=== PATIENT | female | born 1995 | race Caucasian/White ===

== ENCOUNTER 2017-03-09 23:35 | Emergency (ER) | payer OTHER ==
[2017-03-10] MEDS ORDERED: diphenhydrAMINE 50 MG/ML 1 ML VIAL IVP STA (00:06)
[2017-03-10] MEDS ORDERED: SODIUM CHLORIDE 0.9% 1,000 ML IV STA (00:06)
[2017-03-10] MEDS ORDERED: KETOROLAC 30 MG/ML 1 ML VIAL IVP STA (00:06)
[2017-03-10] MEDS ORDERED: DEXAMETHASONE SOD PHOSPHATE 10 MG/ML 1 ML VIAL IV STA (00:06)
[2017-03-10] MEDS ORDERED: METOCLOPRAMIDE 5 MG/ML 2 ML VIAL IVP STA (00:06)
--- NOTE | 2017-03-10 00:19 | ED ---
General Adult HPI - General Chief complaint: Headache Stated complaint: Headache x3 weeks/eye irratation Time Seen by Provider: 03/09/17 23:58 Source: patient, RN notes reviewed Mode of arrival: ambulatory Limitations: no limitations - History of Present Illness Initial comments: Patient 21-year-old female who presents emergency room today with a chief complaint of a headache 3 weeks. She does admit to a headache located in front of her head that radiates to the back. She does admit that she's had similar headaches in the past but states the usually do not last this long. Does admit to some photosensitivity. Does admit some episodes of nausea vomiting. Patient also admits that she woke up this morning noticed some redness and itching with some drainage coming from the left eye. Patient denies any other complaints or associated symptoms. She states she's tried multiple [id number] medications with little relief of headache. Patient denies any recent fever, chills, shortness of breath, chest pain, back pain, abdominal pain, nausea or vomiting, numbness or tingling, dysuria or hematuria, constipation or diarrhea, or any other complaints. - Related Data Previous Rx's Medication Instructions Recorded Tobramycin 0.3% Ophth Soln [Tobrex 1 - 2 drop BOTH EYES QID 7 Days 03/10/17 0.3% Ophth Soln] Allergies Allergy/AdvReac Type Severity Reaction Status Date / Time aspirin Allergy Rash/Hives Verified 03/10/17 00:23 Review of Systems ROS Statement: Those systems with pertinent positive or pertinent negative responses have been documented in the HPI. ROS Other: All systems not noted in ROS Statement are negative. Past Medical History Past Medical History: No Reported History History of Any Multi-Drug Resistant Organisms: None Reported Past Surgical History: Adenoidectomy, Tonsillectomy Additional Past Surgical History / Comment(s): left ear Past Anesthesia/Blood Transfusion Reactions: No Reported Reaction Past Psychological History: Depression Smoking Status: Current every day smoker Past Alcohol Use History: Occasional Past Drug Use History: None Reported - Past Family History Mother Family Medical History: No Reported History Additional Family Medical History / Comment(s): bipolar General Exam - General Exam Comments Initial Comments: General: The patient is awake and alert, in no distress, and does not appear acutely ill. Eye: Pupils are equal, round and reactive to light, extra-ocular movements are intact. No nystagmus. Mild redness to the left conjunctiva. Watery discharge at this time. No signs of icterus. Ears, nose, mouth and throat: There are moist mucous membranes and no oral lesions. Neck: The neck is supple, there is no tenderness or JVD. Cardiovascular: There is a regular rate and rhythm. No murmur, rub or gallop is appreciated. Respiratory: Lungs are clear to auscultation, respirations are non-labored, breath sounds are equal. No wheezes, stridor, rales, or rhonchi. Gastrointestinal: Soft, non-distended, non-tender abdomen without masses or organomegaly noted. There is no rebound or guarding present. No CVA tenderness. Bowel sounds are unremarkable. Musculoskeletal: Normal ROM, no tenderness. Strength 5/5. Sensation intact. Pulses equal bilaterally 2+. Neurological: A&O x 3. CN II-XII intact, There are no obvious motor or sensory deficits. Coordination appears grossly intact. Speech is normal. Skin: Skin is warm and dry and no rashes or lesions are noted. Psychiatric: Cooperative, appropriate mood & affect, normal judgment. Limitations: no limitations Course Vital Signs 03/09/17 23:46 Temperature 98.4 F Pulse Rate 98 Respiratory 20 Rate Blood Pressure 153/98 O2 Sat by Pulse 98 Oximetry Medical Decision Making - Medical Decision Making Patient reexamined this time shows no signs of distress. She does admit that headache has improved here in emergency room. Patient will be discharged home. Patient will be started on antibiotic drops For conjunctivitis. Advised follow-up the family doctor over the next 2 days. She is advised to return if any symptoms increase or worsen or for any other concerns. Disposition Clinical Impression: Headache, Acute conjunctivitis Disposition: HOME SELF-CARE Condition: Good Instructions: Acute Headache (ED) Additional Instructions: Please use medication as discussed. Please follow-up with family doctor in the next 2 days of symptoms have not improved. Please return to emergency room if the symptoms increase or worsen or for any other concerns. Prescriptions: Tobramycin 0.3% Ophth Soln [Tobrex 0.3% Ophth Soln] 1 - 2 drop BOTH EYES QID 7 Days Time of Disposition: 00:58
[2017-03-10 01:12] VITALS: BP 126/77; PULSE 68; RESP 18; TEMP 97.5
== END 2017-03-10 01:14 | disposition home or self-care (01) ==
LOC: EC 23:35
DX: R51 Headache (principal); H10.32 Unspecified acute conjunctivitis, left eye; R11.2 Nausea with vomiting, unspecified; F17.200 Nicotine dependence, unspecified, uncomplicated; Z88.6 Allergy status to analgesic agent
CPT/HCPCS: 99283; 96374; 96375 ×3; 96361; J1200; J1100; J2765; J1885

== ENCOUNTER 2017-06-25 23:53 | Emergency (ER) | payer OTHER ==
--- NOTE | 2017-06-26 00:29 | ED ---
General Adult HPI - General Source: patient, family, RN notes reviewed Mode of arrival: wheelchair Limitations: no limitations <Ranjit Cobb - Last Filed: 06/26/17 00:25> <Alcon Houser - Last Filed: 06/26/17 02:22> - General Chief complaint: Extremity Injury, Lower Stated complaint: hip pain Time Seen by Provider: 06/26/17 00:15 - History of Present Illness Initial comments: Chief complaint history of present illness this is a 19-year-old female who just finished her shift of work and complains of pain to the right hip area. This been ongoing and getting progressively worse over the past several days. Patient reports proximally one year ago while on the job she had a large number of boxes a merchandise fall on her. She is out of work for several months but then return to work without any difficulties or problems for several months until now she started to have pain in the right hip area. She states it feels like it swells up some time. The pain radiates from the right buttock to the lateral aspect of the right leg down to the knee. (Ranjit Cobb) - Related Data Previous Rx's Medication Instructions Recorded Tobramycin 0.3% Ophth Soln [Tobrex 1 - 2 drop BOTH EYES QID 7 Days 03/10/17 0.3% Ophth Soln] HYDROcodone/APAP 5-325MG [[place] 1 tab PO Q6HR PRN #12 tab 06/26/17 5-325] Ibuprofen [Motrin] 600 mg PO Q8HR PRN #24 tab 06/26/17 Allergies Allergy/AdvReac Type Severity Reaction Status Date / Time aspirin Allergy Rash/Hives Verified 03/10/17 00:23 Review of Systems ROS Other: All systems not noted in ROS Statement are negative. <Ranjit Cobb - Last Filed: 06/26/17 00:25> ROS Other: All systems not noted in ROS Statement are negative. <Alcon Houser - Last Filed: 06/26/17 02:22> ROS Statement: Those systems with pertinent positive or pertinent negative responses have been documented in the HPI. review of systems no other complaints other than as noted above. All systems are reviewed. Past medical problems none. Surgeries adenoids tonsils and left ear surgery on the lobe. Family history cancers include breast, lung, liver and skin. The patient has ALLERGIES to aspirin but she can take ibuprofen. She does smoke strongly encouraged to stop denies alcohol use. (Ranjit Cobb) Past Medical History Past Medical History: No Reported History History of Any Multi-Drug Resistant Organisms: None Reported Past Surgical History: Adenoidectomy, Tonsillectomy Additional Past Surgical History / Comment(s): left ear Past Anesthesia/Blood Transfusion Reactions: No Reported Reaction Past Psychological History: Depression Smoking Status: Current every day smoker Past Alcohol Use History: Occasional Past Drug Use History: None Reported - Past Family History Mother Family Medical History: No Reported History Additional Family Medical History / Comment(s): bipolar <Ranjit Cobb - Last Filed: 06/26/17 00:25> General Exam Limitations: no limitations <Ranjit Cobb - Last Filed: 06/26/17 00:25> Medical Decision Making <Ranjit Cobb - Last Filed: 06/26/17 00:25> <Alcon Houser - Last Filed: 06/26/17 02:22> - Medical Decision Making Patient was signed out from the previous physician. Complaints of right lateral hip pain. On examination patient has point tenderness over the lateral hip. Range of motion to the joint is within normal limits. Patient is afebrile , vital signs are stable. No history of fever. No concern for septic arthritis. Patient will be given a prescription for Motrin and [place]. She'll follow-up with her primary care physician. Diagnosis: Right hip bursitis (Alcon Houser) - Lab Data Lab Results 06/26/17 Range/Units 00:35 Urine HCG, Qual Not Detected (Not Detectd) Disposition <Ranjit Cobb - Last Filed: 06/26/17 00:25> Time of Disposition: 02:21 <Alcno Houser - Last Filed: 06/26/17 02:22> Clinical Impression: Bursitis of hip, right Disposition: HOME SELF-CARE Condition: Good Instructions: Hip Bursitis (ED) Prescriptions: HYDROcodone/APAP 5-325MG [[place] 5-325] 1 tab PO Q6HR PRN #12 tab PRN Reason: Pain Ibuprofen [Motrin] 600 mg PO Q8HR PRN #24 tab PRN Reason: Pain Referrals: None,Stated [Primary Care Provider] - 1-2 days
--- NOTE | 2017-06-26 01:28 | XR ---
EXAM: XR Right Hip With Pelvis When Performed, 2 or 3 Views CLINICAL HISTORY: Reason: Pain TECHNIQUE: Two or three views of the right hip, with pelvis when performed. COMPARISON: 06/21/2016 FINDINGS: Bones/joints: Unremarkable. No acute fracture. No dislocation. Soft tissues: Unremarkable. IMPRESSION: Normal right hip x-rays.
--- NOTE | 2017-06-26 01:39 | XR ---
EXAM: XR Lumbar Spine, 4 or 5 Views CLINICAL HISTORY: Reason: right sciatic distribution pain TECHNIQUE: Frontal, lateral and oblique views of the lumbar spine. COMPARISON: 06/21/2016 FINDINGS: Vertebrae: Unremarkable. No acute fracture. Normal alignment. Disc spaces: Mild narrowing of the L4-L5 intervertebral disc space is suggested. Soft tissues: Unremarkable. IMPRESSION: Mild narrowing of the L4-L5 intervertebral disc space is suggested. No evidence of acute osseous injury.
[2017-06-26 02:40] VITALS: BP 135/75; PULSE 68; RESP 20; TEMP 98.6
== END 2017-06-26 02:39 | disposition home or self-care (01) ==
LOC: EC 23:53
DX: M70.71 Other bursitis of hip, right hip (principal); F17.200 Nicotine dependence, unspecified, uncomplicated; Z88.6 Allergy status to analgesic agent
CPT/HCPCS: 72110; 73502; 81025; 99283

== ENCOUNTER → 2017-08-13 | Outpatient (CLI) | payer OTHER ==
--- NOTE | 2017-08-13 22:12 | MR ---
EXAMINATION TYPE: MR lumbar spine wo con DATE OF EXAM: 08/13/2017 8:28 PM COMPARISON: NONE HISTORY: Dorsalgia Multiplanar, MultiSpin echo imaging of the lumbar spine was performed. L1-L2: Normal disc appearance without desiccation. No herniation, protrusion or disc bulging. No ca nal stenosis is present. Foramina are patent bilaterally. L2-L3: Normal disc appearance without desiccation. No herniation, protrusion or disc bulging. No ca nal stenosis is present. Foramina are patent bilaterally. L3-L4: Normal disc appearance without desiccation. No herniation, protrusion or disc bulging. No ca nal stenosis is present. Foramina are patent bilaterally. L4-L5: Moderate disc desiccation. Posterior disc bulge with annular tear. Mild effacement ventral the faisal sac. No evidence for lateral recess stenosis or central stenosis. Foramina are patent bilaterally . L5-S1: Normal disc appearance without desiccation. No herniation, protrusion or disc bulging. No ca nal stenosis is present. Foramina are patent bilaterally. Lumbar segments are intact. No paraspinal masses are identified. Conus medullaris has a normal appe arance. IMPRESSION: 1. Degenerative disc disease at L4-5 with posterior disc bulge and annular tear.
--- NOTE | 2017-08-16 07:53 | MR ---
EXAMINATION TYPE: MR hip RT wo con DATE OF EXAM: 08/13/2017 COMPARISON: NONE HISTORY: Right hip pain Standard multiplanar, multisequence MRI departmental protocol Multiplanar, multisequence images of the right hip were acquired. Diffusion weighted imaging was perf ormed. FINDINGS: There is normal bone marrow signal identified. I do not see evidence for fracture, bone contusion or avascular necrosis. There is no evidence for joint effusion this time. No soft tissue masses are seen. No evidence for intramuscular contusion or tear. No evidence for labral tear or femoral acetabular impingement. Incidental small follicular cysts are seen of the ovaries. IMPRESSION: No significant abnormality attributable to the right hip.
== END | disposition home or self-care (01) ==
LOC: RADMRIMAIN 19:24
PROVIDERS: ATTEND Family Medicine
DX: M51.26 Other intervertebral disc displacement, lumbar region (principal); M25.551 Pain in right hip
CPT/HCPCS: 72148

== ENCOUNTER 2017-11-02 12:27 | Emergency (ER) | payer OTHER ==
--- NOTE | 2017-11-02 13:08 | ED ---
General Adult HPI - General Chief complaint: Upper Respiratory Infection Stated complaint: cough/congestion Time Seen by Provider: 11/02/17 12:54 Source: patient, RN notes reviewed Mode of arrival: ambulatory Limitations: no limitations - History of Present Illness Initial comments: 22-year-old female presents emergency 5 chief complaint of cough cold like symptoms. She states she's been feeling this way for about 3 days. She states she's had high fevers. She states she's had some nausea with this. She states there is she coughs she gets some low back pain as well. She isn't changed by bladder habits. Patient was concerned due to the continued coughing so she thought that she should be evaluated. Patient denies any recent shortness of breath, chest pain, abdominal pain, vomiting, numbness or tingling, dysuria or hematuria, constipation or diarrhea, headaches or visual changes, or any other current symptoms. - Related Data Home Medications Medication Instructions Recorded Confirmed HYDROcodone/APAP 7.5-325MG [[place] 1 tab PO Q6H PRN 11/02/17 11/02/17 7.5-325] Ibuprofen [Motrin] 800 mg PO Q6H PRN 11/02/17 11/02/17 Allergies Allergy/AdvReac Type Severity Reaction Status Date / Time aspirin Allergy Rash/Hives Verified 11/02/17 13:16 tramadol Allergy Rash/Hives Verified 11/02/17 13:16 Review of Systems ROS Statement: Those systems with pertinent positive or pertinent negative responses have been documented in the HPI. ROS Other: All systems not noted in ROS Statement are negative. Past Medical History Past Medical History: No Reported History History of Any Multi-Drug Resistant Organisms: None Reported Past Surgical History: Adenoidectomy, Tonsillectomy Additional Past Surgical History / Comment(s): left ear Past Anesthesia/Blood Transfusion Reactions: No Reported Reaction Past Psychological History: Depression Smoking Status: Current every day smoker Past Alcohol Use History: None Reported Past Drug Use History: None Reported - Past Family History Mother Family Medical History: No Reported History Additional Family Medical History / Comment(s): bipolar General Exam - General Exam Comments Initial Comments: General exam: Alert, active, comfortable in no apparent distress Head: Normocephalic Eyes: Normal reaction of pupils, equal size, normal range of extraocular motion Ears: normal external ear canals Nose: clear with pink turbinates Throat: no erythema or exudates with normal sized tonsils Neck: no masses, no nuchal rigidity Chest: no chest wall deformity Lungs: equal air entry with no crackles or wheeze CVS: S1 and S2 normal with no audible mumurs, regular rhythm Skin: no rashes Neurological: No focal deficits, tone is normal in all 4 extremities Limitations: no limitations Course Vital Signs 11/02/17 12:43 Temperature 100.3 F H Pulse Rate 93 Respiratory 20 Rate Blood Pressure 146/76 O2 Sat by Pulse 99 Oximetry Medical Decision Making - Medical Decision Making 22-year-old female presents to the emergency Department chief complaint of cough cold like symptoms. This time patient was tested for influenza as well as an x-ray was performed. At this time patient's imaging and results are reviewed and negative. We discussed follow-up we discussed return parameters all the patient's family's questions. They stated the Mathew management this plan. All questions have been answered. At this time the patient will be discharged home. - Lab Data Lab Results 11/02/17 Range/Units 13:15 Influenza Type A RNA Not Detected (Not Detectd) Influenza Type B (PCR) Not Detected (Not Detectd) - Radiology Data Radiology results: report reviewed, image reviewed Disposition Clinical Impression: Upper respiratory infection Disposition: HOME SELF-CARE Condition: Stable Instructions: Upper Respiratory Infection (ED) Additional Instructions: Please use medication as discussed. Please follow up with family doctor if symptoms have not improved over the next two days. Please return to the emergency room if your symptoms increase or worsen or for any other concerns. Referrals: Spencer Schumacher MD [Primary Care Provider] - 1-2 days Time of Disposition: 13:45
--- NOTE | 2017-11-02 13:18 | XR ---
EXAMINATION TYPE: XR chest 2V DATE OF EXAM: 11/02/2017 COMPARISON: None HISTORY: 22-year-old female with cough and shortness of breath TECHNIQUE: PA and lateral views FINDINGS: The cardiomediastinal silhouette, aorta, and pulmonary vasculature are within normal limits. Lungs an d pleural spaces are clear. IMPRESSION: No acute cardiopulmonary process.
[2017-11-02 13:52] VITALS: BP 153/92; PULSE 72; RESP 18; TEMP 97.6
== END 2017-11-02 13:55 | disposition home or self-care (01) ==
LOC: EC 12:27
DX: J06.9 Acute upper respiratory infection, unspecified (principal); R11.0 Nausea; Z88.6 Allergy status to analgesic agent; F17.200 Nicotine dependence, unspecified, uncomplicated
CPT/HCPCS: 71020; 87502; 99283

== ENCOUNTER 2018-01-16 19:52 | Emergency (ER) | payer OTHER ==
[2018-01-16 20:00] VITALS: RESP 18
[2018-01-16] MEDS ORDERED: ACETAMINOPHEN TAB 325 MG TAB PO STA (20:25)
[2018-01-16] MEDS ORDERED: ONDANSETRON 4 MG/2 ML VIAL IVP STA (20:25)
[2018-01-16] MEDS ORDERED: SODIUM CHLORIDE 0.9% 1,000 ML IV STA (20:25)
--- NOTE | 2018-01-16 20:32 | ED ---
Abdominal Pain HPI - General Chief Complaint: Abdominal Pain Stated Complaint: SOB/abdominal pain/Female Time Seen by Provider: 01/16/18 20:02 Source: patient Mode of arrival: ambulatory Limitations: no limitations - History of Present Illness Initial Comments: Patient presents with nausea and vomiting for the past one month. Patient states last initial period was in October of last year. Patient states she took a home test was negative. Patient states she's had intermittent mild bilateral lower abdominal cramping. Patient states vomiting occurs anything she smelled something bad. Patient denies fevers. She denies change in urination. Patient denies vaginal bleeding or discharge. Patient denies constipation or diarrhea. Patient been once before, resulting in live of her son. - Related Data Home Medications Medication Instructions Recorded Confirmed HYDROcodone/APAP 7.5-325MG [[place] 1 tab PO Q6H PRN 11/02/17 01/16/18 7.5-325] Ibuprofen [Motrin] 800 mg PO Q6H PRN 11/02/17 01/16/18 Previous Rx's Medication Instructions Recorded 114/Iron A-G/Folate 1 1 each PO DAILY #30 tablet 01/16/18 [Prenate Elite Tablet] Allergies Allergy/AdvReac Type Severity Reaction Status Date / Time aspirin Allergy Rash/Hives Verified 01/16/18 20:15 tramadol Allergy Rash/Hives Verified 01/16/18 20:15 Review of Systems ROS Statement: Those systems with pertinent positive or pertinent negative responses have been documented in the HPI. ROS Other: All systems not noted in ROS Statement are negative. Constitutional: Denies: fever, chills, weakness Eyes: Denies: vision change ENT: Denies: congestion Respiratory: Denies: cough Cardiovascular: Denies: chest pain, palpitations Endocrine: Denies: fatigue Gastrointestinal: Reports: abdominal pain, nausea, vomiting. Denies: diarrhea, constipation, hematemesis, melena, hematochezia Genitourinary: Denies: urgency, dysuria, frequency, hematuria, discharge Musculoskeletal: Denies: back pain Skin: Denies: rash, change in color Neurological: Denies: headache Past Medical History Past Medical History: No Reported History History of Any Multi-Drug Resistant Organisms: None Reported Past Surgical History: Adenoidectomy, Tonsillectomy Additional Past Surgical History / Comment(s): left ear Past Anesthesia/Blood Transfusion Reactions: No Reported Reaction Past Psychological History: Depression Smoking Status: Former smoker Past Alcohol Use History: None Reported Past Drug Use History: None Reported - Past Family History Mother Family Medical History: No Reported History Additional Family Medical History / Comment(s): bipolar General Exam - General Exam Comments Initial Comments: Sitting up in bed. No acute distress. Conversing normally. Calm, pleasant. Limitations: no limitations General appearance: alert, in no apparent distress Head exam: Absent: atraumatic, normocephalic Eye exam: Present: normal appearance. Absent: PERRL, EOMI ENT exam: Present: mucous membranes moist Neck exam: Present: normal inspection Respiratory exam: Present: normal lung sounds bilaterally. Absent: respiratory distress, wheezes, rales, rhonchi Cardiovascular Exam: Present: normal rhythm, tachycardia GI/Abdominal exam: Present: soft, tenderness (Mild tenderness across lower abdomen), normal bowel sounds. Absent: distended, guarding, rebound, rigid Extremities exam: Present: other (No gross deformities. No lower extremity edema or tenderness.) Back exam: Absent: CVA tenderness (R), CVA tenderness (L) Neurological exam: Present: alert, oriented X3 Psychiatric exam: Present: normal affect, normal mood Skin exam: Present: warm, dry, intact, normal color. Absent: rash, cyanosis, diaphoretic, erythema Course Vital Signs 01/16/18 19:56 Temperature 98.2 F Pulse Rate 112 H Respiratory 18 Rate Blood Pressure 139/85 O2 Sat by Pulse 100 Oximetry Medical Decision Making - Medical Decision Making Patient states she thinks she is probably . Serum hCG ordered. IV fluids, Zofran given. Serum test positive Ultrasound shows single live intrauterine estimated age 13 weeks 0 days. Patient updated with all results. Asymptomatic at this time. Denies vaginal bleeding or discharge. Patient follow-up with her OB doctor tomorrow. Prescription vitamins given. Return to ER if new or worsening symptoms including increased abdominal pain, vaginal bleeding, vaginal discharge. Patient understands and agrees. - Lab Data Result diagrams: 01/16/18 21:11 01/16/18 21:11 Lab Results 01/16/18 01/16/18 01/16/18 Range/Units 21:11 21:11 21:11 WBC 8.4 (3.8-10.6) k/uL RBC 4.45 (3.80-5.40) m/uL Hgb 12.7 (11.4-16.0) gm/dL Hct 37.6 (34.0-46.0) % MCV 84.6 (80.0-100.0) fL MCH 28.6 (25.0-35.0) pg MCHC 33.8 (31.0-37.0) g/dL RDW 12.6 (11.5-15.5) % Plt Count 220 (150-450) k/uL Neutrophils % 71 % Lymphocytes % 21 % Monocytes % 6 % Eosinophils % 1 % Basophils % 0 % Neutrophils # 5.9 (1.3-7.7) k/uL Lymphocytes # 1.8 (1.0-4.8) k/uL Monocytes # 0.5 (0-1.0) k/uL Eosinophils # 0.1 (0-0.7) k/uL Basophils # 0.0 (0-0.2) k/uL Sodium 140 (137-145) mmol/L Potassium 4.0 (3.5-5.1) mmol/L Chloride 106 (98-107) mmol/L Carbon Dioxide 23 (22-30) mmol/L Anion Gap 11 mmol/L BUN 6 L (7-17) mg/dL Creatinine 0.50 L (0.52-1.04) mg/dL Est GFR (CKD-EPI)AfAm >90 (>60 ml/min/1.73 sqM) Est GFR (CKD-EPI)NonAf >90 (>60 ml/min/1.73 sqM) Glucose 91 (74-99) mg/dL Calcium 9.7 (8.4-10.2) mg/dL Total Bilirubin 0.3 (0.2-1.3) mg/dL Conjugated Bilirubin 0.0 (0.0-0.3) mg/dL Unconjugated Bilirubin 0.0 (0.0-1.1) mg/dL Delta Bilirubin 0.3 H (0.0-0.2) mg/dL AST 19 (14-36) U/L ALT 22 (9-52) U/L Alkaline Phosphatase 43 (38-126) U/L Total Protein 6.5 (6.3-8.2) g/dL Albumin 4.0 (3.5-5.0) g/dL Lipase 143 (23-300) U/L HCG, Quant 02330.8 mIU/mL Urine Color Yellow Urine Appearance Clear (Clear) Urine pH 6.0 (5.0-8.0) Ur Specific [place] 1.018 (1.001-1.035) Urine Protein Trace H (Negative) Urine Glucose (UA) Negative (Negative) Urine Ketones Negative (Negative) Urine Blood Negative (Negative) Urine Nitrite Negative (Negative) Urine Bilirubin Negative (Negative) Urine Urobilinogen <2.0 (<2.0) mg/dL Ur Leukocyte Esterase Small H (Negative) Urine WBC 5 (0-5) /hpf Ur Squamous Epith Cells 4 (0-4) /hpf Urine Mucus Occasional H (None) /hpf Disposition Clinical Impression: Abdominal pain affecting Disposition: HOME SELF-CARE Condition: Good Instructions: Abdominal Pain in (ED) Additional Instructions: Call your OB doctor in the morning for follow-up within 1-2 days. Return to ER for new or worsening symptoms including vaginal bleeding, vaginal discharge, increased pain. Prescriptions: 114/Iron A-G/Folate 1 [Prenate Elite Tablet] 1 each PO DAILY #30 tablet Referrals: Spencer Schumacher MD [Primary Care Provider] - 1-2 days
[2018-01-16 21:25] LABS: Basophils % (A) 0 %; Eosinophils # (A) 0.1 k/uL (0-0.7); Eosinophils % (A) 1 %; HCT 37.6 % (34.0-46.0); HGB 12.7 gm/dL (11.4-16.0); Lymphocytes # (A) 1.8 k/uL (1.0-4.8); Lymphocytes % (A) 21 %; MCH 28.6 pg (25.0-35.0); MCHC 33.8 g/dL (31.0-37.0); MCV 84.6 fL (80.0-100.0); Mean Platelet Volume 8.7; Monocytes # (A) 0.5 k/uL (0-1.0); Monocytes % (A) 6 %; Neutrophils # (A) 5.9 k/uL (1.3-7.7); Neutrophils % (A) 71 %; Platelet Count 220 k/uL (150-450); RBC 4.45 m/uL (3.80-5.40); RDW 12.6 % (11.5-15.5); WBC 8.4 k/uL (3.8-10.6)
[2018-01-16 21:29] LABS: Appearance,Urine Clear (Clear); Bilirubin,Urine Negative (Negative); Blood,Urine Negative (Negative); Color,Urine Yellow; Glucose,Urine (UA) Negative (Negative); Ketones,Urine Negative (Negative); Leukocyte Esterase,Urine Small (Negative); Mucus,Urine Occasional /hpf; Nitrite,Urine Negative (Negative); Protein,Urine Trace (Negative); Specific Gravity,Urine 1.018 (1.001-1.035); Squamous Epithelial Cell,Urine 4 /hpf (0-4); Urobilinogen,Urine <2.0 mg/dL (<2.0); WBC,Urine 5 /hpf (0-5)
[2018-01-16 21:33] LABS: ALT 22 U/L (9-52); AST 19 U/L (14-36); Alkaline Phosphatase 43 U/L (38-126); Anion Gap 11 mmol/L; Bilirubin, Delta 0.3 mg/dL (0.0-0.2); Blood Urea Nitrogen 6 mg/dL (7-17); Calcium 9.7 mg/dL (8.4-10.2); Carbon Dioxide 23 mmol/L (22-30); Chloride 106 mmol/L (98-107); Glucose 91 mg/dL (74-99); Lipase 143 U/L (23-300); Sodium 140 mmol/L (137-145); Total Bilirubin 0.3 mg/dL (0.2-1.3); Total Protein 6.5 g/dL (6.3-8.2)
--- NOTE | 2018-01-16 22:08 | US ---
EXAMINATION TYPE: US OB <= 14 wk fetus DATE OF EXAM: 01/16/2018 COMPARISON: NONE CLINICAL HISTORY: Pain. N/V, LMP- end october EXAM PERFORMED: Transabdominal pelvic ultrasound. EXAM MEASUREMENTS: GESTATIONAL AGE / DATING Dates by LMP: Unknown Dates by Current Scan for: (13 weeks/0 days) EDC: 07/24/2018 MATERNAL ANATOMY Uterus: 11.6 x 10.2 x 7.9 cm Right Ovary: 3.1 x 2.3 x 1.4 cm Left Ovary: 2.8 x 1.7 x 1.8 cm Post CDS / Adnexa: no free fluid Presence of free fluid: no Presence of corpus luteal cyst: left ovarian hypoechoic nonvascular lesion - 1.2 x 1.4 x 1.3 cm Presence of subchorionic bleed: no GESTATION / SURVEY CRL: 6.8 cm (13 weeks/0 days) MSD: Seen, not measured Heart Rate: 155 bpm Rhythm: Normal IUP: Viable IUP Date of LMP: Unknown, Beta HcG (if available): Not available at this time Single live IUP measuring 13 weeks 0 days IMPRESSION: Single live intrauterine with a sonographic age of 13 weeks and 0 days and estimated date o f delivery of 07/24/2018.
[2018-01-16 22:24] LABS: HCG,Quantitative Serum 71294.8 mIU/mL
[2018-01-16 23:02] VITALS: BP 130/60; PULSE 75; TEMP 97.9
== END 2018-01-16 23:02 | disposition home or self-care (01) ==
LOC: EC 19:52
DX: O99.89 Other specified diseases and conditions complicating pregnancy, childbirth and the puerperium (principal); R10.31 Right lower quadrant pain; R10.32 Left lower quadrant pain; O21.9 Vomiting of pregnancy, unspecified; Z88.6 Allergy status to analgesic agent; Z87.891 Personal history of nicotine dependence; Z3A.13 13 weeks gestation of pregnancy
CPT/HCPCS: 99284; 96374; 36415; 80048; 80076; 83690; 85025; 81001; 84702; 87086; 76801; J2405

== ENCOUNTER 2018-02-01 11:57 | Emergency (ER) | payer OTHER ==
[2018-02-01 12:49] LABS: Basophils % (A) 0 %; Eosinophils # (A) 0.1 k/uL (0-0.7); Eosinophils % (A) 1 %; HCT 34.4 % (34.0-46.0); HGB 12.4 gm/dL (11.4-16.0); Lymphocytes # (A) 1.3 k/uL (1.0-4.8); Lymphocytes % (A) 22 %; MCH 29.9 pg (25.0-35.0); Mean Platelet Volume 8.2; Monocytes # (A) 0.2 k/uL (0-1.0); Monocytes % (A) 4 %; Neutrophils # (A) 4.4 k/uL (1.3-7.7); Neutrophils % (A) 72 %; Platelet Count 211 k/uL (150-450); RBC 4.14 m/uL (3.80-5.40); WBC 6.1 k/uL (3.8-10.6)
[2018-02-01 12:50] LABS: Appearance,Urine Cloudy (Clear); Bilirubin,Urine Negative (Negative); Blood,Urine Negative (Negative); Color,Urine Yellow; Glucose,Urine (UA) Negative (Negative); Ketones,Urine Negative (Negative); Leukocyte Esterase,Urine Negative (Negative); Mucus,Urine Rare /hpf; Nitrite,Urine Negative (Negative); Protein,Urine Negative (Negative); RBC,Urine 1 /hpf (0-5); Specific Gravity,Urine 1.012 (1.001-1.035); Squamous Epithelial Cell,Urine 1 /hpf (0-4); Urobilinogen,Urine <2.0 mg/dL (<2.0); WBC,Urine 2 /hpf (0-5)
[2018-02-01] MEDS ORDERED: ACETAMINOPHEN TAB 500 MG TAB PO STA (13:01)
--- NOTE | 2018-02-01 13:04 | ED ---
General Adult HPI - General Chief complaint: Abdominal Pain Stated complaint: 15 wks & cramping Time Seen by Provider: 02/01/18 12:56 Source: patient, RN notes reviewed, old records reviewed Mode of arrival: ambulatory Limitations: no limitations - History of Present Illness Initial comments: Patient 22-year-old female who is G2, P1, 15 weeks by ultrasound, presenting to the emergency room today with lower abdominal cramping. Patient states symptoms started yesterday. Patient states she has not taken any Tylenol for the pain. Patient does admit she was seen here in the emergency room 2 weeks ago had an ultrasound showing good syndrome IUP at 13 weeks. Patient denies any vaginal bleeding or discharge. Denies any other complaints or symptoms. Patient denies any recent fever, chills, shortness of breath, chest pain, back pain, nausea or vomiting, numbness or tingling, headaches or visual changes, or any other complaints. - Related Data Home Medications Medication Instructions Recorded Confirmed HYDROcodone/APAP 7.5-325MG [Kyle 1 tab PO Q6H PRN 11/02/17 02/01/18 7.5-325] Ibuprofen [Motrin] 800 mg PO Q6H PRN 11/02/17 02/01/18 114/Iron A-G/Folate 1 1 tab PO DAILY 02/01/18 02/01/18 [Prenate Elite Tablet] Allergies Allergy/AdvReac Type Severity Reaction Status Date / Time aspirin Allergy Rash/Hives Verified 02/01/18 13:05 tramadol Allergy Rash/Hives Verified 02/01/18 13:05 Review of Systems ROS Statement: Those systems with pertinent positive or pertinent negative responses have been documented in the HPI. ROS Other: All systems not noted in ROS Statement are negative. Past Medical History Past Medical History: No Reported History History of Any Multi-Drug Resistant Organisms: None Reported Past Surgical History: Adenoidectomy, Tonsillectomy Additional Past Surgical History / Comment(s): left ear Past Anesthesia/Blood Transfusion Reactions: No Reported Reaction Past Psychological History: Depression Smoking Status: Current some day smoker Past Alcohol Use History: None Reported Past Drug Use History: None Reported - Past Family History Mother Family Medical History: No Reported History Additional Family Medical History / Comment(s): bipolar General Exam - General Exam Comments Initial Comments: General: The patient is awake and alert, in no distress, and does not appear acutely ill. Eye: Pupils are equal, round and reactive to light, extra-ocular movements are intact. No nystagmus. There is normal conjunctiva bilaterally. No signs of icterus. Ears, nose, mouth and throat: There are moist mucous membranes and no oral lesions. Neck: The neck is supple, there is no tenderness or JVD. Cardiovascular: There is a regular rate and rhythm. No murmur, rub or gallop is appreciated. Respiratory: Lungs are clear to auscultation, respirations are non-labored, breath sounds are equal. No wheezes, stridor, rales, or rhonchi. Gastrointestinal: Is also on palpation. Mild tenderness lower quadrants on exam. No rebound tenderness. No guarding. No CVA tenderness. Musculoskeletal: Normal ROM, no tenderness. Strength 5/5. Sensation intact. Pulses equal bilaterally 2+. Neurological: A&O x 3. CN II-XII intact, There are no obvious motor or sensory deficits. Coordination appears grossly intact. Speech is normal. Skin: Skin is warm and dry and no rashes or lesions are noted. Psychiatric: Cooperative, appropriate mood & affect, normal judgment. Limitations: no limitations Course Vital Signs 02/01/18 12:19 Temperature 97.9 F Pulse Rate 83 Respiratory 18 Rate Blood Pressure 150/84 O2 Sat by Pulse 99 Oximetry Medical Decision Making - Medical Decision Making Patient reexamined at this time shows no signs of distress. Patient was given Tylenol here in the emergency room is feeling better. Cramping is improving. There is no bleeding or discharge. Patient on 01/16/2018 had a ultrasound showing single IUP at 13 weeks. Patient doing well at this time. Abdomen soft on palpation. Patient feels comfortable being discharged home to follow-up with [facility]. She states she has to see Dr. Heath. - Lab Data Result diagrams: 02/01/18 12:37 02/01/18 12:37 Lab Results 02/01/18 02/01/18 02/01/18 Range/Units 12:22 12:37 12:37 WBC 6.1 (3.8-10.6) k/uL RBC 4.14 (3.80-5.40) m/uL Hgb 12.4 (11.4-16.0) gm/dL Hct 34.4 (34.0-46.0) % MCV 83.0 (80.0-100.0) fL MCH 29.9 (25.0-35.0) pg MCHC 36.0 (31.0-37.0) g/dL RDW 13.0 (11.5-15.5) % Plt Count 211 (150-450) k/uL Neutrophils % 72 % Lymphocytes % 22 % Monocytes % 4 % Eosinophils % 1 % Basophils % 0 % Neutrophils # 4.4 (1.3-7.7) k/uL Lymphocytes # 1.3 (1.0-4.8) k/uL Monocytes # 0.2 (0-1.0) k/uL Eosinophils # 0.1 (0-0.7) k/uL Basophils # 0.0 (0-0.2) k/uL Sodium 138 (137-145) mmol/L Potassium 4.1 (3.5-5.1) mmol/L Chloride 105 (98-107) mmol/L Carbon Dioxide 21 L (22-30) mmol/L Anion Gap 12 mmol/L BUN 6 L (7-17) mg/dL Creatinine 0.46 L (0.52-1.04) mg/dL Est GFR (CKD-EPI)AfAm >90 (>60 ml/min/1.73 sqM) Est GFR (CKD-EPI)NonAf >90 (>60 ml/min/1.73 sqM) Glucose 81 (74-99) mg/dL Calcium 9.9 (8.4-10.2) mg/dL Total Bilirubin 0.4 (0.2-1.3) mg/dL AST 15 (14-36) U/L ALT 12 (9-52) U/L Alkaline Phosphatase 43 (38-126) U/L Total Protein 6.5 (6.3-8.2) g/dL Albumin 3.9 (3.5-5.0) g/dL Amylase 56 (30-110) U/L Lipase 87 (23-300) U/L Urine Color Yellow Urine Appearance Cloudy H (Clear) Urine pH 8.0 (5.0-8.0) Ur Specific Huntly 1.012 (1.001-1.035) Urine Protein Negative (Negative) Urine Glucose (UA) Negative (Negative) Urine Ketones Negative (Negative) Urine Blood Negative (Negative) Urine Nitrite Negative (Negative) Urine Bilirubin Negative (Negative) Urine Urobilinogen <2.0 (<2.0) mg/dL Ur Leukocyte Esterase Negative (Negative) Urine RBC 1 (0-5) /hpf Urine WBC 2 (0-5) /hpf Ur Squamous Epith Cells 1 (0-4) /hpf Urine Mucus Rare H (None) /hpf Disposition Clinical Impression: Abdominal pain in Disposition: HOME SELF-CARE Condition: Good Instructions: Abdominal Pain in (ED) Additional Instructions: Please use Tylenol for pain as needed. Please follow-up with [facility]/family doctor in the next 2 days of symptoms have not improved. Please return to emergency room if the symptoms increase or worsen or for any other concerns. Referrals: Spencer Schumacher MD [Primary Care Provider] - 1-2 days Time of Disposition: 13:34
[2018-02-01 13:10] LABS: ALT 12 U/L (9-52); AST 15 U/L (14-36); Albumin 3.9 g/dL (3.5-5.0); Alkaline Phosphatase 43 U/L (38-126); Amylase 56 U/L (30-110); Anion Gap 12 mmol/L; Blood Urea Nitrogen 6 mg/dL (7-17); Calcium 9.9 mg/dL (8.4-10.2); Carbon Dioxide 21 mmol/L (22-30); Chloride 105 mmol/L (98-107); Glucose 81 mg/dL (74-99); Lipase 87 U/L (23-300); Potassium 4.1 mmol/L (3.5-5.1); Sodium 138 mmol/L (137-145); Total Bilirubin 0.4 mg/dL (0.2-1.3); Total Protein 6.5 g/dL (6.3-8.2)
[2018-02-01 13:40] VITALS: BP 131/70; PULSE 80; RESP 16; TEMP 98
== END 2018-02-01 13:39 | disposition home or self-care (01) ==
LOC: EC 11:57
DX: O26.892 Other specified pregnancy related conditions, second trimester (principal); R10.30 Lower abdominal pain, unspecified; O99.332 Smoking (tobacco) complicating pregnancy, second trimester; F17.200 Nicotine dependence, unspecified, uncomplicated; Z3A.15 15 weeks gestation of pregnancy; Z88.6 Allergy status to analgesic agent
CPT/HCPCS: 36415; 80053; 81001; 82150; 83690; 85025; 87086; 99284

== ENCOUNTER 2018-04-18 15:18 | Outpatient (CLI) | payer OTHER ==
[2018-04-18 16:10] LABS: Appearance,Urine Clear (Clear); Bilirubin,Urine Negative (Negative); Blood,Urine Negative (Negative); Color,Urine Yellow; Glucose,Urine (UA) Negative (Negative); Ketones,Urine Negative (Negative); Leukocyte Esterase,Urine Negative (Negative); Nitrite,Urine Negative (Negative); Protein,Urine Negative (Negative); Urobilinogen,Urine <2.0 mg/dL (<2.0)
[2018-04-18 17:00] VITALS: BP 105/69; PULSE 78; RESP 18; TEMP 97.4
--- NOTE | 2018-05-06 09:59 | P.MSEPDOC ---
Presenting Problems - Arrival Data Date of Arrival on Unit: 04/18/18 Time of Arrival on Unit: 15:18 Mode of Transport: Wheelchair - Complaint OB-Reason for Admission/Chief Complaint: Pain Comment: abd and back pain, left arm numbness Medical History - Information : 2 Para: 1 Term: 1 : 0 Abortions: Spontaneous or Elective: 0 Number of Living Children: 1 - Gestational Age Gestational Age by MANJU (wks/days): 26 Weeks and 1 Days - History Complications: Breech, Smoker Sexually Transmitted Diseases: Chlamydia Comment: tx for std one month ago Review of Systems - Review of Systems Constitutional: No problems Breast: No problems ENT: No problems Cardiovascular: No problems Respiratory: No problems Gastrointestinal: No problems Genitourinary: No problems Musculoskeletal: No problems Neurological: No problems Skin: No problems Vital Signs - Temperature Temperature: 97.4 F Temperature Source: Temporal Artery Scan - Pulse Right Brachial Pulse Rate: 78 Pulse Assessment Method: Automatic Cuff - Respirations Respiratory Rate: 18 Oxygen Delivery Method: Room Air O2 Sat by Pulse Oximetry: 98 - Blood Pressure Right Arm Blood Pressure: 105/69 Blood Pressure Mean: 81 Blood Pressure Source: Automatic Cuff Medical Screen Scoring (Pre) - Cervical Exam Dilation: 0 cm = 0 Membranes: Intact - Uterine Contractions Frequency: N/A Duration: N/A Intensity: N/A - Maternal Vital Signs Maternal Temperature: N/A Maternal Blood Pressure: N/A Signs of Preeclampsia: N/A Maternal Respirations: N/A - Pain Assessment Pain Location and Character: Back, Abdomen Pain Scale Used: Numeric (1 - 10) Pain Intensity: 8 Pain Description: *Acute Pain Radiation Location: none Pain Frequency: Intermittent Pain Duration: 2 Pain Duration Units: Days Pain Behavior: Vocalization Pain Aggravating Factors: Activity - Maternal Trauma Maternal Trauma: N/A - Assessment Baseline FHR: 145 Heart Rate - NICHD Category: Category I (Normal) = 0 Position: N/A, Non-vertex & not laboring = 3 Station: N/A - Total Score Total Score (Pre): 3 - Level of Risk Level of Risk: Low (0-5) Physician Notification (Pre) - Physician Notified Physician Notified Date: 04/18/18 Physician Notified Time: 16:02 Physician/Practitioner Notifed:: Dr. Heath Spoke With: Dr. Heath New Order Received: Yes - Notification Comment Comment: discharge pt home if UA WNL Disposition - Disposition OB Disposition: Triage, Discharge to home, Written follow up instructions reviewed Discharge Date: 04/18/18 Discharge Time: 16:30 I agree with the RN Medical Screening Exam: Yes Risk & Benefit of care provided described in d/c instruction: Yes Diagnosis: RELATED CONDITIONS, UNSPECIFIED, SECOND TRIMESTER
== END 2018-04-18 16:30 | disposition home or self-care (01) ==
LOC: FBPOP 15:18
PROVIDERS: ATTEND Obstetrics & Gynecology
DX: O26.92 Pregnancy related conditions, unspecified, second trimester (principal); Z3A.26 26 weeks gestation of pregnancy; O99.332 Smoking (tobacco) complicating pregnancy, second trimester
CPT/HCPCS: 81003; G0463; 99213

== ENCOUNTER 2018-07-13 22:00 | Outpatient (CLI) | payer OTHER ==
[2018-07-13 22:17] VITALS: BP 139/95; PULSE 66; RESP 16; TEMP 97.1
--- NOTE | 2018-08-10 00:19 | P.MSEPDOC ---
Presenting Problems - Arrival Data Date of Arrival on Unit: 07/13/18 Time of Arrival on Unit: 22:00 Mode of Transport: Wheelchair - Complaint OB-Reason for Admission/Chief Complaint: Rule Out SROM Comment: 1800, clear fluid Medical History - Information : 2 Para: 1 Term: 1 : 0 Abortions: Spontaneous or Elective: 0 Number of Living Children: 1 - Gestational Age Gestational Age by MANJU (wks/days): 38 Weeks and 3 Days Review of Systems - Review of Systems Constitutional: No problems Breast: No problems ENT: No problems Cardiovascular: No problems Respiratory: No problems Gastrointestinal: No problems Genitourinary: No problems Musculoskeletal: No problems Neurological: No problems Skin: No problems Vital Signs - Temperature Temperature: 97.1 F Temperature Source: Temporal Artery Scan - Pulse Right Supine Brachial Pulse Rate: 66 Pulse Assessment Method: Automatic Cuff - Respirations Respiratory Rate: 16 Oxygen Delivery Method: Room Air O2 Sat by Pulse Oximetry: 98 - Blood Pressure Right Arm Supine Blood Pressure: 139/95 Blood Pressure Mean: 109 Blood Pressure Source: Automatic Cuff Medical Screen Scoring (Pre) - Cervical Exam Dilation: 1-3 cm = 1 Effacement: More than 50% = 2 Membranes: Intact - Uterine Contractions Frequency: > or = 36 weeks =2 Duration: > 40 seconds = 2 Intensity: N/A - Maternal Vital Signs Maternal Temperature: N/A Maternal Blood Pressure: Diastolic > 89 = 1 Signs of Preeclampsia: N/A Maternal Respirations: N/A - Pain Assessment Pain Location and Character: Abdomen Pain Scale Used: Numeric (1 - 10) Pain Intensity: 8 Pain Management Goal: 0 Pain Description: *Acute, Cramping Pain Radiation Location: no Pain Frequency: Intermittent Pain Duration: 2 Pain Duration Units: Hours Pain Behavior: Vocalization Pain Aggravating Factors: Contractions - Maternal Trauma Maternal Trauma: N/A - Assessment Baseline FHR: 145 Heart Rate - NICHD Category: Category I (Normal) = 0 NST: Reactive Position: N/A - Total Score Total Score (Pre): 8 - Level of Risk Level of Risk: Medium (6-9) Physician Notification (Post) - Physician Notified Physician Notified Date: 07/13/18 Physician Notified Time: 23:13 Physician/Practitioner Notified:: Ginatubmohini New Order Received: Yes - Notification Comment Comment: Pt to call the office in the morning for appointment for blood pressure check. Disposition - Disposition OB Disposition: Discharge to home, Written follow up instructions reviewed Discharge Date: 07/13/18 Discharge Time: 23:15 I agree with the RN Medical Screening Exam: Yes Risk & Benefit of care provided described in d/c instruction: Yes Diagnosis: FALSE LABOR BEFORE 37 COMPLETED WEEKS OF GEST, THIRD TRI
== END 2018-07-13 23:15 | disposition home or self-care (01) ==
LOC: FBPOP 22:00
PROVIDERS: ATTEND Obstetrics & Gynecology
DX: O47.1 False labor at or after 37 completed weeks of gestation (principal); Z3A.38 38 weeks gestation of pregnancy
CPT/HCPCS: 59025; 84112; G0463; 99213

== ENCOUNTER 2018-08-03 12:05 | Emergency (ER) | payer OTHER ==
[2018-08-03 12:16] VITALS: BP 160/107; PULSE 96; RESP 18; TEMP 98.2
--- NOTE | 2018-08-03 12:51 | XR ---
EXAMINATION TYPE: XR hand complete RT DATE OF EXAM: 08/03/2018 CLINICAL HISTORY: pain TECHNIQUE: Frontal, lateral and oblique images of the right hand are obtained. COMPARISON: None. FINDINGS: There is evidence of fracture involving the neck of the fifth metacarpal with angulation se en. Soft tissue edema noted. No evidence for intra-articular extension. IMPRESSION: There is evidence of fracture involving the neck of the fifth metacarpal with angulation seen. ICD 10 closed FRACTURE, INITIAL EVALUATION
--- NOTE | 2018-08-03 12:51 | XR ---
EXAMINATION TYPE: XR wrist complete RT DATE OF EXAM: 08/03/2018 CLINICAL HISTORY: pain TECHNIQUE: Frontal, lateral and oblique images of the right wrist are obtained. COMPARISON: None. FINDINGS: There is no acute fracture/dislocation evident. The joint spaces appear within normal limits. The o verlying soft tissue appears unremarkable. IMPRESSION: There is no acute fracture or dislocation seen. ICD 10 NO FRACTURE, INITIAL EVALUATION
--- NOTE | 2018-08-03 13:20 | ED ---
Upper Extremity HPI - General Chief Complaint: Extremity Injury, Upper Stated Complaint: hand injury Time Seen by Provider: 08/03/18 12:17 Source: patient Mode of arrival: ambulatory Limitations: no limitations - History of Present Illness Initial Comments: 23-year-old female who denies past medical history presenting today for chief complaint of right hand pain. Patient states that 2 days ago she pressure wall because she was frustrated, she would not elaborate on why. She denies not feeling safe at home or punching another individual. Pt insists she punched a wall. Since pt has been experiencing pain at the base of the right pinky that radiates toward wrist with movement. She stated it immediately became swollen and she noticed some bruising today. Patient denies any numbness, tingling, loss sensation, paresthesias, coolness of digits or hand. Patient does admit to decreased range motion at the right pinky secondary to pain however she is able to slowly move at all joints of the right pinky. pt was concerned about a possible fracture and presented today for evaluation. - Related Data Previous Rx's Medication Instructions Recorded Acetaminophen Tab [Tylenol Tab] 650 mg PO Q6H PRN 7 Days #28 tablet 08/03/18 Allergies Allergy/AdvReac Type Severity Reaction Status Date / Time aspirin Allergy Rash/Hives Verified 08/03/18 12:16 tramadol Allergy Rash/Hives Verified 08/03/18 12:16 Review of Systems ROS Statement: Those systems with pertinent positive or pertinent negative responses have been documented in the HPI. ROS Other: All systems not noted in ROS Statement are negative. Constitutional: Denies: fever, chills ENT: Denies: ear pain, throat pain Respiratory: Denies: cough, dyspnea, wheezes, hemoptysis, stridor Cardiovascular: Denies: chest pain, palpitations, dyspnea on exertion Gastrointestinal: Denies: abdominal pain, nausea, vomiting, diarrhea, constipation Genitourinary: Denies: urgency, dysuria, frequency Musculoskeletal: Reports: joint swelling, arthralgia Skin: Denies: rash, lesions Neurological: Denies: weakness, numbness, paresthesias, abnormal gait Past Medical History Past Medical History: No Reported History Additional Past Medical History / Comment(s): back pain History of Any Multi-Drug Resistant Organisms: None Reported Past Surgical History: Adenoidectomy, Tonsillectomy Additional Past Surgical History / Comment(s): left ear Past Anesthesia/Blood Transfusion Reactions: No Reported Reaction Past Psychological History: Depression Smoking Status: Current some day smoker Past Alcohol Use History: None Reported Past Drug Use History: None Reported - Past Family History Father Family Medical History: Fibromyalgia Mother History Unknown: Yes Family Medical History: Thyroid Disorder Additional Family Medical History / Comment(s): bipolar General Exam - General Exam Comments Initial Comments: General: The patient is awake and alert, in no distress, and does not appear acutely ill. Eye: Pupils are equal, round and reactive to light, extra-ocular movements are intact. No nystagmus. There is normal conjunctiva bilaterally. No signs of icterus. Cardiovascular: There is a regular rate and rhythm. No murmur, rub or gallop is appreciated. Respiratory: Lungs are clear to auscultation, respirations are non-labored, breath sounds are equal. No wheezes, stridor, rales, or rhonchi. Musculoskeletal: Small abrasion over the knuckle of the right fifth digit, does not appear to be consistent with bite zaria. Appears superficial. There is soft tissue swelling over the MCP joint of the fifth digit of the right hand as well as ecchymosis. Full ROM at the MCP, PIP and DIP joint of all five digits of the right hand, there is tenderness to palpation over the MCP joint of right hand 5th digit. Pt admits to pain in the pink with palpation of wrist. No snuffbox tenderness.FROM at the wrists b/l with flexion/extension, supination and pronation- Strength 5/5 of all joints of digits of the right hand and wrist. Sensation intact of the hands and UE equally b/l. Radial pulses equal bilaterally 2+. Capillary refill < 2 seconds. Neurological: A&O x 3. CN II-XII intact, There are no obvious motor or sensory deficits. Coordination appears grossly intact. Speech is normal. Skin: Skin is warm and dry and no rashes or lesions are noted. Psychiatric: Cooperative, appropriate mood & affect, normal judgment. Limitations: no limitations Course Vital Signs 08/03/18 12:12 Temperature 98.2 F Pulse Rate 96 Respiratory 18 Rate Blood Pressure 160/107 O2 Sat by Pulse 99 Oximetry Medical Decision Making - Medical Decision Making XR of the right hand revealed a displaced however did not appear intrarticular fracture of the fifth metacarpal neck. Pt neurovascularly intact. There is abrasion over knuckle, pt denies repeatedly that the abrasion is from the wall and she did not punch another person. Pt placed in an ulnar gutter splint with fingers with flexion 90 of digits. Repeat neurovascular exam WNL. Pt called orthopedics during visit and made her appointment for f/u for futher evaluation. Pt was given RICE instruction and told to return for any worsening symptoms including numbness, tingling, discoloration or inability to range at the right pinky finger. Pt verbalized understanding. Given RX for ibuprofen 800mg for pain mgmt. Pt scheduled her appointment at [facility] and was discharged in stable condition. Case discussed wtih Dr. Vinson who reviewed all imagine agreed with impression and plan. Disposition Clinical Impression: Fracture of neck of fifth metacarpal bone of right hand Disposition: HOME SELF-CARE Condition: Good Instructions: Hand Fracture (ED) Additional Instructions: Please use medication as discussed. Please follow-up with orthopedic surgery tomorrow as discussed. Please return to emergency room if the symptoms increase or worsen or for any other concerns, as discussed. Prescriptions: Acetaminophen Tab [Tylenol Tab] 650 mg PO Q6H PRN 7 Days #28 tablet PRN Reason: Pain Is patient prescribed a controlled substance at d/c from ED?: No Referrals: Spencer Schumacher MD [Primary Care Provider] - 1-2 days Artis Carey MD [STAFF PHYSICIAN] - 1-2 days Time of Disposition: 13:20
== END 2018-08-03 13:31 | disposition home or self-care (01) ==
LOC: EC 12:05
DX: S62.336A Displaced fracture of neck of fifth metacarpal bone, right hand, initial encounter for closed fracture (principal); F17.200 Nicotine dependence, unspecified, uncomplicated; Z88.6 Allergy status to analgesic agent; W22.01XA Walked into wall, initial encounter
CPT/HCPCS: 29125; 99283

== ENCOUNTER 2018-12-03 16:10 | Emergency (ER) | payer OTHER | END 2018-12-03 16:35 | disposition home or self-care (01) | LOC: EC 16:10 | DX: J32.9 Chronic sinusitis, unspecified (principal); I10 Essential (primary) hypertension; F17.200 Nicotine dependence, unspecified, uncomplicated; Z88.0 Allergy status to penicillin | CPT/HCPCS: 96372; 99283 ==

== ENCOUNTER 2019-08-11 18:21 | Inpatient (IN) | payer BC, OTHER ==
[2019-08-11] MEDS ORDERED: ONDANSETRON 4 MG/2 ML VIAL IVP STA (19:39)
[2019-08-11] MEDS ORDERED: MORPHINE SULFATE 4 MG/ML SYRINGE IV STA (19:39)
[2019-08-11] MEDS ORDERED: SODIUM CHLORIDE 0.9% 500 ML 500 ML IV STA (19:39)
[2019-08-11] MEDS ORDERED: SODIUM CHLORIDE 0.9% 1,000 ML IV STA (19:39)
--- NOTE | 2019-08-11 19:43 | ED ---
Abdominal Pain HPI - General Chief Complaint: Abdominal Pain Stated Complaint: chest/back pain, SOB Time Seen by Provider: 08/11/19 19:30 Source: patient Mode of arrival: ambulatory Limitations: no limitations - History of Present Illness Initial Comments: 24-year-old female patient presents to the emergency department today for evaluation of abdominal pain, rib pain, and vomiting. Patient states that for the last 2 days she has been having severe pain to her abdomen and back. Patient states that makes it difficult to stand up straight or walk. States it hurts worse with deep breathing. Patient states that she's also been nauseated and has been vomiting. Last episode of vomiting was last night. States she is unable to eat or drink due to the pain and vomiting. Patient states over the last month she has been having increased abdominal pain, daily vomiting. States she has unintentionally lost 40 pounds in one month. She denies any cons tipation or diarrhea. Denies any hematochezia or melena. Denies any history of abdominal surgery. States she does have some urinary frequency. States received epidural and does not believe she is . She has not taken a test. States that she has sweats and chills but denies any known fever. Patient denies any recent rash, chest pain, numbness, tingling, dizziness, weakness, headache, visual changes, or any other complaints. - Related Data Home Medications Medication Instructions Recorded Confirmed HYDROcodone/APAP 7.5-325MG [[place] 1 tab PO Q6HR PRN 01/28/19 01/28/19 7.5-325] Ibuprofen [Motrin] 800 mg PO Q4-6H PRN 01/28/19 01/28/19 Previous Rx's Medication Instructions Recorded Ondansetron [Zofran ODT] 4 mg PO Q8HR PRN #15 tab 01/28/19 predniSONE 50 mg PO DAILY #5 tablet 01/28/19 Allergies Allergy/AdvReac Type Severity Reaction Status Date / Time aspirin Allergy Rash/Hives Verified 01/28/19 14:45 ketorolac [From Toradol] Allergy Itching Verified 08/11/19 18:51 tramadol Allergy Rash/Hives Verified 01/28/19 14:45 Review of Systems ROS Statement: Those systems with pertinent positive or pertinent negative responses have been documented in the HPI. ROS Other: All systems not noted in ROS Statement are negative. Past Medical History Past Medical History: No Reported History Additional Past Medical History / Comment(s): back pain History of Any Multi-Drug Resistant Organisms: None Reported Past Surgical History: Adenoidectomy, Tonsillectomy Additional Past Surgical History / Comment(s): left ear Past Anesthesia/Blood Transfusion Reactions: No Reported Reaction Past Psychological History: Depression Smoking Status: Current some day smoker Past Alcohol Use History: None Reported Past Drug Use History: None Reported - Past Family History Father Family Medical History: Fibromyalgia Mother History Unknown: Yes Family Medical History: Thyroid Disorder Additional Family Medical History / Comment(s): bipolar General Exam Limitations: no limitations General appearance: alert, in no apparent distress, other (This is a well- developed, well-nourished adult female patient in mild distress related to pain. Vital signs upon presentation are temperature 99.0F, pulse 1:15, respirations 22, blood pressure 117/76, pulse ox 99% on room air.) Eye exam: Present: normal appearance, PERRL, EOMI. Absent: scleral icterus, conjunctival injection, periorbital swelling ENT exam: Present: normal exam, normal oropharynx, mucous membranes moist Respiratory exam: Present: normal lung sounds bilaterally. Absent: respiratory distress, wheezes, rales, rhonchi, stridor Cardiovascular Exam: Present: normal rhythm, tachycardia, normal heart sounds. Absent: systolic murmur, diastolic murmur, rubs, gallop, clicks GI/Abdominal exam: Present: soft, tenderness (Generalized abdominal tenderness), normal bowel sounds. Absent: distended, guarding, rebound, rigid Neurological exam: Present: alert, oriented X3, CN II-XII intact Psychiatric exam: Present: normal affect, normal mood Skin exam: Present: warm, dry, intact, normal color. Absent: rash Course Vital Signs 08/11/19 18:47 Temperature 99.0 F Pulse Rate 115 H Respiratory 22 Rate Blood Pressure 117/76 O2 Sat by Pulse 99 Oximetry Medical Decision Making - Medical Decision Making 24-year-old female patient presents to the emergency department today for evaluation of abdominal pain, vomiting, and fever. Patient states she isn't feeling unwell over the last month that symptoms have been worsening over the last couple of days. She is also reporting bilateral flank pain. Physical examination did reveal bilateral CVA tenderness. Generalized abdominal tenderness. Labs reviewed and did reveal elevated white blood cell count of 14. 8, sodium 136, potassium 3.0, BUN is 48, creatinine 2.49, urinalysis showed a cloudy appearance with 2+ protein, small amount of blood, positive nitrite, large leukocyte esterase, greater than 182 white blood cells, few white blood cell clumps, moderate bacteria, rare mucous. HCG was detected, added on a serum quantitative which was 27,486. Ultrasound was obtained and showed a viable intrauterine measuring 14 weeks 1 day with a heart rate of 180. I did discuss the case with my attending Dr. Bardales who spoke to Dr. Lopez from [facility] for admission. Dr. Navarrete has been consulted for obstetric care. - Lab Data Result diagrams: 08/11/19 20:35 08/11/19 20:35 Lab Results 08/11/19 08/11/19 08/11/19 Range/Units 20:18 20:18 20:18 WBC (3.8-10.6) k/uL RBC (3.80-5.40) m/uL Hgb (11.4-16.0) gm/dL Hct (34.0-46.0) % MCV (80.0-100.0) fL MCH (25.0-35.0) pg MCHC (31.0-37.0) g/dL RDW (11.5-15.5) % Plt Count (150-450) k/uL Neutrophils % % Lymphocytes % % Monocytes % % Eosinophils % % Basophils % % Neutrophils # (1.3-7.7) k/uL Lymphocytes # (1.0-4.8) k/uL Monocytes # (0-1.0) k/uL Eosinophils # (0-0.7) k/uL Basophils # (0-0.2) k/uL Sodium (137-145) mmol/L Potassium (3.5-5.1) mmol/L Chloride (98-107) mmol/L Carbon Dioxide (22-30) mmol/L Anion Gap mmol/L BUN (7-17) mg/dL Creatinine (0.52-1.04) mg/dL Est GFR (CKD-EPI)AfAm (>60 ml/min/1.73 sqM) Est GFR (CKD-EPI)NonAf (>60 ml/min/1.73 sqM) Glucose (74-99) mg/dL Plasma Lactic Acid [place] (0.7-2.0) mmol/L Calcium (8.4-10.2) mg/dL Total Bilirubin (0.2-1.3) mg/dL AST (14-36) U/L ALT (9-52) U/L Alkaline Phosphatase (38-126) U/L Total Protein (6.3-8.2) g/dL Albumin (3.5-5.0) g/dL Amylase 31 (30-110) U/L Lipase <10 L (23-300) U/L HCG, Quant mIU/mL Urine Color Yellow Urine Appearance Cloudy H (Clear) Urine pH 6.0 (5.0-8.0) Ur Specific [place] 1.013 (1.001-1.035) Urine Protein 2+ H (Negative) Urine Glucose (UA) Negative (Negative) Urine Ketones Negative (Negative) Urine Blood Small H (Negative) Urine Nitrite Positive H (Negative) Urine Bilirubin Negative (Negative) Urine Urobilinogen 2.0 (<2.0) mg/dL Ur Leukocyte Esterase Large H (Negative) Urine WBC >182 H (0-5) /hpf Urine WBC Clumps Few H (None) /hpf Ur Squamous Epith Cells 3 (0-4) /hpf Urine Bacteria Moderate H (None) /hpf Urine Mucus Rare H (None) /hpf Urine HCG, Qual Detected (Not Detectd) 08/11/19 08/11/19 08/11/19 Range/Units 20:18 20:35 20:35 WBC 14.8 H (3.8-10.6) k/uL RBC 4.22 (3.80-5.40) m/uL Hgb 11.8 (11.4-16.0) gm/dL Hct 37.3 (34.0-46.0) % MCV 88.2 (80.0-100.0) fL MCH 27.9 (25.0-35.0) pg MCHC 31.6 (31.0-37.0) g/dL RDW 14.1 (11.5-15.5) % Plt Count 273 (150-450) k/uL Neutrophils % 91 % Lymphocytes % 3 % Monocytes % 3 % Eosinophils % 0 % Basophils % 2 % Neutrophils # 13.4 H (1.3-7.7) k/uL Lymphocytes # 0.4 L (1.0-4.8) k/uL Monocytes # 0.5 (0-1.0) k/uL Eosinophils # 0.0 (0-0.7) k/uL Basophils # 0.2 (0-0.2) k/uL Sodium 136 L (137-145) mmol/L Potassium 3.0 L (3.5-5.1) mmol/L Chloride 102 (98-107) mmol/L Carbon Dioxide 14 L (22-30) mmol/L Anion Gap 20 mmol/L BUN 48 H (7-17) mg/dL Creatinine 2.49 H (0.52-1.04) mg/dL Est GFR (CKD-EPI)AfAm 30 (>60 ml/min/1.73 sqM) Est GFR (CKD-EPI)NonAf 26 (>60 ml/min/1.73 sqM) Glucose 68 L (74-99) mg/dL Plasma Lactic Acid [place] (0.7-2.0) mmol/L Calcium 8.4 (8.4-10.2) mg/dL Total Bilirubin 0.9 (0.2-1.3) mg/dL AST 21 (14-36) U/L ALT 13 (9-52) U/L Alkaline Phosphatase 193 H (38-126) U/L Total Protein 6.5 (6.3-8.2) g/dL Albumin 3.1 L (3.5-5.0) g/dL Amylase (30-110) U/L Lipase (23-300) U/L HCG, Quant 30802.5 mIU/mL Urine Color Urine Appearance (Clear) Urine pH (5.0-8.0) Ur Specific [place] (1.001-1.035) Urine Protein (Negative) Urine Glucose (UA) (Negative) Urine Ketones (Negative) Urine Blood (Negative) Urine Nitrite (Negative) Urine Bilirubin (Negative) Urine Urobilinogen (<2.0) mg/dL Ur Leukocyte Esterase (Negative) Urine WBC (0-5) /hpf Urine WBC Clumps (None) /hpf Ur Squamous Epith Cells (0-4) /hpf Urine Bacteria (None) /hpf Urine Mucus (None) /hpf Urine HCG, Qual (Not Detectd) 08/11/19 Range/Units 20:35 WBC (3.8-10.6) k/uL RBC (3.80-5.40) m/uL Hgb (11.4-16.0) gm/dL Hct (34.0-46.0) % MCV (80.0-100.0) fL MCH (25.0-35.0) pg MCHC (31.0-37.0) g/dL RDW (11.5-15.5) % Plt Count (150-450) k/uL Neutrophils % % Lymphocytes % % Monocytes % % Eosinophils % % Basophils % % Neutrophils # (1.3-7.7) k/uL Lymphocytes # (1.0-4.8) k/uL Monocytes # (0-1.0) k/uL Eosinophils # (0-0.7) k/uL Basophils # (0-0.2) k/uL Sodium (137-145) mmol/L Potassium (3.5-5.1) mmol/L Chloride (98-107) mmol/L Carbon Dioxide (22-30) mmol/L Anion Gap mmol/L BUN (7-17) mg/dL Creatinine (0.52-1.04) mg/dL Est GFR (CKD-EPI)AfAm (>60 ml/min/1.73 sqM) Est GFR (CKD-EPI)NonAf (>60 ml/min/1.73 sqM) Glucose (74-99) mg/dL Plasma Lactic Acid [place] 1.3 (0.7-2.0) mmol/L Calcium (8.4-10.2) mg/dL Total Bilirubin (0.2-1.3) mg/dL AST (14-36) U/L ALT (9-52) U/L Alkaline Phosphatase (38-126) U/L Total Protein (6.3-8.2) g/dL Albumin (3.5-5.0) g/dL Amylase (30-110) U/L Lipase (23-300) U/L HCG, Quant mIU/mL Urine Color Urine Appearance (Clear) Urine pH (5.0-8.0) Ur Specific [place] (1.001-1.035) Urine Protein (Negative) Urine Glucose (UA) (Negative) Urine Ketones (Negative) Urine Blood (Negative) Urine Nitrite (Negative) Urine Bilirubin (Negative) Urine Urobilinogen (<2.0) mg/dL Ur Leukocyte Esterase (Negative) Urine WBC (0-5) /hpf Urine WBC Clumps (None) /hpf Ur Squamous Epith Cells (0-4) /hpf Urine Bacteria (None) /hpf Urine Mucus (None) /hpf Urine HCG, Qual (Not Detectd) - EKG Data -: EKG Interpreted by Me EKG Comments: EKG obtained at 1904 shows sinus tachycardia with a ventricular rate of 112, AL interval 142, QRS duration 98, QT 324, QTC 442. No evidence of ST elevation or depression. - Radiology Data Radiology results: report reviewed Ultrasound was obtained. Report reviewed in its entirety. Impression by Dr. Cody shows single living intrauterine fetus. Ultrasound gestational age is 14 weeks in 1 day. No, again process seen. Heart rate is 181. Disposition Clinical Impression: Pyelonephritis, Dehydration, Acute renal failure, , Hypokalemia Disposition: ADMITTED IP TO THIS [facility] Condition: Serious Referrals: None,Stated [Primary Care Provider] - 1-2 days Decision to Admit Reason: Admit from EC Decision Date: 08/11/19 Decision Time: 23:22
[2019-08-11 20:37] LABS: Appearance,Urine Cloudy (Clear); Bacteria,Urine Moderate /hpf; Bilirubin,Urine Negative (Negative); Blood,Urine Small (Negative); Color,Urine Yellow; Glucose,Urine (UA) Negative (Negative); Ketones,Urine Negative (Negative); Leukocyte Esterase,Urine Large (Negative); Mucus,Urine Rare /hpf; Nitrite,Urine Positive (Negative); Protein,Urine 2+ (Negative); Specific Gravity,Urine 1.013 (1.001-1.035); Squamous Epithelial Cell,Urine 3 /hpf (0-4); WBC,Urine >182 /hpf (0-5)
[2019-08-11 20:53] LABS: Basophils # (A) 0.2 k/uL (0-0.2); Basophils % (A) 2 %; Eosinophils % (A) 0 %; HCT 37.3 % (34.0-46.0); HGB 11.8 gm/dL (11.4-16.0); Lymphocytes # (A) 0.4 k/uL (1.0-4.8); Lymphocytes % (A) 3 %; MCH 27.9 pg (25.0-35.0); MCHC 31.6 g/dL (31.0-37.0); MCV 88.2 fL (80.0-100.0); Mean Platelet Volume 8.3; Monocytes # (A) 0.5 k/uL (0-1.0); Monocytes % (A) 3 %; Neutrophils # (A) 13.4 k/uL (1.3-7.7); Neutrophils % (A) 91 %; Platelet Count 273 k/uL (150-450); RBC 4.22 m/uL (3.80-5.40); RDW 14.1 % (11.5-15.5); WBC 14.8 k/uL (3.8-10.6)
[2019-08-11 21:08] LABS: Amylase 31 U/L (30-110)
[2019-08-11 21:10] LABS: Albumin 3.1 g/dL (3.5-5.0); Calcium 8.4 mg/dL (8.4-10.2); Total Bilirubin 0.9 mg/dL (0.2-1.3); Total Protein 6.5 g/dL (6.3-8.2)
[2019-08-11] MEDS ORDERED: SODIUM CHLORIDE 0.9% 1,000 ML IV ONE (21:22)
[2019-08-11] MEDS ORDERED: Potassium Replacement Protocol 1 EACH MISC MISCELLANE PRN (21:53)
[2019-08-11] MEDS: POTASSIUM CHLORIDE ER 20 MEQ TAB.ER PO SCH ×2 (22:55→23:57)
--- NOTE | 2019-08-11 23:02 | US ---
EXAMINATION TYPE: Transabdominal DATE OF EXAM: 08/11/2019 10:50 PM COMPARISON: NONE CLINICAL HISTORY: pain. EXAM PERFORMED: Transabdominal (TA) EXAM MEASUREMENTS: GESTATIONAL AGE / DATING Physician Established: Not yet established Dates by LMP: unknown Dates by First Scan: No previous this is first scan Dates by Current Scan for: (14weeks/1 days) EDC: 02/08/20 MATERNAL ANATOMY Uterus: 13.6 x 8.0 x 11.2cm Right Ovary: not visualized due to increased uterine size/overlying bowel gas Left Ovary: not visualized due to increased uterine size/overlying bowel gas Post CDS / Adnexa: wnl Presence of free fluid: no GESTATION / SURVEY CRL: (14weeks/1 days) Yolk Sac (normal less than 6mm): not seen Heart Rate: 181pm Rhythm: Normal IUP: Viable IUP Date of LMP: patient states she is on the Depo shot/unknown LMP Beta HcG (if available): Not available at this time IMPRESSION: Single living intrauterine fetus. The ultrasound gestational age is 14 weeks and 1 day. No complicating process seen.
[2019-08-11] MEDS ORDERED: NALOXONE 0.4 MG/ML 1 ML VIAL IV PRN ×2 (23:14→23:48)
[2019-08-11] MEDS ORDERED: ONDANSETRON 4 MG/2 ML VIAL IVP PRN (23:48)
--- NOTE | 2019-08-12 | P.HPIM ---
History of Present Illness H&P Date: 08/11/19 Chief Complaint: Nausea vomiting flank pain Patient is a 24-year-old female with no significant past medical history that presented to the ER via private vehicle with complaints of lower abdominal/pelvic pain and flank pain and episodes of nausea and vomiting. Fran arently the patient has been having worsening severe lower abdominal/pelvic pain with radiation into her flank bilaterally right greater than left over the last 3 days, she also reports diminished appetite and inability to eat due to severe nausea and vomiting over the last 5 days. Patient reports she is unable to keep down water. She reports subjective fevers chills night sweats, she denies any dysuria or urgency. She denies constipation or diarrhea. She denies any chest pain cough shortness of breath. The patient denies any weakness lightheadedness or dizziness. The patient reports that she has been sexually active but has been taking the Depo-Provera and using condoms and spermicide with her partner. She denies any vaginal discharge or itching In the ER the patient was noted to have a white count of 14.5 with a left shift serum sodium was 136 potassium 3.0 serum bicarb 14 creatinine 2.5 serum blood sugar 68 alkaline phosphatase 193, lactate 1.3 lipase was less than 10, serum Quant hCG was elevated 31851. Patient was initially tachycardic heart rate at 115. A transabdominal ultrasound confirmed an intrauterine at 14 weeks 1 day. Urinalysis was nitrite positive with large leukocyte esterase urine RBCs greater than 182, with 2+ protein. Patient was given 3 L of normal saline and a gram of Rocephin and recommended for admission Past Medical History Past Medical History: No Reported History Additional Past Medical History / Comment(s): back pain History of Any Multi-Drug Resistant Organisms: None Reported Past Surgical History: Adenoidectomy, Tonsillectomy Additional Past Surgical History / Comment(s): left ear Past Anesthesia/Blood Transfusion Reactions: No Reported Reaction Past Psychological History: Depression Smoking Status: Current some day smoker Past Alcohol Use History: None Reported Past Drug Use History: None Reported - Past Family History Father Family Medical History: Fibromyalgia Mother History Unknown: Yes Family Medical History: Thyroid Disorder Additional Family Medical History / Comment(s): bipolar Medications and Allergies Home Medications Medication Instructions Recorded Confirmed Type HYDROcodone/APAP 7.5-325MG [[place] 1 tab PO Q6HR PRN 03/23/19 03/23/19 History 7.5-325] Ibuprofen [Motrin] 800 mg PO Q4-6H PRN 01/28/19 01/28/19 History Ondansetron [Zofran ODT] 4 mg PO Q8HR PRN #15 tab 01/28/19 Rx predniSONE 50 mg PO DAILY #5 tablet 01/28/19 Rx Allergies Allergy/AdvReac Type Severity Reaction Status Date / Time aspirin Allergy Rash/Hives Verified 01/28/19 14:45 ketorolac [From Toradol] Allergy Itching Verified 08/11/19 18:51 tramadol Allergy Rash/Hives Verified 01/28/19 14:45 Physical Exam Vitals: Vital Signs Temp Pulse Resp BP Pulse Ox 08/11/19 18:47 99.0 F 115 H 22 117/76 99 Intake and Output 08/11/19 08/11/19 08/12/19 14:59 22:59 06:59 Other: Weight 65.771 kg Constitutional: Mild distress due to pain conversant, pleasant Eyes: Anicteric sclerae, moist conjunctiva, no lid-lag, PERRLA ENMT: NC/AT,Oropharynx clear, no erythema, exudates Neck:Supple, FROM, no masses, or JVD, No carotid bruits; No thyromegaly Lungs: Clear to auscultation, Clear to percussion, Normal respiratory effort, no accessory muscle use Cardiovascular: Heart regular in rate and rhythm, No murmurs, gallops, or rubs no peripheral edema Abdominal: Soft Nontender, nom distended, no guarding, no rebound or rigidity, Normoactive bowel sounds No hepatomegaly, No splenomegaly, No palpable mass No abdominal wall hernia noted, CVA tenderness on the right Skin: Normal temperature, tone, texture, turgor, No induration No subcutaneous nodules, No rash, lesions, No ulcers Extremities:No digital cyanosis No clubbing, Pedal pulses intact and symmetrical Radial pulses intact and symmetrical Normal gait and station, No calf tenderness Psychiatric: Alert and oriented to person, place and time, Appropriate affect In tact judgement Neuro: Muscles Strength 5/5 in all 4 extremities, Sensation to light touch grossly present throughout, Cranial nerves II-XII grossly intact. No focal sensory deficits Results CBC & Chem 7: 08/11/19 20:35 08/11/19 20:35 Labs: Abnormal Lab Results - Last 24 Hours (Table) 08/11/19 08/11/19 08/11/19 Range/Units 20:18 20:18 20:35 WBC 14.8 H (3.8-10.6) k/uL Neutrophils # 13.4 H (1.3-7.7) k/uL Lymphocytes # 0.4 L (1.0-4.8) k/uL Sodium (137-145) mmol/L Potassium (3.5-5.1) mmol/L Carbon Dioxide (22-30) mmol/L BUN (7-17) mg/dL Creatinine (0.52-1.04) mg/dL Glucose (74-99) mg/dL Alkaline Phosphatase (38-126) U/L Albumin (3.5-5.0) g/dL Lipase <10 L (23-300) U/L Urine Appearance Cloudy H (Clear) Urine Protein 2+ H (Negative) Urine Blood Small H (Negative) Urine Nitrite Positive H (Negative) Ur Leukocyte Esterase Large H (Negative) Urine WBC >182 H (0-5) /hpf Urine WBC Clumps Few H (None) /hpf Urine Bacteria Moderate H (None) /hpf Urine Mucus Rare H (None) /hpf 08/11/19 Range/Units 20:35 WBC (3.8-10.6) k/uL Neutrophils # (1.3-7.7) k/uL Lymphocytes # (1.0-4.8) k/uL Sodium 136 L (137-145) mmol/L Potassium 3.0 L (3.5-5.1) mmol/L Carbon Dioxide 14 L (22-30) mmol/L BUN 48 H (7-17) mg/dL Creatinine 2.49 H (0.52-1.04) mg/dL Glucose 68 L (74-99) mg/dL Alkaline Phosphatase 193 H (38-126) U/L Albumin 3.1 L (3.5-5.0) g/dL Lipase (23-300) U/L Urine Appearance (Clear) Urine Protein (Negative) Urine Blood (Negative) Urine Nitrite (Negative) Ur Leukocyte Esterase (Negative) Urine WBC (0-5) /hpf Urine WBC Clumps (None) /hpf Urine Bacteria (None) /hpf Urine Mucus (None) /hpf Assessment and Plan (1) Sepsis Current Visit: Yes Status: Acute Code(s): A41.9 - SEPSIS, UNSPECIFIED ORGANISM SNOMED Code(s): 66397766 (2) Pyelonephritis Current Visit: Yes Status: Acute Code(s): N12 - TUBULO-INTERSTITIAL NE PHRITIS, NOT SPCF ACUTE OR CHRONIC SNOMED Code(s): 81286083 (3) Acute kidney injury Current Visit: Yes Status: Acute Code(s): N17.9 - ACUTE KIDNEY FAILURE, UNSPECIFIED SNOMED Code(s): 22049521 (4) Intrauterine Current Visit: Yes Status: Acute Code(s): Z34.90 - ENCNTR FOR SUPRVSN OF NORMAL , UNSP, UNSP TRIMESTER SNOMED Code(s): 45146361 (5) Hypokalemia Current Visit: Yes Status: Acute Code(s): E87.6 - HYPOKALEMIA SNOMED Code(s): 05821760 (6) Intractable nausea and vomiting Current Visit: Yes Status: Acute Code(s): R11.2 - NAUSEA WITH VOMITING, UNSPECIFIED SNOMED Code(s): 691963815 Plan: The patient is admitted anticipated greater than 2 midnight stay with sepsis secondary to acute pyelonephritis after presenting with intractable nausea and vomiting and flank pain, leukocytosis, tachycardia and acute kidney injury due to prerenal hypovolemia with a creatinine of 2.5 and metabolic acidosis due to her acute kidney injury and sepsis. The patient was bolused with normal saline we'll run maintenance 120 mL of normal saline, continue empiric IV antibiotics with Rocephin. Continue symptomatic management with morphine and Zofran. Plan to consult OB for further recommendations regarding intrauterine . W e'll order renal ultrasound, place [place] catheter, monitor strict I's and O's and continue to follow her clinical course. The patient is placed on potassium replacement protocol. Continue to monitor closely CODE STATUS: Full code Discussed plan of care with: Patient and her mom Anticipated discharge: 2-[address]; home Prophylaxis : SCDs Time with Patient: Greater than 30
[2019-08-12] MEDS: ACETAMINOPHEN TAB 325 MG TAB PO PRN ×2 (00:02→10:22)
[2019-08-12] MEDS: SODIUM CHLORIDE 0.9% 1,000 ML IV SCH ×3 (00:05→17:17)
[2019-08-12] MEDS: MORPHINE SULFATE 4 MG/ML SYRINGE IV PRN ×6 (00:21→20:34)
[2019-08-12 08:03] LABS: Basophils # (A) 0.1 k/uL (0-0.2); Basophils % (A) 1 %; Eosinophils % (A) 0 %; HCT 29.8 % (34.0-46.0); Lymphocytes # (A) 0.8 k/uL (1.0-4.8); Lymphocytes % (A) 7 %; MCH 29.2 pg (25.0-35.0); MCHC 33.6 g/dL (31.0-37.0); MCV 86.8 fL (80.0-100.0); Mean Platelet Volume 7.2; Monocytes # (A) 0.5 k/uL (0-1.0); Monocytes % (A) 5 %; Neutrophils # (A) 9.5 k/uL (1.3-7.7); Neutrophils % (A) 85 %; Platelet Count 240 k/uL (150-450); RBC 3.43 m/uL (3.80-5.40); RDW 13.9 % (11.5-15.5); WBC 11.2 k/uL (3.8-10.6)
--- NOTE | 2019-08-12 08:31 | US ---
EXAMINATION TYPE: US renals and bladder DATE OF EXAM: 08/12/2019 COMPARISON: NONE CLINICAL HISTORY: ALBERTO . Pyelonephritis, patient is EXAM MEASUREMENTS: Right Kidney: 14.3 x 5.0 x 6.1 cm Left Kidney: 14.1 x 6.4 x 5.6 cm Right Kidney: enlarged, no evidence of hydronephrosis Left Kidney: enlarged, no evidence of hydronephrosis Bladder: appears wnl Bilateral Jets seen: no Renal size may simply represent patient's size. No acute abnormality is seen. IMPRESSION: NORMAL RENAL ULTRASOUND.
[2019-08-12 09:31] LABS: Albumin 2.1 g/dL (3.5-5.0); Calcium 7.8 mg/dL (8.4-10.2); Potassium 2.9 mmol/L (3.5-5.1); Total Bilirubin 0.7 mg/dL (0.2-1.3); Total Protein 4.7 g/dL (6.3-8.2)
[2019-08-12] MEDS: POTASSIUM CHLORIDE ER 20 MEQ TAB.ER PO SCH ×5 (10:21→17:16)
--- NOTE | 2019-08-12 12:13 | P.CON ---
Consult Note - . Consult date: 08/12/19 Assessment/Plan:: This is a 24-year-old white female 3 para 2001 who presented to the emergency room last night with abdominal and back pain. Last menstrual period is unknown, patient states she receives Depo-Provera injections every 3 months but is due for her injection now. Ultrasound in the ER reveals a 14 week intrauterine , with active heartbeat. Patient was unaware that she was . In the emergency room temp was 100.4, urine analysis was consistent with pyelonephritis. Her CBCs on admission 14.3. Rocephin was given and patient was admitted under the medical service. I have been consulted for early . Patient denies vaginal bleeding or unusual vaginal discharge odor or itching or burning. She denies nausea vomiting. No diarrhea. Positive flatus. Past medical history is essentially negative. Past surgical history left ear reconstruction as a child, tonsillectomy and adenoidectomy as a child. ALLERGIES include aspirin to which she reports a fever and emesis, toward all to which she reports a fever as well as emesis in the rash, tramadol to which reports a rash and amoxicillin to which she reports a rash Social history is significant for tobacco smoking since age 11, currently smoking 3 cigarettes a day. She was single. Father the baby Patric is not the father of HER-2 previous children. She denies drug or alcohol use. Past obstetric history normal spontaneous vaginal delivery 7 lbs. 10 oz. male infant 2014, normal spontaneous vaginal delivery 6 lbs. 9 oz. female infant 2017. Patient states both pregnancies and deliveries were unremarkable. Family history is negative. Gynecologic history patient states she had chlamydia one year ago treated by my office with repeat culture negative. She denies GC, HSV, or HPV infections. On exam she is 5 foot 5 inches, 154 pounds, vital signs are stable and she is currently afebrile. HEENT exam reveals poor dentition, no thyromegaly. Chest is clear in all [place]. Cardiac exam reveals regular rate and rhythm. Abdomen is soft, patient states she is tender in bilateral lower quadrants, there is no rebound and minimal guarding. Active bowel sounds. CVA tenderness bilaterally. Extremities are negative for edema. Pelvic examination is deferred as patient is tender, and sonographic findings are consistent with viable intrauterine at 14 weeks gestation. heart rate 160 at the bedside this morning. Admitting white count 14.3, decreased to 11.2 this morning. Patient has not had any recurrent fevers. She states she is still quite tender despite morphine being given every 4 hours. Plan: We will draw labs this morning. Starting vitamin daily. All further 1000 mg every 4-6 hours as needed for pain. Continue medical management. I will see the patient in the office 2 weeks post discharge to begin her routine care. For the consultation.
[2019-08-12 12:16] VITALS: BMI 24.1
[2019-08-12] MEDS ORDERED: ACETAMINOPHEN IV (For NPO) 1,000 MG in EMPTY BAG 1 BAG IVPB ONE (14:00)
[2019-08-12] MEDS ORDERED: DRY MOUTH SPRAY 44.3 SPRAY/44.3 ML SPRAY MUCOUS MEM PRN (14:43)
[2019-08-12] MEDS ORDERED: ACETAMINOPHEN IV (For NPO) 1,000 MG in EMPTY BAG 1 BAG IVPB SCH (18:00)
[2019-08-12] MEDS ORDERED: ACETAMINOPHEN TAB 500 MG TAB PO SCH (19:00)
--- NOTE | 2019-08-12 21:05 | P.PN ---
Subjective Progress Note Date: 08/12/19 (delayed charting seen at 1500) Principal diagnosis: abdominal pain, intractable nausea and vomiting Patient's 24-year-old female with no significant past medical history that presented to the emergency department with complaints of abdominal pain, pelvic pain, flank pain, and nausea and vomiting. In the ER she underwent an extensive evaluation. Initially she was afebrile but had a pulse of 115. Several hours after admission she spiked a fever of 100.4. Initial laboratory analysis showed an elevated white blood cell count at 14.8, potassium 3.0, BUN 48, creatinine 2.49, glucose 68, alk phos 193, she was found to have a positive urinalysis with white blood cell count greater than 182. She was also found to have a positive urine hCG, serum hCG 27,486.5. Abdominal ultrasound was performed which showed viable 14 week 1 day intrauterine . She was started on IV fluids, antibiotics, pain control, antiemetics. She was admitted for pyelonephritis with sepsis associated with acute kidney injury. THREADING MACHINE FEEDER AUTOMATIC was consulted. Renal ultrasound was ordered which was normal. She did significant improvement in her renal function by the morning after admission. Patient seen and examined at bedside. She reports continued pain underneath her right ribs, continue flank pain, continue nausea but no vomiting. She is feeling slightly better than yesterday but still very tired. Still requiring morphine for adequate pain control. Objective - Vital Signs Vital signs: Vital Signs Temp 98.5 F 08/12/19 20:05 Pulse 77 08/12/19 20:05 Resp 18 08/12/19 20:05 BP 116/66 08/12/19 20:05 Pulse Ox 99 08/12/19 20:05 Intake & Output 08/12/19 08/12/19 08/13/19 06:59 18:59 06:59 Output Total 600 1100 600 Balance -600 -1100 -600 Weight 65.771 kg Output: Urine 600 1100 600 Other: Voiding Method Toilet Toilet # Voids 400 - Exam General: Ill appearing, moderate distress secondary to pain, appears at stated age Derm: warm, dry Head: atraumatic, normocephalic, symmetric Eyes: EOMI, no lid lag, anicteric sclera Mouth: no lip lesion, mucous membranes dry, oral aphthous ulcers, excoriation of pharyngeal area Cardiovascular: S1 and S2 tachycardic, no murmur, positive posterior tibial pulse bilateral, Lungs: Decreased breath sounds bilateral, no rhonchi, no rales , no accessory muscle use Abdominal: soft, tender to palpation throughout, + CVA tenderness, no guarding, no appreciable organomegaly Ext: no gross muscle atrophy, no edema, no contractures Neuro: CN II-XI grossly intact, no focal neuro deficits Psych: Alert, oriented, appropriate affect - Labs CBC & Chem 7: 08/12/19 07:24 08/12/19 14:05 Labs: Abnormal Lab Results - Last 24 Hours (Table) 08/11/19 08/11/19 08/12/19 Range/Units 20:18 20:35 07:24 WBC 11.2 H (3.8-10.6) k/uL RBC 3.43 L (3.80-5.40) m/uL Hgb 10.0 L D (11.4-16.0) gm/dL Hct 29.8 L (34.0-46.0) % Neutrophils # 9.5 H (1.3-7.7) k/uL Lymphocytes # 0.8 L (1.0-4.8) k/uL Sodium 136 L (137-145) mmol/L Potassium 3.0 L (3.5-5.1) mmol/L Chloride (98-107) mmol/L Carbon Dioxide 14 L (22-30) mmol/L BUN 48 H (7-17) mg/dL Creatinine 2.49 H (0.52-1.04) mg/dL Glucose 68 L (74-99) mg/dL Calcium (8.4-10.2) mg/dL Alkaline Phosphatase 193 H (38-126) U/L Total Protein (6.3-8.2) g/dL Albumin 3.1 L (3.5-5.0) g/dL Lipase <10 L (23-300) U/L 08/12/19 08/12/19 Range/Units 07:24 14:05 WBC (3.8-10.6) k/uL RBC (3.80-5.40) m/uL Hgb (11.4-16.0) gm/dL Hct (34.0-46.0) % Neutrophils # (1.3-7.7) k/uL Lymphocytes # (1.0-4.8) k/uL Sodium 136 L (137-145) mmol/L Potassium 2.9 L 3.2 L (3.5-5.1) mmol/L Chloride 109 H (98-107) mmol/L Carbon Dioxide 14 L (22-30) mmol/L BUN 39 H (7-17) mg/dL Creatinine 1.88 H (0.52-1.04) mg/dL Glucose (74-99) mg/dL Calcium 7.8 L (8.4-10.2) mg/dL Alkaline Phosphatase 219 H (38-126) U/L Total Protein 4.7 L (6.3-8.2) g/dL Albumin 2.1 L (3.5-5.0) g/dL Lipase (23-300) U/L Microbiology - Last 24 Hours (Table) 08/11/19 20:18 Urine Culture - Preliminary Urine,Voided Assessment and Plan Assessment: Pyelonephritis with sepsis -Continue with Rocephin -Await cultures -IV fluid resuscitation -Antiemetics -Pain control Acute renal failure likely secondary to severe dehydration -Continue IV fluids -Avoid additional nephrotoxic agents -Renal ultrasound normal Hypokalemia secondary to intractable nausea and vomiting -Continue with Zofran -Replace potassium -Repeat potassium level in a.m. along with magnesium Viable intrauterine -THREADING [employer]ACH[employer] recommendations greatly appreciated - vitamin -Follow with OB in 2 weeks Intermittent tobacco abuse -Encourage cessation DVT prophylaxis: SCDs Discussed with: Patient Anticipated discharge: 1-[address]: home A total of 45 minutes was spent on the care of this complex patient more than 50% of the time was spent in counseling and care coordination.
[2019-08-13] MEDS: MORPHINE SULFATE 4 MG/ML SYRINGE IV PRN ×6 (00:59→23:26)
[2019-08-13] MEDS: SODIUM CHLORIDE 0.9% 1,000 ML IV SCH ×2 (00:59→08:38)
[2019-08-13 07:51] LABS: Calcium 8.6 mg/dL (8.4-10.2); HCT 27.1 % (34.0-46.0); HGB 8.8 gm/dL (11.4-16.0); MCH 28.9 pg (25.0-35.0); MCHC 32.6 g/dL (31.0-37.0); MCV 88.7 fL (80.0-100.0); Mean Platelet Volume 6.9; Platelet Count 302 k/uL (150-450); Potassium 3.8 mmol/L (3.5-5.1); RBC 3.06 m/uL (3.80-5.40); RDW 14.1 % (11.5-15.5); WBC 12.9 k/uL (3.8-10.6)
[2019-08-13] MEDS: PRENATAL VIT-IRON-FOLIC ACID 1 EACH CAP PO SCH (08:38)
[2019-08-13] MEDS: SODIUM CHLORIDE 0.45% 1,000 ML IV SCH ×2 (10:55→20:16)
--- NOTE | 2019-08-13 17:15 | P.PN ---
Subjective Progress Note Date: 08/13/19 (Delayed charting seen at 1310) Principal diagnosis: abdominal pain, intractable nausea and vomiting Patient is a 24-year-old female with no significant past medical hist ory that presented to the emergency department with complaints of abdominal pain, pelvic pain, flank pain, and nausea and vomiting. In the ER she underwent an extensive evaluation. Initially she was afebrile but had a pulse of 115. Several hours after admission she spiked a fever of 100.4. Initial laboratory analysis showed an elevated white blood cell count at 14.8, potassium 3.0, BUN 48, creatinine 2.49, glucose 68, alk phos 193, she was found to have a positive urinalysis with white blood cell count greater than 182. She was also found to have a positive urine hCG, serum hCG 27,486.5. Abdominal ultrasound was performed which showed viable 14 week 1 day intrauterine . She was started on IV fluids, antibiotics, pain control, antiemetics. She was admitted for pyelonephritis with sepsis associated with acute kidney injury. DISTILLERY WORKER was consulted who recommended following up in the office in 2 weeks and routine testing. Renal ultrasound was ordered which was normal. She did significant improvement in her renal function by the morning after admission. She continued to have some nausea, and right upper quadrant pain on 08/13 Patient seen and examined at bedside. She reports that her pain is somewhat better, however she still having significant right upper quadrant pain. Having some nausea but no vomiting. Still not feeling hungry. No chest pain or sh ortness of breath. Does have a history of chlamydia in the past for which she received treatment. Objective - Vital Signs Vital signs: Vital Signs Temp 97.9 F 08/13/19 12:44 Pulse 85 08/13/19 12:44 Resp 18 08/13/19 12:44 BP 122/84 08/13/19 12:44 Pulse Ox 100 08/13/19 12:44 Intake & Output 08/12/19 08/13/19 08/13/19 18:59 06:59 18:59 Output Total 1100 2450 1000 Balance -1100 -2450 -1000 Weight 65.771 kg Output: Urine 1100 2450 1000 Other: Voiding Method Toilet # Voids 400 - Exam General: Ill appearing, mild distress secondary to pain, appears at stated age Derm: warm, dry Head: atraumatic, normocephalic, symmetric Eyes: EOMI, no lid lag, anicteric sclera Mouth: no lip lesion, mucous membranes dry, excoriation of pharyngeal area Cardiovascular: S1 and S2 regular, no murmur, positive posterior tibial pulse bilateral, Lungs: Decreased breath sounds bilateral, no rhonchi, no rales , no accessory muscle use Abdominal: soft, tender to palpation right upper quadrant, no guarding, no appreciable organomegaly Ext: no gross muscle atrophy, no edema, no contractures Neuro: CN II-XI grossly intact, no focal neuro deficits Psych: Alert, oriented, appropriate affect - Labs CBC & Chem 7: 08/13/19 07:02 08/13/19 07:02 Labs: Abnormal Lab Results - Last 24 Hours (Table) 08/13/19 08/13/19 Range/Units 07:02 07:02 WBC 12.9 H (3.8-10.6) k/uL RBC 3.06 L (3.80-5.40) m/uL Hgb 8.8 L (11.4-16.0) gm/dL Hct 27.1 L (34.0-46.0) % Sodium 136 L (137-145) mmol/L Chloride 112 H (98-107) mmol/L Carbon Dioxide 16 L (22-30) mmol/L BUN 27 H (7-17) mg/dL Creatinine 1.33 H (0.52-1.04) mg/dL Microbiology - Last 24 Hours (Table) 08/11/19 20:18 Urine Culture - Preliminary Urine,Voided Gram Neg Bacilli 08/11/19 22:16 Blood Culture - Preliminary Blood No Growth after 24 hours Assessment and Plan Assessment: Pyelonephritis with sepsis -Continue with Rocephin -Await cultures -IV fluid resuscitation -Antiemetics -Pain control Abdominal pain, RUQ - could be related to pyelonephritis, also has hx of chlamydia - check chlamydia and gonorrhea - consider abd US in AM if not improved Acute renal failure likely secondary to severe dehydration -Continue IV fluids -Avoid additional nephrotoxic agents -Renal ultrasound normal secondary to intractable nausea and vomiting -Continue with Zofran -Replace potassium -Repeat potassium level in a.m. along with magnesium Viable intrauterine -DISTILLERY WORKER recommendations greatly appreciated - vitamin -Follow with OB in 2 weeks Intermittent tobacco abuse -Encourage cessation Hypokalemia , impoved DVT prophylaxis: SCDs Discussed with: Patient Anticipated discharge: 1-[address]: home A total of 25 minutes was spent on the care of this complex patient more than 50% of the time was spent in counseling and care coordination.
[2019-08-14] MEDS: MORPHINE SULFATE 4 MG/ML SYRINGE IV PRN ×4 (04:02→20:10)
[2019-08-14 07:16] LABS: HCT 27.6 % (34.0-46.0); HGB 8.3 gm/dL (11.4-16.0); Hypochromasia Slight; MCHC 30.2 g/dL (31.0-37.0); MCV 92.7 fL (80.0-100.0); Platelet Count 290 k/uL (150-450); RBC 2.97 m/uL (3.80-5.40); RDW 14.6 % (11.5-15.5); WBC 8.5 k/uL (3.8-10.6)
[2019-08-14 07:46] LABS: ALT 18 U/L (9-52); AST 18 U/L (14-36); African American GFR (CKD) >90 (>60 ml/min/1.73 sqM); Alkaline Phosphatase 180 U/L (38-126); Anion Gap 8 mmol/L; Blood Urea Nitrogen 20 mg/dL (7-17); Calcium 8.3 mg/dL (8.4-10.2); Carbon Dioxide 17 mmol/L (22-30); Chloride 110 mmol/L (98-107); Glucose 87 mg/dL (74-99); Potassium 3.5 mmol/L (3.5-5.1); Sodium 135 mmol/L (137-145); Total Bilirubin 0.3 mg/dL (0.2-1.3); Total Protein 4.6 g/dL (6.3-8.2)
[2019-08-14] MEDS: PRENATAL VIT-IRON-FOLIC ACID 1 EACH CAP PO SCH (08:29)
[2019-08-14 08:51] VITALS: RESP 16
[2019-08-14] MEDS ORDERED: MAGNESIUM HYDROXIDE 2,400 MG/10 ML CUP PO PRN (09:18)
--- NOTE | 2019-08-14 09:29 | P.CONS ---
History of Present Illness - Reason for Consult Consult date: 08/14/19 UTI, sepsis, - History of Present Illness This is a 24-year-old female with history of 3 days of lower abdominal pain and flank pain more so on the right side along with nausea, lack of appetite. Patient denies any history of urinary tract infections. She denies any dysuria prior to admission. She states she feels a craving to drink water versus pop. She complains of soreness in the back of her throat was irritated and sore since she arrived. She denies any history of strep throat. Patient came into [facility] emergency center for evaluation. Temperature 100.9, tachycardic, leukocytosis of 14.8. She was also found to be in acute renal failure with BUN of 48 creatinine of 2.49 which have recovered. Hemoglobin 8.8. HCG was positive and patient underwent ultrasound that showed an intrauterine with active heartbeat. Treponema was nonreactive, hepatitis B antigen nonreactive, rubella IgG 11.9. Renal ultrasound was normal. Urine cultures gram-negative bacilli, blood culture no growth at 48 hours. Patient was admitted to the medical/pedis floor. She has been seen in consultation by Dr. Navarrete for care with plan for follow-up as an outpatient. At the time of this evaluation. Patient states she has been eating and denies any nausea but states she still does not have any appetite. Pain continues to be significant more so on the right lower quadrant and right flank. Pain is a 7-8/10. She states she has not had any bowel movement since but has been passing gas. Review of Systems Constitutional: Reports fatigue, Reports poor appetite, Denies chills, Denies fever Eyes: denies blurred vision, denies pain Ears, nose, mouth and throat: Reports mouth pain, Reports sore throat, Denies dental pain, Denies headache, Denies nasal congestion, Denies nasal discharge, Denies vertigo Cardiovascular: Denies chest pain, Denies decreased exercise tolerance, Denies dyspnea on exertion, Denies edema, Denies leg edema, Denies shortness of breath, Denies syncope Respiratory: Denies cough, Denies cough with sputum, Denies dyspnea, Denies excessive sputum, Denies hemoptysis, Denies home oxygen, Denies wheezing Gastrointestinal: Reports abdominal pain, Reports constipation, Reports loss of appetite, Denies diarrhea, Denies nausea, Denies vomiting Genitourinary: Reports flank pain, Reports urinary frequency, Denies difficulty voiding, Denies dysuria, Denies urgency Musculoskeletal: Denies frequent falls, Denies gait dysfunction, Denies muscle weakness, Denies myalgias Integumentary: Denies pruritus, Denies rash, Denies wounds Neurological: Denies change in mentation, Denies change in speech, Denies numbness, Denies weakness Psychiatric: Denies anxiety, Denies depression Endocrine: Denies fatigue, Denies weight change Past Medical History Past Medical History: No Reported History Additional Past Medical History / Comment(s): back pain History of Any Multi-Drug Resistant Organisms: None Reported Past Surgical History: Adenoidectomy, Tonsillectomy Additional Past Surgical History / Comment(s): left ear Past Anesthesia/Blood Transfusion Reactions: No Reported Reaction Past Psychological History: Depression Additional Psychological History / Comment(s): 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 Recent anxiety attacks. Smoking Status: Current some day smoker Past Alcohol Use History: None Reported Additional Past Alcohol Use History / Comment(s): Patient is a smoker of one to 2 cigarettes per day since she was 11 years of age. She denies any marijuana, illicit drug use or alcohol use. 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 She lives at home with her boyfriend. There is a bearded dragon in the home and a dog. No recent travel. Past Drug Use History: None Reported - Past Family History Father Family Medical History: Fibromyalgia Mother History Unknown: Yes Family Medical History: Thyroid Disorder Additional Family Medical History / Comment(s): bipolar Medications and Allergies Home Medications Medication Instructions Recorded Confirmed Type Ibuprofen [Motrin] 800 mg PO TID PRN 01/28/19 08/12/19 History Acetaminophen Tab [Tylenol Tab] 650 mg PO Q6H PRN 08/12/19 08/12/19 History Allergies Allergy/AdvReac Type Severity Reaction Status Date / Time aspirin Allergy Rash/Hives Verified 08/12/19 07:45 ketorolac [From Toradol] Allergy Itching Verified 08/12/19 07:45 tramadol Allergy Rash/Hives Verified 08/12/19 07:45 amoxicillin AdvReac Vomiting Verified 08/12/19 07:45 Physical Exam Vitals: Vital Signs Temp Pulse Resp BP Pulse Ox 08/14/19 08:03 98.4 F 92 16 127/79 98 08/14/19 04:15 98.6 F 106 H 18 142/90 98 08/14/19 00:00 89 18 08/13/19 20:32 98.4 F 85 18 119/72 98 08/13/19 16:00 85 18 08/13/19 15:00 98.5 F 85 16 122/73 98 08/13/19 12:44 97.9 F 85 18 122/84 100 Intake and Output 08/13/19 08/14/19 08/14/19 22:59 06:59 14:59 Output Total 1400 900 Balance -1400 -900 Output: Urine 1400 900 Other: Voiding Method Toilet Toilet Gen: This is a 24-year-old female. She is eating breakfast and appears to be in no acute distress. HEENT: Head is atraumatic, normocephalic. Pupils equal, round. Sclerae is anicteric. Conjunctiva slightly pale. Mucous members of the mouth are moist. Dentition is in fair order. NECK: Supple. No JVD. No lymphadenopathy. No thyromegaly. LUNGS: Clear to auscultation. No wheezes or rhonchi. No intercostal retractions. HEART: Regular rate and rhythm. No murmur. ABDOMEN: Soft. Bowel sounds are present. No masses. Right lower quadrant tenderness, bilateral CVA tenderness, severe tenderness on the right CVA. EXTREMITIES: No pedal edema. No calf tenderness. Dorsalis pedis +2 bilaterally. NEUROLOGICAL: Patient is awake, alert and oriented x3. Cranial nerves 2 through 12 are grossly intact. Results Results: Laboratory Results WBC 8.5 k/uL (3.8-10.6) 08/14/19 06:38 RBC 2.97 m/uL (3.80-5.40) L 08/14/19 06:38 Hgb 8.3 gm/dL (11.4-16.0) L 08/14/19 06:38 Hct 27.6 % (34.0-46.0) L 08/14/19 06:38 MCV 92.7 fL (80.0-100.0) 08/14/19 06:38 MCH 28.0 pg (25.0-35.0) 08/14/19 06:38 MCHC 30.2 g/dL (31.0-37.0) L 08/14/19 06:38 RDW 14.6 % (11.5-15.5) 08/14/19 06:38 Plt Count 290 k/uL (150-450) 08/14/19 06:38 Neutrophils % 85 % 08/12/19 07:24 Lymphocytes % 7 % 08/12/19 07:24 Monocytes % 5 % 08/12/19 07:24 Eosinophils % 0 % 08/12/19 07:24 Basophils % 1 % 08/12/19 07:24 Neutrophils # 9.5 k/uL (1.3-7.7) H 08/12/19 07:24 Lymphocytes # 0.8 k/uL (1.0-4.8) L 08/12/19 07:24 Monocytes # 0.5 k/uL (0-1.0) 08/12/19 07:24 Eosinophils # 0.0 k/uL (0-0.7) 08/12/19 07:24 Basophils # 0.1 k/uL (0-0.2) 08/12/19 07:24 Hypochromasia Slight 08/14/19 06:38 Sodium 135 mmol/L (137-145) L 08/14/19 06:38 Potassium 3.5 mmol/L (3.5-5.1) 08/14/19 06:38 Chloride 110 mmol/L (98-107) H 08/14/19 06:38 Carbon Dioxide 17 mmol/L (22-30) L 08/14/19 06:38 Anion Gap 8 mmol/L 08/14/19 06:38 BUN 20 mg/dL (7-17) H 08/14/19 06:38 Creatinine 0.99 mg/dL (0.52-1.04) 08/14/19 06:38 Est GFR (CKD-EPI)AfAm >90 (>60 ml/min/1.73 sqM) 08/14/19 06:38 Est GFR (CKD-EPI)NonAf 80 (>60 ml/min/1.73 sqM) 08/14/19 06:38 Glucose 87 mg/dL (74-99) 08/14/19 06:38 Plasma Lactic Acid Chato 1.3 mmol/L (0.7-2.0) 08/11/19 20:35 Calcium 8.3 mg/dL (8.4-10.2) L 08/14/19 06:38 Magnesium 2.0 mg/dL (1.6-2.3) 08/13/19 07:02 Total Bilirubin 0.3 mg/dL (0.2-1.3) 08/14/19 06:38 AST 18 U/L (14-36) 08/14/19 06:38 ALT 18 U/L (9-52) 08/14/19 06:38 Alkaline Phosphatase 180 U/L (38-126) H 08/14/19 06:38 Total Protein 4.6 g/dL (6.3-8.2) L 08/14/19 06:38 Albumin 2.0 g/dL (3.5-5.0) L 08/14/19 06:38 Amylase 31 U/L (30-110) 08/11/19 20:18 Lipase <10 U/L (23-300) L 08/11/19 20:18 HCG, Quant 12792.5 mIU/mL 08/11/19 20:18 Urine Color Yellow 08/11/19 20:18 Urine Appearance Cloudy (Clear) H 08/11/19 20:18 Urine pH 6.0 (5.0-8.0) 08/11/19 20:18 Ur Specific Harris 1.013 (1.001-1.035) 08/11/19 20:18 Urine Protein 2+ (Negative) H 08/11/19 20:18 Urine Glucose (UA) Negative (Negative) 08/11/19 20:18 Urine Ketones Negative (Negative) 08/11/19 20:18 Urine Blood Small (Negative) H 08/11/19 20:18 Urine Nitrite Positive (Negative) H 08/11/19 20:18 Urine Bilirubin Negative (Negative) 08/11/19 20:18 Urine Urobilinogen 2.0 mg/dL (<2.0) 08/11/19 20:18 Ur Leukocyte Esterase Large (Negative) H 08/11/19 20:18 Urine WBC >182 /hpf (0-5) H 08/11/19 20:18 Urine WBC Clumps Few /hpf (None) H 08/11/19 20:18 Ur Squamous Epith Cells 3 /hpf (0-4) 08/11/19 20:18 Urine Bacteria Moderate /hpf (None) H 08/11/19 20:18 Urine Mucus Rare /hpf (None) H 08/11/19 20:18 Urine HCG, Qual Detected (Not Detectd) 08/11/19 20:18 Treponema pallidum Ab Non-Reactive (Non-Reactive) 08/12/19 07:24 Hep Bs Antigen Non-Reactive (Non-Reactive) 08/11/19 22:16 Rubella IgG Antibody 11.90 IU/mL 08/11/19 22:16 Blood Type A Positive 08/12/19 14:05 Blood Type Recheck A Pos 08/12/19 14:05 Bld Type Recheck Status No 08/12/19 14:05 Antibody Screen NEGATIVE 08/12/19 14:05 Spec Expiration Date 08/15/2019230408/12/19 14:05 CBC & Chem 7: 08/14/19 06:38 08/14/19 06:38 Labs: Abnormal Lab Results - Last 24 Hours (Table) 08/14/19 08/14/19 Range/Units 06:38 06:38 RBC 2.97 L (3.80-5.40) m/uL Hgb 8.3 L (11.4-16.0) gm/dL Hct 27.6 L (34.0-46.0) % MCHC 30.2 L (31.0-37.0) g/dL Sodium 135 L (137-145) mmol/L Chloride 110 H (98-107) mmol/L Carbon Dioxide 17 L (22-30) mmol/L BUN 20 H (7-17) mg/dL Calcium 8.3 L (8.4-10.2) mg/dL Alkaline Phosphatase 180 H (38-126) U/L Total Protein 4.6 L (6.3-8.2) g/dL Albumin 2.0 L (3.5-5.0) g/dL Microbiology - Last 24 Hours (Table) 08/11/19 22:16 Blood Culture - Preliminary Blood No Growth after 48 hours 08/11/19 20:18 Urine Culture - Preliminary Urine,Voided Gram Neg Bacilli Assessment and Plan Plan: This is a 24-year-old female who presents to Hospital with signs of sepsis secondary to pyelonephritis as well as acute kidney injury and dehydration. Patient was also found to be and seen by Dr. Navarrete with plan for follow-up for care. Urine culture is currently showing gram- negative bacilli and blood culture no growth at 48 hours. Patient is currently on Rocephin and also receiving morphine every 4 hours with continued significant pain. Nystatin will be added for oral thrush. Continue supportive care. Further recommendations as patient progresses. The above dictated assessment and findings were discussed with Dr. Almonte. The impression and plan of care have been directed as dictated. Carlie Mosquera nurse practitioner acting as scribe for Dr. Almonte.
[2019-08-14] MEDS: SODIUM CHLORIDE 0.45% 1,000 ML IV SCH ×2 (10:16→22:54)
[2019-08-14] MEDS: NYSTATIN 100,000 UNIT/ML SUSP 500,000 UNIT/5 ML CUP PO SCH ×3 (10:17→20:21)
[2019-08-14 11:35] LABS: Iron Saturation 8.52 (12.00-45.00)
[2019-08-14 11:37] LABS: Ferritin 204.3 ng/mL (10.0-291.0)
[2019-08-14 11:54] LABS: HIV 1 AB Non-Reactive (Non-Reactive); HIV 2 AB Non-Reactive (Non-Reactive); HIV AB P24 Non-Reactive (Non-Reactive); HIV P24 AG Non-Reactive (Non-Reactive)
--- NOTE | 2019-08-14 15:08 | CDI ---
Documentation Clarification Form Date: 08/14/2019 2:25:54 PM From: Kathryn Villar RN, CCDS Admit Date: 08/12/2019 3:19:00 PM Patient Name: Eva Fragoso Visit Number: [id number] Discharge Date: ATTENTION: The Clinical Documentation Specialists (CDI) and [facility] Coding Staff appreciate your assistance in clarifying documentation. Please respond to the clarification below the line at the bottom and electronically sign. The CDI & [facility] Coding staff will review the response and follow-up if needed. Please note: Queries are made part of the Legal Health Record. If you have any questions, please contact the author of this message via ITS. Dr. Kavita Cristina The patient presented with the following: abdominal pain with nausea and vomiting. History/Risk Factors: 14 weeks , Current same day smoker Clinical Indicators: 24-year-old female for the last 2 days has been having severe pain to her abdomen and back. Patient states positive nausea and vomiting. She states she has unintentionally lost 40 pounds in one month. Reports sweats and chills but denies any known fever. Reports bilateral flank pain. Vital signs on admission: 117/76 115 22 99.0, 100.4 Lab findings: WBC 14.8, Creatinine 2.49, UA Large Leukocyte esterase, greater than 182 WBC, Moderate bacteria, Urine culture: Escherichia coli Blood cultures No growth after 48 hours HCG positive US: viable intrauterine measuring 14 weeks 1 day with heart rate of 180 Treatment: vitamin Daily Rocephin IV IV Fluids @ 75 cc/hr Consults: OBGYN: Urine analysis was consistent with pyelonephritis. Early In your professional opinion, can you please further clarify pyelonephritis? Acute Pyelonephritis (due to Bacteria, specify) Chronic Pyelonephritis (due to, specify) Specify if complicating (specify conditions, complications) Other, please specify Unable to determine (Last Revision: February 2018) Acute pyelonephritis MTDD
[2019-08-14] MEDS: ACETAMINOPHEN TAB 500 MG TAB PO PRN (15:21)
--- NOTE | 2019-08-14 19:57 | P.PN ---
Subjective Progress Note Date: 08/14/19 (delayed charting seen at 1355) Principal diagnosis: abdominal pain, intractable nausea and vomiting Patient is a 24-year-old female with no significant past medical hist ory that presented to the emergency department with complaints of abdominal pain, pelvic pain, flank pain, and nausea and vomiting. In the ER she underwent an extensive evaluation. Initially she was afebrile but had a pulse of 115. Several hours after admission she spiked a fever of 100.4. Initial laboratory analysis showed an elevated white blood cell count at 14.8, potassium 3.0, BUN 48, creatinine 2.49, glucose 68, alk phos 193, she was found to have a positive urinalysis with white blood cell count greater than 182. She was also found to have a positive urine hCG, serum hCG 27,486.5. Abdominal ultrasound was performed which showed viable 14 week 1 day intrauterine . She was started on IV fluids, antibiotics, pain control, antiemetics. She was admitted for pyelonephritis with sepsis associated with acute kidney injury. TRAINING SPECIALIST was consulted who recommended following up in the office in 2 weeks and routine testing. Renal ultrasound was ordered which was normal. She did significant improvement in her renal function by the morning after admission. She continued to have some nausea, and right upper quadrant pain on 08/13. WBC normal and pain improved on 08/14. Patient seen and examined at bedside. Feeling slightly better, nausea better still no appetite, no pain under left rib cage, still with back and RLQ pain, no chest pain or shortness of breath Objective - Vital Signs Vital signs: Vital Signs Temp 98.2 F 08/14/19 15:18 Pulse 75 08/14/19 15:18 Resp 16 08/14/19 15:18 BP 120/84 08/14/19 15:18 Pulse Ox 98 08/14/19 15:18 Intake & Output 08/14/19 08/14/19 08/15/19 06:59 18:59 06:59 Intake Total 240 Output Total 1400 1350 Balance -1400 -1110 Intake: Oral 240 Output: Urine 1400 1350 Other: Voiding Method Toilet - Exam General: Ill appearing, no distress, appears at stated age Derm: warm, dry Head: atraumatic, normocephalic, symmetric Eyes: EOMI, no lid lag, anicteric sclera Mouth: no lip lesion, mucous membranes moist Cardiovascular: S1 and S2 regular, no murmur, positive posterior tibial pulse bilateral, Lungs: Clear to auscultation bilateral , no rhonchi, no rales , no accessory muscle use Abdominal: soft, tender to palpation RLQ, R CVA tenderness, no guarding, no appreciable organomegaly Ext: no gross muscle atrophy, no edema, no contractures Neuro: CN II-XI grossly intact, no focal neuro deficits Psych: Alert, oriented, appropriate affect - Labs CBC & Chem 7: 08/14/19 06:38 08/14/19 06:38 Labs: Abnormal Lab Results - Last 24 Hours (Table) 08/14/19 08/14/19 08/14/19 Range/Units 06:38 06:38 06:38 RBC 2.97 L (3.80-5.40) m/uL Hgb 8.3 L (11.4-16.0) gm/dL Hct 27.6 L (34.0-46.0) % MCHC 30.2 L (31.0-37.0) g/dL Sodium 135 L (137-145) mmol/L Chloride 110 H (98-107) mmol/L Carbon Dioxide 17 L (22-30) mmol/L BUN 20 H (7-17) mg/dL Calcium 8.3 L (8.4-10.2) mg/dL Iron 15 L (50-170) ug/dL TIBC 176 L (228-460) ug/dL Iron Saturation 8.52 L (12.00-45.00) Alkaline Phosphatase 180 H (38-126) U/L Total Protein 4.6 L (6.3-8.2) g/dL Albumin 2.0 L (3.5-5.0) g/dL Microbiology - Last 24 Hours (Table) 08/11/19 20:18 Urine Culture - Final Urine,Voided Escherichia coli 08/11/19 22:16 Blood Culture - Preliminary Blood No Growth after 48 hours Assessment and Plan Assessment: Acute Pyelonephritis with sepsis, e. coli -Continue with Rocephin, Bactrim on discharge per discussion with infectious disease -IV fluid resuscitation -Antiemetics -Pain control, decrease morphine frequency - await chlamydia and gonorrhea Acute renal failure likely secondary to severe dehydration, improved -Continue IV fluids -Avoid additional nephrotoxic agents -Renal ultrasound normal Viable intrauterine -TRAINING SPECIALIST recommendations greatly appreciated - vitamin -Follow with OB in 2 weeks Intermittent tobacco abuse -Encourage cessation Thrush - nystatin Hypokalemia , improved Intractable nausea and vomiting, resolved DVT prophylaxis: SCDs Discussed with: Patient Anticipated discharge: 1-[address]: home A total of 25 minutes was spent on the care of this complex patient more than 50% of the time was spent in counseling and care coordination.
--- NOTE | 2019-08-15 00:47 | P.CON ---
Consult Note - . Consult date: 08/14/19 Assessment/Plan:: This is a 24-year-old female with history of 3 days of lower abdominal pain and flank pain more so on the right side along with nausea, lack of appetite. Patient denies any history of urinary tract infections. She denies any dysuria prior to admission. She states she feels a craving to drink water versus pop. She complains of soreness in the back of her throat was irritated and sore since she arrived. She denies any history of strep throat. Patient came into [facility] emergency center for evaluation. Temperature 100.9, tachycardic, leukocytosis of 14.8. She was also found to be in acute renal failure with BUN of 48 creatinine of 2.49 which have recovered. Hemoglobin 8.8. HCG was positive and patient underwent ultrasound that showed an intrauterine with active heartbeat. Treponema was nonreactive, hepatitis B antigen nonreactive, rubella IgG 11.9. Renal ultrasound was normal. Urine cultures gram-negative bacilli, blood culture no growth at 48 hours. Patient was admitted to the medical/pedis floor. She has been seen in consultation by Dr. Navarrete for care with plan for follow-up as an outpatient. At the time of this evaluation. Patient states she has been eating and denies any nausea but states she still does not have any appetite. Pain continues to be significant more so on the right lower quadrant and right flank. Pain is a 7-8/10. She states she has not had any bowel movement since but has been passing gas.Please see the consult note as dictated by nurse practitioner Mrs. Carlie Mosquera. This pleasant woman presents Hospital feeling acutely ill with severe right- sided flank pain. She does not have a history of prior significant urinary tract infections. She also had fever and evidence of an elevated creatinine. She was found evidence of which was a new finding for, renal ultrasound without evidence of acute obstruction, abdominal ultrasound shows evidence of the intrauterine . If the symptom the patient is evidence of a pyelonephritis of the right kidney and is having pain that is somewhat disproportionate but is starting to show some improvement. She does have evidence of gram-negative infection and is likely E. coli per the current data. If she is rapidly improving will likely be transitioned to oral antibiotic therapy with trimethoprim sulfamethoxazole the outpatient setting to complete the several week course of therapy for the pyelonephritis associated with her . We've discussed that urination after intercourse be helpful to prevent further bouts of urinary tract infection as well as good urinary hygiene habits. Douching and other active aggressive cleansing should be avoided. I agree with evaluation, assessment and plan as dictated by nurse practitioner Mrs. Carlie Mosquera.
[2019-08-15] MEDS: MORPHINE SULFATE 4 MG/ML SYRINGE IV PRN (04:16)
[2019-08-15] MEDS: NYSTATIN 100,000 UNIT/ML SUSP 500,000 UNIT/5 ML CUP PO SCH ×3 (04:22→12:52)
[2019-08-15 08:58] VITALS: BP 119/78; PULSE 74; TEMP 98.5
[2019-08-15] MEDS: ACETAMINOPHEN TAB 500 MG TAB PO PRN (09:02)
[2019-08-15] MEDS: PRENATAL VIT-IRON-FOLIC ACID 1 EACH CAP PO SCH (09:02)
[2019-08-15] MEDS: SODIUM CHLORIDE 0.45% 1,000 ML IV SCH (09:04)
--- NOTE | 2019-08-15 11:16 | P.DS ---
Providers Date of admission: 08/12/19 15:19 Expected date of discharge: 08/15/19 Attending physician: oIn Lopez MD Consults: 08/11/19 23:14 Consult Physician Stat Consulting Provider: Jessie Navarrete Consult Reason/Comments: Do you want consulting provider notified?: Already Contacted 08/13/19 09:04 Consult Physician Routine Consulting Provider: José Miguel Almonte Consult Reason/Comments: UTI sepsis Do you want consulting provider notified?: Yes Primary care physician: Stated None Hospital Course: Discharge Diagnosis: E. coli acute pyelonephritis with sepsis Acute renal failure secondary to severe dehydration Viable intrauterine Intermittent tobacco abuse Thrush Hypokalemia Intractable nausea vomiting Hospital Course: Patient is a 24-year-old female with no significant past medical history that presented to the emergency department with complaints of abdominal pain, pelvic pain, flank pain, and nausea and vomiting. In the ER she underwent an extensive evaluation. Initially she was afebrile but had a pulse of 115. Several hours after admission she spiked a fever of 100.4. Initial laboratory analysis showed an elevated white blood cell count at 14.8, potassium 3.0, BUN 48, creatinine 2.49, glucose 68, alk phos 193, she was found to have a positive urinalysis with white blood cell count greater than 182. She was also found to have a positive urine hCG, serum hCG 27,486.5. Abdominal ultrasound was performed which showed viable 14 week 1 day intrauterine . She was started on IV fluids, antibiotics, pain control, antiemetics. She was admitted for pyelonephritis with sepsis associated with acute kidney injury. MACHINE TOOL OPERATOR was consulted who recommended following up in the office in 2 weeks and routine testing. Renal ultrasound was ordered which was normal. She did significant improvement in her renal function by the morning after admission. She continued to have some nausea, and right upper quadrant pain on 08/13. WBC normal and pain improved on 08/14. She continued to improve. She was seen by ID who recommended 2 weeks of abx and second or third generation cephalosporin. Gonorrhea and chlamydia pending on discharge. Return to work on 08/21. Counseled on the importance of completing antibiotic therapy and a repeat UA after antib iotic completed. Patient seen and examined at bedside. Pain is much better, no nausea, tolerating oral intake, abdominal pain better. Vital signs reviewed and stable. General: non toxic, no distress, appears at stated age Derm: warm, dry Head: atraumatic, normocephalic, symmetric Eyes: EOMI, no lid lag, anicteric sclera Mouth: no lip lesion, mucus membranes moist Cardiovascular: S1S2 reg, no murmur, positive posterior tibial pulse bilateral, Lungs: CTA bilateral, no rhonchi, no rales , no accessory muscle use Abdominal: soft, nontender to palpation, no guarding, no appreciable organomegaly Ext: no gross muscle atrophy, no edema, no contractures Neuro: CN II-XI grossly intact, no focal neuro deficits Psych: Alert, oriented, appropriate affect A total of 35 minutes of time were spent preparing this complex discharge summary . Patient Condition at Discharge: Stable Plan - Discharge Summary Discharge Rx Participant: Yes New Discharge Prescriptions: New Nystatin 100,000 Unit/ml Susp [Mycostatin Oral Susp] 500,000 unit PO QID 10 Days #1 bottle Rlz-Oegd-Cnwnb Acid [-U Capsule (formulary)] 1 each PO DAILY #30 cap Acetaminophen Tab [Tylenol] 1,000 mg PO Q6HR PRN tab PRN Reason: Mild Pain Cefpodoxime Proxetil [Vantin] 200 mg PO Q12HR #28 tab Discontinued Ibuprofen [Motrin] 800 mg PO TID PRN PRN Reason: Pain Acetaminophen Tab [Tylenol Tab] 650 mg PO Q6H PRN PRN Reason: Pain Discharge Medication List Acetaminophen Tab [Tylenol] 1,000 mg PO Q6HR PRN tab 08/15/19 [Rx] Cefpodoxime Proxetil [Vantin] 200 mg PO Q12HR #28 tab 08/15/19 [Rx] Nystatin 100,000 Unit/ml Susp [Mycostatin Oral Susp] 500,000 unit PO QID 10 Days #1 bottle 08/15/19 [Rx] Kcz-Dkyh-Ttjba Acid [-U Capsule (formulary)] 1 each PO DAILY #30 cap 08/15/19 [Rx] Follow up Appointment(s)/Referral(s): Jessie Navarrete MD [STAFF PHYSICIAN] - 2 Weeks None,Stated [Primary Care Provider] - 1-2 days Patient Instructions/Handouts: Urinary Tract Infection in Women (DC) Activity/Diet/Wound Care/Special Instructions: Activity: as tolerated Diet: regular Special Instructions: Increase water intake Discharge/Stand Alone Forms: Work/Release Restrictions Form
[2019-08-15 15:02] LABS: C. trachomatis,PCR Negative (Neg,Equiv); Chlamydia trachomatis Source Urine; N. gonorrhoeae,PCR Negative (Neg,Equiv); Neisseria Source Urine
== END 2019-08-15 14:54 | disposition home or self-care (01) | DRG 831 ==
LOC: EC 18:21 → 6PED 23:16 → OBSVTOIN 08-12 15:19
PROVIDERS: ADMIT Family Medicine; ATTEND Family Medicine
DX: O98.812 Other maternal infectious and parasitic diseases complicating pregnancy, second trimester (principal); A41.51 Sepsis due to Escherichia coli [E. coli]; O23.02 Infections of kidney in pregnancy, second trimester; N17.9 Acute kidney failure, unspecified; N10 Acute pyelonephritis; E87.2 Acidosis; O26.832 Pregnancy related renal disease, second trimester; O99.02 Anemia complicating childbirth; F32.9 Major depressive disorder, single episode, unspecified; F41.1 Generalized anxiety disorder; E86.0 Dehydration; E86.1 Hypovolemia; E87.6 Hypokalemia; F17.210 Nicotine dependence, cigarettes, uncomplicated; B37.9 Candidiasis, unspecified; D64.9 Anemia, unspecified; Z3A.14 14 weeks gestation of pregnancy; Z88.6 Allergy status to analgesic agent; Z88.5 Allergy status to narcotic agent; Z90.49 Acquired absence of other specified parts of digestive tract; Z90.89 Acquired absence of other organs; Z83.6 Family history of other diseases of the respiratory system; Z81.8 Family history of other mental and behavioral disorders; Z83.49 Family history of other endocrine, nutritional and metabolic diseases
CPT/HCPCS: 36415; 76770; 76801; 80048; 80053; 81001; 81025; 82150; 82728; 83540; 83550; 83605; 83690; 83735; 84132; 84702; 85025; 85027; 86762; 86780; 86850; 86900; 86901; 87040; 87077; 87086; 87186; 87340; 87390; 87491; 87591; 93005; 96361; 96365; 96366; 96375; 96376; 99285

== ENCOUNTER 2019-10-17 15:24 | Inpatient (IN) | payer BC, OTHER ==
--- NOTE | 2019-10-17 16:17 | US ---
EXAMINATION TYPE: US kidneys/renal and bladder DATE OF EXAM: 10/17/2019 COMPARISON: NONE CLINICAL HISTORY: kidney pain. back pain for 1 week, UTI, h/o bad UTI in August 2019, 24 weeks pregn ant EXAM MEASUREMENTS: Right Kidney: 12.9 x 5.7 x 4.6 cm Left Kidney: 12.9 x 3.9 x 6.0 cm Right Kidney: No hydronephrosis or masses seen Left Kidney: No hydronephrosis or masses seen Bladder: not fully distended Bilateral Jets seen: no There is no evidence for hydronephrosis at this point in time. No nephrolithiasis is seen. No facundo s are identified. The urinary bladder is anechoic. Bilateral ureteral jets are seen. IMPRESSION: No hydronephrosis or nephrolithiasis of either kidney. Unremarkable exam.
[2019-10-17 16:52] LABS: Appearance,Urine Cloudy (Clear); Bacteria,Urine Moderate /hpf; Bilirubin,Urine Negative (Negative); Blood,Urine Trace (Negative); Budding Yeast,Urine Rare /hpf; Color,Urine Yellow; Glucose,Urine (UA) Negative (Negative); Ketones,Urine 1+ (Negative); Leukocyte Esterase,Urine Large (Negative); Mucus,Urine Many /hpf; Nitrite,Urine Positive (Negative); Protein,Urine 1+ (Negative); RBC,Urine 9 /hpf (0-5); Specific Gravity,Urine 1.018 (1.001-1.035); Squamous Epithelial Cell,Urine 1 /hpf (0-4); Urobilinogen,Urine <2.0 mg/dL (<2.0); WBC,Urine >182 /hpf (0-5)
[2019-10-17 17:07] LABS: Basophils % (A) 0 %; Eosinophils % (A) 0 %; HCT 29.9 % (34.0-46.0); HGB 10.1 gm/dL (11.4-16.0); Lymphocytes # (A) 0.7 k/uL (1.0-4.8); Lymphocytes % (A) 8 %; MCH 30.1 pg (25.0-35.0); MCHC 33.8 g/dL (31.0-37.0); Mean Platelet Volume 8.8; Monocytes # (A) 0.6 k/uL (0-1.0); Monocytes % (A) 7 %; Neutrophils # (A) 7.8 k/uL (1.3-7.7); Neutrophils % (A) 84 %; Platelet Count 194 k/uL (150-450); RBC 3.37 m/uL (3.80-5.40); RDW 14.1 % (11.5-15.5); WBC 9.3 k/uL (3.8-10.6)
[2019-10-17] MEDS ORDERED: GENTAMICIN PER PHARMACY MISCELLANE PRN (17:18)
[2019-10-17] MEDS: LACTATED RINGERS 1,000 ML IV SCH (17:50)
[2019-10-17] MEDS: BUTORPHANOL 1 MG/ML 1 ML VIAL IV PRN ×3 (17:51→23:19)
[2019-10-17] MEDS: GENTAMICIN 80 MG in SODIUM CHLORIDE 0.9% 100 ML IVPB SCH (18:31)
[2019-10-17] MEDS: ACETAMINOPHEN TAB 325 MG TAB PO PRN (20:52)
[2019-10-18] MEDS: GENTAMICIN 80 MG in SODIUM CHLORIDE 0.9% 100 ML IVPB SCH ×3 (02:08→17:34)
[2019-10-18] MEDS: BUTORPHANOL 1 MG/ML 1 ML VIAL IV PRN ×3 (02:25→08:06)
[2019-10-18] MEDS: LACTATED RINGERS 1,000 ML IV SCH ×3 (03:32→17:40)
[2019-10-18] MEDS: ACETAMINOPHEN TAB 325 MG TAB PO PRN (07:16)
--- NOTE | 2019-10-18 08:50 | P.HPOB ---
History of Present Illness H&P Date: 10/18/19 Chief Complaint: Presumptive pyelonephritis Pt presented from office where found to have sig abd and pelvic pain, hx of previous pyelonephritis, U/A c/w UTI. Admitted for IV antibiotics with presumptive dx of pyelo, pain diffuse and non-focal. Appears more comfortable this AM though has required pain meds through the night. Fetus active, no specific preg concerns. Tolerating reg diet. Ob hx: , first visit in office yesterday. 2 prev , no sig complica tions. Oral Therapist hx: unremarkable. Review of Systems As in HPI. 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 Recent anxiety attacks. Smoking Status: Current some day smoker Past Alcohol Use History: None Reported Additional Past Alcohol Use History / Comment(s): Patient is a smoker of one to 2 cigarettes per day since she was 11 years of age. She denies any marijuana, illicit drug use or alcohol use. 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 She lives at home with her boyfriend. There is a bearded dragon in the home and a dog. No recent travel. Past Drug Use History: None Reported - Past Family History Father Family Medical History: Fibromyalgia Mother History Unknown: Yes Family Medical History: Thyroid Disorder Additional Family Medical History / Comment(s): bipolar Medications and Allergies Home Medications Medication Instructions Recorded Confirmed Type Acetaminophen Tab [Tylenol] 1,000 mg PO Q6HR PRN tab 08/15/19 10/18/19 Rx Hzu-Pgpk-Sphlh Acid 1 tab PO DAILY 10/18/19 10/18/19 History [-U Capsule (formulary)] Allergies Allergy/AdvReac Type Severity Reaction Status Date / Time tramadol Allergy Mild Rash/Hives Verified 10/18/19 07:30 aspirin Allergy Rash/Hives Verified 10/18/19 07:30 ketorolac [From Toradol] Allergy Itching Verified 10/18/19 07:30 amoxicillin AdvReac Vomiting Verified 10/18/19 07:30 Exam Vital Signs Temp Pulse Pulse Resp BP Pulse Ox 10/18/19 07:30 16 10/18/19 07:00 98.7 F 99 16 125/78 98 10/18/19 00:38 97.7 F 98 14 105/63 99 10/17/19 21:23 97.7 F 113 H 16 117/75 100 10/17/19 19:56 100.4 F H 116 H 18 126/76 10/17/19 17:30 96.8 F L 102 H 18 119/76 100 Intake and Output 10/17/19 10/18/19 10/18/19 22:59 06:59 14:59 Intake Total 1100 Balance 1100 Intake: Intake, IV Titration 1100 Amount Gentamicin 80 mg In 100 Sodium Chloride 0.9% 100 ml @ 102 mls/hr IVPB Q8H RUI Rx#:[id number] Lactated Ringers 1,000 ml 1000 @ 125 mls/hr IV .Q8H RUI Rx#:[id number] Other: Voiding Method Toilet # Voids 1 Weight 71.668 kg In general, is is a well-developed, well-nourished white female in no acute distress. Her heart has regular rhythm and rate without murmur. Her lungs are clear to auscultation bilaterally in all seymour. Her abdomen is gravid with the fundus palpable just above the umbilicus and nontender. There are no other abdominal findings of concern. She has mild left flank pain with minimal right flank pain. Her extremities are without any cyanosis, clubbing, or edema and are nontender to palpation bilaterally. Pelvic examination is deferred. Results Result Diagrams: 10/17/19 16:53 Abnormal Lab Results - Last 24 Hours (Table) 10/17/19 10/17/19 Range/Units 16:20 16:53 RBC 3.37 L (3.80-5.40) m/uL Hgb 10.1 L (11.4-16.0) gm/dL Hct 29.9 L (34.0-46.0) % Neutrophils # 7.8 H (1.3-7.7) k/uL Lymphocytes # 0.7 L (1.0-4.8) k/uL Urine Appearance Cloudy H (Clear) Urine Protein 1+ H (Negative) Urine Ketones 1+ H (Negative) Urine Blood Trace H (Negative) Urine Nitrite Positive H (Negative) Ur Leukocyte Esterase Large H (Negative) Urine RBC 9 H (0-5) /hpf Urine WBC >182 H (0-5) /hpf Urine WBC Clumps Few H (None) /hpf Urine Bacteria Moderate H (None) /hpf Urine Mucus Many H (None) /hpf Urine Yeast (Budding) Rare H (None) /hpf Microbiology - Last 24 Hours (Table) 10/17/19 16:20 Urine Culture - Preliminary Urine,Voided Assessment and Plan (1) Pyelonephritis Current Visit: No Status: Acute Code(s): N12 - TUBULO-INTERSTITIAL NEPHRITIS, NOT SPCF ACUTE OR CHRONIC SNOMED Code(s): 87622319 (2) Dehydration Current Visit: No Status: Acute Code(s): E86.0 - DEHYDRATION SNOMED Code(s): 71967105 (3) Current Visit: No Status: Acute Code(s): Z34.90 - ENCNTR FOR SUPRVSN OF NORMAL , UNSP, UNSP TRIMESTER SNOMED Code(s): 71422991 Plan: The patient has been admitted for aggressive management of presumptive pyelonephritis. The pain that she reports is more confined to the sacroiliac joints and low back, not the typical site for pain from pyelonephritis. As she is tolerating regular diet, we will change to oral pain medications. She has been started on gentamicin and will be continued for at least 24 hours afebrile with clinical improvement. I would anticipate discharge home either late tonight or early tomorrow morning pending complications. There is no evidence of elevated white count but it will be repeated today. Urine cultures are pending.
[2019-10-18 09:29] LABS: Basophils % (A) 0 %; Eosinophils % (A) 0 %; HCT 25.9 % (34.0-46.0); HGB 8.9 gm/dL (11.4-16.0); Lymphocytes % (A) 12 %; MCH 30.5 pg (25.0-35.0); MCHC 34.4 g/dL (31.0-37.0); MCV 88.9 fL (80.0-100.0); Mean Platelet Volume 7.8; Monocytes # (A) 0.5 k/uL (0-1.0); Monocytes % (A) 6 %; Neutrophils # (A) 6.7 k/uL (1.3-7.7); Neutrophils % (A) 80 %; Platelet Count 218 k/uL (150-450); RBC 2.91 m/uL (3.80-5.40); RDW 13.8 % (11.5-15.5); WBC 8.4 k/uL (3.8-10.6)
[2019-10-18] MEDS: Acetaminophen-Codeine 300-30mg TAB PO PRN ×4 (10:06→22:41)
[2019-10-18] MEDS ORDERED: GENTAMICIN TROUGH DUE 1 EACH MISC MISCELLANE ONE (17:30)
[2019-10-18 17:48] LABS: African American GFR (CKD) >90 (>60 ml/min/1.73 sqM); Non-African American GFR(CKD) >90 (>60 ml/min/1.73 sqM)
[2019-10-18] MEDS ORDERED: GENTAMICIN PEAK DUE 1 EACH MISC MISCELLANE ONE (20:00)
[2019-10-19] MEDS: LACTATED RINGERS 1,000 ML IV SCH (03:30)
[2019-10-19] MEDS ORDERED: GENTAMICIN 80 MG in SODIUM CHLORIDE 0.9% 100 ML IVPB SCH (06:00)
[2019-10-19] MEDS: Acetaminophen-Codeine 300-30mg TAB PO PRN (06:31)
--- NOTE | 2019-10-19 08:47 | P.DS ---
Providers Date of admission: 10/18/19 12:11 Expected date of discharge: 10/19/19 Attending physician: Jorden Heath Primary care physician: Stated None - Discharge Diagnosis(es) (1) Pyelonephritis Current Visit: No Status: Acute (2) Dehydration Current Visit: No Status: Acute (3) Current Visit: No Status: Acute Hospital Course: The patient is a 24-year-old 3 para 2002 who presented to the office wi th significant discomfort and an apparent bladder infection, possible pyelonephritis. She was sent to labor and delivery where she was evaluated and admitted for presumptive pyelonephritis. She started on intravenous gentamicin with the intention of keeping her for 24-48 hours of of IV antibiotics the as well as clinical improvement. She was afebrile throughout her entire stay and tolerated regular diet through the entire time. Vital signs were otherwise stable as well. There were no concerns of any kind. Urine culture is pending at this time. She did however have significant clinical improvement and was therefore deemed stable for discharge on hospital day #3. She is discharged home to follow-up in the office in 2 weeks' time or as needed. She was instructed to call for any significantly increased pain, fever, concerns, or anything else that concerned her. She did require some pain control with narcotics during the admission and was discharged home with a pre scription for Tylenol No. 3, one to 2 by mouth every 6 hours when necessary pain, #10 dispensed with no refills. She additionally was given a prescription for Bactrim DS, one twice daily for 5 days pending the results of the urine culture. The pain that the patient complained primarily of was mostly located in the hip girdle and low back and likely musculoskeletal in nature. She did also have a pelvic ultrasound performed which failed to demonstrate any significant findings to include stones or hydronephrosis. Procedures: #1. IV antibiotics #2. IV hydration #3. Abdominal ultrasound Patient Condition at Discharge: Stable Plan - Discharge Summary New Discharge Prescriptions: No Action Acetaminophen Tab [Tylenol] 1,000 mg PO Q6HR PRN tab PRN Reason: Mild Pain Ubp-[id number]-[id number] Acid [-U Capsule (formulary)] 1 tab PO DAILY Discharge Medication List Acetaminophen Tab [Tylenol] 1,000 mg PO Q6HR PRN tab 08/15/19 [Rx] Tuy-Whwp-Bwdui Acid [-U Capsule (formulary)] 1 tab PO DAILY 10/18/19 [History] Follow up Appointment(s)/Referral(s): Jorden Heath MD [STAFF PHYSICIAN] - 2 Weeks Discharge Disposition: HOME SELF-CARE
[2019-10-19 09:11] VITALS: BP 112/69; PULSE 74; RESP 16; TEMP 98.6
== END 2019-10-19 11:22 | disposition home or self-care (01) | DRG 833 ==
LOC: FBPOP 15:24 → 4FBP 19:51 → 4SSUR 21:19 → OBSVTOIN 10-18 12:11
PROVIDERS: ADMIT Obstetrics & Gynecology; ATTEND Obstetrics & Gynecology
DX: O23.02 Infections of kidney in pregnancy, second trimester (principal); Z3A.24 24 weeks gestation of pregnancy; O99.332 Smoking (tobacco) complicating pregnancy, second trimester; F17.200 Nicotine dependence, unspecified, uncomplicated; E86.0 Dehydration; O26.892 Other specified pregnancy related conditions, second trimester
CPT/HCPCS: 76770; 80170; 81001; 82565; 85025; 87077; 87086; 87186; 96361; 96366; 99213

== ENCOUNTER 2019-12-04 20:11 | Inpatient (IN) | payer OTHER ==
[2019-12-04 20:58] LABS: Appearance,Urine Cloudy (Clear); Bacteria,Urine Occasional /hpf; Bilirubin,Urine Negative (Negative); Blood,Urine Negative (Negative); Color,Urine Yellow; Glucose,Urine (UA) Negative (Negative); Ketones,Urine Trace (Negative); Leukocyte Esterase,Urine Moderate (Negative); Mucus,Urine Many /hpf; Nitrite,Urine Positive (Negative); Protein,Urine 1+ (Negative); RBC,Urine 2 /hpf (0-5); Specific Gravity,Urine 1.023 (1.001-1.035); Squamous Epithelial Cell,Urine 1 /hpf (0-4); Urobilinogen,Urine <2.0 mg/dL (<2.0); WBC,Urine 25 /hpf (0-5)
[2019-12-04] MEDS ORDERED: LACTATED RINGERS 1,000 ML IV ONE (21:30)
[2019-12-04] MEDS: LACTATED RINGERS 1,000 ML IV SCH (22:25)
[2019-12-04 22:39] LABS: Basophils % (A) 0 %; Eosinophils % (A) 0 %; HCT 30.3 % (34.0-46.0); HGB 9.9 gm/dL (11.4-16.0); Lymphocytes # (A) 0.6 k/uL (1.0-4.8); Lymphocytes % (A) 4 %; MCH 29.6 pg (25.0-35.0); MCHC 32.6 g/dL (31.0-37.0); MCV 90.8 fL (80.0-100.0); Mean Platelet Volume 8.7; Monocytes # (A) 0.4 k/uL (0-1.0); Monocytes % (A) 3 %; Neutrophils # (A) 12.6 k/uL (1.3-7.7); Neutrophils % (A) 92 %; Platelet Count 150 k/uL (150-450); RBC 3.34 m/uL (3.80-5.40); RDW 14.5 % (11.5-15.5); WBC 13.6 k/uL (3.8-10.6)
[2019-12-04 22:45] LABS: ALT 9 U/L (4-34); AST 21 U/L (14-36); African American GFR (CKD) >90 (>60 ml/min/1.73 sqM); Albumin 2.9 g/dL (3.5-5.0); Alkaline Phosphatase 106 U/L (38-126); Blood Urea Nitrogen 7 mg/dL (7-17); Calcium 8.3 mg/dL (8.4-10.2); Carbon Dioxide 20 mmol/L (22-30); Chloride 107 mmol/L (98-107); Glucose 88 mg/dL (74-99); Non-African American GFR(CKD) >90 (>60 ml/min/1.73 sqM); Total Bilirubin 0.6 mg/dL (0.2-1.3); Total Protein 5.5 g/dL (6.3-8.2)
[2019-12-04 22:59] LABS: Anion Gap 7 mmol/L; Potassium 4.2 mmol/L (3.5-5.1); Sodium 134 mmol/L (137-145)
[2019-12-04] MEDS: ACETAMINOPHEN IV (For NPO) 1,000 MG in EMPTY BAG 1 BAG IVPB SCH (23:02)
[2019-12-05] MEDS: BUTORPHANOL 1 MG/ML 1 ML VIAL IV PRN ×4 (02:49→19:35)
[2019-12-05] MEDS: LACTATED RINGERS 1,000 ML IV SCH ×2 (07:56→16:27)
--- NOTE | 2019-12-05 10:09 | P.HPOB ---
History of Present Illness H&P Date: 12/05/19 Chief Complaint: Presumptive pyelonephritis, 30 weeks intrauterine The patient is a 24-year-old 3 para 2 scissors or 2 who has been admitted previously in the on 2 separate occasions for pyelonephritis. She is currently 30+ weeks by a second trimester ultrasound. She reports fevers as high as 101.2 at home and significantly increasing bilateral flank pain. She presented through the emergency department and triage at which time she was thought to have again contracted pyelonephritis. She was admitted and started on an intravenous cephalosporin along with narcotics as needed for pain control. She initially had some nausea but that has resolved and she is tolerating clear liquids at this time. Obstetrical history: 3 para 2 scissors or 2 with 2 term vaginal deliveries without complications. Current statistics are as listed in history present illness with several issues with recurrent pyelonephritis. EDC of 02/08/2020 was established by a second trimester ultrasound. Laboratory workup demonstrates a blood type of A+ with a negative antibody screen. Rubella status is immune. The remainder of the laboratory workup was within normal limits aside from positive urine culture. One hour Glucola is not reported at this time but I believe is negative. Group B strep has not been determined yet. [employer] history: Unremarkable with no history of any recent infections to include STDs. Review of Systems Review of systems is confined to history of present illness. 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 Recent anxiety attacks. Smoking Status: Current every day smoker Past Alcohol Use History: None Reported Additional Past Alcohol Use History / Comment(s): Patient is a smoker of one to 2 cigarettes per day since she was 11 years of age. She denies any marijuana, illicit drug use or alcohol use. 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 She lives at home with her boyfriend. There is a bearded dragon in the home and a dog. No recent travel. Past Drug Use History: None Reported - Past Family History Father Family Medical History: Fibromyalgia Mother History Unknown: Yes Family Medical History: Thyroid Disorder Additional Family Medical History / Comment(s): bipolar Medications and Allergies Home Medications Medication Instructions Recorded Confirmed Type Acetaminophen Tab [Tylenol] 1,000 mg PO Q6HR PRN tab 08/15/19 12/04/19 Rx Gkx-Rwih-Tjzti Acid 1 tab PO DAILY 10/18/19 12/04/19 History [-U Capsule (formulary)] Allergies Allergy/AdvReac Type Severity Reaction Status Date / Time tramadol Allergy Mild Rash/Hives Verified 12/04/19 20:30 aspirin Allergy Rash/Hives Verified 12/04/19 20:30 ketorolac [From Toradol] Allergy Itching Verified 12/04/19 20:30 amoxicillin AdvReac Vomiting Verified 12/04/19 20:30 Exam Vital Signs Temp Pulse Resp BP Pulse Ox 12/05/19 07:00 97.6 F 70 18 98/63 97 12/04/19 23:57 97.7 F 93 18 117/70 100 12/04/19 23:23 97.7 F 93 18 117/70 100 12/04/19 21:19 98.0 F 124 H 18 121/82 100 Intake and Output 12/04/19 12/05/19 12/05/19 22:59 06:59 14:59 Intake Total 1000 Balance 1000 Intake: IV 1000 Invasive Line 1 1000 Other: # Voids 1 1 Weight 76.204 kg 76.204 kg In general, this is a well-developed, well-nourished white female in no acute distress but with some discomfort at rest. Her heart has a regular rhythm and rate without murmur. Her lungs are clear to auscultation bilaterally in all seymour. Her abdomen is gravid, nondistended, has normal active bowel sounds, soft, nontender, and without any palpable masses aside from uterine fundus. She does have bilateral flank pain which is mild to moderate in nature. Her extremities without any cyanosis, clubbing, or edema and are nontender to palpation bilaterally. Digital cervical examination is deferred. Results Result Diagrams: 12/04/19 22:09 12/04/19 22:09 Abnormal Lab Results - Last 24 Hours (Table) 12/04/19 12/04/19 12/04/19 Range/Units 20:14 22:09 22:09 WBC 13.6 H (3.8-10.6) k/uL RBC 3.34 L (3.80-5.40) m/uL Hgb 9.9 L (11.4-16.0) gm/dL Hct 30.3 L (34.0-46.0) % Neutrophils # 12.6 H (1.3-7.7) k/uL Lymphocytes # 0.6 L (1.0-4.8) k/uL Sodium 134 L (137-145) mmol/L Carbon Dioxide 20 L (22-30) mmol/L Calcium 8.3 L (8.4-10.2) mg/dL Total Protein 5.5 L (6.3-8.2) g/dL Albumin 2.9 L (3.5-5.0) g/dL Urine Appearance Cloudy H (Clear) Urine Protein 1+ H (Negative) Urine Ketones Trace H (Negative) Urine Nitrite Positive H (Negative) Ur Leukocyte Esterase Moderate H (Negative) Urine WBC 25 H (0-5) /hpf Urine Bacteria Occasional H (None) /hpf Urine Mucus Many H (None) /hpf Assessment and Plan (1) 30 weeks gestation of Current Visit: Yes Status: Acute Code(s): Z3A.30 - 30 WEEKS GESTATION OF SNOMED Code(s): 04990764 (2) Pyelonephritis Current Visit: Yes Status: Acute Code(s): N12 - TUBULO-INTERSTITIAL NEPHRITIS, NOT SPCF ACUTE OR CHRONIC SNOMED Code(s): 78221049 Plan: The patient is admitted for active management of intrapartum pyelonephritis. Urine culture is pending. She is on a broad-spectrum cephalosporin appropriate for primary treatment of pyelonephritis. She will have continued IV antibiotics until afebrile for 24-48 hours and significant clinical improvement is apparent. She will likely then be continued on oral antibiotics pending the outcome of the urine culture. Regular diet has been ordered and I have encouraged her to ambulate in the hallways regularly.
[2019-12-05] MEDS: HYDROcodone/APAP 5-325MG 1 EACH TAB PO PRN ×3 (10:20→22:39)
[2019-12-06] MEDS: LACTATED RINGERS 1,000 ML IV SCH ×3 (02:54→23:55)
[2019-12-06] MEDS: HYDROcodone/APAP 5-325MG 1 EACH TAB PO PRN ×4 (04:24→23:03)
--- NOTE | 2019-12-06 08:46 | P.PN ---
Subjective Progress Note Date: 12/06/19 Principal diagnosis: 30+ weeks, pyelonephritis The patient reports that she is feeling moderately better today but still has some fairly significant pain primarily on the right side. She has been ambulating and is otherwise tolerating regular diet. Pain is controlled orally. Objective - Vital Signs Vital signs: Vital Signs Temp 96.4 F L 12/05/19 22:44 Pulse 75 12/05/19 22:44 Resp 16 12/05/19 22:44 BP 117/71 12/05/19 22:44 Pulse Ox 100 12/05/19 13:00 Intake & Output 12/05/19 12/06/19 12/06/19 18:59 06:59 18:59 Intake Total 1000 Balance 1000 Intake: IV 1000 Invasive Line 1 1000 Other: # Voids 2 1 - Exam General, this is a well-developed, well-nourished white female in no acute distress. Her heart has a regular rhythm and rate without murmur. Her lungs are clear to auscultation bilaterally in all seymour. Her abdomen is gravid, nondistended, has normal active bowel sounds, soft, nontender, and without any palpable masses aside from the uterine fundus. Her extremities are without any cyanosis, clubbing, or edema and are nontender to palpation bilaterally. The left flank is significantly improved in terms of discomfort versus examination yesterday while the right flank remains relatively similar. - Labs CBC & Chem 7: 12/04/19 22:09 12/04/19 22:09 Assessment and Plan (1) 30 weeks gestation of Current Visit: Yes Status: Acute Code(s): Z3A.30 - 30 WEEKS GESTATION OF SNOMED Code(s): 73499115 (2) Pyelonephritis Current Visit: Yes Status: Acute Code(s): N12 - TUBULO-INTERSTITIAL NEPHRITIS, NOT SPCF ACUTE OR CHRONIC SNOMED Code(s): 19552342 Plan: Has been moderate clinical improvement and the patient has been afebrile for the entirety of her hospital stay. We will continue IV antibiotics and plan on discharge home at 48 hours afebrile and I would like to see some further clinical improvement with her right flank pain. I have encouraged her to continue ambulating the hallways. We additionally will await the results of urine culture.
[2019-12-06] MEDS: BUTORPHANOL 1 MG/ML 1 ML VIAL IV PRN ×2 (12:56→20:14)
[2019-12-06] MEDS: ACETAMINOPHEN IV (For NPO) 1,000 MG in EMPTY BAG 1 BAG IVPB SCH (20:56)
[2019-12-07] MEDS: LACTATED RINGERS 1,000 ML IV SCH ×3 (00:37→23:37)
[2019-12-07] MEDS: HYDROcodone/APAP 5-325MG 1 EACH TAB PO PRN ×3 (03:21→16:43)
--- NOTE | 2019-12-07 08:48 | P.PN ---
Subjective Progress Note Date: 12/07/19 Principal diagnosis: 30+ weeks, pyelonephritis Patient reporting the pain is still present and requiring narcotics but improved from yesterday. Otherwise the, she is tolerating regular diet and is ambulating regularly. Objective - Vital Signs Vital signs: Vital Signs Temp 97 F L 12/07/19 00:00 Pulse 62 12/07/19 00:00 Resp 15 12/07/19 00:00 BP 120/81 12/07/19 00:00 Pulse Ox 99 12/07/19 00:00 Intake & Output 12/06/19 12/07/19 12/07/19 18:59 06:59 18:59 Other: # Voids 1 1 - Exam Her heart has a regular rhythm and rate without murmur. Her lungs are clear to auscultation bilaterally in all seymour. Her abdomen is gravid, nondistended, soft, nontender, without any palpable masses aside from the uterine fundus. Her extremities without any cyanosis, clubbing, or edema and are nontender to palpation bilaterally. Left flank pain is absent while right flank pain is still present and mild to moderate in nature. - Labs CBC & Chem 7: 12/04/19 22:09 12/04/19 22:09 Assessment and Plan (1) 30 weeks gestation of Current Visit: Yes Status: Acute Code(s): Z3A.30 - 30 WEEKS GESTATION OF SNOMED Code(s): 87793401 (2) Pyelonephritis Current Visit: Yes Status: Acute Code(s): N12 - TUBULO-INTERSTITIAL NEPHRITIS, NOT SPCF ACUTE OR CHRONIC SNOMED Code(s): 97467584 Plan: Her pain continues to be significant enough to require narcotic pain medications. As result, she will remain in the hospital for continued antibiotics. We will begin straining the urine for a possible stone. She has previously undergone renal ultrasound which failed to demonstrate the presence of a stone. It appears that no urine culture has been started and now, after 3 days of intravenous antibiotics, will be of little use. Continue current care and anticipate possible/probable discharge tomorrow.
[2019-12-07] MEDS: ACETAMINOPHEN TAB 325 MG TAB PO PRN ×2 (14:05→20:41)
--- NOTE | 2019-12-07 14:59 | US ---
EXAMINATION TYPE: US kidneys/renal and bladder DATE OF EXAM: 12/07/2019 COMPARISON: 10/17/2019 CLINICAL HISTORY: rule out kidney stone. Flank pain EXAM MEASUREMENTS: Right Kidney: 13.0 x 4.7 x 5.3 cm Left Kidney: 11.6 x 6.4 x 5.0 cm Right Kidney: echogenic material seen within the dilated renal pelvis, possible debris, inferior pole obscured by bowel gas Left Kidney: prominent renal pelvis Bladder: not distended, not visualized Urinary bladder is nonvisualized. IMPRESSION: Mild right hydronephrosis with either renal calculi or debris within the renal pyramids a nd renal pelvis. Pelvocaliectasis is seen on the left without cheng hydronephrosis.
[2019-12-08] MEDS: ACETAMINOPHEN TAB 325 MG TAB PO PRN (02:26)
[2019-12-08 09:15] VITALS: BP 126/82; PULSE 69; RESP 16; TEMP 98.5
--- NOTE | 2019-12-08 09:50 | P.DS ---
Providers Date of admission: 12/06/19 09:30 Expected date of discharge: 12/08/19 Attending physician: Jorden Heath Primary care physician: Jessie Navarrete - Discharge Diagnosis(es) (1) 30 weeks gestation of Current Visit: Yes Status: Acute (2) Pyelonephritis Current Visit: Yes Status: Acute (3) Nephrolithiasis Current Visit: Yes Status: Acute Hospital Course: The patient is a 24-year-old 3 para 2001 admitted at 30+ weeks by a second trimester ultrasound. She is admitted for the third time with the presumptive diagnosis of pyelonephritis presenting with fever at home as well as significant bilateral flank pain and urinalysis consistent with urinary tract infection. She was admitted and started on Mefoxin and given IV as well as oral pain control. Aggressive hydration was carried out as well. She improved clinically to some degree with no ongoing left flank pain after 1-2 days in the hospital but continued moderate to significant right flank pain. As result, a renal ultrasound was ordered despite the fact that an earlier renal ultrasound during this was negative. The findings demonstrated stones in the right hilum of the kidney. She remained in the hospital despite tolerating a regular diet as her pain was requiring ongoing narcotic pain medications. By the morning of hospital day #4, her pain had significantly subsided and was managed solely with Tylenol. As result, she was deemed stable for discharge and was discharged home to follow-up in the office as previously scheduled fluid approximate 10 days. She was instructed to call for any significantly increasin g symptoms, fever, pain, or other concerns. concerns during the were entirely stable and normal. She was discharged home on Keflex 500 mg, 1 by mouth 3 times a day 3 more days that she had already received 4 days of IV Mefoxin. Urine culture was unfortunately omitted. Procedures: #1. IV hydration #2. IV antibiotics #3. Renal ultrasound Patient Condition at Discharge: Stable Plan - Discharge Summary New Discharge Prescriptions: No Action Acetaminophen Tab [Tylenol] 1,000 mg PO Q6HR PRN tab PRN Reason: Mild Pain Nod-Qchq-Zqucx Acid [-U Capsule (formulary)] 1 tab PO DAILY Discharge Medication List Acetaminophen Tab [Tylenol] 1,000 mg PO Q6HR PRN tab 08/15/19 [Rx] Ije-Czhk-Jemcn Acid [-U Capsule (formulary)] 1 tab PO DAILY 10/18/19 [History] Follow up Appointment(s)/Referral(s): Jorden Heath MD [STAFF PHYSICIAN] - 2 Weeks Discharge Disposition: HOME SELF-CARE
== END 2019-12-08 14:00 | disposition home or self-care (01) | DRG 832 ==
LOC: FBPOP 20:11 → 4FBP 21:32 → OBSVTOIN 12-06 09:30
PROVIDERS: ADMIT Obstetrics & Gynecology; ATTEND Obstetrics & Gynecology
DX: O23.03 Infections of kidney in pregnancy, third trimester (principal); O26.833 Pregnancy related renal disease, third trimester; N12 Tubulo-interstitial nephritis, not specified as acute or chronic; N20.0 Calculus of kidney; O99.333 Smoking (tobacco) complicating pregnancy, third trimester; O99.343 Other mental disorders complicating pregnancy, third trimester; F41.1 Generalized anxiety disorder; F32.9 Major depressive disorder, single episode, unspecified; F17.210 Nicotine dependence, cigarettes, uncomplicated; Z3A.30 30 weeks gestation of pregnancy; Z81.8 Family history of other mental and behavioral disorders; Z82.69 Family history of other diseases of the musculoskeletal system and connective tissue; Z88.6 Allergy status to analgesic agent; Z88.5 Allergy status to narcotic agent; Z88.0 Allergy status to penicillin
CPT/HCPCS: 76770; 80053; 81001; 85025

== ENCOUNTER 2020-01-01 17:33 | Inpatient (IN) | payer OTHER ==
[2020-01-01] MEDS ORDERED: LACTATED RINGERS 1,000 ML IV ONE (18:15)
[2020-01-01 18:18] LABS: Basophils % (A) 0 %; Eosinophils # (A) 0.1 k/uL (0-0.7); Eosinophils % (A) 1 %; HCT 34.4 % (34.0-46.0); HGB 11.6 gm/dL (11.4-16.0); Lymphocytes # (A) 1.7 k/uL (1.0-4.8); Lymphocytes % (A) 17 %; MCH 29.5 pg (25.0-35.0); MCHC 33.8 g/dL (31.0-37.0); MCV 87.4 fL (80.0-100.0); Monocytes # (A) 0.6 k/uL (0-1.0); Monocytes % (A) 6 %; Neutrophils # (A) 7.3 k/uL (1.3-7.7); Neutrophils % (A) 74 %; Platelet Count 190 k/uL (150-450); RBC 3.93 m/uL (3.80-5.40); RDW 13.9 % (11.5-15.5); WBC 9.9 k/uL (3.8-10.6)
[2020-01-01 18:20] LABS: Appearance,Urine Clear (Clear); Bilirubin,Urine Negative (Negative); Blood,Urine Negative (Negative); Color,Urine Light Yellow; Glucose,Urine (UA) Negative (Negative); Ketones,Urine Negative (Negative); Leukocyte Esterase,Urine Moderate (Negative); Nitrite,Urine Negative (Negative); PH, Urine 6.5 (5.0-8.0); Protein,Urine Negative (Negative); RBC,Urine 1 /hpf (0-5); Specific Gravity,Urine 1.006 (1.001-1.035); Squamous Epithelial Cell,Urine 1 /hpf (0-4); Urobilinogen,Urine <2.0 mg/dL (<2.0); WBC,Urine 2 /hpf (0-5)
[2020-01-01] MEDS: BUTORPHANOL 1 MG/ML 1 ML VIAL IV PRN (18:23)
[2020-01-01 19:03] LABS: Protein/Creatinine Ratio,Urine 0.348
[2020-01-01 19:32] LABS: ALT 7 U/L (4-34); AST 16 U/L (14-36); African American GFR (CKD) >90 (>60 ml/min/1.73 sqM); Blood Urea Nitrogen 9 mg/dL (7-17); LDH 309 U/L (313-618); Magnesium 1.9 mg/dL (1.6-2.3); Non-African American GFR(CKD) >90 (>60 ml/min/1.73 sqM); Uric Acid 5.2 mg/dL (3.7-7.4)
[2020-01-01 20:07] LABS: INR 0.9 (<1.2); Prothrombin Time 9.3 sec (9.0-12.0)
--- NOTE | 2020-01-01 20:11 | P.HPOB ---
History of Present Illness H&P Date: 01/01/20 Chief Complaint: 34 weeks, acute right flank pain The patient is a 24-year-old 3 para 2001 admitted at 34-4/7 weeks as established by a mid second trimester ultrasound. She is admitted for 23 hour observation secondary to acute onset of right flank pain with a history of nephrolithiasis. She reports the pain is extraordinarily similar to pain she has had previously in the as she was passing a stone. She additionally was found to have moderate to significantly elevated blood pressures and reports that she had been treated in the past for chronic hyp ertension but the medication was stopped prior to . This is history that has not been provided before. After controlling her pain to some extent, her blood pressures remain elevated in the range of 130s to 140s over 90s to low 100s. She initially had significant tachycardia as well which has normalized with control of pain. heart tones are category 1 with no significant accelerations at this time. She presented fairly late for care at approximately 23+ weeks of gestation and is otherwise had a relatively uncomplicated aside from episodes of flank pain, almost always on the right. At this time, all signs reassuring. Obstetrical history: 3 para 2001 with current statistics listed above. EDC of 02/08/2020 was established by a mid second trimester ultrasound. Laboratory workup demonstrates a blood type of A+ with a negative antibody screen. Rubella status is immune. The remainder of the laboratory workup was within normal limits. One hour Glucola was mildly elevated and the patient has failed to follow-up with diabetic education and group B strep status has not yet been done. She is being treated as a gestational hypertensive and testing has been reassuring on a weekly basis. Laboratory workup on labor and delivery for preeclampsia demonstrates no evidence of preeclampsia at this time. She denies any secondary symptoms of preeclampsia as well. Gynecologic history: Unremarkable with no recent history of any infections to include STDs. She does have the aforementioned history of nephrolithiasis. Review of Systems Review of systems is confined to history of present illness. Past Medical History Past Medical History: No Reported History Additional Past Medical History / Comment(s): back pain History of Any Multi-Drug Resistant Organisms: None Reported Past Surgical History: Adenoidectomy, Tonsillectomy Additional Past Surgical History / Comment(s): left ear surgery, wisdom teeth removal Past Anesthesia/Blood Transfusion Reactions: No Reported Reaction Smoking Status: Current every day smoker - Past Family History Father Family Medical History: Fibromyalgia Mother History Unknown: Yes Family Medical History: Thyroid Disorder Additional Family Medical History / Comment(s): bipolar Medications and Allergies Home Medications Medication Instructions Recorded Confirmed Type RX: Acetaminophen Tab [Tylenol] 1,000 mg PO Q6HR PRN tab 08/15/19 12/04/19 Rx RX: Pgm-Nzhz-Tfjuk Acid 1 tab PO DAILY 10/18/19 12/04/19 History [-U Capsule (formulary)] Allergies Allergy/AdvReac Type Severity Reaction Status Date / Time tramadol Allergy Mild Rash/Hives Verified 01/01/20 18:02 aspirin Allergy Rash/Hives Verified 01/01/20 18:02 ketorolac [From Toradol] Allergy Itching Verified 01/01/20 18:02 amoxicillin AdvReac Vomiting Verified 01/01/20 18:02 Exam Vital Signs Temp Pulse Resp BP Pulse Ox 01/01/20 17:55 98.2 F 151 H 20 138/102 99 Intake and Output 01/01/20 01/01/20 01/01/20 06:59 14:59 22:59 Other: Weight 79.832 kg In general, this is a well-developed, well-nourished white female in no current acute distress. Her heart has a regular rhythm and rate without murmur. Her lungs are clear to auscultation bilaterally in all seymour. Her abdomen is gravid, nondistended, has normal active bowel sounds, soft, nontender, and without any palpable masses aside from the uterine fundus. She does have fairly significant right flank pain. Her extremities are without any cyanosis, clubbing, or edema and are nontender to palpation bilaterally. Digital cervical examination is deferred. Results Result Diagrams: 01/01/20 18:08 01/01/20 18:56 Abnormal Lab Results - Last 24 Hours (Table) 01/01/20 01/01/20 01/01/20 Range/Units 18:00 18:08 18:56 Lactate Dehydrogenase 309 L (313-618) U/L Ur Leukocyte Esterase Moderate H (Negative) U Random Total Protein 17 H (<12) mg/dL Assessment and Plan (1) Flank pain Current Visit: Yes Status: Acute Code(s): R10.9 - UNSPECIFIED ABDOMINAL PAIN SNOMED Code(s): 730205435 (2) Hypertension Current Visit: Yes Status: Acute Code(s): I10 - ESSENTIAL (PRIMARY) HYPER TENSION SNOMED Code(s): 37305703 (3) 34 weeks gestation of Current Visit: Yes Status: Acute Code(s): Z3A.34 - 34 WEEKS GESTATION OF SNOMED Code(s): 31813086 (4) Nephrolithiasis Current Visit: Yes Status: Acute Code(s): N20.0 - CALCULUS OF KIDNEY SNOMED Code(s): 43115927 Plan: The patient will be admitted for 23 hour observation. I strongly suspect that she is a undiagnosed chronic hypertensive which has now been noted during . As result, I will start her on labetalol 100 mg twice daily by mouth and monitor pressures closely in the hospital. In addition, she will have her urine strained as she is likely passing a kidney stone. IV pain control be provided with Dilaudid 0.5 mg every 3-4 hours as needed. She otherwise will have a regular diet as well as bathroom privileges. NST will be performed every shift.
[2020-01-01] MEDS: LACTATED RINGERS 1,000 ML IV SCH (20:54)
[2020-01-01] MEDS: HYDROmorphone 0.5 MG/0.5 ML SYRINGE IVP PRN (20:55)
[2020-01-01] MEDS: LABETALOL 100 MG TAB PO SCH (22:17)
[2020-01-02] MEDS: HYDROmorphone 0.5 MG/0.5 ML SYRINGE IVP PRN ×7 (00:03→23:33)
[2020-01-02] MEDS: LACTATED RINGERS 1,000 ML IV SCH ×3 (02:41→18:51)
[2020-01-02] MEDS: LABETALOL 100 MG TAB PO SCH ×2 (08:34→21:09)
--- NOTE | 2020-01-02 09:41 | P.PN ---
Subjective Progress Note Date: 01/02/20 Principal diagnosis: 34+ weeks, unmasked hypertension, presumptive right nephrolithiasis The patient reports that her pain remains fairly unchanged from yesterday. She has not noticed passing any stones. She otherwise denies any other concerns, either or otherwise. She denies headache or other secondary signs of preeclampsia. She is up and ambulating and otherwise tolerating a regular diet. Objective - Vital Signs Vital signs: Vital Signs Temp 96.6 F L 01/02/20 08:00 Pulse 80 01/02/20 08:00 Resp 18 01/02/20 08:00 BP 130/88 01/02/20 08:00 Pulse Ox 99 01/02/20 08:00 Intake & Output 01/01/20 01/02/20 01/02/20 18:59 06:59 18:59 Weight 79.832 kg 79.832 kg Other: # Voids 1 - Exam Her abdomen is gravid, nondistended, soft, nontender, and without any palpable masses aside from uterine fundus. Her left flank demonstrates minimal discomfort while the right flank does have moderate discomfort though it is slightly improved from yesterday. It remains just above the right iliac crest and slightly posterior to it consistent with the track of the right ureter. Her extremities are without any cyanosis, clubbing, or edema and are nontender to palpation bilaterally. - Labs CBC & Chem 7: 01/01/20 18:08 01/01/20 18:56 Labs: Abnormal Lab Results - Last 24 Hours (Table) 01/01/20 01/01/20 01/01/20 Range/Units 18:00 18:08 18:56 Lactate Dehydrogenase 309 L (313-618) U/L Ur Leukocyte Esterase Moderate H (Negative) U Random Total Protein 17 H (<12) mg/dL Assessment and Plan (1) Flank pain Current Visit: Yes Status: Acute Code(s): R10.9 - UNSPECIFIED ABDOMINAL PAIN SNOMED Code(s): 077993605 (2) Hypertension Current Visit: Yes Status: Acute Code(s): I10 - ESSENTIAL (PRIMARY) HYPERTENSION SNOMED Code(s): 87831197 (3) 34 weeks gestation of Current Visit: Yes Status: Acute Code(s): Z3A.34 - 34 WEEKS GESTATION OF SNOMED Code(s): 82138962 (4) Nephrolithiasis Current Visit: Yes Status: Acute Code(s): N20.0 - CALCULUS OF KIDNEY SNOMED Code(s): 38916940 Plan: We will continue with the plan as previously outlined. Blood pressures have come under control with labetalol and will be continued to be carefully monitored while the patient is in the hospital. I did discuss the patient attempting to transition to oral pain medications which could be used as an ou tpatient as she is otherwise tolerating regular diet. She is agreeable to this idea and Tylenol No. 3 will be used in favor of Dilaudid. She may have 1-2 by mouth every 4-6 hours when necessary pain. Should this manage the pain and her blood pressure remains stable, she may be discharged later this evening or, more likely, tomorrow.
[2020-01-02] MEDS: Acetaminophen-Codeine 300-30mg TAB PO PRN ×2 (13:12→21:12)
[2020-01-02] MEDS: BUTORPHANOL 1 MG/ML 1 ML VIAL IV PRN (16:11)
[2020-01-02] MEDS ORDERED: ONDANSETRON 4 MG/2 ML VIAL IVP PRN (18:21)
[2020-01-02] MEDS: SENNOSIDES-DOCUSATE SODIUM 1 EACH TAB PO SCH (18:27)
[2020-01-03] MEDS: HYDROmorphone 0.5 MG/0.5 ML SYRINGE IVP PRN ×2 (05:02→08:10)
[2020-01-03] MEDS: LABETALOL 100 MG TAB PO SCH (08:11)
[2020-01-03 08:16] VITALS: RESP 18
--- NOTE | 2020-01-03 08:49 | P.PN ---
Subjective Progress Note Date: 01/03/20 Principal diagnosis: 34+ weeks, unmasked hypertension, presumptive right nephrolithiasis The patient reports no concerns from a perspective. She does continue to have some right flank pain but feels that it is improving slowly. She otherwise is performing all activities of daily living. Objective - Vital Signs Vital signs: Vital Signs Temp 97.1 F L 01/03/20 08:15 Pulse 65 01/03/20 08:15 Resp 18 01/03/20 08:15 BP 123/84 01/03/20 08:15 Pulse Ox 100 01/03/20 08:15 Intake & Output 01/02/20 01/03/20 01/03/20 18:59 06:59 18:59 Output Total 1300 Balance -1300 Output: Urine 1300 Other: # Voids 1 1 - Exam Her heart has a regular rhythm and rate without murmur. Her lungs clear to auscultation bilaterally in all seymour. Her abdomen is gravid, nondistended, has normal active bowel sounds, soft, nontender, and without any palpable masses aside from uterine fundus. There is still some mild to moderate right flank pain and a similar location to previously. It does appear somewhat improved from previous examination. Her extremities are without any cyanosis, clubbing, or edema and are nontender to palpation bilaterally. - Labs CBC & Chem 7: 01/01/20 18:08 01/01/20 18:56 Assessment and Plan (1) Flank pain Current Visit: Yes Status: Acute Code(s): R10.9 - UNSPECIFIED ABDOMINAL PAIN SNOMED Code(s): 319194196 (2) Hypertension Current Visit: Yes Status: Acute Code(s): I10 - ESSENTIAL (PRIMARY) HYPERTENSION SNOMED Code(s): 25452362 (3) 34 weeks gestation of Current Visit: Yes Status: Acute Code(s): Z3A.34 - 34 WEEKS GESTATION OF SNOMED Code(s): 26929381 (4) Nephrolithiasis Current Visit: Yes Status: Acute Code(s): N20.0 - CALCULUS OF KIDNEY SNOMED Code(s): 80202247 Plan: Blood pressures are now under good control with labetalol twice daily. The patient has no secondary symptoms. He does continue to have flank pain and continues to request IV pain control. I have instructed the patient and the nursing staff to strictly use oral pain medications and attempt to get the patient discharged today as she is otherwise performing all activities of daily living. Should her pain be manageable with oral pain medications this morning, I will discharge her this afternoon.
[2020-01-03] MEDS: LACTATED RINGERS 1,000 ML IV SCH (10:11)
[2020-01-03] MEDS: Acetaminophen-Codeine 300-30mg TAB PO PRN ×2 (11:14→15:19)
[2020-01-03 12:16] VITALS: BP 129/82; PULSE 74; TEMP 97.7
[2020-01-03] MEDS: SENNOSIDES-DOCUSATE SODIUM 1 EACH TAB PO SCH (12:28)
--- NOTE | 2020-01-04 08:40 | P.DS ---
Providers Date of admission: 01/03/20 08:31 Expected date of discharge: 01/03/20 Attending physician: Jorden Heath Primary care physician: Stated None - Discharge Diagnosis(es) (1) Flank pain Status: Acute (2) Hypertension Status: Acute (3) 34 weeks gestation of Status: Acute (4) Nephrolithiasis Status: Acute Hospital Course: The patient is a 24-year-old 3 para 2 scissors or 2 admitted at 34-4/7 weeks by second trimester ultrasound. She is admitted for acute onset of right flank pain with a history of nephrolithiasis. She has had similar episodes during this at which time she was thought to be passing stone. She additionally was found to have significantly elevated blood pressures and, upon questioning provided a history of previous treatment for chronic hypertension prior to though medications were stopped at the onset of . On labor and delivery, she initially required significant IV pain control. She was started on labetalol 100 mg twice daily for hypertension which controlled her blood pressures well. Over the course of the next 24-48 hours, IV pain control was withdrawn in favor of oral pain control which she was able to tolerate by hospital day #3 and was therefore deemed stable for discharge. She was discharged home to follow-up in the office as previously scheduled and to call for any significantly increased symptoms or concerns. Discharge medications included a prescription for Tylenol 3, 1-2 by mouth every 6 hours when necessary pain, #20 dispensed with no refills. She was additionally given a prescription for labetalol 100 mg twice daily. Procedures: #1. Aggressive IV hydration #2. IV pain control #3. Initiation of antihypertensives. Patient Condition at Discharge: Good Plan - Discharge Summary New Discharge Prescriptions: No Action Acetaminophen Tab [Tylenol] 1,000 mg PO Q6HR PRN tab PRN Reason: Mild Pain Qru-Cies-Vxplo Acid [-U Capsule (formulary)] 1 tab PO DAILY Discharge Medication List Acetaminophen Tab [Tylenol] 1,000 mg PO Q6HR PRN tab 08/15/19 [Rx] Siq-Dovh-Axejn Acid [-U Capsule (formulary)] 1 tab PO DAILY 10/18/19 [History] Follow up Appointment(s)/Referral(s): Jorden Heath MD [STAFF PHYSICIAN] - 1 Week Patient Instructions/Handouts: Kidney Stones (DC) Discharge Disposition: HOME SELF-CARE
== END 2020-01-03 15:30 | disposition home or self-care (01) | DRG 832 ==
LOC: FBPOP 17:33 → 4FBP 20:19 → OBSVTOIN 01-03 08:31
PROVIDERS: ADMIT Obstetrics & Gynecology; ATTEND Obstetrics & Gynecology
DX: O10.913 Unspecified pre-existing hypertension complicating pregnancy, third trimester (principal); O26.833 Pregnancy related renal disease, third trimester; N20.0 Calculus of kidney; O99.333 Smoking (tobacco) complicating pregnancy, third trimester; Z3A.34 34 weeks gestation of pregnancy; M54.9 Dorsalgia, unspecified; F17.210 Nicotine dependence, cigarettes, uncomplicated; Z71.6 Tobacco abuse counseling; Z79.899 Other long term (current) drug therapy; Z87.442 Personal history of urinary calculi; Z98.890 Other specified postprocedural states; Z88.6 Allergy status to analgesic agent; Z88.5 Allergy status to narcotic agent; Z88.0 Allergy status to penicillin; Z88.8 Allergy status to other drugs, medicaments and biological substances; Z82.69 Family history of other diseases of the musculoskeletal system and connective tissue; Z83.49 Family history of other endocrine, nutritional and metabolic diseases; Z81.8 Family history of other mental and behavioral disorders
CPT/HCPCS: 59025; 81001; 82565; 82570; 83615; 83735; 84156; 84450; 84460; 84520; 84550; 85025; 85384; 85610; 85730; 93005; 96360; 96375; 99215

== ENCOUNTER 2020-01-14 20:18 | Outpatient (CLI) | payer OTHER ==
[2020-01-14 21:29] LABS: ALT 9 U/L (4-34); AST 21 U/L (14-36); African American GFR (CKD) >90 (>60 ml/min/1.73 sqM); Blood Urea Nitrogen 13 mg/dL (7-17); LDH 326 U/L (313-618); Non-African American GFR(CKD) >90 (>60 ml/min/1.73 sqM); Uric Acid 6.2 mg/dL (3.7-7.4)
[2020-01-14 21:36] VITALS: RESP 18; TEMP 97.9
[2020-01-14 21:42] LABS: Basophils % (A) 0 %; Eosinophils # (A) 0.1 k/uL (0-0.7); Eosinophils % (A) 1 %; HCT 32.1 % (34.0-46.0); Lymphocytes # (A) 1.7 k/uL (1.0-4.8); Lymphocytes % (A) 17 %; MCH 29.8 pg (25.0-35.0); MCHC 34.3 g/dL (31.0-37.0); MCV 86.9 fL (80.0-100.0); Mean Platelet Volume 9.7; Monocytes # (A) 0.5 k/uL (0-1.0); Monocytes % (A) 5 %; Neutrophils # (A) 7.6 k/uL (1.3-7.7); Neutrophils % (A) 76 %; Platelet Count 250 k/uL (150-450); RBC 3.69 m/uL (3.80-5.40); RDW 13.8 % (11.5-15.5)
[2020-01-14 22:03] LABS: Appearance,Urine Clear (Clear); Bacteria,Urine Rare /hpf; Bilirubin,Urine Negative (Negative); Blood,Urine Negative (Negative); Color,Urine Yellow; Glucose,Urine (UA) Negative (Negative); Ketones,Urine Negative (Negative); Leukocyte Esterase,Urine Large (Negative); Mucus,Urine Occasional /hpf; Nitrite,Urine Negative (Negative); PH, Urine 6.5 (5.0-8.0); Protein,Urine 1+ (Negative); RBC,Urine 2 /hpf (0-5); Specific Gravity,Urine 1.026 (1.001-1.035); Squamous Epithelial Cell,Urine 2 /hpf (0-4); Urobilinogen,Urine <2.0 mg/dL (<2.0); WBC,Urine 6 /hpf (0-5)
[2020-01-14 22:30] VITALS: BP 135/95; PULSE 90
[2020-01-14 22:49] LABS: Protein/Creatinine Ratio,Urine 0.132
--- NOTE | 2020-01-31 11:42 | P.MSEPDOC ---
Presenting Problems - Arrival Data Date of Arrival on Unit: 01/14/20 Time of Arrival on Unit: 20:18 Mode of Transport: Wheelchair - Complaint OB-Reason for Admission/Chief Complaint: Possible Onset of Labor, Pain Comment: cntrx every 10-15 minutes Medical History - Information : 3 Para: 2 Term: 2 : 0 Abortions: Spontaneous or Elective: 0 Number of Living Children: 2 - Gestational Age Gestational Age by MANJU (wks/days): 36 Weeks and 3 Days - History Complications: Smoker Review of Systems - Review of Systems Constitutional: No problems Breast: No problems ENT: No problems Cardiovascular: No problems Respiratory: No problems Gastrointestinal: No problems Genitourinary: No problems Musculoskeletal: No problems Neurological: No problems Skin: No problems Vital Signs - Temperature Temperature: 97.9 F Temperature Source: Temporal Artery Scan - Pulse Right Pulse Rate: 90 Pulse Assessment Method: Automatic Cuff - Respirations Respiratory Rate: 18 - Blood Pressure Right Arm Blood Pressure: 135/95 Blood Pressure Mean: 108 Blood Pressure Source: Automatic Cuff Medical Screen Scoring (Pre) - Cervical Exam Dilation: 1-3 cm = 1 Membranes: Intact - Uterine Contractions Frequency: > 5 minutes apart = 1 Duration: > 40 seconds = 2 Intensity: N/A - Maternal Vital Signs Maternal Temperature: N/A Maternal Blood Pressure: Systolic >139 = 2 Signs of Preeclampsia: Nausea/Vomiting = 1 Maternal Respirations: N/A - Maternal Trauma Maternal Trauma: N/A - Assessment - Baby A Baseline FHR: 150 Heart Rate - NICHD Category: Category I (Normal) = 0 NST: Non-reactive = 3 Position: N/A - Total Score - Baby A Total Score - Baby A: 10 - Total Score - Baby B Total Score - Baby B: 7 - Total Score - Baby C Total Score - Baby C: 7 - Level of Risk - Baby A Level of Risk - Baby A: High (10+) - Level of Risk - Baby B Level of Risk - Baby B: Medium (6-9) - Level of Risk - Baby C Level of Risk - Baby C: Medium (6-9) Physician Notification (Pre) - Physician Notified Physician Notified Date: 01/14/20 Physician Notified Time: 20:44 - Notification Comment Comment: called Dr Mercado at home. Reported on pts c/o cntrx every 10-15 minutes, no. bleeding or leaking, decreased fm x1hr. reported on SVE, no PIH sx except for nausea. Orders for PIH labs at this tme, call with results. Medical Screen Scoring (Post) - Cervical Exam Dilation: Exam Deferred - Uterine Contractions Frequency: > 5 minutes apart = 1 Duration: > 40 seconds = 2 Intensity: N/A - Maternal Vital Signs Maternal Blood Pressure: Systolic >139 = 2 Signs of Preeclampsia: N/A Maternal Respirations: N/A - Maternal Trauma Maternal Trauma: N/A - Assessment - Baby A Heart Rate: 140 Heart Rate - NICHD Category: Category I (Normal) = 0 - Total Score Total Score - Baby A: 5 Total Score - Baby B: 5 Total Score - Baby C: 5 - Post Treatment Level of Risk Post Treatment Level of Risk - Baby A: Low (0-5) Physician Notification (Post) - Physician Notified Physician Notified Date: 01/14/20 Physician Notified Time: 22:08 Physician/Practitioner Notified:: tremp - Notification Comment Comment: reported on lab results, vitals, fhts since last spoke. aware that P/C ratio is not yet completed and won't be for a while per lab. orders to d/c home with instructions, call in am and be seen in office, keep taking labetalol as directed, return to tr with new or worsening sx. Disposition - Disposition OB Disposition: Discharge to home Discharge Date: 01/14/20 Discharge Time: 22:25 I agree with the RN Medical Screening Exam: Yes Risk & Benefit of care provided described in d/c instruction: Yes Diagnosis: FALSE LABOR BEFORE 37 COMPLETED WEEKS OF GEST, THIRD TRI
== END 2020-01-14 22:25 | disposition home or self-care (01) ==
LOC: FBPOP 20:18
PROVIDERS: ATTEND Obstetrics & Gynecology Obstetrics
DX: O47.03 False labor before 37 completed weeks of gestation, third trimester (principal); Z3A.36 36 weeks gestation of pregnancy
CPT/HCPCS: 59025; 82570; 84156; 82565; 83615; 84450; 84460; 84520; 84550; 85025; 81001; G0463; 99215

== ENCOUNTER 2020-01-25 06:30 | Inpatient (IN) | payer OTHER ==
[2020-01-25] MEDS ORDERED: CARBOPROST TROMETHAMINE 250 MCG/ML 1 ML AMP IM PRN (06:54)
[2020-01-25] MEDS ORDERED: TERBUTALINE 1 MG/ML VIAL SQ PRN (06:54)
[2020-01-25] MEDS ORDERED: METHYLERGONOVINE 0.2 MG/ML 1 ML AMP IM PRN (06:54)
[2020-01-25] MEDS ORDERED: LIDOCAINE 0.5% (PF) 5 MG/ML (50 ML SDV) SQ PRN (06:54)
[2020-01-25] MEDS ORDERED: OXYTOCIN 10 UNIT/ML 1 ML VIAL IM PRN (06:54)
[2020-01-25] MEDS ORDERED: OXYTOCIN 30 UNITS/500 ML NS 30 UNIT in SALINE 1 500ML.BAG IV SCH (07:00)
[2020-01-25] MEDS ORDERED: LACTATED RINGERS 1,000 ML IV SCH (07:00)
[2020-01-25 07:29] LABS: Basophils % (A) 0 %; Eosinophils # (A) 0.1 k/uL (0-0.7); Eosinophils % (A) 1 %; HCT 30.7 % (34.0-46.0); HGB 10.5 gm/dL (11.4-16.0); Lymphocytes # (A) 2.1 k/uL (1.0-4.8); Lymphocytes % (A) 27 %; MCH 29.5 pg (25.0-35.0); MCV 86.6 fL (80.0-100.0); Mean Platelet Volume 10.1; Monocytes # (A) 0.3 k/uL (0-1.0); Monocytes % (A) 4 %; Neutrophils # (A) 4.9 k/uL (1.3-7.7); Neutrophils % (A) 65 %; Platelet Count 187 k/uL (150-450); RBC 3.55 m/uL (3.80-5.40); RDW 14.2 % (11.5-15.5); WBC 7.6 k/uL (3.8-10.6)
[2020-01-25] MEDS ORDERED: BUTORPHANOL 1 MG/ML 1 ML VIAL IV PRN (08:22)
--- NOTE | 2020-01-25 08:30 | P.HPOB ---
History of Present Illness H&P Date: 01/25/20 Chief Complaint: 38-0/7 weeks, intrauterine growth restriction, induction The patient is a 24-year-old 3 para 2001 admitted at 38-0/7 weeks as established by 14 week ultrasound. She is admitted for induction of labor secondary to the diagnosis of intrauterine growth restriction. She additionally carries a diagnosis of presumptive gestational diabetes that she failed to complete a three-hour glucose tolerance test. She has undergone twice weekly nonstress testing since the diagnosis of IUGR at approximately 34 weeks as well as weekly amniotic fluid index and S/D cord ratios which have been normal throughout. Growth has been symmetric since the diagnosis. She additionally developed relatively late at approximately 34 weeks of some hypertension requiring the institution of labetalol 100 mg twice daily. Blood pressures have been relatively well controlled since that time. There is no evidence of superimposed preeclampsia. On admission, all signs reassuring. Group B strep status is negative. Obstetrical history: 3 para 2001 with 2 term vaginal deliveries. She did have an episode of preeclampsia following one of her deliveries. Current statistics are listed in history of present illness. EDC of 02/08/2020 was established by 14 week ultrasound. Laboratory workup demonstrates a blood type of A+ with a negative antibody screen. Rubella status is immune. Remainder of the laboratory workup was within normal limits. One hour Glucola was elevated and the patient failed to complete a three-hour gluco se tolerance test. Group B strep status is negative. Gynecologic history: Unremarkable with no history of any infections to include STDs in recent history. Review of Systems Review of systems is confined to history of present illness. 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 Recent anxiety attacks. Smoking Status: Current some day smoker Past Alcohol Use History: None Reported Additional Past Alcohol Use History / Comment(s): Patient is a smoker of one to 2 cigarettes per day since she was 11 years of age. She denies any marijuana, illicit drug use or alcohol use. She lives at home with her mom and dad. There is cat in the home and a dog. No recent travel. Past Drug Use History: None Reported - Past Family History Father Family Medical History: Fibromyalgia Mother History Unknown: Yes Family Medical History: Thyroid Disorder Additional Family Medical History / Comment(s): Guillian Sean Syndrome, HLD, HTN, seizures, migraines Medications and Allergies Home Medications Medication Instructions Recorded Confirmed Type Vyj-Eozu-Duiap Acid 1 tab PO DAILY 10/18/19 01/25/20 History [-U Capsule (formulary)] Labetalol [Trandate] 100 mg PO BID 01/25/20 01/25/20 History Allergies Allergy/AdvReac Type Severity Reaction Status Date / Time tramadol Allergy Mild Rash/Hives Verified 01/25/20 06:52 aspirin Allergy Rash/Hives Verified 01/25/20 06:52 ketorolac [From Toradol] Allergy Itching Verified 01/25/20 06:52 amoxicillin AdvReac Vomiting Verified 01/25/20 06:52 Exam Vital Signs Temp Pulse Resp Pulse Ox 01/25/20 07:31 97.5 F L 88 16 98 Intake and Output 01/24/20 01/25/20 01/25/20 22:59 06:59 14:59 Other: Weight 79.832 kg 79.379 kg In general, this is a well-developed, well-nourished white female in no acute distress. Her heart has a regular rhythm and rate without murmur. Her lungs ar e clear to auscultation bilaterally in all seymour. Her abdomen is gravid, nondistended, has normal active bowel sounds, is soft, nontender, and without any palpable masses aside from uterine fundus. Her extremities are without any cyanosis, clubbing, or significant edema and are nontender to palpation bilaterally. Digital cervical examination demonstrated surgery 2 placenta meters dilated, 50% effaced, with the vertex in presentation at -2 station. Artificial rupture of membranes is carried out demonstrating light meconium- stained fluid. Results Result Diagrams: 01/25/20 07:00 Abnormal Lab Results - Last 24 Hours (Table) 01/25/20 Range/Units 07:00 RBC 3.55 L (3.80-5.40) m/uL Hgb 10.5 L (11.4-16.0) gm/dL Hct 30.7 L (34.0-46.0) % Assessment and Plan (1) Gestational diabetes Current Visit: Yes Status: Acute Code(s): O24.419 - GESTATIONAL DIABETES MELLITUS IN , UNSP CONTROL SNOMED Code(s): 46184070 (2) Intrauterine growth retardation in Current Visit: Yes Status: Acute Code(s): O36.5990 - MATERN CARE FOR OTH OR SUSP POOR FETL GRTH, UNSP TRI, UNSP SNOMED Code(s): 431173060 (3) Hypertension Current Visit: Yes Status: Acute Code(s): I10 - ESSENTIAL (PRIMARY) HYPERTENSION SNOMED Code(s): 88311845 (4) Term Current Visit: Yes Status: Acute Code(s): Z34.80 - ENCOUNTER FOR SUPRVSN OF NORMAL , UNSP TRIMESTER SNOMED Code(s): 23556843 Plan: The patient is admitted for induction of labor. Pitocin augmentation has been started and she has undergone artificial rupture of membranes. She will have close maternal and surveillance and expectant management will be practiced. She is a good candidate for either IV or epidural analgesia, whichever she may choose.
[2020-01-25] MEDS ORDERED: ONDANSETRON 4 MG/2 ML VIAL IVP STA (08:59)
[2020-01-25] MEDS ORDERED: SODIUM CHLORIDE 0.9% 100 ML BAG ONE (11:17)
[2020-01-25] MEDS ORDERED: fentaNYL (PF) 50 MCG/ML 5 ML AMP ONE (11:17)
[2020-01-25] MEDS ORDERED: ROPIVACAINE 5MG/ML 20ML VIAL ONE (11:17)
[2020-01-25] MEDS ORDERED: ACETAMINOPHEN TAB 325 MG TAB PO PRN (13:24)
[2020-01-25] MEDS ORDERED: BENZOCAINE/MENTHOL SPRAY 1 GM/SPRAY AEROSOL TOPICAL PRN (13:24)
[2020-01-25] MEDS ORDERED: HYDROcodone/APAP 5-325MG 1 EACH TAB PO PRN (13:24)
[2020-01-25] MEDS ORDERED: SIMETHICONE 80 MG CHEWABLE PO PRN (13:24)
[2020-01-25] MEDS ORDERED: HYDROCORTISONE 2.5% RECTAL CREAM 30 GM TUBE RECTAL PRN (13:24)
[2020-01-25] MEDS ORDERED: diphenhydrAMINE 25 MG CAP PO PRN (13:24)
[2020-01-25] MEDS ORDERED: ZOLPIDEM 5 MG TAB PO PRN (13:24)
[2020-01-25] MEDS ORDERED: diphenhydrAMINE 50 MG CAP PO PRN (13:24)
[2020-01-25] MEDS ORDERED: diphenhydrAMINE 50 MG/ML 1 ML VIAL IVP PRN ×2 (13:24)
[2020-01-25] MEDS ORDERED: WITCH HAZEL 1 EACH MED..PAD TOPICAL PRN (13:24)
--- NOTE | 2020-01-25 13:29 | P.PROBDLV ---
Vaginal Delivery Note - . Vaginal Delivery Note: The patient is a 24-year-old 3 para 2001 admitted at 38-0/7 weeks for induction of labor secondary to the diagnosis of intrauterine growth restriction as well as gestational hypertension and presumptive gestational diabetes. growth had been consistent and, though the patient met criteria for intrauterine growth restriction, the thinking was that the weight actually represented a constitutionally small baby. In either case all testing had been reassuring. She was admitted to labor and delivery with all signs reassuring and had Pitocin augmentation started. She underwent artificial rupture of membranes for light meconium-stained fluid. She made progress through the morning into the active phase of labor which time an epidural catheter was placed for analgesia. She then made fairly rapid progress through the active phase of labor to complete and +3. She pushed over the course of 2 contractions to a normal spontaneous vaginal delivery of a viable 5 lbs. 7 oz. baby girl with Apgars of 9 at 1 minute and 9 at 5 minutes delivered in the left occiput anterior position. The nose and mouth were thoroughly suctioned on the perineum and after delivery of the at which time the infant was immediately vigorous. The placenta was delivered spontaneously, intact, and grossly normal with a grossly normal three-vessel cord inserted approximately 4-57 m from the margin of the placental disc. There were no lacerations of the perineum, vagina, or cervix. Assessment a blood loss for the case is approximately 200 mL. There were no complications. All sponge, instrument, and needle counts were correct. Both mother and infant are resting comfortably in recovery.
[2020-01-25] MEDS ORDERED: OXYTOCIN 20 UNITS/1000 ML NS 1,000 ML IV SCH (13:30)
[2020-01-25] MEDS: IBUPROFEN 600 MG TAB PO SCH ×2 (16:13→23:53)
[2020-01-25] MEDS: HYDROcodone/APAP 7.5-325MG 1 EACH TAB PO PRN (17:50)
[2020-01-25] MEDS: SENNOSIDES-DOCUSATE SODIUM 1 EACH TAB PO SCH ×3 (21:05→23:54)
[2020-01-25] MEDS: LABETALOL 100 MG TAB PO SCH (21:05)
[2020-01-26] MEDS: HYDROcodone/APAP 7.5-325MG 1 EACH TAB PO PRN ×2 (01:04→08:17)
[2020-01-26] MEDS: IBUPROFEN 600 MG TAB PO SCH (06:03)
[2020-01-26] MEDS: SENNOSIDES-DOCUSATE SODIUM 1 EACH TAB PO SCH (08:17)
[2020-01-26 08:48] VITALS: BP 141/85; PULSE 70; RESP 18; TEMP 98.1
--- NOTE | 2020-01-26 09:13 | P.DS ---
Providers Date of admission: 01/25/20 06:30 Expected date of discharge: 01/26/20 Attending physician: Jorden Heath Primary care physician: Stated None - Discharge Diagnosis(es) (1) Gestational diabetes Current Visit: Yes Status: Acute (2) Intrauterine growth retardation in Current Visit: Yes Status: Acute (3) Hypertension Current Visit: Yes Status: Acute (4) Term Current Visit: Yes Status: Acute (5) Normal spontaneous vaginal delivery Current Visit: Yes Status: Acute Hospital Course: The patient is a 24-year-old 3 para 2001 admitted at 38-0/7 weeks as established by 14 week ultrasound. She is admitted for induction of labor secondary to intrauterine growth restriction as well as increasing hypertension and a presumptive diagnosis of gestational diabetes. testing has been reassuring since the onset of the diagnosis at approximately 34 weeks. On labor and delivery, she had Pitocin started followed by artificial rupture of membranes for lightly meconium-stained fluid. She made progress into the active phase at which time an epidural was placed. She then progressed fairly quickly to complete and pushed over the course of approximately 2 contractions to a normal spontaneous vaginal delivery of a viable 5 lbs. 7 oz. baby girl with Apgars of 9 at 1 minute and 9 at 5 minutes. Her post course was entirely unremarkable vital signs being stable and her temperature was afebrile throughout. She was deemed stable for discharge on day #1 and was discharged home to follow-up in the office in 6 weeks' time routinely. Discharge instructions included calling for any significantly increased bleeding or foul-smelling lochia, significantly increased fever or abdominal pain, perineal complaints, breast complaints, or anything else that concerned her. She is additionally instructed to have nothing in the vagina for at least 6 weeks time to include intercourse. She has requested to have tubal ligation performed which will be set up as an outpatient in the phase. She understood all of her instructions and agrees to follow up as noted above. Discharge medications included only otaa-aok-biupctb analgesic pain medications. Maternal blood type is A+ and rubella status is immune. Procedures: #1. Pitocin induction #2. Artificial rupture of membranes #3. Epidural analgesia #4. Normal spontaneous vaginal delivery Patient Condition at Discharge: Stable Plan - Discharge Summary New Discharge Prescriptions: No Action Ved-Qion-Hugmn Acid [-U Capsule (formulary)] 1 tab PO DAILY Labetalol [Trandate] 100 mg PO BID Discharge Medication List Fes-Thsw-Vklrn Acid [-U Capsule (formulary)] 1 tab PO DAILY 10/18/19 [History] Labetalol [Trandate] 100 mg PO BID 01/25/20 [History] Follow up Appointment(s)/Referral(s): Jorden Heath MD [STAFF PHYSICIAN] - 6 Weeks Discharge Disposition: HOME SELF-CARE
[2020-01-26] MEDS: LABETALOL 100 MG TAB PO SCH (10:44)
== END 2020-01-26 15:00 | disposition home or self-care (01) | DRG 807 ==
LOC: 4FBP 06:30
PROVIDERS: ADMIT Obstetrics & Gynecology; ATTEND Obstetrics & Gynecology
PROC: 10E0XZZ Delivery of Products of Conception, External Approach (ICD-10-PCS; principal; 2020-01-25)
PROC: 00HU33Z Insertion of Infusion Device into Spinal Canal, Percutaneous Approach (ICD-10-PCS; principal; 2020-01-25)
PROC: 3E0R3BZ Introduction of Anesthetic Agent into Spinal Canal, Percutaneous Approach (ICD-10-PCS; principal; 2020-01-25)
DX: O36.5930 Maternal care for other known or suspected poor fetal growth, third trimester, not applicable or unspecified (principal); Z37.0 Single live birth; O24.429 Gestational diabetes mellitus in childbirth, unspecified control; O16.4 Unspecified maternal hypertension, complicating childbirth; I10 Essential (primary) hypertension; O77.0 Labor and delivery complicated by meconium in amniotic fluid; O99.334 Smoking (tobacco) complicating childbirth; F17.210 Nicotine dependence, cigarettes, uncomplicated; Z3A.38 38 weeks gestation of pregnancy; Z87.442 Personal history of urinary calculi; Z86.59 Personal history of other mental and behavioral disorders; Z88.6 Allergy status to analgesic agent; Z88.5 Allergy status to narcotic agent; Z88.0 Allergy status to penicillin; Z82.49 Family history of ischemic heart disease and other diseases of the circulatory system; Z82.69 Family history of other diseases of the musculoskeletal system and connective tissue; Z82.0 Family history of epilepsy and other diseases of the nervous system; Z83.2 Family history of diseases of the blood and blood-forming organs and certain disorders involving the immune mechanism
CPT/HCPCS: 85025; 86850; 86900; 86901; 88307

== ENCOUNTER 2020-06-16 17:26 | Emergency (ER) | payer OTHER ==
[2020-06-16] MEDS ORDERED: SODIUM CHLORIDE 0.9% 1,000 ML IV STA (17:56)
[2020-06-16] MEDS ORDERED: MORPHINE SULFATE 4 MG/ML SYRINGE IV STA (17:56)
[2020-06-16 18:20] LABS: Appearance,Urine Cloudy (Clear); Bacteria,Urine Many /hpf; Bilirubin,Urine 2+ (Negative); Blood,Urine Moderate (Negative); Color,Urine Dark Brown; Glucose,Urine (UA) Negative (Negative); Ketones,Urine Negative (Negative); Leukocyte Esterase,Urine Large (Negative); Mucus,Urine Rare /hpf; Nitrite,Urine Positive (Negative); PH, Urine 6.5 (5.0-8.0); Protein,Urine 1+ (Negative); RBC,Urine 9 /hpf (0-5); Specific Gravity,Urine 1.023 (1.001-1.035); Squamous Epithelial Cell,Urine <1 /hpf (0-4); WBC,Urine 146 /hpf (0-5)
[2020-06-16 18:43] LABS: Basophils % (A) 0 %; Eosinophils # (A) 0.1 k/uL (0-0.7); Eosinophils % (A) 2 %; HCT 34.2 % (34.0-46.0); Lymphocytes # (A) 0.9 k/uL (1.0-4.8); Lymphocytes % (A) 14 %; MCH 27.7 pg (25.0-35.0); MCV 86.5 fL (80.0-100.0); Monocytes # (A) 0.4 k/uL (0-1.0); Monocytes % (A) 6 %; Neutrophils # (A) 4.7 k/uL (1.3-7.7); Neutrophils % (A) 76 %; Platelet Count 137 k/uL (150-450); RBC 3.96 m/uL (3.80-5.40); RDW 14.8 % (11.5-15.5); WBC 6.2 k/uL (3.8-10.6)
[2020-06-16 18:53] LABS: ALT 29 U/L (4-34); AST 50 U/L (14-36); African American GFR (CKD) >90 (>60 ml/min/1.73 sqM); Albumin 3.9 g/dL (3.5-5.0); Alkaline Phosphatase 36 U/L (38-126); Anion Gap 8 mmol/L; Blood Urea Nitrogen 11 mg/dL (7-17); Carbon Dioxide 21 mmol/L (22-30); Chloride 108 mmol/L (98-107); Glucose 110 mg/dL (74-99); Non-African American GFR(CKD) >90 (>60 ml/min/1.73 sqM); Sodium 137 mmol/L (137-145); Total Bilirubin 0.7 mg/dL (0.2-1.3); Total Protein 6.4 g/dL (6.3-8.2)
[2020-06-16 19:00] LABS: Potassium 4.7 mmol/L (3.5-5.1)
[2020-06-16] MEDS ORDERED: cefTRIAXone IN SWFI 1,000 MG/10 ML SYRINGE IVP STA (19:19)
--- NOTE | 2020-06-16 19:29 | ED ---
Abdominal Pain HPI - General Chief Complaint: Abdominal Pain Stated Complaint: kidney problems Time Seen by Provider: 06/16/20 17:37 Source: patient Mode of arrival: ambulatory Limitations: no limitations - History of Present Illness Initial Comments: Patient is a 24-year-old female presenting to the emergency Department with complaints of bilateral "kidney pain" x 2 days. Patient states she has a history of kidney infections and has been hospitalized for them in the past. She also has history of kidney stones. She states the pain has been present for about 2 days and seems to be worsening. She describes her pain as in the bilateral flank area, no radiation. She denies any fever or chills. She denies any hematuria, dysuria. She does note a mild increase in frequency. She does admit to mild nausea, no vomiting, no diarrhea. She denies any abdominal pain, chest pain, shortness of breath. She has no further complaints at this time. U misael arrival to the ER, her vital signs are stable. - Related Data Home Medications Medication Instructions Recorded Confirmed Rik-Tztf-Eeagw Acid 1 tab PO DAILY 10/18/19 01/25/20 [-U Capsule (formulary)] Labetalol [Trandate] 100 mg PO BID 01/25/20 01/25/20 Previous Rx's Medication Instructions Recorded Cephalexin [Keflex] 500 mg PO BID 10 Days #20 cap 06/16/20 Allergies Allergy/AdvReac Type Severity Reaction Status Date / Time tramadol Allergy Mild Rash/Hives Verified 06/16/20 17:33 aspirin Allergy Rash/Hives Verified 06/16/20 17:33 ketorolac [From Toradol] Allergy Itching Verified 06/16/20 17:33 amoxicillin AdvReac Vomiting Verified 06/16/20 17:33 Review of Systems ROS Statement: Those systems with pertinent positive or pertinent negative responses have been documented in the HPI. ROS Other: All systems not noted in ROS Statement are negative. Past Medical History Past Medical History: Hypertension Additional Past Medical History / Comment(s): back pain, kidney stones- pyleonephritis. bulging discs in back. History of Any Multi-Drug Resistant Organisms: None Reported Past Surgical History: Adenoidectomy, Ear Surgery, Tonsillectomy Additional Past Surgical History / Comment(s): left ear surgery, wisdom teeth removal, Past Anesthesia/Blood Transfusion Reactions: No Reported Reaction Past Psychological History: Depression Smoking Status: Current every day smoker Past Alcohol Use History: None Reported Past Drug Use History: None Reported - Past Family History Father Family Medical History: Fibromyalgia Mother History Unknown: Yes Family Medical History: Thyroid Disorder Additional Family Medical History / Comment(s): Guillian Sean Syndrome, HLD, HTN, seizures, migraines General Exam - General Exam Comments Initial Comments: GENERAL: Patient is well-developed and well-nourished. Patient is nontoxic and in no acute distress, does appear uncomfortable. HEAD: Atraumatic, normocephalic. EYES: Pupils equal round and reactive to light, extraocular movements intact, sclera anicteric, conjunctiva are normal. Eyelids were unremarkable. ENT: TMs normal, nares patent, oropharynx clear without exudates. Moist mucous membranes. NECK: Normal range of motion, supple without lymphadenopathy or JVD. LUNGS: Unlabored respirations. Breath sounds clear to auscultation bilaterally and equal. No wheezes rales or rhonchi. HEART: Regular rate and rhythm without murmurs, rubs or gallops. ABDOMEN: Soft, nontender, normoactive bowel sounds. No guarding, no rebound. No masses appreciated. Mild pain with bilateral flank palpation. : Deferred MUSCULOSKELETAL: Normal extremities with adequate strength and normal range of motion, no pitting or edema. No clubbing or cyanosis. NEUROLOGICAL: Normal speech, normal gait. PSYCH: Normal mood, normal affect. SKIN: Warm, Dry, normal turgor, no rashes or lesions noted. Limitations: no limitations Course Vital Signs 06/16/20 06/16/20 06/16/20 17:28 19:15 20:10 Temperature 98.3 F 97.8 F 98.3 F Pulse Rate 105 H 96 86 Respiratory 18 19 16 Rate Blood Pressure 103/93 139/104 141/101 O2 Sat by Pulse 100 98 100 Oximetry Medical Decision Making - Medical Decision Making Patient is a 24-year-old female here for bilateral kidney pain 2 days. She has history of kidney infections as well as kidney stones. She has no abdominal pain, no radiation of pain. Her vitals are stable upon arrival. Patient's lab work shows a normal white count, kidney function is normal, lactic acid is normal. Patient's urine is positive for nitrates, large amount of wbc's in clumps. Urine hCG is not detected. Patient was given fluids and pain control. I will give her a dose of Rocephin in the ER. I discussed with patient her findings. Urine culture is pending. Patient will be continued on Keflex for 10 days for pyelonephritis. Patient will follow up with her PCP. She can continue with ibuprofen or Tylenol for discomfort, increase fluid intake. She is in agreement with this plan of care. She is stable for discharge. Return parameters were discussed with the patient she verbalized understanding. Case discussed with Dr. Linder. - Lab Data Result diagrams: 06/16/20 18:13 06/16/20 18:17 Lab Results 06/16/20 06/16/20 06/16/20 Range/Units 18:07 18:07 18:13 WBC 6.2 (3.8-10.6) k/uL RBC 3.96 (3.80-5.40) m/uL Hgb 11.0 L (11.4-16.0) gm/dL Hct 34.2 (34.0-46.0) % MCV 86.5 (80.0-100.0) fL MCH 27.7 (25.0-35.0) pg MCHC 32.0 (31.0-37.0) g/dL RDW 14.8 (11.5-15.5) % Plt Count 137 L (150-450) k/uL Neutrophils % 76 % Lymphocytes % 14 % Monocytes % 6 % Eosinophils % 2 % Basophils % 0 % Neutrophils # 4.7 (1.3-7.7) k/uL Lymphocytes # 0.9 L (1.0-4.8) k/uL Monocytes # 0.4 (0-1.0) k/uL Eosinophils # 0.1 (0-0.7) k/uL Basophils # 0.0 (0-0.2) k/uL Sodium (137-145) mmol/L Potassium (3.5-5.1) mmol/L Chloride (98-107) mmol/L Carbon Dioxide (22-30) mmol/L Anion Gap mmol/L BUN (7-17) mg/dL Creatinine (0.52-1.04) mg/dL Est GFR (CKD-EPI)AfAm (>60 ml/min/1.73 sqM) Est GFR (CKD-EPI)NonAf (>60 ml/min/1.73 sqM) Glucose (74-99) mg/dL Plasma Lactic Acid [place] (0.7-2.0) mmol/L Calcium (8.4-10.2) mg/dL Total Bilirubin (0.2-1.3) mg/dL AST (14-36) U/L ALT (4-34) U/L Alkaline Phosphatase (38-126) U/L Total Protein (6.3-8.2) g/dL Albumin (3.5-5.0) g/dL Lipase (23-300) U/L Urine Color Dark Brown Urine Appearance Cloudy H (Clear) Urine pH 6.5 (5.0-8.0) Ur Specific [place] 1.023 (1.001-1.035) Urine Protein 1+ H (Negative) Urine Glucose (UA) Negative (Negative) Urine Ketones Negative (Negative) Urine Blood Moderate H (Negative) Urine Nitrite Positive H (Negative) Urine Bilirubin 2+ H (Negative) Urine Urobilinogen 6.0 (<2.0) mg/dL Ur Leukocyte Esterase Large H (Negative) Urine RBC 9 H (0-5) /hpf Urine WBC 146 H (0-5) /hpf Urine WBC Clumps Many H (None) /hpf Ur Squamous Epith Cells <1 (0-4) /hpf Urine Bacteria Many H (None) /hpf Urine Mucus Rare H (None) /hpf Urine HCG, Qual Not Detected (Not Detectd) 06/16/20 06/16/20 Range/Units 18:17 18:17 WBC (3.8-10.6) k/uL RBC (3.80-5.40) m/uL Hgb (11.4-16.0) gm/dL Hct (34.0-46.0) % MCV (80.0-100.0) fL MCH (25.0-35.0) pg MCHC (31.0-37.0) g/dL RDW (11.5-15.5) % Plt Count (150-450) k/uL Neutrophils % % Lymphocytes % % Monocytes % % Eosinophils % % Basophils % % Neutrophils # (1.3-7.7) k/uL Lymphocytes # (1.0-4.8) k/uL Monocytes # (0-1.0) k/uL Eosinophils # (0-0.7) k/uL Basophils # (0-0.2) k/uL Sodium 137 (137-145) mmol/L Potassium 4.7 (3.5-5.1) mmol/L Chloride 108 H (98-107) mmol/L Carbon Dioxide 21 L (22-30) mmol/L Anion Gap 8 mmol/L BUN 11 (7-17) mg/dL Creatinine 0.74 (0.52-1.04) mg/dL Est GFR (CKD-EPI)AfAm >90 (>60 ml/min/1.73 sqM) Est GFR (CKD-EPI)NonAf >90 (>60 ml/min/1.73 sqM) Glucose 110 H (74-99) mg/dL Plasma Lactic Acid [place] 0.7 (0.7-2.0) mmol/L Calcium 9.0 (8.4-10.2) mg/dL Total Bilirubin 0.7 (0.2-1.3) mg/dL AST 50 H (14-36) U/L ALT 29 (4-34) U/L Alkaline Phosphatase 36 L (38-126) U/L Total Protein 6.4 (6.3-8.2) g/dL Albumin 3.9 (3.5-5.0) g/dL Lipase 118 (23-300) U/L Urine Color Urine Appearance (Clear) Urine pH (5.0-8.0) Ur Specific [place] (1.001-1.035) Urine Protein (Negative) Urine Glucose (UA) (Negative) Urine Ketones (Negative) Urine Blood (Negative) Urine Nitrite (Negative) Urine Bilirubin (Negative) Urine Urobilinogen (<2.0) mg/dL Ur Leukocyte Esterase (Negative) Urine RBC (0-5) /hpf Urine WBC (0-5) /hpf Urine WBC Clumps (None) /hpf Ur Squamous Epith Cells (0-4) /hpf Urine Bacteria (None) /hpf Urine Mucus (None) /hpf Urine HCG, Qual (Not Detectd) Disposition Clinical Impression: Pyelonephritis Disposition: HOME SELF-CARE Condition: Stable Instructions (If sedation given, give patient instructions): Kidney Infection (ED) Additional Instructions: Please return to the Emergency Department if symptoms worsen or any other concerns. Take antibiotic as prescribed, finish entire course. Follow-up with PCP. May alternate between Tylenol and Motrin for discomfort. Increase fluid intake. Make sure to restart blood pressure medication. Prescriptions: Cephalexin [Keflex] 500 mg PO BID 10 Days #20 cap Is patient prescribed a controlled substance at d/c from ED?: No Referrals: None,Stated [Primary Care Provider] - 1-2 days
[2020-06-16 20:11] VITALS: BP 141/101; PULSE 86; RESP 16; TEMP 98.3
== END 2020-06-16 20:14 | disposition home or self-care (01) ==
LOC: EC 17:26
DX: N12 Tubulo-interstitial nephritis, not specified as acute or chronic (principal); F17.200 Nicotine dependence, unspecified, uncomplicated; I10 Essential (primary) hypertension; Z79.899 Other long term (current) drug therapy; Z87.442 Personal history of urinary calculi; Z88.6 Allergy status to analgesic agent; Z88.0 Allergy status to penicillin; Z88.5 Allergy status to narcotic agent
CPT/HCPCS: 36415; 80053; 83605; 83690; 85025; 81001; 81025; 87086; 96374; 96375; 96361; 99284; J2270; J0696

== ENCOUNTER 2020-10-01 20:11 | Emergency (ER) | payer OTHER ==
[2020-10-01 20:22] VITALS: TEMP 98.5
[2020-10-01] MEDS ORDERED: ONDANSETRON 4 MG/2 ML VIAL IVP STA (20:43)
[2020-10-01] MEDS ORDERED: MORPHINE SULFATE 4 MG/ML SYRINGE IVP STA (20:43)
[2020-10-01] MEDS ORDERED: SODIUM CHLORIDE 0.9% 1,000 ML IV ONE (20:43)
--- NOTE | 2020-10-01 21:04 | ED ---
Female Urogenital HPI - General Chief complaint: Urogenital Stated complaint: ABD pain Time Seen by Provider: 10/01/20 20:31 Source: patient Mode of arrival: ambulatory Limitations: no limitations - History of Present Illness Initial comments: 25-year-old female patient presents to the emergency department today for evaluation of bilateral flank pain and her urine. Patient states for the last week she has had worsening symptoms. She is reporting urinary frequency and urgency. Denies any dysuria. Denies any hematuria. Patient did have a period 1 week ago but states there is possibility of . Denies any fever or chills. Does report occasional nausea. Denies any abnormal vaginal discharge or concern for sexually transmitted infections. Patient denies any recent rash, cough, shortness of breath, chest pain, diarrhea, constipation, back pain, numbness, tingling, dizziness, weakness, headache, visual changes, or any other complaints. Last Menstrual Period: 09/28/20 - Related Data Home Medications Medication Instructions Recorded Confirmed Nbi-Tmsf-Sqchs Acid 1 tab PO DAILY 10/18/19 01/25/20 [-U Capsule (formulary)] Labetalol [Trandate] 100 mg PO BID 01/25/20 01/25/20 Previous Rx's Medication Instructions Recorded Cephalexin [Keflex] 500 mg PO BID 10 Days #20 cap 06/16/20 Cephalexin [Keflex] 500 mg PO Q6HR #40 cap 10/01/20 Allergies Allergy/AdvReac Type Severity Reaction Status Date / Time tramadol Allergy Mild Rash/Hives Verified 10/01/20 20:22 aspirin Allergy Rash/Hives Verified 10/01/20 20:22 ketorolac [From Toradol] Allergy Itching Verified 10/01/20 20:22 amoxicillin AdvReac Vomiting Verified 10/01/20 20:22 Review of Systems ROS Statement: Those systems with pertinent positive or pertinent negative responses have been documented in the HPI. ROS Other: All systems not noted in ROS Statement are negative. Past Medical History Past Medical History: Hypertension Additional Past Medical History / Comment(s): back pain, kidney stones- pyleonephritis. bulging discs in back. History of Any Multi-Drug Resistant Organisms: None Reported Past Surgical History: Adenoidectomy, Ear Surgery, Tonsillectomy Additional Past Surgical History / Comment(s): left ear surgery, wisdom teeth removal, Past Anesthesia/Blood Transfusion Reactions: No Reported Reaction Past Psychological History: Depression Smoking Status: Current every day smoker Past Alcohol Use History: None Reported Past Drug Use History: None Reported - Past Family History Father Family Medical History: Fibromyalgia Mother History Unknown: Yes Family Medical History: Thyroid Disorder Additional Family Medical History / Comment(s): Guillian Sean Syndrome, HLD, HTN, seizures, migraines General Exam Limitations: no limitations General appearance: alert, in no apparent distress, other (This is a well- developed, well-nourished adult female patient in no acute distress. Vital signs upon presentation are temperature 98.5F, pulse 103, respirations 24, blood pressure 171/125, pulse ox 100% on room air.) ENT exam: Present: normal exam, normal oropharynx, mucous membranes moist Respiratory exam: Present: normal lung sounds bilaterally. Absent: respiratory distress, wheezes, rales, rhonchi, stridor Cardiovascular Exam: Present: normal rhythm, tachycardia, normal heart sounds. Absent: systolic murmur, diastolic murmur, rubs, gallop, clicks GI/Abdominal exam: Present: soft, normal bowel sounds. Absent: distended, tenderness, guarding, rebound, rigid Back exam: Present: normal inspection, CVA tenderness (R), CVA tenderness (L) Neurological exam: Present: alert, oriented X3, CN II-XII intact Psychiatric exam: Present: normal affect, normal mood Skin exam: Present: warm, dry, intact, normal color. Absent: rash Course Vital Signs 10/01/20 10/01/20 10/01/20 20:19 22:08 23:21 Temperature 98.5 F 98.5 F Pulse Rate 103 H 100 77 Respiratory 24 18 18 Rate Blood Pressure 171/125 150/105 157/107 O2 Sat by Pulse 100 97 97 Oximetry Medical Decision Making - Medical Decision Making 25 year-old female patient presents to the emergency department today for evaluation of bilateral flank pain and dark urine. Physical examination reveals bilateral CVA tenderness. She is afebrile. Labs reviewed and revealed normal white blood cell, and urinalysis was positive for presence of blood. CT abdomen and pelvis without contrast was obtained and showed no evidence for kidney stone or other abnormalities accounting for patient's symptoms. We will treat for infection pending urine culture. She is instructed to follow-up with urologist for further evaluation. She'll be given pain medication for home. Return parameters were discussed in detail. She verbalizes understanding and agrees with this plan. - Lab Data Result diagrams: 10/01/20 20:58 10/01/20 20:58 Lab Results 10/01/20 10/01/20 10/01/20 Range/Units 20:58 20:58 20:58 WBC 5.9 (3.8-10.6) k/uL RBC 3.86 (3.80-5.40) m/uL Hgb 11.9 (11.4-16.0) gm/dL Hct 35.8 (34.0-46.0) % MCV 92.7 (80.0-100.0) fL MCH 30.8 (25.0-35.0) pg MCHC 33.2 (31.0-37.0) g/dL RDW 14.2 (11.5-15.5) % Plt Count 181 (150-450) k/uL MPV 9.1 Neutrophils % 60 % Lymphocytes % 29 % Monocytes % 5 % Eosinophils % 4 % Basophils % 0 % Neutrophils # 3.5 (1.3-7.7) k/uL Lymphocytes # 1.7 (1.0-4.8) k/uL Monocytes # 0.3 (0-1.0) k/uL Eosinophils # 0.3 (0-0.7) k/uL Basophils # 0.0 (0-0.2) k/uL Sodium (137-145) mmol/L Potassium (3.5-5.1) mmol/L Chloride (98-107) mmol/L Carbon Dioxide (22-30) mmol/L Anion Gap mmol/L BUN (7-17) mg/dL Creatinine (0.52-1.04) mg/dL Est GFR (CKD-EPI)AfAm (>60 ml/min/1.73 sqM) Est GFR (CKD-EPI)NonAf (>60 ml/min/1.73 sqM) Glucose (74-99) mg/dL Calcium (8.4-10.2) mg/dL Total Bilirubin (0.2-1.3) mg/dL AST (14-36) U/L ALT (4-34) U/L Alkaline Phosphatase (38-126) U/L Total Protein (6.3-8.2) g/dL Albumin (3.5-5.0) g/dL Urine Color Light Red Urine Appearance Cloudy H (Clear) Urine pH 6.0 (5.0-8.0) Ur Specific [place] 1.034 (1.001-1.035) Urine Protein 1+ H (Negative) Urine Glucose (UA) Negative (Negative) Urine Ketones Negative (Negative) Urine Blood Large H (Negative) Urine Nitrite Negative (Negative) Urine Bilirubin Negative (Negative) Urine Urobilinogen <2.0 (<2.0) mg/dL Ur Leukocyte Esterase Trace H (Negative) Urine RBC >182 H (0-5) /hpf Ur Squamous Epith Cells 1 (0-4) /hpf Urine HCG, Qual Not Detected (Not Detectd) 10/01/20 Range/Units 20:58 WBC (3.8-10.6) k/uL RBC (3.80-5.40) m/uL Hgb (11.4-16.0) gm/dL Hct (34.0-46.0) % MCV (80.0-100.0) fL MCH (25.0-35.0) pg MCHC (31.0-37.0) g/dL RDW (11.5-15.5) % Plt Count (150-450) k/uL MPV Neutrophils % % Lymphocytes % % Monocytes % % Eosinophils % % Basophils % % Neutrophils # (1.3-7.7) k/uL Lymphocytes # (1.0-4.8) k/uL Monocytes # (0-1.0) k/uL Eosinophils # (0-0.7) k/uL Basophils # (0-0.2) k/uL Sodium 138 (137-145) mmol/L Potassium 3.9 (3.5-5.1) mmol/L Chloride 111 H (98-107) mmol/L Carbon Dioxide 19 L (22-30) mmol/L Anion Gap 8 mmol/L BUN 17 (7-17) mg/dL Creatinine 0.75 (0.52-1.04) mg/dL Est GFR (CKD-EPI)AfAm >90 (>60 ml/min/1.73 sqM) Est GFR (CKD-EPI)NonAf >90 (>60 ml/min/1.73 sqM) Glucose 88 (74-99) mg/dL Calcium 9.0 (8.4-10.2) mg/dL Total Bilirubin 0.3 (0.2-1.3) mg/dL AST 23 (14-36) U/L ALT 11 (4-34) U/L Alkaline Phosphatase 48 (38-126) U/L Total Protein 6.5 (6.3-8.2) g/dL Albumin 4.1 (3.5-5.0) g/dL Urine Color Urine Appearance (Clear) Urine pH (5.0-8.0) Ur Specific [place] (1.001-1.035) Urine Protein (Negative) Urine Glucose (UA) (Negative) Urine Ketones (Negative) Urine Blood (Negative) Urine Nitrite (Negative) Urine Bilirubin (Negative) Urine Urobilinogen (<2.0) mg/dL Ur Leukocyte Esterase (Negative) Urine RBC (0-5) /hpf Ur Squamous Epith Cells (0-4) /hpf Urine HCG, Qual (Not Detectd) - Radiology Data Radiology results: report reviewed, image reviewed CT abdomen and pelvis without contrast was obtained. Report was reviewed in its entirety. Impression by Dr. Cody shows no evidence of renal stone or obstruction. There is clearing of the calculus in the lower pole left kidney compared to old exam. Right-sided ovarian cyst. Disposition Clinical Impression: Hematuria, Flank pain Disposition: HOME SELF-CARE Condition: Good Instructions (If sedation given, give patient instructions): Hematuria (ED), Flank Pain (ED) Additional Instructions: Complete antibiotic prescription in full. Increase fluids. Rest. Follow-up through primary care physician for recheck in 1-2 days. Return to the emergency department immediately for any new, worsening, or concerning symptoms. Prescriptions: Cephalexin [Keflex] 500 mg PO Q6HR #40 cap Is patient prescribed a controlled substance at d/c from ED?: No Referrals: Brice Marie MD [STAFF PHYSICIAN] - 1-2 days Time of Disposition: 23:11
[2020-10-01 21:22] LABS: Basophils % (A) 0 %; Eosinophils # (A) 0.3 k/uL (0-0.7); Eosinophils % (A) 4 %; HCT 35.8 % (34.0-46.0); HGB 11.9 gm/dL (11.4-16.0); Lymphocytes # (A) 1.7 k/uL (1.0-4.8); Lymphocytes % (A) 29 %; MCH 30.8 pg (25.0-35.0); MCHC 33.2 g/dL (31.0-37.0); MCV 92.7 fL (80.0-100.0); Mean Platelet Volume 9.1; Monocytes # (A) 0.3 k/uL (0-1.0); Monocytes % (A) 5 %; Neutrophils # (A) 3.5 k/uL (1.3-7.7); Neutrophils % (A) 60 %; Platelet Count 181 k/uL (150-450); RBC 3.86 m/uL (3.80-5.40); RDW 14.2 % (11.5-15.5); WBC 5.9 k/uL (3.8-10.6)
[2020-10-01 21:32] LABS: ALT 11 U/L (4-34); AST 23 U/L (14-36); African American GFR (CKD) >90 (>60 ml/min/1.73 sqM); Albumin 4.1 g/dL (3.5-5.0); Alkaline Phosphatase 48 U/L (38-126); Anion Gap 8 mmol/L; Blood Urea Nitrogen 17 mg/dL (7-17); Carbon Dioxide 19 mmol/L (22-30); Chloride 111 mmol/L (98-107); Glucose 88 mg/dL (74-99); Non-African American GFR(CKD) >90 (>60 ml/min/1.73 sqM); Potassium 3.9 mmol/L (3.5-5.1); Sodium 138 mmol/L (137-145); Total Bilirubin 0.3 mg/dL (0.2-1.3); Total Protein 6.5 g/dL (6.3-8.2)
[2020-10-01 21:33] LABS: Appearance,Urine Cloudy (Clear); Bilirubin,Urine Negative (Negative); Blood,Urine Large (Negative); Color,Urine Light Red; Glucose,Urine (UA) Negative (Negative); Ketones,Urine Negative (Negative); Leukocyte Esterase,Urine Trace (Negative); Nitrite,Urine Negative (Negative); Protein,Urine 1+ (Negative); RBC,Urine >182 /hpf (0-5); Specific Gravity,Urine 1.034 (1.001-1.035); Squamous Epithelial Cell,Urine 1 /hpf (0-4); Urobilinogen,Urine <2.0 mg/dL (<2.0)
[2020-10-01] MEDS ORDERED: HYDROmorphone 0.5 MG/0.5 ML SYRINGE IVP STA (21:49)
[2020-10-01 22:08] VITALS: RESP 18
--- NOTE | 2020-10-01 22:17 | CT ---
EXAMINATION TYPE: CT abdomen pelvis wo con DATE OF EXAM: 10/01/2020 COMPARISON: 01/28/2019 HISTORY: flank pain, hx of stones CT DLP: 532.2 mGycm Automated exposure control for dose reduction was used. Images obtained from the diaphragm to the floor the pelvis with no contrast. Lung bases are clear. There is no pleural effusion. Heart is top normal in size. There is no pericard ial effusion. Liver spleen stomach pancreas gallbladder appear normal. Bile ducts are not dilated. There is no adrenal mass. Kidneys have normal size. There is no hydronephrosis. Ureters are not dilat ed. There is no retroperitoneal adenopathy. Bladder distends smoothly. There is no inguinal hernia. T here is no evidence of a pelvic mass. There is no free fluid in the pelvis. Uterus is anteverted. The re is 3 cm cyst on the right ovary. Appendix is not seen. There is no sign of thickened appendix. Lumbar vertebra have normal alignment. There is no compression fracture. Posterior elements are intact. Bony pelvis is intact. Hip joints ap pear normal. IMPRESSION: No evidence of renal stone or obstruction. There is clearing of the calculus in the lower pole left k [place] compared to old exam. Right-sided ovarian cyst.
[2020-10-01] MEDS ORDERED: cefTRIAXone IN SWFI 1,000 MG/10 ML SYRINGE IVP STA (23:09)
[2020-10-01] MEDS ORDERED: ACET/COD 300 MG/30 MG STARTER PACK 6 TAB BTL PO STA (23:09)
[2020-10-01] MEDS ORDERED: IBUPROFEN 600 MG STARTER PACK 4 TAB BTL PO STA (23:09)
[2020-10-01 23:23] VITALS: BP 157/107; PULSE 77
== END 2020-10-01 23:21 | disposition home or self-care (01) ==
LOC: EC 20:11
DX: R10.9 Unspecified abdominal pain (principal); R31.9 Hematuria, unspecified; I10 Essential (primary) hypertension; F17.200 Nicotine dependence, unspecified, uncomplicated; Z79.899 Other long term (current) drug therapy; Z88.5 Allergy status to narcotic agent; Z88.6 Allergy status to analgesic agent; Z88.0 Allergy status to penicillin; Z87.442 Personal history of urinary calculi
CPT/HCPCS: 36415; 80053; 85025; 81001; 81025; 74176; 99284; 96374; 96375 ×3; 96361 ×2; J2270; J2405; J0696; J1170

== ENCOUNTER 2021-01-23 16:19 | Emergency (ER) | payer OTHER ==
[2021-01-23 17:07] VITALS: RESP 18
[2021-01-23] MEDS ORDERED: ACETAMINOPHEN TAB 325 MG TAB PO STA (19:46)
[2021-01-23 20:19] LABS: Appearance,Urine Clear (Clear); Bacteria,Urine Rare /hpf; Bilirubin,Urine Negative (Negative); Blood,Urine Negative (Negative); Color,Urine Light Yellow; Glucose,Urine (UA) Negative (Negative); Ketones,Urine Negative (Negative); Leukocyte Esterase,Urine Moderate (Negative); Nitrite,Urine Negative (Negative); PH, Urine 6.5 (5.0-8.0); Protein,Urine Negative (Negative); RBC,Urine <1 /hpf (0-5); Specific Gravity,Urine 1.012 (1.001-1.035); Squamous Epithelial Cell,Urine <1 /hpf (0-4); Urobilinogen,Urine <2.0 mg/dL (<2.0); WBC,Urine 18 /hpf (0-5)
--- NOTE | 2021-01-23 20:46 | XR ---
EXAMINATION TYPE: XR chest 2V DATE OF EXAM: 01/23/2021 COMPARISON: 11/02/2017 HISTORY: Cough. Short of breath TECHNIQUE: 2 views FINDINGS: Heart and mediastinum are normal. Lungs are clear. Diaphragm is normal. Bony thorax appears normal. IMPRESSION: Normal chest. No change.
[2021-01-23] MEDS ORDERED: cefTRIAXone IN SWFI 1,000 MG/10 ML SYRINGE IVP STA (20:56)
[2021-01-23] MEDS ORDERED: ONDANSETRON 4 MG/2 ML VIAL IVP STA (20:56)
[2021-01-23] MEDS ORDERED: SODIUM CHLORIDE 0.9% 1,000 ML IV ONE (20:56)
[2021-01-23] MEDS ORDERED: MORPHINE SULFATE 4 MG/ML SYRINGE IVP STA (21:15)
[2021-01-23 21:32] LABS: Basophils % (A) 0 %; Eosinophils # (A) 0.1 k/uL (0-0.7); Eosinophils % (A) 2 %; HCT 38.8 % (34.0-46.0); HGB 12.5 gm/dL (11.4-16.0); Lymphocytes # (A) 1.2 k/uL (1.0-4.8); Lymphocytes % (A) 17 %; MCH 28.9 pg (25.0-35.0); MCHC 32.3 g/dL (31.0-37.0); MCV 89.5 fL (80.0-100.0); Mean Platelet Volume 9.5; Monocytes # (A) 0.3 k/uL (0-1.0); Monocytes % (A) 4 %; Neutrophils # (A) 5.3 k/uL (1.3-7.7); Neutrophils % (A) 76 %; Platelet Count 217 k/uL (150-450); RBC 4.33 m/uL (3.80-5.40); RDW 12.9 % (11.5-15.5)
[2021-01-23 21:41] LABS: ALT 9 U/L (4-34); AST 18 U/L (14-36); African American GFR (CKD) >90 (>60 ml/min/1.73 sqM); Albumin 4.4 g/dL (3.5-5.0); Alkaline Phosphatase 64 U/L (38-126); Anion Gap 8 mmol/L; Blood Urea Nitrogen 13 mg/dL (7-17); Calcium 9.4 mg/dL (8.4-10.2); Carbon Dioxide 24 mmol/L (22-30); Chloride 107 mmol/L (98-107); Glucose 103 mg/dL (74-99); Non-African American GFR(CKD) >90 (>60 ml/min/1.73 sqM); Potassium 4.6 mmol/L (3.5-5.1); Sodium 139 mmol/L (137-145); Total Bilirubin 0.4 mg/dL (0.2-1.3); Total Protein 6.9 g/dL (6.3-8.2)
--- NOTE | 2021-01-23 21:50 | ED ---
Weakness HPI - General Chief complaint: Weakness Stated complaint: nausea/aches/overheating Time Seen by Provider: 01/23/21 19:16 Source: patient Mode of arrival: ambulatory Limitations: no limitations - History of Present Illness Initial comments: 25yo female with hx of recurrent UTIs presenting for cc of nausea, general malaise. Patient states she has had some nausea and general malaise. Carley localized abdominal pain, diarrhea, fevers. denies cough congestion. pateitn denies . Patient denies back pain. But states she has body aches all o spring. Remaining ROS (-) Upon arrival patient appears well nontoxic in no acute distress. - Related Data Home Medications Medication Instructions Recorded Confirmed Uua-Usbh-Mileu Acid 1 tab PO DAILY 10/18/19 01/25/20 [-U Capsule (formulary)] Labetalol [Trandate] 100 mg PO BID 01/25/20 01/25/20 Previous Rx's Medication Instructions Recorded Cephalexin [Keflex] 500 mg PO BID 10 Days #20 cap 06/16/20 Cephalexin [Keflex] 500 mg PO Q6HR #40 cap 10/01/20 Cephalexin [Keflex] 500 mg PO Q6HR 7 Days #28 cap 01/23/21 Allergies Allergy/AdvReac Type Severity Reaction Status Date / Time tramadol Allergy Mild Rash/Hives Verified 01/23/21 17:06 aspirin Allergy Rash/Hives Verified 01/23/21 17:06 ketorolac [From Toradol] Allergy Itching Verified 01/23/21 17:06 amoxicillin AdvReac Vomiting Verified 01/23/21 17:06 Review of Systems ROS Statement: Those systems with pertinent positive or pertinent negative responses have been documented in the HPI. ROS Other: All systems not noted in ROS Statement are negative. Past Medical History Past Medical History: Hypertension Additional Past Medical History / Comment(s): back pain, kidney stones- pyleonephritis. bulging discs in back. History of Any Multi-Drug Resistant Organisms: None Reported Past Surgical History: Adenoidectomy, Ear Surgery, Tonsillectomy Additional Past Surgical History / Comment(s): left ear surgery, wisdom teeth removal, Past Anesthesia/Blood Transfusion Reactions: No Reported Reaction Past Psychological History: Depression Smoking Status: Current every day smoker Past Alcohol Use History: None Reported Past Drug Use History: None Reported - Past Family History Father Family Medical History: Fibromyalgia Mother History Unknown: Yes Family Medical History: Thyroid Disorder Additional Family Medical History / Comment(s): Guillian Sean Syndrome, HLD, HTN, seizures, migraines General Exam Limitations: no limitations Course Vital Signs 01/23/21 01/23/21 01/23/21 17:04 20:07 20:52 Temperature 99.0 F Pulse Rate 89 84 81 Respiratory 18 18 18 Rate Blood Pressure 144/95 134/86 154/96 O2 Sat by Pulse 98 98 98 Oximetry Medical Decision Making - Medical Decision Making Labs stable. Urine concerning for developing infection pt afebrile nontoxic in appearance. Patient given Rocephin in the emergency department. She was given morphine states her symptoms resolved. At this time for patient stable for discharge with outpatient oral antibiotics and primary care follow-up return for worsening symptoms, fevers, back pain. Patient verbalized understanding was discharged appearing well. Dr Paulino agreeable to care plan. - Lab Data Result diagrams: 01/23/21 21:20 01/23/21 21:20 Lab Results 01/23/21 01/23/21 01/23/21 Range/Units 20:04 20:04 20:04 WBC (3.8-10.6) k/uL RBC (3.80-5.40) m/uL Hgb (11.4-16.0) gm/dL Hct (34.0-46.0) % MCV (80.0-100.0) fL MCH (25.0-35.0) pg MCHC (31.0-37.0) g/dL RDW (11.5-15.5) % Plt Count (150-450) k/uL MPV Neutrophils % % Lymphocytes % % Monocytes % % Eosinophils % % Basophils % % Neutrophils # (1.3-7.7) k/uL Lymphocytes # (1.0-4.8) k/uL Monocytes # (0-1.0) k/uL Eosinophils # (0-0.7) k/uL Basophils # (0-0.2) k/uL Sodium (137-145) mmol/L Potassium (3.5-5.1) mmol/L Chloride (98-107) mmol/L Carbon Dioxide (22-30) mmol/L Anion Gap mmol/L BUN (7-17) mg/dL Creatinine (0.52-1.04) mg/dL Est GFR (CKD-EPI)AfAm (>60 ml/min/1.73 sqM) Est GFR (CKD-EPI)NonAf (>60 ml/min/1.73 sqM) Glucose (74-99) mg/dL Calcium (8.4-10.2) mg/dL Total Bilirubin (0.2-1.3) mg/dL AST (14-36) U/L ALT (4-34) U/L Alkaline Phosphatase (38-126) U/L Total Protein (6.3-8.2) g/dL Albumin (3.5-5.0) g/dL Urine Color Light Yellow Urine Appearance Clear (Clear) Urine pH 6.5 (5.0-8.0) Ur Specific [place] 1.012 (1.001-1.035) Urine Protein Negative (Negative) Urine Glucose (UA) Negative (Negative) Urine Ketones Negative (Negative) Urine Blood Negative (Negative) Urine Nitrite Negative (Negative) Urine Bilirubin Negative (Negative) Urine Urobilinogen <2.0 (<2.0) mg/dL Ur Leukocyte Esterase Moderate H (Negative) Urine RBC <1 (0-5) /hpf Urine WBC 18 H (0-5) /hpf Ur Squamous Epith Cells <1 (0-4) /hpf Urine Bacteria Rare H (None) /hpf Urine HCG, Qual Not Detected (Not Detectd) Coronavirus (PCR) Not Detected (Not Detectd) 01/23/21 01/23/21 Range/Units 21:20 21:20 WBC 7.0 (3.8-10.6) k/uL RBC 4.33 (3.80-5.40) m/uL Hgb 12.5 (11.4-16.0) gm/dL Hct 38.8 (34.0-46.0) % MCV 89.5 (80.0-100.0) fL MCH 28.9 (25.0-35.0) pg MCHC 32.3 (31.0-37.0) g/dL RDW 12.9 (11.5-15.5) % Plt Count 217 (150-450) k/uL MPV 9.5 Neutrophils % 76 % Lymphocytes % 17 % Monocytes % 4 % Eosinophils % 2 % Basophils % 0 % Neutrophils # 5.3 (1.3-7.7) k/uL Lymphocytes # 1.2 (1.0-4.8) k/uL Monocytes # 0.3 (0-1.0) k/uL Eosinophils # 0.1 (0-0.7) k/uL Basophils # 0.0 (0-0.2) k/uL Sodium 139 (137-145) mmol/L Potassium 4.6 (3.5-5.1) mmol/L Chloride 107 (98-107) mmol/L Carbon Dioxide 24 (22-30) mmol/L Anion Gap 8 mmol/L BUN 13 (7-17) mg/dL Creatinine 0.79 (0.52-1.04) mg/dL Est GFR (CKD-EPI)AfAm >90 (>60 ml/min/1.73 sqM) Est GFR (CKD-EPI)NonAf >90 (>60 ml/min/1.73 sqM) Glucose 103 H (74-99) mg/dL Calcium 9.4 (8.4-10.2) mg/dL Total Bilirubin 0.4 (0.2-1.3) mg/dL AST 18 (14-36) U/L ALT 9 (4-34) U/L Alkaline Phosphatase 64 (38-126) U/L Total Protein 6.9 (6.3-8.2) g/dL Albumin 4.4 (3.5-5.0) g/dL Urine Color Urine Appearance (Clear) Urine pH (5.0-8.0) Ur Specific [place] (1.001-1.035) Urine Protein (Negative) Urine Glucose (UA) (Negative) Urine Ketones (Negative) Urine Blood (Negative) Urine Nitrite (Negative) Urine Bilirubin (Negative) Urine Urobilinogen (<2.0) mg/dL Ur Leukocyte Esterase (Negative) Urine RBC (0-5) /hpf Urine WBC (0-5) /hpf Ur Squamous Epith Cells (0-4) /hpf Urine Bacteria (None) /hpf Urine HCG, Qual (Not Detectd) Coronavirus (PCR) (Not Detectd) Disposition Clinical Impression: Nausea, UTI (urinary tract infection) Disposition: HOME SELF-CARE Condition: Good Additional Instructions: Please use medication as discussed. Please follow-up with family doctor in the next 2 days of symptoms have not improved. Please return to emergency room if the symptoms increase or worsen or for any other concerns. Prescriptions: Cephalexin [Keflex] 500 mg PO Q6HR 7 Days #28 cap Is patient prescribed a controlled substance at d/c from ED?: No Referrals: None,Stated [Primary Care Provider] - 1-2 days Time of Disposition: 21:50
[2021-01-23 22:54] VITALS: BP 132/83; PULSE 80; TEMP 98.2
== END 2021-01-23 22:00 | disposition home or self-care (01) ==
LOC: EC 16:19
DX: N39.0 Urinary tract infection, site not specified (principal); R11.0 Nausea; B96.20 Unspecified Escherichia coli [E. coli] as the cause of diseases classified elsewhere; I10 Essential (primary) hypertension; F17.200 Nicotine dependence, unspecified, uncomplicated; F32.9 Major depressive disorder, single episode, unspecified; Z20.822 Contact with and (suspected) exposure to COVID-19
CPT/HCPCS: 36415; 80053; 85025; 81001; 81025; 87086; 87077; 87186; 87635; 71046; 99283; 96374; 96375 ×2; 96361; J2270; J2405; J0696

== ENCOUNTER 2021-01-30 20:07 | Emergency (ER) | payer OTHER ==
[2021-01-30 20:36] VITALS: BP 138/91; PULSE 83; TEMP 98.7
[2021-01-30] MEDS ORDERED: HYDROmorphone 1 MG/ML 1 ML SYRINGE IM STA (21:11)
[2021-01-30] MEDS ORDERED: DIAZEPAM 5 MG/ML 2 ML INJ IM ONE (21:11)
[2021-01-30 21:13] VITALS: RESP 20
--- NOTE | 2021-01-30 21:59 | XR ---
Result: History: Low back pain after injury. Comparison: None available. Technique: 5 views of the lumbar spine. Findings: The bone mineralization is normal. Images of the lumbar spine demonstrate 5 lumbar-type vertebrae. There is no acute fracture or sublux ation. The vertebral body heights are preserved throughout the imaged lumbar spine. The vertebral e lements are in anatomic alignment. The disc heights are maintained. Impression: Grossly unremarkable radiographs.
[2021-01-30] MEDS ORDERED: ACET/COD 300 MG/30 MG STARTER PACK 6 TAB BTL PO STA (22:16)
[2021-01-30] MEDS ORDERED: CYCLOBENZAPRINE 10MG STARTER 3 TAB BTL PO STA (22:16)
--- NOTE | 2021-01-30 22:16 | ED ---
General Adult HPI - General Chief complaint: Back Pain/Injury Stated complaint: Back pain Time Seen by Provider: 01/30/21 20:52 Source: patient Mode of arrival: wheelchair Limitations: no limitations - History of Present Illness Initial comments: 25 year-old female patient presents to the emergency department today for evaluation of increased low back pain. Patient states she was playing with her child earlier today around 3 PM when she felt and heard a snap in her low back. States she does have chronic low back issues. States that she previously saw painting worker was taking [place] which generally help her. States that the pain radiates to both hips. Denies any numbness or tingling to the lower extremities. Denies saddle anesthesia or loss of bowel or bladder control. Patient states the pain worsens whenever she attempts to stand upright. Denies any recent fever or chills. Denies any direct impact to the back. Patient denies any headache, neck pain, chest pain, shortness of breath, dizziness, weakness, abdominal pain, nausea, vomiting, or difficulties with bowel movements or urination. - Related Data Home Medications Medication Instructions Recorded Confirmed Acetaminophen Tab [Tylenol] 650 mg PO Q6H PRN 01/30/21 01/30/21 Ibuprofen [Motrin Ib] 800 mg PO Q6H PRN 01/30/21 01/30/21 Previous Rx's Medication Instructions Recorded Cyclobenzaprine [Flexeril] 10 mg PO TID #15 tab 01/30/21 Allergies Allergy/AdvReac Type Severity Reaction Status Date / Time tramadol Allergy Mild Rash/Hives Verified 01/30/21 21:47 aspirin Allergy Rash/Hives Verified 01/30/21 21:47 ketorolac [From Toradol] Allergy Itching Verified 01/30/21 21:47 amoxicillin AdvReac Vomiting Verified 01/30/21 21:47 Review of Systems ROS Statement: Those systems with pertinent positive or pertinent negative responses have been documented in the HPI. ROS Other: All systems not noted in ROS Statement are negative. Past Medical History Past Medical History: Hypertension Additional Past Medical History / Comment(s): back pain, kidney stones- pyleonephritis. bulging discs in back. History of Any Multi-Drug Resistant Organisms: None Reported Past Surgical History: Adenoidectomy, Ear Surgery, Tonsillectomy Additional Past Surgical History / Comment(s): left ear surgery, wisdom teeth removal, Past Anesthesia/Blood Transfusion Reactions: No Reported Reaction Past Psychological History: Depression Smoking Status: Current every day smoker Past Alcohol Use History: None Reported Past Drug Use History: None Reported - Past Family History Father Family Medical History: Fibromyalgia Mother History Unknown: Yes Family Medical History: Thyroid Disorder Additional Family Medical History / Comment(s): Guillian Sean Syndrome, HLD, HTN, seizures, migraines General Exam Limitations: no limitations General appearance: alert, in no apparent distress ENT exam: Present: normal exam, normal oropharynx, mucous membranes moist Respiratory exam: Present: normal lung sounds bilaterally. Absent: respiratory distress, wheezes, rales, rhonchi, stridor Cardiovascular Exam: Present: regular rate, normal rhythm, normal heart sounds. Absent: systolic murmur, diastolic murmur, rubs, gallop, clicks GI/Abdominal exam: Present: soft, normal bowel sounds. Absent: distended, tenderness, guarding, rebound, rigid Extremities exam: Present: normal inspection, full ROM, normal capillary refill, other (Skin to the lower extremities is pink, warm, dry. Cap refill less than 3 seconds. Pedal and posttibial pulses are 2+ and equal bilaterally.). Absent: tenderness, pedal edema, joint swelling, calf tenderness Back exam: Present: normal inspection, other (There is some lower lumbar tenderness. Mild lumbar paraspinal tenderness. No bony step-off or deformity was noted to for midline palpation of the lumbar spine.). Absent: vertebral tenderness Neurological exam: Present: alert, oriented X3, CN II-XII intact, other (Strength in the lower extremities is 5/5.) Psychiatric exam: Present: normal affect, normal mood Skin exam: Present: warm, dry, intact, normal color. Absent: rash Course Vital Signs 01/30/21 01/30/21 20:32 21:12 Temperature 98.7 F Pulse Rate 83 Respiratory 18 20 Rate Blood Pressure 138/91 O2 Sat by Pulse 100 Oximetry Medical Decision Making - Medical Decision Making 25 year-old female patient presents to the emergency department today for evaluation of increased low back pain. Physical examination did reveal some tenderness over the lumbar spine and the paraspinal regions. She is neurologically and neurovascularly intact. No concerning symptoms for cauda equina. X-ray was obtained and was negative. Patient was given IM doses of pain medication and muscle relaxer. Upon reevaluation shows reports some improvement. To be discharged with prescription for Flexeril. She'll be given a starter pack of Flexeril and Tylenol for codeine. She is instructed to follow-up with her primary care physician for recheck in 1-2 days. She is instructed to discuss MRI of her symptoms worsen or change. Return parameters were discussed in detail. She verbalizes understanding and agrees with this plan. My attending is Dr. Yañez. - Radiology Data Radiology results: report reviewed, image reviewed 4 views of the lumbosacral spine are obtained. Report was reviewed in its entirety. Impression by Dr. Mauro shows grossly unremarkable radiographs. Disposition Clinical Impression: Back pain Disposition: HOME SELF-CARE Condition: Good Instructions (If sedation given, give patient instructions): Acute Low Back Pain (ED) Additional Instructions: Take home medications as directed. Add and muscle relaxer. Follow-up through primary care physician for recheck in 1-2 days. Discussed MRI if your symptoms do not improve. Return to the emergency department for any new, worsening, or concerning symptoms. Prescriptions: Cyclobenzaprine [Flexeril] 10 mg PO TID #15 tab Is patient prescribed a controlled substance at d/c from ED?: No Referrals: None,Stated [Primary Care Provider] - 1-2 days Time of Disposition: 22:16
== END 2021-01-30 22:28 | disposition home or self-care (01) ==
LOC: EC 20:07
DX: M54.5 Low back pain (principal); I10 Essential (primary) hypertension; F32.9 Major depressive disorder, single episode, unspecified; F17.200 Nicotine dependence, unspecified, uncomplicated; Z79.899 Other long term (current) drug therapy
CPT/HCPCS: 72110; 99283; 96372; J3360; J1170

== ENCOUNTER 2021-03-06 22:47 | Emergency (ER) | payer OTHER ==
[2021-03-06 23:02] VITALS: RESP 16; TEMP 97.9
[2021-03-07] MEDS ORDERED: HYDROmorphone 0.5 MG/0.5 ML SYRINGE IVP STA (00:10)
[2021-03-07] MEDS ORDERED: ONDANSETRON 4 MG/2 ML VIAL IVP STA (00:10)
[2021-03-07] MEDS ORDERED: SODIUM CHLORIDE 0.9% 1,000 ML IV STA (00:10)
[2021-03-07 00:42] LABS: Basophils % (A) 1 %; Eosinophils # (A) 0.3 k/uL (0-0.7); Eosinophils % (A) 6 %; HCT 36.9 % (34.0-46.0); HGB 12.7 gm/dL (11.4-16.0); Lymphocytes # (A) 1.8 k/uL (1.0-4.8); Lymphocytes % (A) 35 %; MCH 30.7 pg (25.0-35.0); MCHC 34.5 g/dL (31.0-37.0); MCV 89.1 fL (80.0-100.0); Mean Platelet Volume 9.2; Monocytes # (A) 0.3 k/uL (0-1.0); Monocytes % (A) 6 %; Neutrophils # (A) 2.7 k/uL (1.3-7.7); Neutrophils % (A) 52 %; Platelet Count 178 k/uL (150-450); RBC 4.13 m/uL (3.80-5.40); RDW 13.6 % (11.5-15.5); WBC 5.1 k/uL (3.8-10.6)
[2021-03-07 00:53] LABS: ALT 9 U/L (4-34); AST 21 U/L (14-36); African American GFR (CKD) >90 (>60 ml/min/1.73 sqM); Albumin 4.4 g/dL (3.5-5.0); Alkaline Phosphatase 57 U/L (38-126); Anion Gap 7 mmol/L; Appearance,Urine Clear (Clear); Bacteria,Urine Occasional /hpf; Bilirubin,Urine Negative (Negative); Blood Urea Nitrogen 15 mg/dL (7-17); Blood,Urine Moderate (Negative); Calcium 9.2 mg/dL (8.4-10.2); Carbon Dioxide 24 mmol/L (22-30); Chloride 107 mmol/L (98-107); Color,Urine Yellow; Glucose 89 mg/dL (74-99); Glucose,Urine (UA) Negative (Negative); Ketones,Urine Negative (Negative); Leukocyte Esterase,Urine Trace (Negative); Lipase 146 U/L (23-300); Mucus,Urine Rare /hpf; Nitrite,Urine Negative (Negative); Non-African American GFR(CKD) 86 (>60 ml/min/1.73 sqM); PH, Urine 5.5 (5.0-8.0); Potassium 3.7 mmol/L (3.5-5.1); Protein,Urine Negative (Negative); RBC,Urine 82 /hpf (0-5); Sodium 138 mmol/L (137-145); Specific Gravity,Urine 1.019 (1.001-1.035); Squamous Epithelial Cell,Urine 1 /hpf (0-4); Total Bilirubin 0.3 mg/dL (0.2-1.3); Total Protein 6.7 g/dL (6.3-8.2); Urobilinogen,Urine <2.0 mg/dL (<2.0); WBC,Urine 5 /hpf (0-5)
--- NOTE | 2021-03-07 01:22 | ED ---
Abdominal Pain HPI - General Chief Complaint: Abdominal Pain Stated Complaint: Abd Pain Time Seen by Provider: 03/06/21 23:35 Source: patient Mode of arrival: ambulatory Limitations: no limitations - History of Present Illness Initial Comments: 25-year-old female patient presents to the emergency department today for evaluation of pelvic pain. Patient states that the pain has been going on for the last couple of days and has been getting worse. She does admit to being on her menstrual cycle currently with states this is worse than her usual abdominal cramps. Denies any fever or chills. Denies nausea or vomiting. Denies radiation of the pain through to the back. States she does have some radiation of the pain down her right leg. Denies any change to her menstrual flow. Denies any hematuria, dysuria, urinary frequency, urinary urgency. Does have a history of kidney stones but states this pain is different. Does have history of ovarian cysts. Denies history of abdominal surgery. She does not currently take control. Patient denies any recent rash, cough, shortness of breath, chest pain, numbness, tingling, dizziness, weakness, headache, visual changes, or any other complaints. - Related Data Home Medications Medication Instructions Recorded Confirmed Acetaminophen Tab [Tylenol] 650 mg PO Q6H PRN 01/30/21 01/30/21 Ibuprofen [Motrin Ib] 800 mg PO Q6H PRN 01/30/21 01/30/21 Previous Rx's Medication Instructions Recorded Cyclobenzaprine [Flexeril] 10 mg PO TID #15 tab 01/30/21 Allergies Allergy/AdvReac Type Severity Reaction Status Date / Time tramadol Allergy Mild Rash/Hives Verified 03/06/21 22:59 aspirin Allergy Rash/Hives Verified 03/06/21 22:59 ketorolac [From Toradol] Allergy Itching Verified 03/06/21 22:59 amoxicillin AdvReac Vomiting Verified 03/06/21 22:59 Review of Systems ROS Statement: Those systems with pertinent positive or pertinent negative responses have been documented in the HPI. ROS Other: All systems not noted in ROS Statement are negative. Past Medical History Past Medical History: Hypertension Additional Past Medical History / Comment(s): back pain, kidney stones- pyleonephritis. bulging discs in back. History of Any Multi-Drug Resistant Organisms: None Reported Past Surgical History: Adenoidectomy, Ear Surgery, Tonsillectomy Additional Past Surgical History / Comment(s): left ear surgery, wisdom teeth removal, Past Anesthesia/Blood Transfusion Reactions: No Reported Reaction Past Psychological History: Depression Smoking Status: Current every day smoker Past Alcohol Use History: None Reported Past Drug Use History: None Reported - Past Family History Father Family Medical History: Fibromyalgia Mother History Unknown: Yes Family Medical History: Thyroid Disorder Additional Family Medical History / Comment(s): Guillian Sean Syndrome, HLD, HTN, seizures, migraines General Exam Limitations: no limitations General appearance: alert, in no apparent distress, other (This is a well- developed, well-nourished adult female patient in mild distress related to pain. Vital signs upon presentation are temperature 97.9F, pulse 97, respirations 16, blood pressure 161/107, pulse ox 99% on room air.) Eye exam: Present: normal appearance, PERRL, EOMI. Absent: scleral icterus, conjunctival injection, periorbital swelling ENT exam: Present: normal exam, normal oropharynx, mucous membranes moist Respiratory exam: Present: normal lung sounds bilaterally. Absent: respiratory distress, wheezes, rales, rhonchi, stridor Cardiovascular Exam: Present: regular rate, normal rhythm, normal heart sounds. Absent: systolic murmur, diastolic murmur, rubs, gallop, clicks GI/Abdominal exam: Present: soft, tenderness (Lower abdominal), normal bowel sounds. Absent: distended, guarding, rebound, rigid Neurological exam: Present: alert, oriented X3, CN II-XII intact Psychiatric exam: Present: normal affect, normal mood Skin exam: Present: warm, dry, intact, normal color. Absent: rash Course Vital Signs 03/06/21 03/07/21 22:59 01:28 Temperature 97.9 F Pulse Rate 97 71 Respiratory 16 16 Rate Blood Pressure 161/107 135/74 O2 Sat by Pulse 99 99 Oximetry Medical Decision Making - Medical Decision Making 25 year-old female patient presents to the emergency department for evaluation of pelvic pain. Physical examination revealed lower abdominal tenderness. No guarding, no rebound. She is afebrile with normal vitals. Labs reviewed and are unremarkable. US of the pelvis obtained and unremarkable. She is currently on her menses, states that her period cramping has been getting worse. She will be discharged to follow up with her primary physician as well as OBGYN. She'll be given starter pack Tylenol codeine for home. Return parameters were discussed in detail. She verbalizes understanding and agrees with this plan. My attending is Dr. Yañez. - Lab Data Result diagrams: 03/07/21 00:18 03/07/21 00:18 Lab Results 03/07/21 03/07/21 03/07/21 Range/Units 00:18 00:18 00:18 WBC 5.1 (3.8-10.6) k/uL RBC 4.13 (3.80-5.40) m/uL Hgb 12.7 (11.4-16.0) gm/dL Hct 36.9 (34.0-46.0) % MCV 89.1 (80.0-100.0) fL MCH 30.7 (25.0-35.0) pg MCHC 34.5 (31.0-37.0) g/dL RDW 13.6 (11.5-15.5) % Plt Count 178 (150-450) k/uL MPV 9.2 Neutrophils % 52 % Lymphocytes % 35 % Monocytes % 6 % Eosinophils % 6 % Basophils % 1 % Neutrophils # 2.7 (1.3-7.7) k/uL Lymphocytes # 1.8 (1.0-4.8) k/uL Monocytes # 0.3 (0-1.0) k/uL Eosinophils # 0.3 (0-0.7) k/uL Basophils # 0.0 (0-0.2) k/uL Sodium (137-145) mmol/L Potassium (3.5-5.1) mmol/L Chloride (98-107) mmol/L Carbon Dioxide (22-30) mmol/L Anion Gap mmol/L BUN (7-17) mg/dL Creatinine (0.52-1.04) mg/dL Est GFR (CKD-EPI)AfAm (>60 ml/min/1.73 sqM) Est GFR (CKD-EPI)NonAf (>60 ml/min/1.73 sqM) Glucose (74-99) mg/dL Plasma Lactic Acid [place] (0.7-2.0) mmol/L Calcium (8.4-10.2) mg/dL Total Bilirubin (0.2-1.3) mg/dL AST (14-36) U/L ALT (4-34) U/L Alkaline Phosphatase (38-126) U/L Total Protein (6.3-8.2) g/dL Albumin (3.5-5.0) g/dL Lipase (23-300) U/L Urine Color Yellow Urine Appearance Clear (Clear) Urine pH 5.5 (5.0-8.0) Ur Specific [place] 1.019 (1.001-1.035) Urine Protein Negative (Negative) Urine Glucose (UA) Negative (Negative) Urine Ketones Negative (Negative) Urine Blood Moderate H (Negative) Urine Nitrite Negative (Negative) Urine Bilirubin Negative (Negative) Urine Urobilinogen <2.0 (<2.0) mg/dL Ur Leukocyte Esterase Trace H (Negative) Urine RBC 82 H (0-5) /hpf Urine WBC 5 (0-5) /hpf Ur Squamous Epith Cells 1 (0-4) /hpf Urine Bacteria Occasional H (None) /hpf Urine Mucus Rare H (None) /hpf Urine HCG, Qual Not Detected (Not Detectd) 03/07/21 03/07/21 Range/Units 00:18 00:18 WBC (3.8-10.6) k/uL RBC (3.80-5.40) m/uL Hgb (11.4-16.0) gm/dL Hct (34.0-46.0) % MCV (80.0-100.0) fL MCH (25.0-35.0) pg MCHC (31.0-37.0) g/dL RDW (11.5-15.5) % Plt Count (150-450) k/uL MPV Neutrophils % % Lymphocytes % % Monocytes % % Eosinophils % % Basophils % % Neutrophils # (1.3-7.7) k/uL Lymphocytes # (1.0-4.8) k/uL Monocytes # (0-1.0) k/uL Eosinophils # (0-0.7) k/uL Basophils # (0-0.2) k/uL Sodium 138 (137-145) mmol/L Potassium 3.7 (3.5-5.1) mmol/L Chloride 107 (98-107) mmol/L Carbon Dioxide 24 (22-30) mmol/L Anion Gap 7 mmol/L BUN 15 (7-17) mg/dL Creatinine 0.93 (0.52-1.04) mg/dL Est GFR (CKD-EPI)AfAm >90 (>60 ml/min/1.73 sqM) Est GFR (CKD-EPI)NonAf 86 (>60 ml/min/1.73 sqM) Glucose 89 (74-99) mg/dL Plasma Lactic Acid [place] 0.7 (0.7-2.0) mmol/L Calcium 9.2 (8.4-10.2) mg/dL Total Bilirubin 0.3 (0.2-1.3) mg/dL AST 21 (14-36) U/L ALT 9 (4-34) U/L Alkaline Phosphatase 57 (38-126) U/L Total Protein 6.7 (6.3-8.2) g/dL Albumin 4.4 (3.5-5.0) g/dL Lipase 146 (23-300) U/L Urine Color Urine Appearance (Clear) Urine pH (5.0-8.0) Ur Specific [place] (1.001-1.035) Urine Protein (Negative) Urine Glucose (UA) (Negative) Urine Ketones (Negative) Urine Blood (Negative) Urine Nitrite (Negative) Urine Bilirubin (Negative) Urine Urobilinogen (<2.0) mg/dL Ur Leukocyte Esterase (Negative) Urine RBC (0-5) /hpf Urine WBC (0-5) /hpf Ur Squamous Epith Cells (0-4) /hpf Urine Bacteria (None) /hpf Urine Mucus (None) /hpf Urine HCG, Qual (Not Detectd) - Radiology Data Radiology results: report reviewed Pelvic ultrasound was obtained. Report was reviewed in its entirety. Impression by Dr. Egan shows normal sonographic examination of the uterus and bilateral ovaries. Disposition Clinical Impression: Pelvic pain Disposition: HOME SELF-CARE Condition: Good Instructions (If sedation given, give patient instructions): Pelvic Pain in Women (ED) Additional Instructions: Follow-up with your primary care physician and [employer] [employer] for recheck as soon as possible. Return to the emergency department for any new, worsening, or concerning symptoms. Is patient prescribed a controlled substance at d/c from ED?: No Referrals: None,Stated [Primary Care Provider] - 1-2 days Time of Disposition: 01:35
[2021-03-07 01:28] VITALS: BP 135/74; PULSE 71
--- NOTE | 2021-03-07 01:28 | US ---
EXAM: US Pelvis Transabdominal and Transvaginal, Complete CLINICAL HISTORY: ITS.REASON US Reason: pelvic pain; hx cysts TECHNIQUE: Real-time complete transabdominal and transvaginal pelvic ultrasound with image documentation. Transvaginal imaging was used for better evaluation of the endometrium and adnexa. COMPARISON: No relevant prior studies available. FINDINGS: Uterus/cervix: Measures 7.6 x 3.6 x 4.9 cm and is anteverted. Normal endometrial stripe thickness measuring 3 mm and bilateral thickness.. No myometrial mass. Right ovary: Measures 2.7 x 3.2 x 2.5 cm (11.7 mL). No mass. Normal blood flow. Multiple ovarian follicles measuring up to 1.4 cm in the right ovary Left ovary: Measures 2.4 x 3.2 x 2.1 cm (8.1 mL).. No mass. Normal blood flow. Multiple ovarian follicles measuring up to 1.0 cm in the left ovary. Free fluid: No free fluid. Bladder: Unremarkable as visualized. Wall is normal thickness for degree of distention. IMPRESSION: Normal sonographic examination of the uterus and bilateral ovaries.
[2021-03-07] MEDS ORDERED: ACET/COD 300 MG/30 MG STARTER PACK 6 TAB BTL PO STA (01:34)
[2021-03-07] MEDS ORDERED: HYDROmorphone 1 MG/ML 1 ML SYRINGE IVP STA (01:34)
== END 2021-03-07 01:56 | disposition home or self-care (01) ==
LOC: EC 22:47
DX: R10.2 Pelvic and perineal pain (principal); I10 Essential (primary) hypertension; F32.9 Major depressive disorder, single episode, unspecified; F17.200 Nicotine dependence, unspecified, uncomplicated
CPT/HCPCS: 36415; 80053; 83605; 83690; 85025; 81001; 81025; 93975; 76830; 99284; 96374; 96375; 96376; J2405; J1170 ×2; 99285

== ENCOUNTER 2021-04-21 16:51 | Emergency (ER) | payer OTHER ==
[2021-04-21 17:18] VITALS: RESP 18; TEMP 98.2
[2021-04-21] MEDS ORDERED: MORPHINE SULFATE 4 MG/ML SYRINGE IVP STA (17:49)
[2021-04-21] MEDS ORDERED: ONDANSETRON 4 MG/2 ML VIAL IVP STA (17:49)
[2021-04-21] MEDS ORDERED: SODIUM CHLORIDE 0.9% 1,000 ML IV ONE (17:49)
--- NOTE | 2021-04-21 17:52 | ED ---
Back Pain HPI - General Chief Complaint: Back Pain/Injury Stated Complaint: back pain Time Seen by Provider: 04/21/21 17:21 Source: patient Limitations: no limitations - History of Present Illness Initial Comments: 25 year-old female patient presents to the emergency department for evaluation of bilateral flank pain. Patient states symptoms started approximately 4 days ago and have been worsening. Patient states any pressure or palpation over the kidney area bilaterally makes the pain worse. Denies increased pain with bending or movement. States she has been chilled denies any known fevers. He reports nausea no vomiting. Denies any constipation or diarrhea. States she does have dark foul-smelling urine. Denies any hematuria, dysuria, urinary urgency, urinary frequency. Denies chance of , states she is currently not sexually active. Denies any abnormal vaginal bleeding or discharge. States she has had kidney stones in the past. Patient denies any recent rash, cough, shortness of breath, chest pain, numbness, tingling, dizziness, weakness, headache, visual changes, or any other complaints. - Related Data Previous Rx's Medication Instructions Recorded Cephalexin [Keflex] 500 mg PO Q6H #28 cap 04/21/21 Allergies Allergy/AdvReac Type Severity Reaction Status Date / Time tramadol Allergy Mild Rash/Hives Verified 04/21/21 23:31 aspirin Allergy Rash/Hives Verified 04/21/21 23:31 ketorolac [From Toradol] Allergy Itching Verified 04/21/21 23:31 amoxicillin AdvReac Vomiting Verified 04/21/21 23:31 Review of Systems ROS Statement: Those systems with pertinent positive or pertinent negative responses have been documented in the HPI. ROS Other: All systems not noted in ROS Statement are negative. Past Medical History Past Medical History: Hypertension Additional Past Medical History / Comment(s): back pain, kidney stones- pyleonephritis. bulging discs in back. History of Any Multi-Drug Resistant Organisms: None Reported Past Surgical History: Adenoidectomy, Ear Surgery, Tonsillectomy Additional Past Surgical History / Comment(s): left ear surgery, wisdom teeth removal, Past Anesthesia/Blood Transfusion Reactions: No Reported Reaction Past Psychological History: Depression Smoking Status: Current every day smoker Past Alcohol Use History: None Reported Past Drug Use History: None Reported - Past Family History Father Family Medical History: Fibromyalgia Mother History Unknown: Yes Family Medical History: Thyroid Disorder Additional Family Medical History / Comment(s): Guillian Sean Syndrome, HLD, HTN, seizures, migraines General Exam Limitations: no limitations General appearance: alert, in no apparent distress, other (This is a well- developed, well-nourished adult female patient in no acute distress. Vital signs upon presentation are temperature 98.2F, pulse 88, respirations 18, blood pressure 145/92, pulse ox 100% on room air.) Eye exam: Present: normal appearance, PERRL, EOMI. Absent: scleral icterus, conjunctival injection, periorbital swelling ENT exam: Present: normal exam, normal oropharynx, mucous membranes moist Respiratory exam: Present: normal lung sounds bilaterally. Absent: respiratory distress, wheezes, rales, rhonchi, stridor Cardiovascular Exam: Present: regular rate, normal rhythm, normal heart sounds. Absent: systolic murmur, diastolic murmur, rubs, gallop, clicks GI/Abdominal exam: Present: soft, normal bowel sounds. Absent: distended, tenderness, guarding, rebound, rigid Back exam: Present: normal inspection, CVA tenderness (R), CVA tenderness (L) Neurological exam: Present: alert, oriented X3, CN II-XII intact Psychiatric exam: Present: normal affect, normal mood Skin exam: Present: warm, dry, intact, normal color. Absent: rash Course Vital Signs 04/21/21 04/21/21 04/21/21 17:14 20:00 23:56 Temperature 98.2 F Pulse Rate 88 92 80 Respiratory 18 18 18 Rate Blood Pressure 145/92 138/66 128/78 O2 Sat by Pulse 100 100 98 Oximetry Medical Decision Making - Medical Decision Making 25-year-old female patient presents to the emergency department today for evaluation of bilateral flank pain and nausea. Physical examination did reveal bilateral CVA tenderness. No abdominal tenderness. She is afebrile normal vital signs. Labs reviewed and did reveal normal white blood cell count. Urinalysis was obtained and showed nitrite positive, 182 red blood cells. She had positive urine hCG. Patient did have history of kidney stones so we did perform ultrasound of the kidneys and the bladder, this showed a possible renal stone in the left inferior pole no hydronephrosis. Possible mild cystitis. Paul ntitative hCG was obtained and showed elevation at 83,000. Ultrasound of the fetus was obtained to rule out other etiologies, this showed a fetus measuring 6 weeks 3 days with a heart rate of 121. I discussed results with the patient. She is given a dose of rocephin and will be started on keflex for possible cystitis. She is instructed to follow-up with [facility] for recheck as soon as possible. R eturn parameters were discussed in detail. She verbalizes understanding and agrees with this plan. Case discussed with my attending Dr. Vinson. - Lab Data Result diagrams: 04/21/21 18:41 04/21/21 18:41 Lab Results 04/21/21 04/21/21 04/21/21 Range/Units 18:41 18:41 18:41 WBC 5.4 (3.8-10.6) k/uL RBC 3.87 (3.80-5.40) m/uL Hgb 11.6 (11.4-16.0) gm/dL Hct 34.7 (34.0-46.0) % MCV 89.7 (80.0-100.0) fL MCH 29.9 (25.0-35.0) pg MCHC 33.4 (31.0-37.0) g/dL RDW 14.7 (11.5-15.5) % Plt Count 188 (150-450) k/uL MPV 9.2 Neutrophils % 56 % Lymphocytes % 33 % Monocytes % 4 % Eosinophils % 5 % Basophils % 1 % Neutrophils # 3.0 (1.3-7.7) k/uL Lymphocytes # 1.8 (1.0-4.8) k/uL Monocytes # 0.2 (0-1.0) k/uL Eosinophils # 0.3 (0-0.7) k/uL Basophils # 0.0 (0-0.2) k/uL Sodium (137-145) mmol/L Potassium (3.5-5.1) mmol/L Chloride (98-107) mmol/L Carbon Dioxide (22-30) mmol/L Anion Gap mmol/L BUN (7-17) mg/dL Creatinine (0.52-1.04) mg/dL Est GFR (CKD-EPI)AfAm (>60 ml/min/1.73 sqM) Est GFR (CKD-EPI)NonAf (>60 ml/min/1.73 sqM) Glucose (74-99) mg/dL Plasma Lactic Acid Chat[place] (0.7-2.0) mmol/L Calcium (8.4-10.2) mg/dL Total Bilirubin (0.2-1.3) mg/dL AST (14-36) U/L ALT (4-34) U/L Alkaline Phosphatase (38-126) U/L Total Protein (6.3-8.2) g/dL Albumin (3.5-5.0) g/dL HCG, Quant mIU/mL Urine Color Yellow Urine Appearance Cloudy H (Clear) Urine pH 6.0 (5.0-8.0) Ur Specific [place] >1.030 (1.001-1.035) Urine Protein 1+ (Negative) Urine Glucose (UA) Negative (Negative) Urine Ketones Negative (Negative) Urine Blood Large (Negative) Urine Nitrite Positive (Negative) Urine Bilirubin Negative (Negative) Urine Urobilinogen <0.2 (<2.0) mg/dL Ur Leukocyte Esterase Small (Negative) Urine RBC 158 H (0-5) /hpf Urine WBC 4 (0-5) /hpf Ur Squamous Epith Cells <1 (0-4) /hpf Calcium Oxalate Crystal Occasional H (None) /hpf Urine Bacteria Rare H (None) /hpf Hyaline Casts 1 (0-2) /lpf Urine Mucus Rare H (None) /hpf Urine HCG, Qual Detected (Not Detectd) 04/21/21 04/21/21 04/21/21 Range/Units 18:41 18:41 18:41 WBC (3.8-10.6) k/uL RBC (3.80-5.40) m/uL Hgb (11.4-16.0) gm/dL Hct (34.0-46.0) % MCV (80.0-100.0) fL MCH (25.0-35.0) pg MCHC (31.0-37.0) g/dL RDW (11.5-15.5) % Plt Count (150-450) k/uL MPV Neutrophils % % Lymphocytes % % Monocytes % % Eosinophils % % Basophils % % Neutrophils # (1.3-7.7) k/uL Lymphocytes # (1.0-4.8) k/uL Monocytes # (0-1.0) k/uL Eosinophils # (0-0.7) k/uL Basophils # (0-0.2) k/uL Sodium 138 (137-145) mmol/L Potassium 3.9 (3.5-5.1) mmol/L Chloride 108 H (98-107) mmol/L Carbon Dioxide 24 (22-30) mmol/L Anion Gap 6 mmol/L BUN 12 (7-17) mg/dL Creatinine 0.63 (0.52-1.04) mg/dL Est GFR (CKD-EPI)AfAm >90 (>60 ml/min/1.73 sqM) Est GFR (CKD-EPI)NonAf >90 (>60 ml/min/1.73 sqM) Glucose 86 (74-99) mg/dL Plasma Lactic Acid [place] <0.5 L (0.7-2.0) mmol/L Calcium 9.1 (8.4-10.2) mg/dL Total Bilirubin 0.2 (0.2-1.3) mg/dL AST 15 (14-36) U/L ALT <6 (4-34) U/L Alkaline Phosphatase 51 (38-126) U/L Total Protein 6.0 L (6.3-8.2) g/dL Albumin 3.9 (3.5-5.0) g/dL HCG, Quant 04798.1 mIU/mL Urine Color Urine Appearance (Clear) Urine pH (5.0-8.0) Ur Specific [place] (1.001-1.035) Urine Protein (Negative) Urine Glucose (UA) (Negative) Urine Ketones (Negative) Urine Blood (Negative) Urine Nitrite (Negative) Urine Bilirubin (Negative) Urine Urobilinogen (<2.0) mg/dL Ur Leukocyte Esterase (Negative) Urine RBC (0-5) /hpf Urine WBC (0-5) /hpf Ur Squamous Epith Cells (0-4) /hpf Calcium Oxalate Crystal (None) /hpf Urine Bacteria (None) /hpf Hyaline Casts (0-2) /lpf Urine Mucus (None) /hpf Urine HCG, Qual (Not Detectd) - Radiology Data Radiology results: report reviewed, image reviewed Ultrasound of the kidneys and bladder were obtained. Report was reviewed in its entirety. Impression by Dr. Flynn shows small hyperechoic area inferior pole left kidney could be nonobstructing renal stone. Clinical consideration for mild cystitis. Ultrasound of the fetus was obtained. Report was reviewed in its entirety. Impression by Dr. Cody shows ultrasound gestational age by crown-rump length is 6 weeks and 3 days. Possible subchorionic hemorrhage. Heart rate 121 bpm. Disposition Clinical Impression: Early stage of , Cystitis, Flank pain, Subchorionic bleed Disposition: HOME SELF-CARE Condition: Good Instructions (If sedation given, give patient instructions): (ED), Urinary Tract Infection in (ED), Subchorionic Hemorrhage (ED) Additional Instructions: Follow-up with [facility] for recheck as soon as possible. Take antibiotics as prescribed. Return to the emergency department for any new, worsening, or concerning symptoms. Prescriptions: Cephalexin [Keflex] 500 mg PO Q6H #28 cap Is patient prescribed a controlled substance at d/c from ED?: No Referrals: None,Stated [Primary Care Provider] - 1-2 days Time of Disposition: 23:41
[2021-04-21 19:14] LABS: Basophils % (A) 1 %; Eosinophils # (A) 0.3 k/uL (0-0.7); Eosinophils % (A) 5 %; HCT 34.7 % (34.0-46.0); HGB 11.6 gm/dL (11.4-16.0); Lymphocytes # (A) 1.8 k/uL (1.0-4.8); Lymphocytes % (A) 33 %; MCH 29.9 pg (25.0-35.0); MCHC 33.4 g/dL (31.0-37.0); MCV 89.7 fL (80.0-100.0); Mean Platelet Volume 9.2; Monocytes # (A) 0.2 k/uL (0-1.0); Monocytes % (A) 4 %; Neutrophils % (A) 56 %; Platelet Count 188 k/uL (150-450); RBC 3.87 m/uL (3.80-5.40); RDW 14.7 % (11.5-15.5); WBC 5.4 k/uL (3.8-10.6)
[2021-04-21 19:21] LABS: ALT <6 U/L (4-34); AST 15 U/L (14-36); African American GFR (CKD) >90 (>60 ml/min/1.73 sqM); Albumin 3.9 g/dL (3.5-5.0); Alkaline Phosphatase 51 U/L (38-126); Anion Gap 6 mmol/L; Blood Urea Nitrogen 12 mg/dL (7-17); Calcium 9.1 mg/dL (8.4-10.2); Carbon Dioxide 24 mmol/L (22-30); Chloride 108 mmol/L (98-107); Glucose 86 mg/dL (74-99); Non-African American GFR(CKD) >90 (>60 ml/min/1.73 sqM); Potassium 3.9 mmol/L (3.5-5.1); Sodium 138 mmol/L (137-145); Total Bilirubin 0.2 mg/dL (0.2-1.3)
[2021-04-21 19:25] LABS: Appearance,Urine Cloudy (Clear); Color,Urine Yellow
[2021-04-21 19:26] LABS: Bilirubin,Urine Negative (Negative); Blood,Urine Large (Negative); Glucose,Urine (UA) Negative (Negative); Ketones,Urine Negative (Negative); Leukocyte Esterase,Urine Small (Negative); Nitrite,Urine Positive (Negative); Protein,Urine 1+ (Negative); Specific Gravity,Urine >1.030 (1.001-1.035); Urobilinogen,Urine <0.2 mg/dL (<2.0)
[2021-04-21 19:29] LABS: Bacteria,Urine Rare /hpf; Calcium Oxalate Crystals,Urine Occasional /hpf; Hyaline Casts,Urine 1 /lpf (0-2); Mucus,Urine Rare /hpf; RBC,Urine 158 /hpf (0-5); Squamous Epithelial Cell,Urine <1 /hpf (0-4); WBC,Urine 4 /hpf (0-5)
[2021-04-21] MEDS ORDERED: TAMSULOSIN 0.4 MG CAP.ER.24H PO STA (19:37)
--- NOTE | 2021-04-21 21:27 | US ---
EXAMINATION TYPE: US kidneys/renal and bladder DATE OF EXAM: 04/21/2021 COMPARISON: CT, US CLINICAL HISTORY: Bilateral flank pain; . Bilateral flank pain; patient is . Hx kidne y stones. EXAM MEASUREMENTS: Right Kidney: 12.9 x 4.6 x 4.5 cm Left Kidney: 11.1 x 4.7 x 4.7 cm Right Kidney: Appears slightly enlarged. Left Kidney: Limited visibility of lower pole due to gas. Hyperechoic focus seen measuring 0.3 x 0.3 x 0.2 cm. Bladder: Not fully distended, limited evaluation. There do appear to be some internal echoes within t he bladder. Bilateral Jets seen: No Bladder is sonolucent. IMPRESSION: 1. Small hyperechoic area inferior pole left kidney may be nonobstructing renal stone. 2. Clinical consideration for mild cystitis
[2021-04-21] MEDS ORDERED: cefTRIAXone IN SWFI 1,000 MG/10 ML SYRINGE IVP STA (21:36)
--- NOTE | 2021-04-21 23:36 | US ---
EXAMINATION TYPE: Transabdominal DATE OF EXAM: 04/21/2021 11:03 PM COMPARISON: US, CT. This is first US for this . CLINICAL HISTORY: Back pain/. Back pain. . EXAM PERFORMED: Transvaginal (TV) and Transabdominal (TA) EXAM MEASUREMENTS: GESTATIONAL AGE / DATING Physician Established: Not yet established. Dates by LMP: 04/11/2021 (1 week/3 days) EDC: 01/16/2022 Dates by First Scan: This is first scan. Dates by Current Scan for: (6 weeks/5 days) EDC: 12/10/2021. MATERNAL ANATOMY Uterus: 8.7 x 6.0 x 5.0 cm. Right Ovary: 4.7 x 2.5 x 2.5 cm. Left Ovary: 4.0 x 2.3 x 2.7 cm. Complex area seen with peripheral vascularity: 2.0 x 1.8 x 1.8 cm. Post CDS / Adnexa: Fluid seen in CDS: 1.9 x 1.3 x 1.1 cm. Presence of free fluid: Yes in CDS. Presence of corpus luteal cyst: Possible within left ovary as mentioned above: 2.0 x 1.8 x 1.8 cm. Presence of subchorionic bleed: Complex area seen inferior to the gestational sac: 1.6 x 2.3 x 0.6 cm . GESTATION / SURVEY CRL: 0.60 cm. (6 weeks/3 days) MSD: 2.38 cm. (7 weeks/0 days) Yolk Sac (normal less than 6mm): 2.1 mm. Heart Rate: 120 bpm, last 2 measurements: 121 bpm. Rhythm: Lower limits of normal. IUP: Viable IUP Date of LMP: 04/11/2021. Patient states her normal period began at this time. Does not correlate to I UP dates. Beta HcG (if available): 83,051.1 mIU/mL By CRL, fetus measures 6 weeks, 3 days. Gestational sac measures 7 weeks 0 days. IMPRESSION: The ultrasound gestational age by crown-rump length is 6 weeks and 3 days. Possible subchorionic hemo rrhage.
[2021-04-21 23:58] VITALS: BP 128/78; PULSE 80
== END 2021-04-21 23:58 | disposition home or self-care (01) ==
LOC: EC 16:51
DX: O23.11 Infections of bladder in pregnancy, first trimester (principal); O20.8 Other hemorrhage in early pregnancy; O10.011 Pre-existing essential hypertension complicating pregnancy, first trimester; O99.341 Other mental disorders complicating pregnancy, first trimester; O99.331 Smoking (tobacco) complicating pregnancy, first trimester; F31.9 Bipolar disorder, unspecified; F17.200 Nicotine dependence, unspecified, uncomplicated; Z3A.01 Less than 8 weeks gestation of pregnancy
CPT/HCPCS: 36415; 80053; 83605; 85025; 81001; 81025; 84702; 76801; 76817; 76770; 99284; 96374; 96375 ×2; J2270; J2405; J0696

== ENCOUNTER 2021-05-31 14:20 | Inpatient (IN) | payer OTHER ==
--- NOTE | 2021-05-31 14:53 | ED ---
General Adult HPI - General Chief complaint: Urogenital Stated complaint: back pain Time Seen by Provider: 05/31/21 14:34 Source: patient Mode of arrival: wheelchair Limitations: no limitations - History of Present Illness Initial comments: Dictation was produced using [employer] dictation software. please excuse any grammatical, word or spelling errors. Chief Complaint: 25-year-old past medical history of kidney stones and pyelonephritis presents to the emergency department for bilateral flank pain. History of Present Illness: Patient 25-year-old female she presents with 2 days of dysuria, bilateral flank pain. Patient has extensive history of pyelonephritis and kidney stones. She states that she does not have shooting pain into the flank. States that her pain is severe. She notices a strong odor to her urine. She reports she has not had any imaging of her kidneys and over a year. The ROS documented in this emergency department record has been reviewed and confirmed by me. Those systems with pertinent positive or negative responses have been documented in the HPI. All other systems are other negative and/or noncontributory. PHYSICAL EXAM: General Impression: Alert and oriented x3, acute distress secondary to pain HEENT: Normocephalic atraumatic, extra-ocular movements intact, pupils equal and reactive to light bilaterally, mucous membranes moist. Cardiovascular: Heart regular rate and rhythm Chest: Able to complete full sentences, no retractions, no tachypnea Abdomen: abdomen soft, non-tender, non-distended, no organomegaly Musculoskeletal: Pulses present and equal in all extremities, no peripheral e leroy, bilateral CVA pain with CVA felt Motor: no focal deficits noted Neurological: CN II-XII grossly intact, no focal motor or sensory deficits noted Skin: Intact with no visualized rashes Psych: Normal affect and mood ED course: 25-year-old female presents with bilateral flank pain, urinary symp toms. Vital signs upon arrival are within acceptable limits. Laboratory evaluation obtained. CBC, panel is unremarkable. No leukocytosis. Urinalysis is grossly positive for urinary infection. Nitrite positive with greater than 182 white blood cells. Patient reevaluated bedside at 4 PM significantly in pain. Patient will be admitted for pyelonephritis. Patient given 1 g of ceftriaxone. [facility]. - Related Data Previous Rx's Medication Instructions Recorded Cephalexin [Keflex] 500 mg PO Q6H #28 cap 06/14/21 Allergies Allergy/AdvReac Type Severity Reaction Status Date / Time tramadol Allergy Mild Rash/Hives Verified 05/31/21 14:24 aspirin Allergy Rash/Hives Verified 05/31/21 14:24 ketorolac [From Toradol] Allergy Itching Verified 05/31/21 14:24 amoxicillin AdvReac Vomiting Verified 05/31/21 14:24 Review of Systems ROS Statement: Those systems with pertinent positive or pertinent negative responses have been documented in the HPI. ROS Other: All systems not noted in ROS Statement are negative. Past Medical History Past Medical History: Hypertension Additional Past Medical History / Comment(s): back pain, kidney stones- pyleonephritis. bulging discs in back. History of Any Multi-Drug Resistant Organisms: None Reported Past Surgical History: Adenoidectomy, Ear Surgery, Tonsillectomy Additional Past Surgical History / Comment(s): left ear surgery, wisdom teeth removal, Past Anesthesia/Blood Transfusion Reactions: No Reported Reaction Past Psychological History: Depression Smoking Status: Current every day smoker Past Alcohol Use History: None Reported Past Drug Use History: None Reported - Past Family History Father Family Medical History: Fibromyalgia Mother History Unknown: Yes Family Medical History: Thyroid Disorder Additional Family Medical History / Comment(s): Guillian Sean Syndrome, HLD, HTN, seizures, migraines General Exam Limitations: no limitations Course Vital Signs 05/31/21 14:25 Temperature 98.0 F Pulse Rate 105 H Respiratory 16 Rate Blood Pressure 130/87 O2 Sat by Pulse 100 Oximetry Medical Decision Making - Lab Data Result diagrams: 05/31/21 14:38 05/31/21 14:38 Lab Results 05/31/21 05/31/21 05/31/21 Range/Units 14:38 14:38 14:38 WBC 9.1 (3.8-10.6) k/uL RBC 4.26 (3.80-5.40) m/uL Hgb 12.7 (11.4-16.0) gm/dL Hct 39.8 (34.0-46.0) % MCV 93.5 (80.0-100.0) fL MCH 29.7 (25.0-35.0) pg MCHC 31.8 (31.0-37.0) g/dL RDW 14.3 (11.5-15.5) % Plt Count 174 (150-450) k/uL MPV 10.7 Neutrophils % 83 % Lymphocytes % 7 % Monocytes % 6 % Eosinophils % 1 % Basophils % 0 % Neutrophils # 7.5 (1.3-7.7) k/uL Lymphocytes # 0.6 L (1.0-4.8) k/uL Monocytes # 0.6 (0-1.0) k/uL Eosinophils # 0.1 (0-0.7) k/uL Basophils # 0.0 (0-0.2) k/uL Sodium (137-145) mmol/L Potassium (3.5-5.1) mmol/L Chloride (98-107) mmol/L Carbon Dioxide (22-30) mmol/L Anion Gap mmol/L BUN (7-17) mg/dL Creatinine (0.52-1.04) mg/dL Est GFR (CKD-EPI)AfAm (>60 ml/min/1.73 sqM) Est GFR (CKD-EPI)NonAf (>60 ml/min/1.73 sqM) Glucose (74-99) mg/dL Calcium (8.4-10.2) mg/dL Urine Color Yellow Urine Appearance Cloudy H (Clear) Urine pH 6.0 (5.0-8.0) Ur Specific [place] 1.027 (1.001-1.035) Urine Protein 2+ H (Negative) Urine Glucose (UA) Negative (Negative) Urine Ketones Negative (Negative) Urine Blood Moderate H (Negative) Urine Nitrite Positive H (Negative) Urine Bilirubin Negative (Negative) Urine Urobilinogen <2.0 (<2.0) mg/dL Ur Leukocyte Esterase Large H (Negative) Urine RBC 67 H (0-5) /hpf Urine WBC >182 H (0-5) /hpf Urine WBC Clumps Few H (None) /hpf Ur Squamous Epith Cells 2 (0-4) /hpf Urine Bacteria Few H (None) /hpf Urine Mucus Occasional H (None) /hpf Urine Yeast (Budding) Occasional H (None) /hpf Urine HCG, Qual Not Detected (Not Detectd) 05/31/21 Range/Units 14:38 WBC (3.8-10.6) k/uL RBC (3.80-5.40) m/uL Hgb (11.4-16.0) gm/dL Hct (34.0-46.0) % MCV (80.0-100.0) fL MCH (25.0-35.0) pg MCHC (31.0-37.0) g/dL RDW (11.5-15.5) % Plt Count (150-450) k/uL MPV Neutrophils % % Lymphocytes % % Monocytes % % Eosinophils % % Basophils % % Neutrophils # (1.3-7.7) k/uL Lymphocytes # (1.0-4.8) k/uL Monocytes # (0-1.0) k/uL Eosinophils # (0-0.7) k/uL Basophils # (0-0.2) k/uL Sodium 142 (137-145) mmol/L Potassium 3.6 (3.5-5.1) mmol/L Chloride 108 H (98-107) mmol/L Carbon Dioxide 21 L (22-30) mmol/L Anion Gap 13 mmol/L BUN 13 (7-17) mg/dL Creatinine 0.78 (0.52-1.04) mg/dL Est GFR (CKD-EPI)AfAm >90 (>60 ml/min/1.73 sqM) Est GFR (CKD-EPI)NonAf >90 (>60 ml/min/1.73 sqM) Glucose 117 H (74-99) mg/dL Calcium 9.5 (8.4-10.2) mg/dL Urine Color Urine Appearance (Clear) Urine pH (5.0-8.0) Ur Specific [place] (1.001-1.035) Urine Protein (Negative) Urine Glucose (UA) (Negative) Urine Ketones (Negative) Urine Blood (Negative) Urine Nitrite (Negative) Urine Bilirubin (Negative) Urine Urobilinogen (<2.0) mg/dL Ur Leukocyte Esterase (Negative) Urine RBC (0-5) /hpf Urine WBC (0-5) /hpf Urine WBC Clumps (None) /hpf Ur Squamous Epith Cells (0-4) /hpf Urine Bacteria (None) /hpf Urine Mucus (None) /hpf Urine Yeast (Budding) (None) /hpf Urine HCG, Qual (Not Detectd) Disposition Clinical Impression: Pyelonephritis Disposition: ADMITTED IP TO THIS [facility] Condition: Fair Referrals: None,Stated [Primary Care Provider] - 1-2 days
[2021-05-31 14:54] LABS: Basophils % (A) 0 %; Eosinophils # (A) 0.1 k/uL (0-0.7); Eosinophils % (A) 1 %; HCT 39.8 % (34.0-46.0); HGB 12.7 gm/dL (11.4-16.0); Lymphocytes # (A) 0.6 k/uL (1.0-4.8); Lymphocytes % (A) 7 %; MCH 29.7 pg (25.0-35.0); MCHC 31.8 g/dL (31.0-37.0); MCV 93.5 fL (80.0-100.0); Mean Platelet Volume 10.7; Monocytes # (A) 0.6 k/uL (0-1.0); Monocytes % (A) 6 %; Neutrophils # (A) 7.5 k/uL (1.3-7.7); Neutrophils % (A) 83 %; Platelet Count 174 k/uL (150-450); RBC 4.26 m/uL (3.80-5.40); RDW 14.3 % (11.5-15.5); WBC 9.1 k/uL (3.8-10.6)
[2021-05-31 14:58] LABS: Appearance,Urine Cloudy (Clear); Bacteria,Urine Few /hpf; Bilirubin,Urine Negative (Negative); Blood,Urine Moderate (Negative); Budding Yeast,Urine Occasional /hpf; Color,Urine Yellow; Glucose,Urine (UA) Negative (Negative); Ketones,Urine Negative (Negative); Leukocyte Esterase,Urine Large (Negative); Mucus,Urine Occasional /hpf; Nitrite,Urine Positive (Negative); Protein,Urine 2+ (Negative); RBC,Urine 67 /hpf (0-5); Specific Gravity,Urine 1.027 (1.001-1.035); Squamous Epithelial Cell,Urine 2 /hpf (0-4); Urobilinogen,Urine <2.0 mg/dL (<2.0); WBC,Urine >182 /hpf (0-5)
[2021-05-31 15:08] LABS: African American GFR (CKD) >90 (>60 ml/min/1.73 sqM); Anion Gap 13 mmol/L; Blood Urea Nitrogen 13 mg/dL (7-17); Calcium 9.5 mg/dL (8.4-10.2); Carbon Dioxide 21 mmol/L (22-30); Chloride 108 mmol/L (98-107); Glucose 117 mg/dL (74-99); Non-African American GFR(CKD) >90 (>60 ml/min/1.73 sqM); Potassium 3.6 mmol/L (3.5-5.1); Sodium 142 mmol/L (137-145)
[2021-05-31] MEDS ORDERED: cefTRIAXone IN SWFI 1,000 MG/10 ML SYRINGE IVP STA (15:44)
[2021-05-31] MEDS ORDERED: NALOXONE 0.4 MG/ML 1 ML VIAL IV PRN (15:56)
[2021-05-31] MEDS ORDERED: MORPHINE SULFATE 4 MG/ML SYRINGE IV PRN (15:56)
[2021-05-31] MEDS ORDERED: ACETAMINOPHEN TAB 325 MG TAB PO PRN (15:56)
[2021-05-31] MEDS ORDERED: MORPHINE SULFATE 4 MG/ML SYRINGE IV STA (15:56)
[2021-05-31] MEDS: SODIUM CHLORIDE 0.9% 1,000 ML IV SCH ×2 (16:14→16:20)
[2021-05-31] MEDS ORDERED: HYDROmorphone 1 MG/ML 1 ML SYRINGE IVP STA (17:10)
[2021-05-31] MEDS: ONDANSETRON 4 MG/2 ML VIAL IVP PRN (18:30)
[2021-05-31] MEDS: HYDROmorphone 1 MG/ML 1 ML SYRINGE IVP PRN ×2 (19:56→23:41)
--- NOTE | 2021-05-31 20:13 | P.HPIM ---
History of Present Illness This is a pleasant 25 years old female with past medical history of hypertension, kidney stone, back pain. Presents because of urinary symptoms and acute back pain on both sides of her lower back since last 3-4 days associated with dysuria urgency and increased frequency. Associated with vomiting, she vomited 3 times over the last 3 days Denies fever Of note patient has history of kidney stone about one year and a half ago ass ociated with pyelonephritis after her third child Patient does not follow up with PCP or urologist She smokes about 2 cigarettes per day, she was counseled to quit and she agrees with the nicotine patch and to quitting. She denies alcohol or illicit tracts On admission she has a fever of 100.9, labs including CBC, BMP, liver enzymes are unremarkable. test of the serum is negative. Patient states currently she has her period on Urine analysis is highly suspicious of infection. In the emergency room patient received 1 g of Rocephin and normal sinus 75 mL/h Review of Systems CONSTITUTIONAL: No fever, no malaise, no fatigue. HEENT: No recent visual problems or hearing problems. Denied any sore throat. CARDIOVASCULAR: No orthopnea, PND, no palpitations, no syncope. PULMONARY: No shortness of breath, no cough, no hemoptysis. GASTROINTESTINAL: No diarrhea, no nausea, no vomiting, no abdominal pain. Normoactive bowel sounds. NEUROLOGICAL: No headaches, no weakness, no numbness. HEMATOLOGICAL: Denies any bleeding or petechiae. -GENITOURINARY: As above MUSCULOSKELETAL/RHEUMATOLOGICAL: Denies any joint pain, swelling, or any muscle pain. ENDOCRINE: Denies any polyuria or polydipsia. Past Medical History Past Medical History: Hypertension Additional Past Medical History / Comment(s): KIDNEY STONES. BACK PAIN-BULGING DISC History of Any Multi-Drug Resistant Organisms: None Reported Past Surgical History: Adenoidectomy, Ear Surgery, Tonsillectomy Additional Past Surgical History / Comment(s): LEFT EAR SURG. Past Anesthesia/Blood Transfusion Reactions: No Reported Reaction Past Psychological History: Depression Additional Psychological History / Comment(s): MO MEDICATIONS CURRENTLY Smoking Status: Current every day smoker Past Alcohol Use History: None Reported Past Drug Use History: None Reported - Past Family History Father Family Medical History: Fibromyalgia Mother History Unknown: Yes Family Medical History: Hypertension, Seizure Disorder, Thyroid Disorder Additional Family Medical History / Comment(s): Guillian [place] Syndrome Medications and Allergies Home Medications Medication Instructions Recorded Confirmed Type No Known Home Medications 05/31/21 05/31/21 History Allergies Allergy/AdvReac Type Severity Reaction Status Date / Time tramadol Allergy Mild Nausea & Verified 05/31/21 16:58 Vomiting amoxicillin Allergy Rash/Hives Verified 05/31/21 16:58 aspirin Allergy Nausea & Verified 05/31/21 16:58 Vomiting ketorolac [From Toradol] Allergy Nausea & Verified 05/31/21 16:58 Vomiting Physical Exam Vitals: Vital Signs Temp Pulse Pulse Resp BP BP Pulse Ox 05/31/21 19:38 99.2 F 89 16 137/94 98 05/31/21 18:19 100.9 F H 05/31/21 16:53 107 H 05/31/21 16:51 99.2 F 107 H 20 122/77 99 05/31/21 16:18 93 20 125/93 98 05/31/21 14:25 98.0 F 105 H 16 130/87 100 Intake and Output 05/31/21 05/31/21 05/31/21 06:59 14:59 22:59 Other: Voiding Method Toilet Toilet Weight 72.121 kg 72.121 kg GENERAL: The patient is alert and oriented x3, not in any acute distress. Well developed, well nourished. HEENT: Pupils are round and equally reacting to light. EOMI. No scleral icterus. No conjunctival pallor. Normocephalic, atraumatic. No pharyngeal erythema. No thyromegaly. CARDIOVASCULAR: S1 and S2 present. No murmurs, rubs, or gallops. PULMONARY: Chest is clear to auscultation, no wheezing or crackles. -ABDOMEN: Soft, nondistended, normoactive bowel sounds. No palpable organomegaly. Bilateral costovertebral angle tenderness, suprapubic tenderness MUSCULOSKELETAL: No joint swelling or deformity. EXTREMITIES: No cyanosis, clubbing, or pedal edema. NEUROLOGICAL: Gross neurological examination did not reveal any focal deficits. SKIN: No rashes. No petechiae Results CBC & Chem 7: 05/31/21 14:38 05/31/21 14:38 Labs: Abnormal Lab Results - Last 24 Hours (Table) 05/31/21 05/31/21 05/31/21 Range/Units 14:38 14:38 14:38 Lymphocytes # 0.6 L (1.0-4.8) k/uL Chloride 108 H (98-107) mmol/L Carbon Dioxide 21 L (22-30) mmol/L Glucose 117 H (74-99) mg/dL Urine Appearance Cloudy H (Clear) Urine Protein 2+ H (Negative) Urine Blood Moderate H (Negative) Urine Nitrite Positive H (Negative) Ur Leukocyte Esterase Large H (Negative) Urine RBC 67 H (0-5) /hpf Urine WBC >182 H (0-5) /hpf Urine WBC Clumps Few H (None) /hpf Urine Bacteria Few H (None) /hpf Urine Mucus Occasional H (None) /hpf Urine Yeast (Budding) Occasional H (None) /hpf Thrombosis Risk Factor Assmnt - Choose All That Apply Any of the Below Risk Factors Present?: Yes Each Factor Represents 1 point: Obesity (BMI >25) Thrombosis Risk Factor Assessment Total Risk Factor Score: 1 Thrombosis Risk Factor Assessment Level: Low Risk Assessment and Plan Assessment: Acute bilateral pyelonephritis with acute urinary tract infection Possible nephrolithiasis Summary of kidney stone Hypertension History of back pain Plan: This is a pleasant 25 years old female who presents with a small bilateral pyelonephritis and UTI. Grams daily, and normal saline Renal ultrasound Infectious disease team Labs and medication were reviewed.. Continue same treatment. Continue with symptomatic treatment. Resume home medication. Monitor lytes and vitals. DVT and GI prophylaxis. Further recommendations depends on the clinical course of the patient DVT prophylaxis: Subcutaneous heparin GI Prophylaxis: Pepci Prognosis is guarded
--- NOTE | 2021-05-31 21:21 | US ---
EXAMINATION TYPE: US renals and bladder DATE OF EXAM: 05/31/2021 COMPARISON: 04/21/2021 CLINICAL HISTORY: pyelonephritis . hx kidney infections EXAM MEASUREMENTS: Right Kidney: 13.9 x 5.4 x 4.0 cm Left Kidney: 11.8 x 4.6 x 6.0 cm Right Kidney: No hydronephrosis or masses seen, appears enlarged in size Left Kidney: No hydronephrosis or masses seen Bladder: Distended with internal debris visualized Bilateral Jets not seen IMPRESSION: There is no evidence of renal mass or obstruction. There is minimal debris in the urinary bladder. Th is appears similar to old exam.
[2021-05-31] MEDS: HEPARIN SODIUM,PORCINE/PF 5,000 UNIT/0.5 ML SYRINGE SQ SCH (21:25)
[2021-05-31] MEDS: NICOTINE 7MG/24HR PATCH TRANSDERM SCH (21:33)
[2021-05-31] MEDS: FAMOTIDINE 20 MG/2 ML VIAL IV SCH (21:33)
[2021-06-01] MEDS: ONDANSETRON 4 MG/2 ML VIAL IVP PRN ×4 (03:08→20:40)
[2021-06-01] MEDS: HYDROmorphone 1 MG/ML 1 ML SYRINGE IVP PRN ×5 (03:45→20:40)
[2021-06-01 06:36] LABS: African American GFR (CKD) >90 (>60 ml/min/1.73 sqM); Anion Gap 7 mmol/L; Blood Urea Nitrogen 13 mg/dL (7-17); Calcium 8.8 mg/dL (8.4-10.2); Carbon Dioxide 20 mmol/L (22-30); Chloride 113 mmol/L (98-107); Glucose 136 mg/dL (74-99); Non-African American GFR(CKD) >90 (>60 ml/min/1.73 sqM); Potassium 3.7 mmol/L (3.5-5.1); Sodium 140 mmol/L (137-145)
[2021-06-01 06:38] LABS: Basophils % (A) 0 %; Eosinophils % (A) 1 %; HCT 32.7 % (34.0-46.0); HGB 10.7 gm/dL (11.4-16.0); Hypochromasia Slight; Lymphocytes # (A) 0.8 k/uL (1.0-4.8); Lymphocytes % (A) 10 %; MCH 30.6 pg (25.0-35.0); MCHC 32.7 g/dL (31.0-37.0); MCV 93.8 fL (80.0-100.0); Mean Platelet Volume 9.9; Monocytes # (A) 0.8 k/uL (0-1.0); Monocytes % (A) 10 %; Neutrophils # (A) 6.2 k/uL (1.3-7.7); Neutrophils % (A) 76 %; Platelet Count 148 k/uL (150-450); RBC 3.49 m/uL (3.80-5.40); WBC 8.1 k/uL (3.8-10.6)
[2021-06-01] MEDS: HEPARIN SODIUM,PORCINE/PF 5,000 UNIT/0.5 ML SYRINGE SQ SCH ×2 (07:46→20:40)
[2021-06-01] MEDS: FAMOTIDINE 20 MG/2 ML VIAL IV SCH ×2 (07:52→20:40)
[2021-06-01] MEDS: NICOTINE 7MG/24HR PATCH TRANSDERM SCH ×2 (07:53→20:40)
--- NOTE | 2021-06-01 13:03 | P.PN ---
Subjective This is a pleasant 25 years old female with past medical history of hypertension, kidney stone, back pain. Presents because of urinary symptoms and acute back pain on both sides of her lower back since last 3-4 days associated with dysuria urgency and increased frequency. Associated with vomiting, she vomited 3 times over the last 3 days Denies fever Of note patient has history of kidney stone about one year and a half ago associated with pyelonephritis after her third child Patient does not follow up with PCP or urologist She smokes about 2 cigarettes per day, she was counseled to quit and she agrees with the nicotine patch and to quitting. She denies alcohol or illicit tracts On admission she has a fever of 100.9, labs including CBC, BMP, liver enzymes are unremarkable. test of the serum is negative. Patient states cur rently she has her period on Urine analysis is highly suspicious of infection. In the emergency room patient received 1 g of Rocephin and normal sinus 75 mL/h 06/01/2021 Patient symptoms improved gradually with this dysuria and less pain but she is getting Dilaudid as well She has abdominal cramps but that's from her current menstruation as she states She is hemodynamically stable, no more fever. No ultrasound is negative for mass or hydronephrosis She remains on Rocephin with urine culture is pending Objective - Vital Signs Vital signs: Vital Signs Temp 98.4 F 06/01/21 07:54 Pulse 95 06/01/21 07:54 Resp 20 06/01/21 07:54 BP 124/75 06/01/21 07:54 Pulse Ox 98 06/01/21 07:54 Intake & Output 05/31/21 06/01/21 06/01/21 18:59 06:59 18:59 Output Total 500 300 Balance -500 -300 Weight 72.121 kg Output: Urine 500 300 Other: Voiding Method Toilet Toilet Toilet # Voids 3 1 - Exam GENERAL: The patient is alert and oriented x3, not in any acute distress. Well developed, well nourished. HEENT: Pupils are round and equally reacting to light. EOMI. No scleral icterus. No conjunctival pallor. Normocephalic, atraumatic. No pharyngeal erythema. No thyromegaly. CARDIOVASCULAR: S1 and S2 present. No murmurs, rubs, or gallops. PULMONARY: Chest is clear to auscultation, no wheezing or crackles. ABDOMEN: Soft,, nondistended, normoactive bowel sounds. No palpable organomegaly. Bilateral CVA tenderness MUSCULOSKELETAL: No joint swelling or deformity. EXTREMITIES: No cyanosis, clubbing, or pedal edema. NEUROLOGICAL: Gross neurological examination did not reveal any focal deficits. SKIN: No rashes. no petechiae. - Labs CBC & Chem 7: 06/01/21 05:51 06/01/21 05:51 Labs: Abnormal Lab Results - Last 24 Hours (Table) 05/31/21 05/31/21 05/31/21 Range/Units 14:38 14:38 14:38 RBC (3.80-5.40) m/uL Hgb (11.4-16.0) gm/dL Hct (34.0-46.0) % Plt Count (150-450) k/uL Lymphocytes # 0.6 L (1.0-4.8) k/uL Chloride 108 H (98-107) mmol/L Carbon Dioxide 21 L (22-30) mmol/L Glucose 117 H (74-99) mg/dL Urine Appearance Cloudy H (Clear) Urine Protein 2+ H (Negative) Urine Blood Moderate H (Negative) Urine Nitrite Positive H (Negative) Ur Leukocyte Esterase Large H (Negative) Urine RBC 67 H (0-5) /hpf Urine WBC >182 H (0-5) /hpf Urine WBC Clumps Few H (None) /hpf Urine Bacteria Few H (None) /hpf Urine Mucus Occasional H (None) /hpf Urine Yeast (Budding) Occasional H (None) /hpf 06/01/21 06/01/21 Range/Units 05:51 05:51 RBC 3.49 L (3.80-5.40) m/uL Hgb 10.7 L (11.4-16.0) gm/dL Hct 32.7 L (34.0-46.0) % Plt Count 148 L (150-450) k/uL Lymphocytes # 0.8 L (1.0-4.8) k/uL Chloride 113 H (98-107) mmol/L Carbon Dioxide 20 L (22-30) mmol/L Glucose 136 H (74-99) mg/dL Urine Appearance (Clear) Urine Protein (Negative) Urine Blood (Negative) Urine Nitrite (Negative) Ur Leukocyte Esterase (Negative) Urine RBC (0-5) /hpf Urine WBC (0-5) /hpf Urine WBC Clumps (None) /hpf Urine Bacteria (None) /hpf Urine Mucus (None) /hpf Urine Yeast (Budding) (None) /hpf Microbiology - Last 24 Hours (Table) 05/31/21 14:38 Urine Culture - Preliminary Urine,Clean Catch Assessment and Plan Assessment: Acute bilateral pyelonephritis with acute urinary tract infection Possible nephrolithiasis Summary of kidney stone Hypertension History of back pain Plan: This is a pleasant 25 years old female who presents with a small bilateral pyelonephritis and UTI. Continue with ceftriaxone, and normal saline Follow-up urine culture Infectious disease team Labs and medication were reviewed.. Continue same treatment. Continue with symptomatic treatment. Resume home medication. Monitor lytes and vitals. DVT and GI prophylaxis. Further recommendations depends on the clinical course of the patient DVT prophylaxis: Subcutaneous heparin GI Prophylaxis: Pepci Prognosis is guarded
[2021-06-01] MEDS ORDERED: VANCOMYCIN IV PER PHARMACY 1 EACH MISC MISCELLANE PRN (17:07)
[2021-06-01] MEDS: VANCOMYCIN 1,250 MG in SODIUM CHLORIDE 0.9% 250 ML IVPB SCH (18:26)
[2021-06-01] MEDS: SODIUM CHLORIDE 0.9% 1,000 ML IV SCH (20:40)
--- NOTE | 2021-06-01 23:44 | P.CONS ---
History of Present Illness - Reason for Consult Consult date: 06/01/21 Pyelonephritis Requesting physician: Torsten Green - Chief Complaint Right flank pain x few days - History of Present Illness Patient is a 25-year female with a past medical history significant for coronary tract infection patient presented to the hospital yesterday afternoon for evaluation of bilateral flank pain described the pain to be more of a sharp in nature intensity about 7-8 out of 10 had no radiation patient did have associated nausea but no vomiting and the patient also complaining of dysuria and strong odor to her urine recently the patient was evaluated by ER physician on arrival to the ER patient was afebrile subsequent spike a fever of 101 94 night patient was tachycardic white count was normal and the urine has been significantly positive patient has been started on Rocephin patient did have blood cultures drawn which are coming positive with gram-positive cocci infectious disease was consulted for further management of antibiotic therapy Review of Systems Positive point has been mentioned in the HPI rest of the systems are negative Past Medical History Past Medical History: Hypertension Additional Past Medical History / Comment(s): KIDNEY STONES. BACK PAIN-BULGING DISC History of Any Multi-Drug Resistant Organisms: None Reported Past Surgical History: Adenoidectomy, Ear Surgery, Tonsillectomy Additional Past Surgical History / Comment(s): LEFT EAR SURG. Past Anesthesia/Blood Transfusion Reactions: No Reported Reaction Past Psychological History: Depression Additional Psychological History / Comment(s): [place] MEDICATIONS CURRENTLY Smoking Status: Current every day smoker Past Alcohol Use History: None Reported Past Drug Use History: None Reported - Past Family History Father Family Medical History: Fibromyalgia Mother History Unknown: Yes Family Medical History: Hypertension, Seizure Disorder, Thyroid Disorder Additional Family Medical History / Comment(s): Guillian [place] Syndrome Medications and Allergies Home Medications Medication Instructions Recorded Confirmed Type No Known Home Medications 05/31/21 05/31/21 History Allergies Allergy/AdvReac Type Severity Reaction Status Date / Time tramadol Allergy Mild Nausea & Verified 05/31/21 16:58 Vomiting amoxicillin Allergy Rash/Hives Verified 05/31/21 16:58 aspirin Allergy Nausea & Verified 05/31/21 16:58 Vomiting ketorolac [From Toradol] Allergy Nausea & Verified 05/31/21 16:58 Vomiting Physical Exam Vitals: Vital Signs Temp Pulse Pulse Resp BP BP Pulse Ox 07/25/21 14:21 98.2 F 77 18 117/77 98 06/01/21 07:54 98.4 F 95 20 124/75 98 06/01/21 02:00 98.5 F 83 18 109/71 96 05/31/21 19:38 99.2 F 89 16 137/94 98 05/31/21 18:19 100.9 F H 05/31/21 16:53 107 H 05/31/21 16:51 99.2 F 107 H 20 122/77 99 05/31/21 16:18 93 20 125/93 98 Intake and Output 06/01/21 06/01/21 06/01/21 06:59 14:59 22:59 Output Total 500 600 Balance -500 -600 Output: Urine 500 600 Other: Voiding Method Toilet # Voids 3 1 GENERAL DESCRIPTION: Middle-aged female lying in bed, no distress. No tachypnea or accessory muscle of respiration use. HEENT: Shows Pallor , no scleral icterus. Oral mucous membrane is dry. No phar yngeal erythema or thrush NECK: Trachea central, no thyromegaly. LUNGS: Unlabored breathing. Clear to auscultation anteriorly. No wheeze or crackle. HEART: S1, S2, regular rate and rhythm. No loud murmur ABDOMEN: Soft, no tenderness , guarding or rigidity, no organomegaly EXTREMITIES: No edema of feet. SKIN: No rash, no masses palpable. NEUROLOGICAL: The patient is awake, alert, oriented x3, mood and affect normal. Results CBC & Chem 7: 06/01/21 05:51 06/01/21 05:51 Labs: Abnormal Lab Results - Last 24 Hours (Table) 05/31/21 06/01/21 06/01/21 Range/Units 14:38 05:51 05:51 RBC 3.49 L (3.80-5.40) m/uL Hgb 10.7 L (11.4-16.0) gm/dL Hct 32.7 L (34.0-46.0) % Plt Count 148 L (150-450) k/uL Lymphocytes # 0.8 L (1.0-4.8) k/uL Chloride 113 H (98-107) mmol/L Carbon Dioxide 20 L (22-30) mmol/L Glucose 136 H (74-99) mg/dL Urine Appearance Cloudy H (Clear) Urine Protein 2+ H (Negative) Urine Blood Moderate H (Negative) Urine Nitrite Positive H (Negative) Ur Leukocyte Esterase Large H (Negative) Urine RBC 67 H (0-5) /hpf Urine WBC >182 H (0-5) /hpf Urine WBC Clumps Few H (None) /hpf Urine Bacteria Few H (None) /hpf Urine Mucus Occasional H (None) /hpf Urine Yeast (Budding) Occasional H (None) /hpf Microbiology - Last 24 Hours (Table) 05/31/21 14:38 Urine Culture - Preliminary Urine,Clean Catch Assessment and Plan Assessment: 1-patient presented to hospital with sepsis in this patient have a fever tachycardia source is likely right-sided pyelonephritis in this patient who did have a positive UA likely from a 30 gram-negative pathogen however the culture showing gram-positive cocci could be Staphylococcus versus Enterococcus [id number] bacteremia source likely complicated infection (1) Gram-positive cocci bacteremia Current Visit: Yes Status: Acute Code(s): R78.81 - BACTEREMIA SNOMED Code(s): 099483565554 (2) Pyelonephritis Current Visit: Yes Status: Acute Code(s): N12 - TUBULO-INTERSTITIAL NEPHRITIS, NOT SPCF ACUTE OR CHRONIC SNOMED Code(s): 73881837 (3) Sepsis Current Visit: No Status: Acute Code(s): A41.9 - SEPSIS, UNSPECIFIED O RGANISM SNOMED Code(s): 19311603 Plan: 1-blood cultures will be repeated to document clearance of bacteremia 2-vancomycin pharmacy to dose her with a target trough of 15 while watching her kidney function and Vanco trough closely. 3-Rocephin 2 g daily We will follow on clinical condition and cultures to further adjust medication if needed Thank you for this consultation we will follow the patient along with you Time with Patient: Greater than 30
[2021-06-02] MEDS: HYDROmorphone 1 MG/ML 1 ML SYRINGE IVP PRN ×6 (00:58→23:52)
[2021-06-02] MEDS: VANCOMYCIN 1,250 MG in SODIUM CHLORIDE 0.9% 250 ML IVPB SCH ×2 (00:58→11:30)
[2021-06-02] MEDS: ONDANSETRON 4 MG/2 ML VIAL IVP PRN ×2 (05:22→14:05)
[2021-06-02] MEDS: FAMOTIDINE 20 MG/2 ML VIAL IV SCH ×2 (08:11→20:48)
[2021-06-02] MEDS: HEPARIN SODIUM,PORCINE/PF 5,000 UNIT/0.5 ML SYRINGE SQ SCH ×2 (08:12→20:48)
[2021-06-02] MEDS: SODIUM CHLORIDE 0.9% 1,000 ML IV SCH ×2 (11:55→22:24)
--- NOTE | 2021-06-02 14:07 | P.PN ---
Subjective This is a pleasant 25 years old female with past medical history of hypertension, kidney stone, back pain. Presents because of urinary symptoms and acute back pain on both sides of her lower back since last 3-4 days associated with dysuria urgency and increased frequency. Associated with vomiting, she vomited 3 times over the last 3 days Denies fever Of note patient has history of kidney stone about one year and a half ago associated with pyelonephritis after her third child Patient does not follow up with PCP or urologist She smokes about 2 cigarettes per day, she was counseled to quit and she agrees with the nicotine patch and to quitting. She denies alcohol or illicit tracts On admission she has a fever of 100.9, labs including CBC, BMP, liver enzymes are unremarkable. test of the serum is negative. Patient states cur rently she has her period on Urine analysis is highly suspicious of infection. In the emergency room patient received 1 g of Rocephin and normal sinus 75 mL/h 06/01/2021 Patient symptoms improved gradually with this dysuria and less pain but she is getting Dilaudid as well She has abdominal cramps but that's from her current menstruation as she states She is hemodynamically stable, no more fever. No ultrasound is negative for mass or hydronephrosis She remains on Rocephin with urine culture is pending 06/02/2021 Patient states that she is improving gradually with this bilateral back pain but has not completely resolved and still bothering her. No dysuria or urgency, increased urinary frequency is better No nausea vomiting. No more fev Blood culture is positive for streptococcus species er and patient is hemodynamically stable. CBC and BMP is unremarkable. Patient is currently on ceftriaxone and IV vancomycin pharmacy to dose. ID team Urine culture still pending Objective - Vital Signs Vital signs: Vital Signs Temp 98.2 F 06/02/21 09:35 Pulse 87 06/02/21 08:25 Resp 18 06/02/21 08:25 BP 133/82 06/02/21 08:25 Pulse Ox 99 06/02/21 08:25 Intake & Output 06/01/21 06/02/21 06/02/21 18:59 06:59 18:59 Intake Total 250 Output Total 600 Balance -600 250 Intake: Intake, IV Titration 250 Amount Vancomycin 1,250 mg In 250 Sodium Chloride 0.9% 250 ml @ 125 mls/hr IVPB Q8H RUI Rx#:[id number] Output: Urine 600 Other: Voiding Method Toilet Toilet Toilet # Voids 1 - Exam GENERAL: The patient is alert and oriented x3, not in any acute distress. Well developed, well nourished. HEENT: Pupils are round and equally reacting to light. EOMI. No scleral icterus. No conjunctival pallor. Normocephalic, atraumatic. No pharyngeal erythema. No thyromegaly. CARDIOVASCULAR: S1 and S2 present. No murmurs, rubs, or gallops. PULMONARY: Chest is clear to auscultation, no wheezing or crackles. ABDOMEN: Soft,, nondistended, normoactive bowel sounds. No palpable organomegaly. Bilateral CVA tenderness MUSCULOSKELETAL: No joint swelling or deformity. EXTREMITIES: No cyanosis, clubbing, or pedal edema. NEUROLOGICAL: Gross neurological examination did not reveal any focal deficits. SKIN: No rashes. no petechiae. - Labs CBC & Chem 7: 06/01/21 05:51 06/01/21 05:51 Labs: Microbiology - Last 24 Hours (Table) 06/01/21 17:32 Blood Culture Gram Stain - Preliminary Blood Blood Culture - Preliminary Streptococcus species 05/31/21 16:20 Blood Culture - Preliminary Blood No Growth after 24 hours 05/31/21 16:20 Blood Culture - Final Blood 05/31/21 14:38 Urine Culture - Preliminary Urine,Clean Catch Assessment and Plan Assessment: Acute bilateral pyelonephritis with acute urinary tract infection Streptococcus bacteremia Possible nephrolithiasis Summary of kidney stone Hypertension History of back pain Plan: This is a pleasant 25 years old female who presents with a small bilateral pyelonephritis and UTI. Continue with ceftriaxone, and normal saline Follow-up urine culture Infectious disease team Labs and medication were reviewed.. Continue same treatment. Continue with symptomatic treatment. Resume home medication. Monitor lytes and vitals. DVT and GI prophylaxis. Further recommendations depends on the clinical course of the patient DVT prophylaxis: Subcutaneous heparin GI Prophylaxis: Pepci Prognosis is guarded
[2021-06-02] MEDS ORDERED: VANCOMYCIN TROUGH DUE 1 EACH MISC MISCELLANE ONE (17:00)
--- NOTE | 2021-06-02 18:05 | PN ---
PROGRESS NOTE DATE OF SERVICE: 06/02/2021 REASON FOR FOLLOWUP: UTI and bacteremia. INTERVAL HISTORY: Patient is afebrile. The patient is breathing comfortably. Still complaining of pain to the flank area. No nausea, no vomiting. No chest pain, shortness of breath or cough. No diarrhea. PHYSICAL EXAMINATION: Blood pressure 144/82, pulse 85, temperature 98.3 she is 97% on room air. GENERAL DESCRIPTION: Is a middle-aged female lying in bed in no distress. RESPIRATORY SYSTEM: Unlabored breathing, clear to auscultation anteriorly. HEART: S1, S2. Regular rate and rhythm. ABDOMEN: Soft, no tenderness. LABS: No new labs have been obtained today. Culture has been showing L5 Enterococcus. Urine showing a Gram-negative bacilli. DIAGNOSTIC IMPRESSION AND PLAN: Patient with right-sided pyelonephritis and also have a positive blood culture. However, a different pathogen then she is growing in the urine, concern for possible contamination, ( ) strep. We will keep the patient on Rocephin 2 grams daily while waiting for the culture to finalize and discontinue vancomycin. Family at the bedside. Questions were answered. MMODL / IJN: [id number] /
[2021-06-02] MEDS: NICOTINE 7MG/24HR PATCH TRANSDERM SCH (20:48)
[2021-06-03] MEDS: HYDROmorphone 1 MG/ML 1 ML SYRINGE IVP PRN ×4 (07:34→21:47)
[2021-06-03 08:24] LABS: African American GFR (CKD) >90 (>60 ml/min/1.73 sqM); Non-African American GFR(CKD) >90 (>60 ml/min/1.73 sqM)
[2021-06-03] MEDS: HEPARIN SODIUM,PORCINE/PF 5,000 UNIT/0.5 ML SYRINGE SQ SCH ×2 (09:11→20:33)
[2021-06-03] MEDS: FAMOTIDINE 20 MG/2 ML VIAL IV SCH ×2 (09:12→20:33)
[2021-06-03] MEDS: ONDANSETRON 4 MG/2 ML VIAL IVP PRN ×2 (11:14→17:48)
[2021-06-03] MEDS: SODIUM CHLORIDE 0.9% 1,000 ML IV SCH ×2 (14:22→21:47)
[2021-06-03 14:37] VITALS: RESP 16
[2021-06-03] MEDS: NICOTINE 7MG/24HR PATCH TRANSDERM SCH (20:33)
--- NOTE | 2021-06-03 22:21 | P.PN ---
Subjective This is a pleasant 25 years old female with past medical history of hypertension, kidney stone, back pain. Presents because of urinary symptoms and acute back pain on both sides of her lower back since last 3-4 days associated with dysuria urgency and increased frequency. Associated with vomiting, she vomited 3 times over the last 3 days Denies fever Of note patient has history of kidney stone about one year and a half ago associated with pyelonephritis after her third child Patient does not follow up with PCP or urologist She smokes about 2 cigarettes per day, she was counseled to quit and she agrees with the nicotine patch and to quitting. She denies alcohol or illicit tracts On admission she has a fever of 100.9, labs including CBC, BMP, liver enzymes are unremarkable. test of the serum is negative. Patient states cur rently she has her period on Urine analysis is highly suspicious of infection. In the emergency room patient received 1 g of Rocephin and normal sinus 75 mL/h 06/01/2021 Patient symptoms improved gradually with this dysuria and less pain but she is getting Dilaudid as well She has abdominal cramps but that's from her current menstruation as she states She is hemodynamically stable, no more fever. No ultrasound is negative for mass or hydronephrosis She remains on Rocephin with urine culture is pending 06/02/2021 Patient states that she is improving gradually with this bilateral back pain but has not completely resolved and still bothering her. No dysuria or urgency, increased urinary frequency is better No nausea vomiting. No more fev Blood culture is positive for streptococcus species er and patient is hemodynamically stable. CBC and BMP is unremarkable. Patient is currently on ceftriaxone and IV vancomycin pharmacy to dose. ID team Urine culture still pending 06/03/2021 Patient is still complaining from bilateral CVA pain and tenderness and suprapubic tenderness although she feels improving. She has positive urine culture with E. coli and positive blood culture with a 4 hematocrit streptococcus, both microorganisms and sensitive to ceftriaxone which she is taken now Renal ultrasound showing no hydronephrosis or renal mass Increase normal saline to 1 50 mL/h Continue with pain management Infectious disease team on the case High blood pressure due to pain and IV fluid, add Norvasc while in-house and may DC'd when patient leaving the hospital Objective - Vital Signs Vital signs: Vital Signs Temp 98.3 F 06/03/21 19:59 Pulse 62 06/03/21 19:59 Resp 16 06/03/21 19:59 BP 155/88 06/03/21 19:59 Pulse Ox 99 06/03/21 19:59 Intake & Output 06/03/21 06/03/21 06/04/21 06:59 18:59 06:59 Intake Total 900 Output Total 1150 200 Balance 900 -1150 -200 Intake: Intake, IV Titration 900 Amount Sodium Chloride 0.9% 1, 900 000 ml @ 125 mls/hr IV . Q8H [facility] Rx#:[id number] Output: Urine 1150 200 Other: Voiding Method Toilet Toilet # Voids 4 1 1 - Exam GENERAL: The patient is alert and oriented x3, not in any acute distress. Well developed, well nourished. HEENT: Pupils are round and equally reacting to light. EOMI. No scleral icterus. No conjunctival pallor. Normocephalic, atraumatic. No pharyngeal erythema. No thyromegaly. CARDIOVASCULAR: S1 and S2 present. No murmurs, rubs, or gallops. PULMONARY: Chest is clear to auscultation, no wheezing or crackles. ABDOMEN: Soft,, nondistended, normoactive bowel sounds. No palpable organomegaly. Bilateral CVA tenderness MUSCULOSKELETAL: No joint swelling or deformity. EXTREMITIES: No cyanosis, clubbing, or pedal edema. NEUROLOGICAL: Gross neurological examination did not reveal any focal deficits. SKIN: No rashes. no petechiae. - Labs CBC & Chem 7: 06/01/21 05:51 06/03/21 06:53 Labs: Microbiology - Last 24 Hours (Table) 06/01/21 18:12 Blood Culture - Preliminary Blood No Growth after 48 hours 05/31/21 16:20 Blood Culture - Preliminary Blood No Growth after 72 hours 06/01/21 17:32 Blood Culture Gram Stain - Final Blood Blood Culture - Final Alpha Hemolytic Streptococcus 05/31/21 14:38 Urine Culture - Final Urine,Clean Catch Escherichia coli Assessment and Plan Assessment: Acute bilateral pyelonephritis with acute urinary tract infection Streptococcus bacteremia History of kidney stone Hypertension History of back pain Plan: This is a pleasant 25 years old female who presents with a small bilateral pyelonephritis and UTI. With Streptococcus bacteremia Continue with ceftriaxone, and normal saline Infectious disease team Labs and medication were reviewed.. Continue same treatment. Continue with symptomatic treatment. Resume home medication. Monitor lytes and vitals. DVT and GI prophylaxis. Further recommendations depends on the clinical course of the patient DVT prophylaxis: Subcutaneous heparin GI Prophylaxis: Pepci Prognosis is guarded
--- NOTE | 2021-06-04 05:05 | PN ---
PROGRESS NOTE DATE OF SERVICE: 06/03/2021 REASON FOR FOLLOWUP: 1. UTI. 2. Bacteremia. INTERVAL HISTORY: The patient is afebrile. The patient is breathing comfortably. Patient denies having any chest pain. No shortness of breath or cough. Abdominal pain has improved. No vomiting or diarrhea. Feeling slightly better. PHYSICAL EXAMINATION: Blood pressure 155/80 with a pulse of 72, temperature 98.3. She is 99% on room air. General description is a middle-aged female lying in bed in no distress. Respiratory system: Unlabored breathing. Clear to auscultation anteriorly. Heart S1, S2. Regular rate and rhythm. Abdomen soft, no tenderness. LABS: Blood culture with . Urine showing an E coli sensitive to Rocephin. DIAGNOSTIC IMPRESSION AND PLAN: 1. Patient with an E coli urinary tract infection. Patient responded to the Rocephin. Finish therapy with oral Ceftin. 2. Positive blood culture Staphylococcus, possible skin contamination. Repeat cultures have been negative so far. 3. Continue supportive care. MMODL / IJN: [id number] /
[2021-06-04 06:04] LABS: Basophils % (A) 1 %; Eosinophils # (A) 0.1 k/uL (0-0.7); Eosinophils % (A) 1 %; HCT 30.9 % (34.0-46.0); HGB 10.2 gm/dL (11.4-16.0); Lymphocytes # (A) 1.5 k/uL (1.0-4.8); Lymphocytes % (A) 18 %; MCH 30.3 pg (25.0-35.0); MCV 91.9 fL (80.0-100.0); Mean Platelet Volume 8.7; Monocytes # (A) 0.6 k/uL (0-1.0); Monocytes % (A) 7 %; Neutrophils # (A) 5.9 k/uL (1.3-7.7); Neutrophils % (A) 71 %; Platelet Count 290 k/uL (150-450); RBC 3.36 m/uL (3.80-5.40); RDW 14.7 % (11.5-15.5); WBC 8.2 k/uL (3.8-10.6)
[2021-06-04 06:12] LABS: African American GFR (CKD) >90 (>60 ml/min/1.73 sqM); Anion Gap 8 mmol/L; Blood Urea Nitrogen 7 mg/dL (7-17); Calcium 8.5 mg/dL (8.4-10.2); Carbon Dioxide 22 mmol/L (22-30); Chloride 106 mmol/L (98-107); Glucose 94 mg/dL (74-99); Non-African American GFR(CKD) >90 (>60 ml/min/1.73 sqM); Potassium 3.8 mmol/L (3.5-5.1); Sodium 136 mmol/L (137-145)
[2021-06-04] MEDS: HYDROmorphone 1 MG/ML 1 ML SYRINGE IVP PRN (06:43)
[2021-06-04] MEDS: HEPARIN SODIUM,PORCINE/PF 5,000 UNIT/0.5 ML SYRINGE SQ SCH (08:18)
[2021-06-04] MEDS: FAMOTIDINE 20 MG/2 ML VIAL IV SCH (08:19)
[2021-06-04] MEDS ORDERED: amLODIPine 5 MG TAB PO SCH (09:00)
[2021-06-04] MEDS ORDERED: HYDROcodone/APAP 5-325MG 1 EACH TAB PO PRN (11:16)
[2021-06-04 15:07] VITALS: BP 149/96; PULSE 67; TEMP 97.8
--- NOTE | 2021-06-04 16:58 | PN ---
PROGRESS NOTE DATE OF SERVICE: 06/04/2021 REASON FOR FOLLOWUP: 1. E coli pyelonephritis. 2. Positive blood culture likely contamination. INTERVAL HISTORY: The patient is afebrile. The patient is feeling better. Breathing comfortably. Denies having any chest pain, shortness of breath, cough, flank pain has improved. No vomiting. No diarrhea. PHYSICAL EXAMINATION: Blood pressure 149/96, pulse of 67, temperature 97.8. She is 100% on room air. General description is a middle-aged female lying in bed in no distress. Respiratory system: Unlabored breathing. Clear to auscultation anteriorly. Heart S1, S2. Regular rate and rhythm. Abdomen soft, no tenderness. LABS: Hemoglobin is 10.8, white count 8.2, BUN of 7, creatinine 0.68. DIAGNOSTIC IMPRESSION AND PLAN: 1. Patient with E coli pyelonephritis. Overall improvement on Rocephin. Finish therapy with oral Ceftin. 2. Positive blood culture with Streptococcus . Repeat blood cultures negative. No need for further workup for the same. MMODL / IJN: [id number] /
[2021-06-04] MEDS ORDERED: FAMOTIDINE 20 MG TAB PO SCH (21:00)
--- NOTE | 2021-06-05 22:41 | P.DS ---
Providers Date of admission: 06/02/21 11:39 Attending physician: Torsten Green MD Consults: 05/31/21 20:07 Consult Physician Routine Consulting Provider: Bonilla Russell Consult Reason/Comments: pyelonephritis Do you want consulting provider notified?: Yes, Notify in am Primary care physician: Stated None Hospital Course: Date of service 06/04/2021 Diagnoses: Acute bilateral pyelonephritis with acute urinary tract infection Streptococcus bacteremia History of kidney stone Hypertension History of back pain Hospital course: This is a pleasant 25 years old female with past medical history of hypert ension, kidney stone, back pain. Presents because of urinary symptoms and acute back pain on both sides of her lower back since last 3-4 days associated with dysuria urgency and increased frequency. Patient was found to have bilateral pyelonephritis and UTI. She was treated with ceftriaxone 2 g daily and ID team. The patient closely. Renal ultrasound was negative for mass or hydronephrosis. Urine culture was positive for E. coli sensitive to antibiotics. Chart was positive for alpha hemolytic streptococcus which is most likely contaminant and repeat blood culture showed no growth patient showed interval improvement and on the day of discharge her pain is significantly improved, no dysuria or urgency. No fever, no leukocytosis No chest pain or dyspnea or hepatic or weakness. Patient was cleared for discharge per ID team. Patient will be discharged on 10 days of Ceftin per ID team recommendation Problems and management plan were discussed with the patient and he verbalized understanding and acceptance Patient was found stable and can be discharged home however he needs follow-up as an outpatient. Patient was instructed to follow up with PCP within one week and patient agrees. Patient states that she has no PCP, she was instructed to call her medical insurance provider to find a new pcp and she agrees Patient also was referred to urologist as an outpatient Dr. Marie with instruction to call and make appointment in 2 weeks and she agrees Physical exam Gen: patient is a AAOx3, no distress CVS: S1-S2, RRR, no murmur Lungs: B/L CTA, no wheezing Abdomen: soft, no distention, no tenderness, positive bowel sounds Extremity: no leg edema or induration Time spent more than 35 minutes Patient Condition at Discharge: Fair Plan - Discharge Summary Discharge Rx Participant: No New Discharge Prescriptions: New Cefuroxime Axetil [Ceftin] 500 mg PO BID 10 Days #20 tab Acetaminophen Tab [Tylenol] 325 mg PO Q6HR PRN tab PRN Reason: Mild Pain Or Fever > 100.5 Ondansetron [Zofran] 4 mg PO Q12HR PRN 2 Days #4 tab PRN Reason: Nausea And Vomiting Nicotine 7Mg/24Hr Patch [Habitrol] 1 patch TRANSDERM HS 7 Days #7 patch Discharge Medication List Acetaminophen Tab [Tylenol] 325 mg PO Q6HR PRN tab 06/04/21 [Rx] Cefuroxime Axetil [Ceftin] 500 mg PO BID 10 Days #20 tab 06/04/21 [Rx] Nicotine 7Mg/24Hr Patch [Habitrol] 1 patch TRANSDERM HS 7 Days #7 patch 06/04/21 [Rx] Ondansetron [Zofran] 4 mg PO Q12HR PRN 2 Days #4 tab 06/04/21 [Rx] Follow up Appointment(s)/Referral(s): None,Stated [Primary Care Provider] - 1-2 days Brice Marie MD [STAFF PHYSICIAN] - 2 Weeks (urologist ) Patient Instructions/Handouts: Urinary Tract Infection in Women (DC) Activity/Diet/Wound Care/Special Instructions: resume your previous diet activity is restricted till you see your doctor we recommend to call your health insurance provider to find a nearby Primary care doctor, then call and make appointment in one week watch repair person provided a list containing contact numbers of local primary care physicians to establish care. Discharge Disposition: HOME SELF-CARE
== END 2021-06-04 15:21 | disposition home or self-care (01) | DRG 690 ==
LOC: EC 14:20 → 6NMEDSUR 15:56 → 6PED 16:12 → OBSVTOIN 06-02 11:39
PROVIDERS: ADMIT Internal Medicine; ATTEND Internal Medicine
DX: N10 Acute pyelonephritis (principal); R78.81 Bacteremia; Z87.442 Personal history of urinary calculi; F17.210 Nicotine dependence, cigarettes, uncomplicated; F32.9 Major depressive disorder, single episode, unspecified; I10 Essential (primary) hypertension; N20.0 Calculus of kidney; R35.0 Frequency of micturition; B96.20 Unspecified Escherichia coli [E. coli] as the cause of diseases classified elsewhere; B95.5 Unspecified streptococcus as the cause of diseases classified elsewhere
CPT/HCPCS: 36415; 76770; 80048; 81001; 81025; 82565; 84703; 85025; 87040; 87077; 87086; 87186; 99284

== ENCOUNTER 2022-01-26 18:38 | Emergency (ER) | payer OTHER ==
[2022-01-26 18:53] VITALS: RESP 18; TEMP 97.9
[2022-01-26] MEDS ORDERED: ONDANSETRON 4 MG/2 ML VIAL IVP STA (19:58)
[2022-01-26] MEDS ORDERED: SODIUM CHLORIDE 0.9% 1,000 ML IV STA (19:58)
--- NOTE | 2022-01-26 20:01 | ED ---
Abdominal Pain HPI - General Chief Complaint: Abdominal Pain Stated Complaint: Abd.Pain, N/V Time Seen by Provider: 01/26/22 19:21 Source: patient, RN notes reviewed Mode of arrival: wheelchair Limitations: no limitations - History of Present Illness Initial Comments: 26-year-old female presents to the emergency department for evaluation of lower abdominal pain that radiates to the back, onset 4 days prior to arrival. Patient states she is feeling lots of movement in her lower abdomen and was concerned about , however states that she has taken home tests that have been negative. States last intercourse was 8 months ago. Reports ongoing episodes of nausea, but no vomiting. Denies fever, chills, chest pain, shortness of breath, diarrhea, constipation, dysuria, or hematuria. LMP 12/28/21. - Related Data Previous Rx's Medication Instructions Recorded Vit,Calc78/Iron/Folic 1 each PO DAILY 30 Days #30 tablet 01/26/22 [Pretab 29 mg-1 mg Tablet] Allergies Allergy/AdvReac Type Severity Reaction Status Date / Time tramadol Allergy Mild Nausea & Verified 01/26/22 19:33 Vomiting amoxicillin Allergy Rash/Hives Verified 01/26/22 19:33 aspirin Allergy Nausea & Verified 01/26/22 19:33 Vomiting ketorolac [From Toradol] Allergy Nausea & Verified 01/26/22 19:33 Vomiting Review of Systems ROS Statement: Those systems with pertinent positive or pertinent negative responses have been documented in the HPI. ROS Other: All systems not noted in ROS Statement are negative. Past Medical History Past Medical History: Hypertension Additional Past Medical History / Comment(s): KIDNEY STONES. BACK PAIN-BULGING DISC History of Any Multi-Drug Resistant Organisms: None Reported Past Surgical History: Adenoidectomy, Ear Surgery, Tonsillectomy Additional Past Surgical History / Comment(s): LEFT EAR SURG. Past Anesthesia/Blood Transfusion Reactions: No Reported Reaction Past Psychological History: Depression Smoking Status: Current every day smoker Past Alcohol Use History: None Reported Past Drug Use History: None Reported - Past Family History Father Family Medical History: Fibromyalgia Mother History Unknown: Yes Family Medical History: Hypertension, Seizure Disorder, Thyroid Disorder Additional Family Medical History / Comment(s): Guillian [place] Syndrome General Exam Limitations: no limitations (Well-developed, well-nourished female in no acute distress. Initial temperature 97.9, pulse 108, respirations 18, blood pressure 150/79, pulse ox 100% on room air.) General appearance: alert, in no apparent distress ENT exam: Present: normal exam, normal oropharynx, mucous membranes moist Respiratory exam: Present: normal lung sounds bilaterally. Absent: respiratory distress, wheezes, rales, rhonchi, stridor, chest wall tenderness Cardiovascular Exam: Present: regular rate, normal rhythm, normal heart sounds. Absent: systolic murmur, diastolic murmur, rubs, gallop, clicks GI/Abdominal exam: Present: soft, tenderness (diffuse lower abdominal discomfort, nonlocalized), normal bowel sounds. Absent: distended, guarding, rebound, rigid Back exam: Present: CVA tenderness (R), CVA tenderness (L). Absent: paraspinal tenderness, vertebral tenderness Neurological exam: Present: alert, oriented X3, CN II-XII intact Psychiatric exam: Present: normal affect, normal mood Skin exam: Present: warm, dry, intact, normal color Course Vital Signs 01/26/22 01/26/22 01/26/22 18:51 20:53 22:58 Temperature 97.9 F Pulse Rate 108 H 101 H 96 Respiratory 18 18 18 Rate Blood Pressure 150/79 130/85 132/75 O2 Sat by Pulse 100 100 97 Oximetry - Reevaluation(s) Reevaluation #1: 01/26/22 22:42 Upon reevaluation, patient is resting more comfortably though is somewhat anxiou s with finding of . Explained that she will be discharged home to follow up with [facility]. vitamins will be prescribed. Patient instructed to avoid NSAIDs. Discussed peppermint and/or ness for nausea. Did recommend vitamin B6 and Unisom at bedtime. Patient verbalizes understanding. Medical Decision Making - Medical Decision Making 26-year-old female, , presents to the emergency department for evaluation of lower abdominal pain. Upon exam, patient is anxious, but well-appearing and in no acute distress. She complains of lower abdominal discomfort and pelvic pressure. She describes feeling movement in her lower abdomen, but states previous home tests have been negative. Patient states she had a menstrual period last month and has not had sexual intercourse for the past 8 months. Abdomen is soft and nontender; uterus is palpable near umbilicus. Patient is not experiencing any vaginal bleeding, discharge, or leaking of fluids. She does complain of nausea for which she was given Zofran. Explained that Tylenol would be the most reasonable option for treating her discomfort, however patient took this prior to arrival. Ultrasound shows positive intrauterine with gestational age measuring 21 weeks and 5 days. Laboratory studies show mild hyponatremia. Patient was given IV fluids and Zofran with some improvement. Instructed to follow up with OB for further care. Patient was prescribed vitamins and discussed complementary methods for nausea control. Return parameters were discussed in detail. Patient verbalizes understanding and agrees with this plan. Attending: Pari. - Lab Data Result diagrams: 01/26/22 20:01 01/26/22 20:01 Lab Results 01/26/22 01/26/22 01/26/22 Range/Units 20:01 20:01 20:01 WBC 9.3 (3.8-10.6) k/uL RBC 3.63 L (3.80-5.40) m/uL Hgb 11.6 (11.4-16.0) gm/dL Hct 33.9 L (34.0-46.0) % MCV 93.5 (80.0-100.0) fL MCH 32.0 (25.0-35.0) pg MCHC 34.2 (31.0-37.0) g/dL RDW 14.1 (11.5-15.5) % Plt Count 185 (150-450) k/uL MPV 9.6 Neutrophils % 75 % Lymphocytes % 15 % Monocytes % 4 % Eosinophils % 5 % Basophils % 0 % Neutrophils # 6.9 (1.3-7.7) k/uL Lymphocytes # 1.4 (1.0-4.8) k/uL Monocytes # 0.3 (0-1.0) k/uL Eosinophils # 0.5 (0-0.7) k/uL Basophils # 0.0 (0-0.2) k/uL Sodium (137-145) mmol/L Potassium (3.5-5.1) mmol/L Chloride (98-107) mmol/L Carbon Dioxide (22-30) mmol/L Anion Gap mmol/L BUN (7-17) mg/dL Creatinine (0.52-1.04) mg/dL Est GFR (CKD-EPI)AfAm (>60 ml/min/1.73 sqM) Est GFR (CKD-EPI)NonAf (>60 ml/min/1.73 sqM) Glucose (74-99) mg/dL Calcium (8.4-10.2) mg/dL Total Bilirubin (0.2-1.3) mg/dL AST (14-36) U/L ALT (4-34) U/L Alkaline Phosphatase (38-126) U/L Total Protein (6.3-8.2) g/dL Albumin (3.5-5.0) g/dL Lipase (23-300) U/L HCG, Quant mIU/mL Urine Color Yellow Urine Appearance Clear (Clear) Urine pH 6.0 (5.0-8.0) Ur Specific [place] 1.021 (1.001-1.035) Urine Protein Negative (Negative) Urine Glucose (UA) Negative (Negative) Urine Ketones Negative (Negative) Urine Blood Small H (Negative) Urine Nitrite Negative (Negative) Urine Bilirubin Negative (Negative) Urine Urobilinogen <2.0 (<2.0) mg/dL Ur Leukocyte Esterase Negative (Negative) Urine RBC 36 H (0-5) /hpf Urine WBC <1 (0-5) /hpf Ur Squamous Epith Cells <1 (0-4) /hpf Urine Mucus Rare H (None) /hpf Urine HCG, Qual Detected (Not Detectd) 01/26/22 Range/Units 20:01 WBC (3.8-10.6) k/uL RBC (3.80-5.40) m/uL Hgb (11.4-16.0) gm/dL Hct (34.0-46.0) % MCV (80.0-100.0) fL MCH (25.0-35.0) pg MCHC (31.0-37.0) g/dL RDW (11.5-15.5) % Plt Count (150-450) k/uL MPV Neutrophils % % Lymphocytes % % Monocytes % % Eosinophils % % Basophils % % Neutrophils # (1.3-7.7) k/uL Lymphocytes # (1.0-4.8) k/uL Monocytes # (0-1.0) k/uL Eosinophils # (0-0.7) k/uL Basophils # (0-0.2) k/uL Sodium 131 L (137-145) mmol/L Potassium 4.6 (3.5-5.1) mmol/L Chloride 103 (98-107) mmol/L Carbon Dioxide 21 L (22-30) mmol/L Anion Gap 7 mmol/L BUN 12 (7-17) mg/dL Creatinine 0.60 (0.52-1.04) mg/dL Est GFR (CKD-EPI)AfAm >90 (>60 ml/min/1.73 sqM) Est GFR (CKD-EPI)NonAf >90 (>60 ml/min/1.73 sqM) Glucose 79 (74-99) mg/dL Calcium 8.4 (8.4-10.2) mg/dL Total Bilirubin 0.5 (0.2-1.3) mg/dL AST 17 (14-36) U/L ALT 6 (4-34) U/L Alkaline Phosphatase 51 (38-126) U/L Total Protein 6.5 (6.3-8.2) g/dL Albumin 3.7 (3.5-5.0) g/dL Lipase 88 (23-300) U/L HCG, Quant 01891.4 mIU/mL Urine Color Urine Appearance (Clear) Urine pH (5.0-8.0) Ur Specific [place] (1.001-1.035) Urine Protein (Negative) Urine Glucose (UA) (Negative) Urine Ketones (Negative) Urine Blood (Negative) Urine Nitrite (Negative) Urine Bilirubin (Negative) Urine Urobilinogen (<2.0) mg/dL Ur Leukocyte Esterase (Negative) Urine RBC (0-5) /hpf Urine WBC (0-5) /hpf Ur Squamous Epith Cells (0-4) /hpf Urine Mucus (None) /hpf Urine HCG, Qual (Not Detectd) - Radiology Data Radiology results: report reviewed, image reviewed ultrasound was obtained. Report was reviewed in its entirety. Impression per Dr. Cody's ultrasound gestational age is 21 weeks and 5 days. No complicating process seen. Disposition Clinical Impression: Second trimester , Nausea Disposition: HOME SELF-CARE Condition: Stable Instructions (If sedation given, give patient instructions): Nausea and Vomiting in (ED), (ED) Additional Instructions: Call OB in the morning to schedule follow-up appointment. Rest as needed. Increase fluids. Consider peppermint tea or Ness for ongoing nausea. Vitamin B6 and Unisom together at night for nausea. Return to the emergency department with any new, worsening, or concerning symptoms. Prescriptions: Vit,Calc78/Iron/Folic [Pretab 29 mg-1 mg Tablet] 1 each PO DAILY 30 Days #30 tablet Is patient prescribed a controlled substance at d/c from ED?: No Referrals: None,Stated [Primary Care Provider] - 1-2 days [place] [facility] [Provider Group] - 1-2 days [place] [facility] [Provider Group] - 1-2 days
[2022-01-26 20:22] LABS: Basophils % (A) 0 %; Eosinophils # (A) 0.5 k/uL (0-0.7); Eosinophils % (A) 5 %; HCT 33.9 % (34.0-46.0); HGB 11.6 gm/dL (11.4-16.0); Lymphocytes # (A) 1.4 k/uL (1.0-4.8); Lymphocytes % (A) 15 %; MCHC 34.2 g/dL (31.0-37.0); MCV 93.5 fL (80.0-100.0); Mean Platelet Volume 9.6; Monocytes # (A) 0.3 k/uL (0-1.0); Monocytes % (A) 4 %; Neutrophils # (A) 6.9 k/uL (1.3-7.7); Neutrophils % (A) 75 %; Platelet Count 185 k/uL (150-450); RBC 3.63 m/uL (3.80-5.40); RDW 14.1 % (11.5-15.5); WBC 9.3 k/uL (3.8-10.6)
[2022-01-26 20:29] LABS: ALT 6 U/L (4-34); AST 17 U/L (14-36); African American GFR (CKD) >90 (>60 ml/min/1.73 sqM); Albumin 3.7 g/dL (3.5-5.0); Alkaline Phosphatase 51 U/L (38-126); Anion Gap 7 mmol/L; Appearance,Urine Clear (Clear); Bilirubin,Urine Negative (Negative); Blood Urea Nitrogen 12 mg/dL (7-17); Blood,Urine Small (Negative); Calcium 8.4 mg/dL (8.4-10.2); Carbon Dioxide 21 mmol/L (22-30); Chloride 103 mmol/L (98-107); Color,Urine Yellow; Glucose 79 mg/dL (74-99); Glucose,Urine (UA) Negative (Negative); Ketones,Urine Negative (Negative); Leukocyte Esterase,Urine Negative (Negative); Lipase 88 U/L (23-300); Mucus,Urine Rare /hpf; Nitrite,Urine Negative (Negative); Non-African American GFR(CKD) >90 (>60 ml/min/1.73 sqM); Potassium 4.6 mmol/L (3.5-5.1); Protein,Urine Negative (Negative); RBC,Urine 36 /hpf (0-5); Sodium 131 mmol/L (137-145); Specific Gravity,Urine 1.021 (1.001-1.035); Squamous Epithelial Cell,Urine <1 /hpf (0-4); Total Bilirubin 0.5 mg/dL (0.2-1.3); Total Protein 6.5 g/dL (6.3-8.2); Urobilinogen,Urine <2.0 mg/dL (<2.0); WBC,Urine <1 /hpf (0-5)
[2022-01-26 21:10] LABS: HCG,Quantitative Serum 19825.4 mIU/mL
[2022-01-26 23:00] VITALS: BP 132/75; PULSE 96
--- NOTE | 2022-01-26 23:11 | US ---
EXAMINATION TYPE: US OB >= 14 wk fetus DATE OF EXAM: 01/26/2022 COMPARISON: None CLINICAL HISTORY: lower abdominal pain, +pregnancyPatient states she had a period last month; patient is ; patient is having pelvic pain and positive urine today in EC. Patient states she has not had sexual intercourse in 8 months. TECHNIQUE: Transabdominal (TA) GESTATIONAL AGE / DATING Dates by First Scan: No previous this is first scan Dates by Current Scan: (21 weeks/5 days) EDC: 06/03/22 Beta HCG (if available): SURVEY IUP: Single PLACENTA: Posterior PREVIA: Marginal MOOSE: 13.89 cm Normal CERVICAL LENGTH (transabdominal: norm > 3.0cm): 3.27 cm BIOMETRY PRESENTATION: Breech LIE: Longitudinal BPD: 5.13 cm 21 weeks / 4 days HC: 19.52 cm 21 weeks / 5 days AC: 18.25 cm 23 weeks / 1 days FL: 3.67 cm 21 weeks / 5 days ESTIMATED WEIGHT IN GRAMS: 495.5 grams ESTIMATED WEIGHT IN LBS/OZ: 1 lbs. 1 oz. HC/AC: 1.07 normal FL/AC: 20.09 normal HEART RATE: 145 bpm RHYTHM: normal IMPRESSION: The ultrasound gestational age is 21 weeks and 5 days. No complicating process seen.
== END 2022-01-26 23:18 | disposition home or self-care (01) ==
LOC: EC 18:38
DX: O26.892 Other specified pregnancy related conditions, second trimester (principal); R10.84 Generalized abdominal pain; I10 Essential (primary) hypertension; F32.A Depression, unspecified; F17.200 Nicotine dependence, unspecified, uncomplicated; Z3A.21 21 weeks gestation of pregnancy; Z88.1 Allergy status to other antibiotic agents; Z87.442 Personal history of urinary calculi
CPT/HCPCS: 99284; 96374; 96361; 36415; 80053; 83690; 85025; 81001; 81025; 84702; 76805; J2405

== ENCOUNTER 2022-04-15 17:03 | Observation (INO) | payer OTHER ==
[2022-04-15 17:36] LABS: Appearance,Urine Cloudy (Clear); Bilirubin,Urine Negative (Negative); Blood,Urine Small (Negative); Color,Urine Yellow; Glucose,Urine (UA) Negative (Negative); Ketones,Urine Negative (Negative); Leukocyte Esterase,Urine Moderate (Negative); Mucus,Urine Rare /hpf; Nitrite,Urine Negative (Negative); PH, Urine 6.5 (5.0-8.0); Protein,Urine Trace (Negative); RBC,Urine 46 /hpf (0-5); Specific Gravity,Urine 1.019 (1.001-1.035); Squamous Epithelial Cell,Urine 1 /hpf (0-4); Urobilinogen,Urine <2.0 mg/dL (<2.0); WBC,Urine 2 /hpf (0-5)
[2022-04-15] MEDS: LACTATED RINGERS 1,000 ML IV SCH ×4 (18:00→23:34)
[2022-04-15 18:25] LABS: Basophils % (A) 0 %; Eosinophils % (A) 0 %; HCT 31.8 % (34.0-46.0); HGB 10.5 gm/dL (11.4-16.0); Lymphocytes # (A) 1.1 k/uL (1.0-4.8); Lymphocytes % (A) 12 %; MCH 29.5 pg (25.0-35.0); MCV 89.6 fL (80.0-100.0); Mean Platelet Volume 10.2; Monocytes # (A) 0.5 k/uL (0-1.0); Monocytes % (A) 5 %; Neutrophils # (A) 7.2 k/uL (1.3-7.7); Neutrophils % (A) 81 %; Platelet Count 189 k/uL (150-450); RBC 3.55 m/uL (3.80-5.40); RDW 13.4 % (11.5-15.5); WBC 8.9 k/uL (3.8-10.6)
[2022-04-15] MEDS ORDERED: BUTORPHANOL 1 MG/ML 1 ML VIAL IV ONE (18:34)
[2022-04-15 18:37] LABS: Amphetamine Screen,Urine Not Detected (NotDetected); Barbiturate Screen,Urine Not Detected (NotDetected); Benzodiazepines Screen,Urine Not Detected (NotDetected); Cocaine Screen,Urine Not Detected (NotDetected); Methadone Screen, Urine Not Detected (NotDetected); Opiate Screen,Urine Not Detected (NotDetected); Oxycodone Screen, Urine Not Detected (NotDetected); Phencyclidine Screen,Urine Not Detected (NotDetected); Tricyclic Antidepressant,Urine Detected (NotDetected); Urn Cannabinoid Scrn Not Detected (NotDetected)
[2022-04-15 19:48] VITALS: TEMP 97.9
[2022-04-15] MEDS: HYDROcodone/APAP 7.5-325MG 1 EACH TAB PO PRN (21:36)
[2022-04-16] MEDS: LACTATED RINGERS 1,000 ML IV SCH (00:08)
[2022-04-16 00:34] VITALS: BP 130/88; PULSE 77; RESP 16
[2022-04-16 02:23] LABS: Hepatitis B Surface Antigen Nonreactive (Nonreactive)
[2022-04-16] MEDS: HYDROcodone/APAP 7.5-325MG 1 EACH TAB PO PRN ×2 (03:28→10:26)
--- NOTE | 2022-04-16 09:52 | P.HPOB ---
History of Present Illness H&P Date: 04/16/22 Chief Complaint: UTI 26 year old presents at 33 weeks with flank pain. She has history of UTIs with pregnancies and no care for this . She as no elevation in WBC count but is very uncomfortable. She is admitted for UTI and IV antibiotics and pain control. heart tones category 1. Review of Systems All systems: negative Constitutional: Denies chills, Denies fever Eyes: denies blurred vision, denies pain Ears, nose, mouth and throat: Denies headache, Denies sore throat Cardiovascular: Denies chest pain, Denies shortness of breath Respiratory: Denies cough Gastrointestinal: Denies abdominal pain, Denies diarrhea, Denies nausea, Denies vomiting Genitourinary: Denies dysuria, Denies hematuria Musculoskeletal: Denies myalgias Integumentary: Denies pruritus, Denies rash Neurological: Denies numbness, Denies weakness Psychiatric: Denies anxiety, Denies depression Endocrine: Denies fatigue, Denies weight change Past Medical History Past Medical History: Hypertension Additional Past Medical History / Comment(s): KIDNEY STONES. BACK PAIN-BULGING DISC History of Any Multi-Drug Resistant Organisms: None Reported Past Surgical History: Adenoidectomy, Ear Surgery, Tonsillectomy Additional Past Surgical History / Comment(s): LEFT EAR SURG. Past Anesthesia/Blood Transfusion Reactions: No Reported Reaction Past Psychological History: Depression Additional Psychological History / Comment(s): MO MEDICATIONS CURRENTLY Smoking Status: Former smoker Past Alcohol Use History: None Reported Additional Past Alcohol Use History / Comment(s): Patient is a smoker of one to 2 cigarettes per day since she was 11 years of age. She denies any marijuana, illicit drug use or alcohol use. She lives at home with her mom and dad. There is cat in the home and a dog. No recent travel. Past Drug Use History: None Reported - Past Family History Father Family Medical History: Fibromyalgia Mother History Unknown: Yes Family Medical History: Hypertension, Seizure Disorder, Thyroid Disorder Additional Family Medical History / Comment(s): Guillian [place] Syndrome Medications and Allergies Home Medications Medication Instructions Recorded Confirmed Type Vit,Calc78/Iron/Folic 1 each PO DAILY 30 Days #30 tablet 01/26/22 04/15/22 Rx [Pretab 29 mg-1 mg Tablet] Allergies Allergy/AdvReac Type Severity Reaction Status Date / Time tramadol Allergy Mild Nausea & Verified 04/15/22 17:20 Vomiting amoxicillin Allergy Rash/Hives Verified 04/15/22 17:20 aspirin Allergy Nausea & Verified 04/15/22 17:20 Vomiting ketorolac [From Toradol] Allergy Nausea & Verified 04/15/22 17:20 Vomiting Exam Osteopathic Statement: *. No significant issues noted on an osteopathic structural exam other than those noted in the History and Physical/Consult. Vital Signs Temp Pulse Resp BP Pulse Ox 04/16/22 00:00 97.9 F 77 16 130/88 98 04/15/22 19:39 97.9 F 111 H 18 140/94 Intake and Output 04/15/22 04/16/22 04/16/22 22:59 06:59 14:59 Other: # Voids 1 2 Weight 77.111 kg Heart: Regular rate and rhythm Lungs: Clear to auscultation bilaterally Abdomen: Soft, nontender Extremities: Negative Homans sign Results Result Diagrams: 04/15/22 17:57 04/15/22 17:57 Abnormal Lab Results - Last 24 Hours (Table) 04/15/22 04/15/22 04/15/22 Range/Units 17:19 17:57 17:57 RBC 3.55 L (3.80-5.40) m/uL Hgb 10.5 L (11.4-16.0) gm/dL Hct 31.8 L (34.0-46.0) % Urine Appearance Cloudy H (Clear) Urine Protein Trace H (Negative) Urine Blood Small H (Negative) Ur Leukocyte Esterase Moderate H (Negative) Urine RBC 46 H (0-5) /hpf Urine Mucus Rare H (None) /hpf U Tricyclic Antidepress (NotDetected) Rubella IgG Antibody 50.70 H (0.00-10.00) IU/mL 04/15/22 Range/Units 18:25 RBC (3.80-5.40) m/uL Hgb (11.4-16.0) gm/dL Hct (34.0-46.0) % Urine Appearance (Clear) Urine Protein (Negative) Urine Blood (Negative) Ur Leukocyte Esterase (Negative) Urine RBC (0-5) /hpf Urine Mucus (None) /hpf U Tricyclic Antidepress Detected H (NotDetected) Rubella IgG Antibody (0.00-10.00) IU/mL Microbiology - Last 24 Hours (Table) 04/15/22 18:25 Urine Culture - Preliminary Urine,Clean Catch Assessment and Plan (1) 33 weeks gestation of Current Visit: Yes Status: Acute Code(s): Z3A.33 - 33 WEEKS GESTATION OF SNOMED Code(s): 68245471 (2) Kidney infection Current Visit: Yes Status: Acute Code(s): N15.9 - RENAL TUBULO-INTERSTITIAL DISEASE, UNSPECIFIED SNOMED Code(s): 539139654 Plan: 1. IV antibiotics 2. norco for pain control 3. NST q shift
--- NOTE | 2022-04-16 09:56 | P.DS ---
Providers Date of admission: 04/15/22 20:12 Expected date of discharge: 04/16/22 Attending physician: Christin Haro Primary care physician: Stated None - Discharge Diagnosis(es) (1) 33 weeks gestation of Current Visit: Yes Status: Acute (2) Kidney infection Current Visit: Yes Status: Acute Hospital Course: She is feeling much better today and will be discharge home on oral antibiotics and pain meds. She will follow up with me in a week to start care. Plan - Discharge Summary New Discharge Prescriptions: New HYDROcodone/APAP 7.5-325MG [Pelion 7.5-325] 1 tab PO Q6HR PRN 3 Days #12 tab PRN Reason: Pain Cephalexin [Keflex] 500 mg PO Q6HR 1 Days #28 cap No Action Vit,Calc78/Iron/Folic [Pretab 29 mg-1 mg Tablet] 1 each PO DAILY 30 Days #30 tablet Discharge Medication List Vit,Calc78/Iron/Folic [Pretab 29 mg-1 mg Tablet] 1 each PO DAILY 30 Days #30 tablet 01/26/22 [Rx] Cephalexin [Keflex] 500 mg PO Q6HR 1 Days #28 cap 04/16/22 [Rx] HYDROcodone/APAP 7.5-325MG [Pelion 7.5-325] 1 tab PO Q6HR PRN 3 Days #12 tab 04/16/22 [Rx] Follow up Appointment(s)/Referral(s): Christin Haro DO [Doctor of Osteopathic Medicine] - 1 Week Discharge Disposition: HOME SELF-CARE
[2022-04-16 14:40] LABS: C. trachomatis,PCR Negative (Neg,Equiv); Chlamydia trachomatis Source Urine; N. gonorrhoeae,PCR Negative (Neg,Equiv); Neisseria Source Urine
[2022-04-16 15:18] LABS: HIV 2 AB Non-Reactive (Non-Reactive); HIV AB P24 Non-Reactive (Non-Reactive); HIV P24 AG Non-Reactive (Non-Reactive)
== END 2022-04-16 12:00 | disposition home or self-care (01) ==
LOC: FBPOP 17:03 → 4FBP 20:12
PROVIDERS: ADMIT Obstetrics & Gynecology; ATTEND Obstetrics & Gynecology
DX: O23.43 Unspecified infection of urinary tract in pregnancy, third trimester (principal); N15.9 Renal tubulo-interstitial disease, unspecified; Z3A.33 33 weeks gestation of pregnancy; O16.3 Unspecified maternal hypertension, third trimester; O99.343 Other mental disorders complicating pregnancy, third trimester; F32.A Depression, unspecified; O09.30 Supervision of pregnancy with insufficient antenatal care, unspecified trimester; Z88.0 Allergy status to penicillin; Z88.6 Allergy status to analgesic agent; Z88.5 Allergy status to narcotic agent; Z87.891 Personal history of nicotine dependence; Z87.442 Personal history of urinary calculi; Z87.440 Personal history of urinary (tract) infections; Z82.49 Family history of ischemic heart disease and other diseases of the circulatory system; Z82.0 Family history of epilepsy and other diseases of the nervous system; Z83.49 Family history of other endocrine, nutritional and metabolic diseases; Z82.69 Family history of other diseases of the musculoskeletal system and connective tissue
CPT/HCPCS: 59025; 96361; 96374; 96375; 96365; 86762; 82947; 85025; 87340; 81001; 87491; 87591; 86780; 80306; 87086; 87390; G0463; G0378 ×2; J0595; J0690 ×2; 99215

== ENCOUNTER 2022-04-23 16:40 | Outpatient (CLI) | payer OTHER ==
[2022-04-23 17:31] LABS: Appearance,Urine Cloudy (Clear); Bacteria,Urine Rare /hpf; Bilirubin,Urine Negative (Negative); Blood,Urine Negative (Negative); Calcium Oxalate Crystals,Urine Many /hpf; Color,Urine Yellow; Glucose,Urine (UA) Negative (Negative); Ketones,Urine Negative (Negative); Leukocyte Esterase,Urine Large (Negative); Mucus,Urine Occasional /hpf; Nitrite,Urine Negative (Negative); PH, Urine 6.5 (5.0-8.0); Protein,Urine 1+ (Negative); RBC,Urine 1 /hpf (0-5); Specific Gravity,Urine 1.023 (1.001-1.035); Squamous Epithelial Cell,Urine 17 /hpf (0-4); Urobilinogen,Urine <2.0 mg/dL (<2.0); WBC,Urine 15 /hpf (0-5)
[2022-04-23 17:56] LABS: Creatinine,Urine Random 221.7 mg/dL; Protein/Creatinine Ratio,Urine 0.104
--- NOTE | 2022-04-23 17:59 | US ---
EXAMINATION TYPE: US venous doppler duplex LE DATE OF EXAM: 04/23/2022 5:42 PM COMPARISON: NONE CLINICAL HISTORY: left calf pain and swelling. Patient is and experiencing left calf pain SIDE PERFORMED: Bilateral TECHNIQUE: The lower extremity deep venous system is examined utilizing real time linear array sonog teetee with graded compression, doppler sonography and color-flow sonography. VESSELS IMAGED: Common Femoral Vein Deep Femoral Vein Greater Saphenous Vein * Femoral Vein Popliteal Vein Small Saphenous Vein * Proximal Calf Veins (* superficial vessels) Left PTV Left Peroneal veins Right Leg: Negative for DVT Left Leg: Negative for DVT IMPRESSION: No acute DVT of the bilateral lower extremities.
[2022-04-23 18:20] LABS: Basophils % (A) 0 %; Eosinophils # (A) 0.1 k/uL (0-0.7); Eosinophils % (A) 1 %; HCT 30.9 % (34.0-46.0); HGB 9.7 gm/dL (11.4-16.0); Lymphocytes # (A) 1.5 k/uL (1.0-4.8); Lymphocytes % (A) 17 %; MCHC 31.6 g/dL (31.0-37.0); MCV 88.8 fL (80.0-100.0); Monocytes # (A) 0.4 k/uL (0-1.0); Monocytes % (A) 4 %; Neutrophils # (A) 6.7 k/uL (1.3-7.7); Neutrophils % (A) 76 %; Platelet Count 154 k/uL (150-450); RBC 3.47 m/uL (3.80-5.40); RDW 13.7 % (11.5-15.5); WBC 8.8 k/uL (3.8-10.6)
[2022-04-23 18:30] LABS: ALT 6 U/L (4-34); AST 17 U/L (14-36); African American GFR (CKD) >90 (>60 ml/min/1.73 sqM); Blood Urea Nitrogen 11 mg/dL (7-17); LDH 353 U/L (313-618); Non-African American GFR(CKD) >90 (>60 ml/min/1.73 sqM); Uric Acid 5.6 mg/dL (3.7-7.4)
[2022-04-23] MEDS ORDERED: BETAMET ACET-BETAMETH SOD PHOS 6 MG/ML MDV IM SCH (19:00)
[2022-04-23 19:23] VITALS: BP 149/100; PULSE 102; RESP 16; TEMP 97.6
--- NOTE | 2022-04-24 07:31 | P.MSEPDOC ---
Presenting Problems - Arrival Data Date of Arrival on Unit: 04/23/22 Time of Arrival on Unit: 16:40 Mode of Transport: Wheelchair - Complaint OB-Reason for Admission/Chief Complaint: Pain, PIH Comment: left calf pain Medical History - Information : 5 Para: 3 Term: 3 : 0 Abortions: Spontaneous or Elective: 1 Number of Living Children: 3 - Gestational Age Gestational Age by MANJU (wks/days): 34 Weeks and 1 Days Review of Systems - Review of Systems Constitutional: No problems Breast: No problems ENT: No problems Cardiovascular: No problems Respiratory: No problems Gastrointestinal: No problems Genitourinary: No problems Musculoskeletal: No problems Neurological: No problems Skin: No problems Vital Signs - Temperature Temperature: 97.6 F Temperature Source: Temporal Artery Scan - Pulse Right Sitting Pulse Rate: 102 Pulse Assessment Method: Automatic Cuff - Respirations Respiratory Rate: 16 Oxygen Delivery Method: Room Air - Blood Pressure Right Arm Blood Pressure: 149/100 Blood Pressure Mean: 116 Blood Pressure Source: Automatic Cuff Medical Screen Scoring - Assessment - Baby A Baseline FHR: 145 Heart Rate - NICHD Category: Category I (Normal) NST: Reactive Physician Notification - Physician Notified Physician Notified Date: 04/23/22 Physician Notified Time: 18:46 Physician: Christin Haro New Order Received: Yes Maternal Triage Index - Urgent/Priority 2 Urgent Priority 2: Yes Provider Notified: Christin Haro Provider Notified Time: 18:46 Criteria Met for Priority 2: bp 140-160/90-100s Disposition - Disposition OB Disposition: Discharge to home Discharge Date: 04/23/22 Discharge Time: 19:05 I agree with the RN Medical Screening Exam: Yes Case reviewed; plan agreed upon as documented in EMR&OBIX.: Yes Comments: Patient does not have a DVT in her legs. She does have some elevated blood pressures with normal preeclamptic labs. I would like her to return tomorrow for another blood pressure check and NST. Because she may possibly have gestational hypertension I am giving her one dose of steroids now and will give her one dose of steroids tomorrow when she comes in for her NST. Diagnosis: GESTATIONAL HTN W/O SIGNIFICANT PROTEINURIA, THIRD TRIMESTER
== END 2022-04-23 19:05 | disposition home or self-care (01) ==
LOC: FBPOP 16:40
PROVIDERS: ATTEND Obstetrics & Gynecology
DX: O13.3 Gestational [pregnancy-induced] hypertension without significant proteinuria, third trimester (principal); Z3A.34 34 weeks gestation of pregnancy; Z88.5 Allergy status to narcotic agent; Z88.6 Allergy status to analgesic agent; Z88.1 Allergy status to other antibiotic agents
CPT/HCPCS: 59025; 96372; 82570; 84156; 82565; 83615; 84450; 84460; 84520; 84550; 85025; 81001; 93970; J0702

== ENCOUNTER 2022-04-24 19:00 | Outpatient (CLI) | payer OTHER ==
[2022-04-24] MEDS ORDERED: BETAMET ACET-BETAMETH SOD PHOS 6 MG/ML MDV IM SCH (19:15)
[2022-04-24 20:04] VITALS: BP 142/92; PULSE 103; RESP 16; TEMP 98
--- NOTE | 2022-04-25 02:36 | P.MSEPDOC ---
Presenting Problems - Arrival Data Date of Arrival on Unit: 04/24/22 Time of Arrival on Unit: 19:00 Mode of Transport: Ambulatory - Complaint OB-Reason for Admission/Chief Complaint: NST, Celestone Injection Comment: blood pressure check Medical History - Information : 5 Para: 3 Term: 3 : 0 Abortions: Spontaneous or Elective: 1 Number of Living Children: 3 - Gestational Age Gestational Age by MANJU (wks/days): 34 Weeks and 2 Days - History Complications: Smoker Review of Systems - Review of Systems Constitutional: No problems Breast: No problems ENT: No problems Cardiovascular: No problems Respiratory: No problems Gastrointestinal: No problems Genitourinary: No problems Musculoskeletal: No problems Neurological: No problems Skin: No problems Vital Signs - Temperature Temperature: 98.0 F Temperature Source: Oral - Pulse Right Brachial Pulse Rate: 103 Pulse Assessment Method: Automatic Cuff - Respirations Respiratory Rate: 16 Oxygen Delivery Method: Room Air O2 Sat by Pulse Oximetry: 97 - Blood Pressure Right Arm Blood Pressure: 142/92 Blood Pressure Mean: 108 Blood Pressure Source: Automatic Cuff Medical Screen Scoring - Assessment - Baby A Baseline FHR: 120 Heart Rate - NICHD Category: Category I (Normal) NST: Reactive Physician Notification - Physician Notified Physician Notified Date: 04/24/22 Physician Notified Time: 19:35 Physician: Carly Pierre Order Received: Yes - Notification Comment Comment: Dr. Pierre called with report on patients follow up visit for celestone, bp check, and nst. NST reactive. Celstone given. Blood pressures remain elevated at 142/92 144/102 and 151/102. Patient has had no changes since yesterday and continues to have a headache and floaters. Patient to be discharged home. Education on symptoms worsening. BP and NST in office on Wednesday morning or afternoon. Patient to take tylenol for headache. Maternal Triage Index - Maternal Triage Index Presenting for scheduled procedure w/no complaint: No - Stat/Priority 1 Stat Priority 1: No - Urgent/Priority 2 Urgent Priority 2: No - Prompt/Priority 3 Prompt Priority 3: No - Non-Urgent/Priority 4 Non-Urgent Priority 4: No - Scheduled/Requesting Priority 5 Scheduled/Requesting Priority 5: Yes Criteria Met for Priority 5: patient here for follow up celestone, bp check, and nst. Disposition - Disposition OB Disposition: Discharge to home Discharge Date: 04/24/22 Discharge Time: 19:45 I agree with the RN Medical Screening Exam: Yes Case reviewed; plan agreed upon as documented in EMR&OBIX.: Yes Comments: Patient is advised to return to the office on Wednesday for another NST and blood pressure check in the office. Diagnosis: GESTATIONAL HTN W/O SIGNIFICANT PROTEINURIA, THIRD TRIMESTER
== END 2022-04-24 19:45 ==
LOC: FBPOP 19:00
PROVIDERS: ATTEND Obstetrics & Gynecology
DX: O13.3 Gestational [pregnancy-induced] hypertension without significant proteinuria, third trimester (principal); Z3A.34 34 weeks gestation of pregnancy; Z88.5 Allergy status to narcotic agent; Z88.6 Allergy status to analgesic agent; Z88.1 Allergy status to other antibiotic agents; Z87.891 Personal history of nicotine dependence
CPT/HCPCS: 59025; 96372; G0463; J0702; 99213

== ENCOUNTER 2022-05-14 05:43 | Inpatient (IN) | payer OTHER ==
[2022-05-14] MEDS ORDERED: LIDOCAINE 0.5% (PF) 5 MG/ML (50 ML SDV) SQ PRN (05:57)
[2022-05-14] MEDS ORDERED: CARBOPROST TROMETHAMINE 250 MCG/ML 1 ML AMP IM PRN (05:57)
[2022-05-14] MEDS ORDERED: OXYTOCIN 10 UNIT/ML 1 ML VIAL IM PRN (05:57)
[2022-05-14] MEDS ORDERED: METHYLERGONOVINE 0.2 MG/ML 1 ML AMP IM PRN (05:57)
[2022-05-14] MEDS ORDERED: TERBUTALINE 1 MG/ML VIAL SQ PRN (05:57)
[2022-05-14] MEDS ORDERED: LACTATED RINGERS 1,000 ML IV SCH (06:00)
[2022-05-14] MEDS ORDERED: OXYTOCIN 30 UNITS/500 ML NS 30 UNIT in SALINE 1 500ML.BAG IV SCH ×2 (06:00→13:00)
[2022-05-14 06:15] LABS: Basophils % (A) 1 %; Eosinophils # (A) 0.1 k/uL (0-0.7); Eosinophils % (A) 1 %; HCT 29.1 % (34.0-46.0); HGB 9.9 gm/dL (11.4-16.0); Hypochromasia Slight; Lymphocytes # (A) 1.4 k/uL (1.0-4.8); Lymphocytes % (A) 21 %; MCH 29.4 pg (25.0-35.0); MCV 86.6 fL (80.0-100.0); Mean Platelet Volume 10.3; Monocytes # (A) 0.3 k/uL (0-1.0); Monocytes % (A) 5 %; Neutrophils # (A) 4.7 k/uL (1.3-7.7); Neutrophils % (A) 71 %; Platelet Count 157 k/uL (150-450); RBC 3.36 m/uL (3.80-5.40); RDW 14.2 % (11.5-15.5); WBC 6.6 k/uL (3.8-10.6)
--- NOTE | 2022-05-14 08:44 | P.HPOB ---
History of Present Illness H&P Date: 05/14/22 Chief Complaint: induction of labor 26-year-old presents at 37 weeks for induction of labor due to gestational hypertension. Her cervix is 2-3 cm dilated, 70% effaced, and -2 station. She is not hamilton. heart tones 140 with moderate variability and reacti ve. Review of Systems All systems: negative Constitutional: Denies chills, Denies fever Eyes: denies blurred vision, denies pain Ears, nose, mouth and throat: Denies headache, Denies sore throat Cardiovascular: Denies chest pain, Denies shortness of breath Respiratory: Denies cough Gastrointestinal: Denies abdominal pain, Denies diarrhea, Denies nausea, Denies vomiting Genitourinary: Denies dysuria, Denies hematuria Musculoskeletal: Denies myalgias Integumentary: Denies pruritus, Denies rash Neurological: Denies numbness, Denies weakness Psychiatric: Denies anxiety, Denies depression Endocrine: Denies fatigue, Denies weight change Past Medical History Past Medical History: Hypertension Additional Past Medical History / Comment(s): KIDNEY STONES. BACK PAIN-BULGING DISC History of Any Multi-Drug Resistant Organisms: None Reported Past Surgical History: Adenoidectomy, Ear Surgery, Tonsillectomy Additional Past Surgical History / Comment(s): LEFT EAR SURG. Past Anesthesia/Blood Transfusion Reactions: No Reported Reaction Past Psychological History: Depression Additional Psychological History / Comment(s): MO MEDICATIONS CURRENTLY Smoking Status: Current every day smoker Past Alcohol Use History: None Reported Additional Past Alcohol Use History / Comment(s): Patient is a smoker of one to 2 cigarettes per day since she was 11 years of age. She denies any marijuana, illicit drug use or alcohol use. She lives at home with her mom and dad. There is cat in the home and a dog. No recent travel. Past Drug Use History: None Reported - Past Family History Father Family Medical History: No Reported History Mother History Unknown: Yes Family Medical History: Hypertension, Seizure Disorder, Thyroid Disorder Additional Family Medical History / Comment(s): Guillian [place] Syndrome Medications and Allergies Home Medications Medication Instructions Recorded Confirmed Type Vit,Calc78/Iron/Folic 1 each PO DAILY 30 Days #30 tablet 01/26/22 05/14/22 Rx [Pretab 29 mg-1 mg Tablet] Acetaminophen Tab [Tylenol Tab] 1,000 mg PO Q6HR 04/23/22 05/14/22 History Allergies Allergy/AdvReac Type Severity Reaction Status Date / Time tramadol Allergy Mild Nausea & Verified 05/14/22 05:55 Vomiting amoxicillin Allergy Rash/Hives Verified 05/14/22 05:55 aspirin Allergy Nausea & Verified 05/14/22 05:55 Vomiting iodine Allergy Anaphylaxis Verified 05/14/22 05:56 ketorolac [From Toradol] Allergy Nausea & Verified 05/14/22 05:55 Vomiting shellfish derived [Shellfish] Allergy Anaphylaxis Verified 05/14/22 05:56 Exam Osteopathic Statement: *. No significant issues noted on an osteopathic structural exam other than those noted in the History and Physical/Consult. Vital Signs Temp Pulse Resp BP Pulse Ox 05/14/22 06:53 97.2 F L 79 18 139/94 99 Intake and Output 05/13/22 05/14/22 05/14/22 22:59 06:59 14:59 Other: # Voids 1 Weight 82.554 kg Heart: Regular rate and rhythm Lungs: Clear to auscultation bilaterally Abdomen: Soft, nontender Extremities: Negative Homans sign Results Result Diagrams: 05/14/22 06:00 Abnormal Lab Results - Last 24 Hours (Table) 05/14/22 Range/Units 06:00 RBC 3.36 L (3.80-5.40) m/uL Hgb 9.9 L (11.4-16.0) gm/dL Hct 29.1 L (34.0-46.0) % Assessment and Plan (1) Gestational hypertension Current Visit: Yes Status: Acute Code(s): O13.9 - GESTATIONAL HTN W/O SIGNIFICANT PROTEINURIA, UNSP TRIMESTER SNOMED Code(s): 50435706 (2) 37 weeks gestation of Current Visit: Yes Status: Acute Code(s): Z3A.37 - 37 WEEKS GESTATION OF SNOMED Code(s): 43571717 Plan: 1. Induction of labor with amniotomy and Pitocin 2. Anticipate normal vaginal delivery
[2022-05-14] MEDS ORDERED: BUPIVACAINE (PF) 0.25% 30 ML VIAL ONE (09:14)
[2022-05-14] MEDS ORDERED: fentaNYL (PF) 50 MCG/ML 5 ML AMP ONE (09:14)
[2022-05-14] MEDS ORDERED: SODIUM CHLORIDE 0.9% 100 ML BAG ONE (09:14)
[2022-05-14] MEDS ORDERED: ROPIVACAINE 100 MG, fentaNYL (PF). 200 MCG in SODIUM CHLORIDE 0.9% 76 ML EPIDURAL ONE (10:31)
--- NOTE | 2022-05-14 12:48 | P.PROBDLV ---
Vaginal Delivery Note - . Vaginal Delivery Note: 26-year-old presents at 37 weeks for induction of labor due to gestational hypertension. Her cervix is 2-3 cm dilated, 70% effaced, and -2 station. She is not hamilton. heart tones 140 with moderate variability and reactive. Pitocin augmentation was started and amniotomy performed at 7:12 AM, clear fluid noted. She soon started to get uncomfortable and when she was 3-4 cm she got an epidural. The epidural worked very well. Her cervix was comple tely dilated at 12:34 PM. She pushed, delivered a viable female infant over intact perineum under epidural anesthesia at 1237. Head delivered OA, anterior shoulder delivered gentle downward guidance for by posterior shoulder and rest of body. Nose and mouth bulb suctioned, cord clamped and cut, infant placed on mother's abdomen. Apgars 8, 9, weight 6 pounds 3.5 ounces. Placenta delivered spontaneously, intact with three-vessel cord at 1239. Vagina, cervix, perineum inspected. No lacerations noted. Bladder was drained of all urine. Quantitative blood loss was 100 mL. Mother and baby in stable condition.
[2022-05-14] MEDS ORDERED: BENZOCAINE/MENTHOL SPRAY 1 GM/SPRAY AEROSOL TOPICAL PRN (12:49)
[2022-05-14] MEDS ORDERED: LANOLIN CREAM 5 GM TUBE TOPICAL PRN (12:49)
[2022-05-14] MEDS ORDERED: HYDROCORTISONE 2.5% RECTAL CREAM 30 GM TUBE RECTAL PRN (12:49)
[2022-05-14] MEDS ORDERED: diphenhydrAMINE 50 MG CAP PO PRN (12:49)
[2022-05-14] MEDS ORDERED: diphenhydrAMINE 25 MG CAP PO PRN (12:49)
[2022-05-14] MEDS ORDERED: SIMETHICONE 80 MG CHEWABLE PO PRN (12:49)
[2022-05-14] MEDS ORDERED: ZOLPIDEM 5 MG TAB PO PRN (12:49)
[2022-05-14] MEDS ORDERED: diphenhydrAMINE 50 MG/ML 1 ML VIAL IVP PRN ×2 (12:49)
[2022-05-14] MEDS ORDERED: IBUPROFEN 600 MG TAB PO STA (16:23)
[2022-05-14] MEDS: ACETAMINOPHEN TAB 325 MG TAB PO PRN ×2 (17:50→22:22)
[2022-05-14] MEDS: SENNOSIDES-DOCUSATE SODIUM 1 EACH TAB PO SCH (20:22)
[2022-05-14] MEDS: LABETALOL 200 MG TAB PO SCH (22:22)
[2022-05-15] MEDS: ACETAMINOPHEN TAB 325 MG TAB PO PRN ×2 (02:35→07:49)
[2022-05-15 07:37] LABS: Basophils % (A) 0 %; Eosinophils # (A) 0.1 k/uL (0-0.7); Eosinophils % (A) 1 %; HCT 25.8 % (34.0-46.0); HGB 8.6 gm/dL (11.4-16.0); Hypochromasia Slight; Lymphocytes # (A) 1.5 k/uL (1.0-4.8); Lymphocytes % (A) 23 %; MCH 29.2 pg (25.0-35.0); MCHC 33.5 g/dL (31.0-37.0); MCV 87.1 fL (80.0-100.0); Mean Platelet Volume 10.7; Monocytes # (A) 0.3 k/uL (0-1.0); Monocytes % (A) 5 %; Neutrophils # (A) 4.5 k/uL (1.3-7.7); Neutrophils % (A) 69 %; Platelet Count 116 k/uL (150-450); RBC 2.96 m/uL (3.80-5.40); RDW 14.3 % (11.5-15.5); WBC 6.5 k/uL (3.8-10.6)
[2022-05-15] MEDS: LABETALOL 200 MG TAB PO SCH (07:49)
[2022-05-15] MEDS: SENNOSIDES-DOCUSATE SODIUM 1 EACH TAB PO SCH (07:49)
--- NOTE | 2022-05-15 08:11 | P.DS ---
Providers Date of admission: 05/14/22 05:43 Expected date of discharge: 05/15/22 Attending physician: Christin Haro Primary care physician: Stated None - Discharge Diagnosis(es) (1) Gestational hypertension Current Visit: Yes Status: Acute (2) 37 weeks gestation of Current Visit: Yes Status: Resolved (3) Status post normal vaginal delivery Current Visit: Yes Status: Acute Hospital Course: Patient presented for induction of labor due to gestational hypertension. She underwent a normal vaginal delivery. her blood pressures did increase to 150s over 90s to 100 100s and I started her on labetalol 200 mg twice a day. She is tolerating this medication very well. She has some chronic degenerative disc disease and back pain which was flared up after her delivery. I did give her some oxycodone to help with this. Advised that she needs to get in with a back doctor or a pain clinic patient states she is looking for a primary care physician. Patient will be discharged home day #1 in stable condition to follow-up with me in one week for blood pressure check. Plan - Discharge Summary New Discharge Prescriptions: New Labetalol [Trandate] 200 mg PO BID #60 tab Ibuprofen [Motrin] 600 mg PO Q6HR PRN #30 tab PRN Reason: Mild Pain Or Fever >= 100.5 oxyCODONE HCL [OxyIR] 5 mg PO Q6HR PRN #10 tab PRN Reason: Pain No Action Vit,Calc78/Iron/Folic [Pretab 29 mg-1 mg Tablet] 1 each PO DAILY 30 Days #30 tablet Acetaminophen Tab [Tylenol Tab] 1,000 mg PO Q6HR Discharge Medication List Vit,Calc78/Iron/Folic [Pretab 29 mg-1 mg Tablet] 1 each PO DAILY 30 Days #30 tablet 01/26/22 [Rx] Acetaminophen Tab [Tylenol Tab] 1,000 mg PO Q6HR 04/23/22 [History] Ibuprofen [Motrin] 600 mg PO Q6HR PRN #30 tab 05/15/22 [Rx] Labetalol [Trandate] 200 mg PO BID #60 tab 05/15/22 [Rx] oxyCODONE HCL [OxyIR] 5 mg PO Q6HR PRN #10 tab 05/15/22 [Rx] Follow up Appointment(s)/Referral(s): Christin Haro DO [Doctor of Osteopathic Medicine] - 06/25/22 3:45 pm Discharge Disposition: HOME SELF-CARE
[2022-05-15 09:11] VITALS: BP 137/82; PULSE 65; RESP 16; TEMP 97.8
== END 2022-05-15 15:55 | disposition home or self-care (01) | DRG 807 ==
LOC: 4FBP 05:43
PROVIDERS: ADMIT Obstetrics & Gynecology; ATTEND Obstetrics & Gynecology
PROC: 10E0XZZ Delivery of Products of Conception, External Approach (ICD-10-PCS; principal; 2022-05-14)
PROC: 00HU33Z Insertion of Infusion Device into Spinal Canal, Percutaneous Approach (ICD-10-PCS; 2022-05-14)
PROC: 3E0R3BZ Introduction of Anesthetic Agent into Spinal Canal, Percutaneous Approach (ICD-10-PCS; 2022-05-14)
PROC: 10907ZC Drainage of Amniotic Fluid, Therapeutic from Products of Conception, Via Natural or Artificial Opening (ICD-10-PCS; 2022-05-14)
PROC: 3E033VJ Introduction of Other Hormone into Peripheral Vein, Percutaneous Approach (ICD-10-PCS; 2022-05-14)
DX: O13.4 Gestational [pregnancy-induced] hypertension without significant proteinuria, complicating childbirth (principal); Z37.0 Single live birth; Z3A.37 37 weeks gestation of pregnancy; O99.334 Smoking (tobacco) complicating childbirth; F17.210 Nicotine dependence, cigarettes, uncomplicated; O99.892 Other specified diseases and conditions complicating childbirth; M47.9 Spondylosis, unspecified; Z88.8 Allergy status to other drugs, medicaments and biological substances; Z88.6 Allergy status to analgesic agent; Z88.1 Allergy status to other antibiotic agents; Z91.013 Allergy to seafood
CPT/HCPCS: 85025; 86850; 86900; 86901; 88307

== ENCOUNTER 2022-07-07 06:10 | Day surgery (SDC) | payer OTHER ==
[~2022-07-07 06:10] MED LIST: Pre Op ABX Message 1 EACH MISC MISCELLANE ONE
[2022-07-07] MEDS ORDERED: DEXAMETHASONE SOD PHOSPHATE 4 MG/ML 1 ML VIAL IV ONE (06:41)
[2022-07-07] MEDS ORDERED: LACTATED RINGERS 1,000 ML IV SCH (06:41)
[2022-07-07] MEDS ORDERED: MIDAZOLAM 2 MG/2 ML VIAL IV PRN (06:41)
[2022-07-07] MEDS ORDERED: ONDANSETRON 4 MG/2 ML VIAL IVP ONE (06:41)
[2022-07-07] MEDS ORDERED: SCOPOLAMINE 1 MG/72 HR PATCH TRANSDERM ONE (06:41)
[2022-07-07] MEDS ORDERED: fentaNYL (PF) 50 MCG/ML 2 ML AMP IV PRN (07:00)
--- NOTE | 2022-07-07 07:00 | P.HPOB ---
History of Present Illness H&P Date: 07/07/22 Chief Complaint: laparoscopic tubal ligation 26-year-old presents for laparoscopic tubal ligation. She understands that this is not a reversible procedure and understands all risks benefits and alternatives. Review of Systems All systems: negative Constitutional: Denies chills, Denies fever Eyes: denies blurred vision, denies pain Ears, nose, mouth and throat: Denies headache, Denies sore throat Cardiovascular: Denies chest pain, Denies shortness of breath Respiratory: Denies cough Gastrointestinal: Denies abdominal pain, Denies diarrhea, Denies nausea, Denies vomiting Genitourinary: Denies dysuria, Denies hematuria Musculoskeletal: Denies myalgias Integumentary: Denies pruritus, Denies rash Neurological: Denies numbness, Denies weakness Psychiatric: Denies anxiety, Denies depression Endocrine: Denies fatigue, Denies weight change Past Medical History Past Medical History: Hypertension Additional Past Medical History / Comment(s): HYPERTENSION DURING AND CONTINUES ( 05/29/22). KIDNEY STONES. BACK PAIN-BULGING DISC History of Any Multi-Drug Resistant Organisms: None Reported Past Surgical History: Adenoidectomy, Ear Surgery, Tonsillectomy Additional Past Surgical History / Comment(s): LEFT EAR SURG. Past Anesthesia/Blood Transfusion Reactions: No Reported Reaction Past Psychological History: Depression Additional Psychological History / Comment(s): MO MEDICATIONS CURRENTLY Smoking Status: Current every day smoker Past Alcohol Use History: None Reported Past Drug Use History: None Reported - Past Family History Father Family Medical History: No Reported History Mother History Unknown: Yes Family Medical History: Hypertension, Seizure Disorder, Thyroid Disorder Additional Family Medical History / Comment(s): Guillian [place] Syndrome Medications and Allergies Home Medications Medication Instructions Recorded Confirmed Type Vit,Calc78/Iron/Folic 1 each PO DAILY 30 Days #30 tablet 01/26/22 07/07/22 Rx [Pretab 29 mg-1 mg Tablet] Acetaminophen Tab [Tylenol Tab] 1,000 mg PO Q6HR 04/23/22 07/07/22 History Ibuprofen [Motrin] 600 mg PO Q6HR PRN #30 tab 05/15/22 07/07/22 Rx Labetalol [Trandate] 200 mg PO BID #60 tab 05/15/22 07/07/22 Rx oxyCODONE HCL [OxyIR] 5 mg PO Q6HR PRN #10 tab 05/15/22 07/07/22 Rx Allergies Allergy/AdvReac Type Severity Reaction Status Date / Time tramadol Allergy Mild Nausea & Verified 07/07/22 06:42 Vomiting amoxicillin Allergy Rash/Hives Verified 07/07/22 06:42 aspirin Allergy Nausea & Verified 07/07/22 06:42 Vomiting iodine Allergy Anaphylaxis Verified 07/07/22 06:42 ketorolac [From Toradol] Allergy Nausea & Verified 07/07/22 06:42 Vomiting shellfish derived [Shellfish] Allergy Anaphylaxis Verified 07/07/22 06:42 Exam Osteopathic Statement: *. No significant issues noted on an osteopathic structural exam other than those noted in the History and Physical/Consult. Intake and Output 07/06/22 07/06/22 07/07/22 14:59 22:59 06:59 Other: Weight 81 kg Heart: Regular rate and rhythm Lungs: Clear to auscultation bilaterally Abdomen: Soft, nontender Extremities: Negative Homans sign Assessment and Plan (1) Family planning Current Visit: No Status: Acute Code(s): Z30.09 - ENCOUNTER FOR OTH GENERAL CNSL AND ADVICE ON CONTRACEPTION SNOMED Code(s): 270880503 Plan: 1. Laparoscopic tubal ligation
[2022-07-07 07:10] VITALS: TEMP 97.8
[2022-07-07] MEDS ORDERED: MIDAZOLAM 2 MG/2 ML VIAL ONE (07:23)
[2022-07-07] MEDS ORDERED: NEOSTIGMINE 1 MG/ML 10 ML VIAL ONE (07:23)
[2022-07-07] MEDS ORDERED: fentaNYL (PF) 50 MCG/ML 2 ML AMP ONE (07:23)
[2022-07-07] MEDS ORDERED: ROCURONIUM 10 MG/ML (5 ML VIAL) IV ONE (07:23)
[2022-07-07] MEDS ORDERED: LIDOCAINE 2% INJ 20 MG/ML (2 ML VIAL) ONE (07:23)
[2022-07-07] MEDS ORDERED: GLYCOPYRROLATE 0.2 MG/ML 2 ML VIAL ONE (07:23)
[2022-07-07] MEDS ORDERED: PROPOFOL 10 MG/ML 20 ML VIAL IV ONE (07:23)
[2022-07-07] MEDS ORDERED: SUCCINYLCHOLINE CHLORIDE 200 MG/10 ML VIAL IV ONE (07:23)
[2022-07-07] MEDS ORDERED: BUPIVACAINE (PF) 0.25% 30 ML VIAL SQ ONE ×2 (07:50→07:57)
--- NOTE | 2022-07-07 08:12 | P.OP ---
Date of Procedure: 07/07/22 Preoperative Diagnosis: 1. Family planning Postoperative Diagnosis: 1. Family planning Procedure(s) Performed: Laparoscopic tubal ligation Anesthesia: PATTI Surgeon: Christin Haro Estimated Blood Loss (ml): 1 IV fluids (ml): 500 Urine output (ml): 15 Pathology: none sent Condition: stable Disposition: PACU Description of Procedure: Patient was taken to the operating room where general anesthesia was obtained without difficulty. She was prepped and draped in normal sterile fashion in the dorsal lithotomy position, legs placed in the John stirrups. Bladder drained of all urine. [place] speculum placed in the vagina and the anterior lip the cervix was grasped with single-tooth tenaculum. The uterus is sounded to 8.5 cm and the kroner manipulator was placed. Attention was then turned to the abdomen and gloves were changed. A 10 mm infraumbilical incision was made the scalpel and 10 mm optical trocar was placed under direct visualization. A 5 mm suprapubic Incision was made and a 5 mm optical trocar was placed under direct visualization. Survey of the pelvis revealed normal uterus tubes and ovaries. The left fallopian tube was grasped with a Kleppinger and fulgurated 2-3 cm on this side in the ampullar portion. The right fallopian tube was grasped with a Kleppinger and fulgurated 2-3 cm in the ampullar portion. All instruments were then removed from the abdomen and vagina. The 10 mm infraumbilical incision was closed with 0 Vicryl and the fascial layer and then 4-0 Vicryl in a subcuticular fashion. The 5 mm incision was closed with 4-0 Vicryl in a subcuticular fashion. Patient tolerated procedure well, sponge and instrument counts correct 2 and she was taken to recovery room in stable condition.
[2022-07-07] MEDS ORDERED: HYDROmorphone 0.5 MG/0.5 ML SYRINGE IVP ONE ×2 (08:32→09:04)
[2022-07-07] MEDS ORDERED: IV FLUID CONTINUATION 1,000 ML IV ONE (09:06)
[2022-07-07] MEDS ORDERED: LABETALOL SYRINGE 5 MG/ML IVP ONE (09:18)
[2022-07-07 09:53] VITALS: RESP 18
[2022-07-07] MEDS ORDERED: HYDROcodone/APAP 7.5-325MG 1 EACH TAB ONE (09:56)
[2022-07-07] MEDS ORDERED: HYDROcodone/APAP 7.5-325MG 1 EACH TAB PO ONE (09:57)
[2022-07-07 10:27] VITALS: BP 138/88; PULSE 68
== END 2022-07-07 10:42 | disposition home or self-care (01) ==
LOC: OR 06:10
PROVIDERS: ATTEND Obstetrics & Gynecology
DX: Z30.2 Encounter for sterilization (principal); I10 Essential (primary) hypertension; N20.0 Calculus of kidney; F32.A Depression, unspecified; F17.210 Nicotine dependence, cigarettes, uncomplicated; M51.26 Other intervertebral disc displacement, lumbar region; Z86.69 Personal history of other diseases of the nervous system and sense organs; Z90.89 Acquired absence of other organs; Z82.49 Family history of ischemic heart disease and other diseases of the circulatory system; Z82.0 Family history of epilepsy and other diseases of the nervous system; Z84.89 Family history of other specified conditions; Z83.49 Family history of other endocrine, nutritional and metabolic diseases; Z79.899 Other long term (current) drug therapy; Z88.6 Allergy status to analgesic agent; Z88.1 Allergy status to other antibiotic agents
CPT/HCPCS: 81025; 58670; J2250; J0330; J1100; J2710; J2405; J3010; J2704; J1170; J2001